=== PATIENT | female | born 1945 | race Caucasian/White ===

== ENCOUNTER 2019-11-21 09:24 | Outpatient (CLI) | payer MEDICARE, OTHER, SELFPAY ==
--- NOTE | 2019-11-21 09:33 | MM_ITS ---
WS: [id number] BILATERAL DIGITAL SCREENING MAMMOGRAPHY WITH CAD CLINICAL INFORMATION: SCREENING HISTORY: Screening mammogram. No current complaints. COMPARISON: TECHNIQUE: Bilateral CC and MLO views. FINDINGS: Scattered fibroglandular densities bilaterally. A few lucent centered calcifications. No suspicious f ocal mass, asymmetry, calcifications, or architectural distortion. No evidence of malignancy. MM/[place] [id number] IMPRESSION: BI-RADS: 2-Benign FOLLOW UP: 1 Year Follow-up Recommend return to annual screening mammography.
== END 2019-11-21 09:25 | disposition home or self-care (01) ==
LOC: RADSHAW 09:31
PROVIDERS: Family Provider Internal Medicine; PCP Internal Medicine; Visit Provider Internal Medicine
DX: Z12.31 Encounter for screening mammogram for malignant neoplasm of breast (principal)
CPT/HCPCS: 77067

== ENCOUNTER 2020-09-07 06:57 | Outpatient (CLI) | payer MEDICARE, OTHER, SELFPAY ==
--- NOTE | 2020-09-07 07:02 | USCV_ITS ---
Sherrell Bruner Age: 74 Gender: F : 1945 Exam Date: 09/07/2020 07:23 Ordering Phys: Janak Johnson DO Technologist: Kimberlee Bell Exam Location: [facility] [place] Indication: Syncope, collapse BP: 156 / 81 HR: 80 Rhythm: Sinus Technical Quality: Adequate MEASUREMENTS (Male / Female) Normal Values 2D ECHO LV Diastolic Diameter PLAX 3.4 cm 4.2 - 5.9 / 3.9 - 5.3 cm LV Systolic Diameter PLAX 2.3 cm LV Chamber Size 3.7 cm IVS Diastolic Thickness 1.1 cm 0.6 - 1.0 / 0.6 - 0.9 cm IVS Systolic Thickness 1.4 cm LVPW Diastolic Thickness 1.0 cm 0.6 - 1.0 / 0.6 - 0.9 cm LVPW Systolic Thickness 1.7 cm RV Chamber Size 4.0 cm LVOT Diameter 2.2 cm LV Ejection Fraction 2D Teich 63.7 % LV Ejection Fraction MOD 2C 75.4 % LV Ejection Fraction 2C AL 77.1 % LA Diameter 2.5 cm LA Width 2.6 cm LA Height 5.2 cm RA Width 2.9 cm RA Height 4.1 cm Aorta at Sinotubular Diameter 3.0 cm M-MODE LV Diastolic Diameter MM 4.6 cm 4.2 - 5.9 / 3.9 - 5.3 cm LV Systolic Diameter MM 3.0 cm LV Ejection Fraction MM Teich 64.7 % IVS Diastolic Thickness MM 1.0 cm 0.6 - 1.0 / 0.6 - 0.9 cm IVS Systolic Thickness MM 1.2 cm LVPW Diastolic Thickness MM 1.0 cm 0.6 - 1.0 / 0.6 - 0.9 cm LVPW Systolic Thickness MM 1.4 cm RV Diastolic Diameter MM 1.2 cm Aortic Annulus Diameter 3.7 cm LA Ao Ratio MM 0.7 MV E Point Septal Separation 0.5 cm DOPPLER AV Peak Velocity 125.0 cm/s LVOT Peak Velocity 94.0 cm/s AV Area Cont Eq vti 3.0 cm squared AV Area Cont Eq pk 2.8 cm squared MV Area PHT 4.3 cm squared Mitral E to A Ratio 0.8 MV E' Velocity 50.0 cm/s Mitral E to MV E' Ratio 9.3 Mitral E to LV E' Lateral Ratio 9.3 Mitral E to LV E' Septal Ratio 9.4 TR Peak Velocity 232.2 cm/s TR Peak Gradient 21.6 mmHg TR Mean Velocity 196.6 cm/s TR Mean Gradient 16.0 mmHg TR Velocity Time Integral 77.0 cm TV Peak E Velocity 45.0 cm/s Right Atrial Pressure 3.0 mmHg Pulmonary Artery Systolic Pressu 24.6 mmHg PV Peak Velocity 76.0 cm/s RV Acceleration Time 0.1 s RV Ejection Time 0.3 s RV AcT/ET 0.2 FINDINGS Left Ventricle Normal left ventricular size, systolic function and wall thickness, with no regional wall motion abnormalities. Left ventricular ejection fraction is estimated at 65 %. Normal diastolic function. Right Ventricle Normal right ventricular size and systolic function, RVSP 24.6 mmHg. Right Atrium Normal right atrial size. Right atrial size estimated at 3 mmHg. Left Atrium Normal left atrial size. Mitral Valve Structurally normal mitral valve. No mitral valve stenosis. Trace mitral valve regurgitation. Aortic Valve Mildly thickened trileaflet aortic valve. No aortic valve stenosis. No aortic valve regurgitation. Tricuspid Valve Structurally normal tricuspid valve. No tricuspid valve stenosis. Mild tricuspid valve regurgitation. Pulmonic Valve Pulmonic valve not well visualized. No pulmonary valve stenosis. Trace pulmonary valve regurgitation. Pericardium No pericardial effusion. Aorta Normal-sized aortic root. Normal-sized inferior vena cava. CONCLUSIONS 1. Normal left ventricular size, systolic function and wall thickness, with no regional wall motion abnormalities. Left ventricular ejection fraction is estimated at 65 %. Normal diastolic function. 2. Normal right ventricular size and systolic function. 3. Normal pulmonary artery pressure. 4. No prior similar studies to compare. Cira Hargrove MD (Electronically Signed) Final Date: 08 September 2020 13:08 S
== END 2020-09-07 06:58 | disposition home or self-care (01) ==
LOC: US 06:57
PROVIDERS: PCP Internal Medicine; Visit Provider Internal Medicine
DX: R55 Syncope and collapse (principal)
CPT/HCPCS: 93306

== ENCOUNTER 2021-03-09 07:01 | Outpatient (CLI) | payer MEDICARE, SELFPAY ==
[2021-03-09 07:09] VITALS: BMI 27.4
--- NOTE | 2021-03-09 07:10 | ECG_ITS ---
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 Interpretive Statements NAME OF STUDY: LEXISCAN SESTAMIBI STRESS TEST INDICATION: Dyspnea on Exertion; Chest Pain PROCEDURE: At the baseline, the blood pressure was 117/66 mmHg, oxygen saturation 97% with a heart rate of 74 bpm. The electrocardiogram showed normal sinus rhythm, normal axis with poor anterior R wave progression. The Lexiscan was infused over a period of 20 seconds. A total of 0.4 milligrams of Lexiscan was infused. The stress phase was continued for a total of 5 minutes. Heart rate at the end of the stress phase was 86 bpm, oxygen saturation 97% with a blood pressure of 118/61 mmHg. The EKG at the peak infusion revealed sinus rhythm with no significant ST-T wave changes. Sestamibi was injected 20 seconds after the Lexiscan infusion. Blood pressure at the end of the recovery phase was 120/62 mmHg, oxygen saturation 95% with a heart rate of 86 beats per minute. CONCLUSION: 1. No significant EKG changes with the LexiScan infusion. 2. No LexiScan induced chest pain or cardiac arrhythmia. 3. Normal blood pressure and heart rate response. 4. Sestamibi/sestamibi perfusion scan pending; see separate report. Electronically Signed On 03-14-2021 16:49:23 CDT by Cira Hargrove M.D. [id number]
--- NOTE | 2021-03-09 07:10 | NMCV_ITS ---
NM marc perf SPECT r/s* [id number] Sherrell Bruner Age: 75 Gender: F : 1945 Exam Date: 03/09/2021 08:11 Ordering Phys: Cira Hargrove MD ([email or web address]) Technologist: NICKOLAS Bean Exam Location: [facility] Indications: DYSPNEA STRESS TEST Please see separate stress test report in [facility] for full findings IMAGE PROTOCOL Rest/Stress 1 Lexiscan Day Radiopharmaceutical Dose (mCi) Administration Site Administered by Rest: Tc-99m 10.6 IV NICKOLAS Thomas Sestamibi Stress:Tc-99m 32.5 IV NICKOLAS Thomas Sestamibi Rest: 09-Mar-2021 60 Discovery 630 Stress: 09-Mar-2021 30 Discovery 630 0.4mg Lexiscan. Images obtained in supine and prone position. SPECT RESULTS Technical Quality: Excellent Raw Data Analysis: Normal Image Corrections: No attenuation or motion correction applied Summed Stress Score: 0 Summed Rest Score: 2 Summed Difference Score: 0 PERFUSION FINDINGS Small size perfusion abnormality of mild severity of basal inferoseptal and apical septal verdugo on rest images with improved tracer uptake on stress images. This is likely suggestive of attenuation artifact. FUNCTIONAL RESULTS (calculated via Gated SPECT) Stress Image LV EF (%): 72 Stress EDV (mL):53 TID: 0.81 Stress ESV (mL):15 FUNCTIONAL FINDINGS: The left ventricle is normal in size. Transient Ischemia Dilatation of 0.81. There is normal left ventricular systolic function. The left ventricular ejection fraction is normal with a value of 72%. There is normal left ventricular wall thickening with no regional wall motion abnormality. Normal end-diastolic end-systolic volumes. IMPRESSIONS 1. Myocardial perfusion imaging is normal. Subdiaphragmatic attenuation artifact noted in mid inferoseptal and apical septal verdugo. 2. Overall left ventricular systolic function is normal without regional wall motion abnormalities. 3. The left ventricular ejection fraction is normal with a value of 72%. 4. No significant EKG changes with Lexiscan infusion. Please see separate report for details. Cira Hargrove MD (Electronically Signed) Final Date: 14 March 2021 16:55 S
--- NOTE | 2021-03-09 09:16 | SUR.PREOP ---
Patient reports no pain or discomfort prior to the start of the procedure.
[2021-03-09] MEDS: regadenoson 0.4 Mg/5 ml Syringe IVP (09:19)
[2021-03-09 09:23] VITALS: BP 119/69; PULSE 89
== END 2021-03-09 07:02 | disposition home or self-care (01) ==
PROVIDERS: PCP Internal Medicine; Visit Provider Internal Medicine Cardiovascular Disease
DX: R06.09 Other forms of dyspnea (principal); I48.91 Unspecified atrial fibrillation; R07.9 Chest pain, unspecified
CPT/HCPCS: 78452; 93017; A9500; J2785

== ENCOUNTER → 2021-06-16 10:59 | Outpatient (BNVA) | payer MEDICARE, SELFPAY | PROVIDERS: PCP Internal Medicine; Visit Provider Internal Medicine | DX: Z01.812 Encounter for preprocedural laboratory examination (principal); Z20.822 Contact with and (suspected) exposure to COVID-19; K92.1 Melena | CPT/HCPCS: 87635 ==

== ENCOUNTER 2021-06-20 07:47 | Day surgery (SDC) | payer MEDICARE, SELFPAY ==
[2021-06-16 14:38] VITALS: BMI 26.6
[2021-06-20 08:19] VITALS: BP 133/79; PULSE 107; RESP 18; TEMP 36.6; O2SAT 95
--- NOTE | 2021-06-20 08:21 | ANES.PREANE2 ---
Pre-Anesthetic Assessment Pre-Anesthetic Assessment: Height/Weight: Height 1.63 m Weight 70.307 kg Preop Diagnosis: hematochezia Proposed Procedure: Operation Date: 06/20/21 09:15 Proposed Procedures p Colonoscopy 63582 K92.1(Not Applicable) - Felix Solis MD Was Beta Kutr taken within 24 hours: Yes Was Clonidine taken within 24 hours: N/A Social: Social History: No alcohol and No tobacco Airway: Submandibular: WNL Cervical ROM: WNL MP: 2 Dentition: Full CV/HEM: CV/HEM: HTN GI: GI: GERD Metabolic: Metabolic: DM and Hyperlipidemia Anesthetic Plan: ASA status: 3 Anesthesia: MAC Risk of > 500 ml blood loss (7ml/kg in children): No PFSH Anesthesia PFSH: Medical History Atrial fibrillation Diabetes Dizziness GERD (gastroesophageal reflux disease) HTN (hypertension) Hyperlipidemia Surgical History Hx of hysterectomy Family History Mother Hypertension Diabetes Father CAD (coronary artery disease) Brother CAD (coronary artery disease) Grandmother Stroke Denies family history of Bleeding disorder Social History Smoking and tobacco status: never smoked Alcohol intake: never Data Anesthesia Cardiac Studies: Cardiac Event Monitor 09/03/20 Holter Monitor 02/07/21
[2021-06-20] MEDS: sodium chloride 0.9% 1,000 ML 30 ML IV (08:35)
[2021-06-20 08:38] LABS: Glucose Point of Care 193 mg/dL (70-110)
--- NOTE | 2021-06-20 09:09 | P.HP_ITS ---
Same Day Surgery H&P Indication for Procedure/HPI DATE OF PROCEDURE: June 20, 2021 CHIEF COMPLAINT/INDICATIONFOR SURGICAL PROCEDURE: Hematochezia PREOP DIAGNOSIS: hematochezia PLANNED PROCEDRUE: Operation Date: 06/20/21 09:15 Proposed Procedures p Colonoscopy 34797 K92.1(Not Applicable) - Felix Solis MD Medications/Allergies* Home Medications Medication Instructions Recorded Confirmed Type allopurinol 300 mg tablet 300 mg PO DAILY 02/02/21 06/20/21 History aspirin 325 mg tablet 325 mg PO DAILY 02/02/21 06/20/21 History glipizide 5 mg tablet 5 mg PO DAILY 02/02/21 06/20/21 History lancets 33 gauge 02/02/21 06/20/21 History lysine 1,000 mg tablet 1,000 mg PO DAILY 02/02/21 06/20/21 History montelukast 10 mg tablet 10 mg PO DAILY 02/02/21 06/20/21 History multivitamin 1 tab PO DAILY 02/02/21 06/20/21 History simvastatin 80 mg tablet 40 mg PO DAILY tab 02/02/21 06/20/21 History amlodipine 10 mg tablet 5 mg PO DAILY tab 03/14/21 06/20/21 History omeprazole 40 mg capsule,delayed 40 mg PO DAILY 05/16/21 06/20/21 History release Allergies/Adverse Reactions Allergy/AdvReac Type Severity Reaction Status Date / Time No Known Allergies Allergy Verified 06/20/21 08:18 Current Medications: Generic Name Dose Route Start Last Admin Trade Name Freq PRN Reason Stop Dose Admin Sodium Chloride 1,000 mls @ 30 mls/hr 06/20/21 08:15 06/20/21 08:35 Sodium Chloride 0.9% IV 06/21/21 08:14 30 mls/hr .Q24H EDUAR Administration Pertinent History/Comorbid Conditions* Medical History (Updated 06/16/21 @ 09:42 by Felix Solis MD) Atrial fibrillation Diabetes Dizziness GERD (gastroesophageal reflux disease) HTN (hypertension) Hyperlipidemia Surgical History (Updated 02/02/21 @ 10:00 by Cira Hargrove MD) Hx of hysterectomy Family History (Updated 02/02/21 @ 09:36 by Marielena Gaspar RN) Diabetes Mother CAD (coronary artery disease) Father Brother Hypertension Mother Stroke Grandmother Denies family history of Bleeding disorder Social History Smoking and tobacco status: never smoked Alcohol intake: never Pertinent Exam Findings alert, oriented x 3, clear to auscultation bilaterally, regular rate & rhythm, operative site marked and procedure specific exam findings Recommendations Surgery/Procedure today Coding Level of Care Code Acute Electronic Security Specialist for Peewee Whitfield
[2021-06-20 10:15] VITALS: BP 88/41; PULSE 90; RESP 16; TEMP 36.6; O2SAT 95
--- NOTE | 2021-06-20 10:19 | ANE.PACU2 ---
Inpatient post-anesthesia follow up: Airway intact: Yes Vital signs: Temperature 97.8 F Pulse Rate 107 Respiratory Rate 18 Blood Pressure 133/79 Pulse Oximetry 95 Oxygen Delivery Me thod Room Air Oxygen Flow Rate Fraction of Inspir ed Oxygen Hydration adequate: Yes Nausea and vomiting: No Pain level: 1 Mental status: Baseline
[2021-06-20 10:29] VITALS: BP 97/63; PULSE 86; RESP 16; O2SAT 98
== END 2021-06-20 10:45 | disposition home or self-care (01) ==
PROVIDERS: PCP Internal Medicine; Visit Provider Internal Medicine
PROC: 0DJD8ZZ Inspection of Lower Intestinal Tract, Via Natural or Artificial Opening Endoscopic (ICD-10-PCS; CPT 45378; principal; 2021-06-20 09:15)
DX: K92.1 Melena (principal); I48.91 Unspecified atrial fibrillation; E11.9 Type 2 diabetes mellitus without complications; K21.9 Gastro-esophageal reflux disease without esophagitis; I10 Essential (primary) hypertension; E78.5 Hyperlipidemia, unspecified; Z82.49 Family history of ischemic heart disease and other diseases of the circulatory system; Z83.3 Family history of diabetes mellitus
CPT/HCPCS: 36416; 45385; 82962; 96360; J2704; J7030

== ENCOUNTER 2021-11-22 08:32 | Outpatient (CLI) | payer MEDICARE, SELFPAY ==
--- NOTE | 2021-11-22 08:37 | MM_ITS ---
WS: [id number] BILATERAL DIGITAL SCREENING MAMMOGRAPHY WITH CAD CLINICAL INFORMATION: SCREENING HISTORY: Screening mammogram. No current complaints. COMPARISON: November 21, 2019 TECHNIQUE: Bilateral CC and MLO views. FINDINGS: Scattered fibroglandular densities bilaterally. Punctate and lucent centered calcifications RIGHT donny ast. No suspicious focal mass, asymmetry, calcifications, or architectural distortion. No evidence of malignancy. MM/[id number] IMPRESSION: BI-RADS: 2-Benign FOLLOW UP: 1 Year Follow-up Recommend return to annual screening mammography.
== END 2021-11-22 08:33 | disposition home or self-care (01) ==
PROVIDERS: PCP Internal Medicine; Visit Provider Internal Medicine
DX: Z12.31 Encounter for screening mammogram for malignant neoplasm of breast (principal)
CPT/HCPCS: 77067

== ENCOUNTER → 2022-02-15 11:00 | Outpatient (BNVA) | payer MEDICARE, SELFPAY | PROVIDERS: PCP Internal Medicine; Visit Provider Internal Medicine Cardiovascular Disease | DX: I48.0 Paroxysmal atrial fibrillation (principal); R42 Dizziness and giddiness; I10 Essential (primary) hypertension; E78.5 Hyperlipidemia, unspecified; E11.9 Type 2 diabetes mellitus without complications; K21.9 Gastro-esophageal reflux disease without esophagitis; R00.2 Palpitations | CPT/HCPCS: 93270; 99214 ==

== ENCOUNTER 2022-02-20 13:15 | Outpatient (CLI) | payer MEDICARE, SELFPAY ==
--- NOTE | 2022-02-20 13:27 | XR_ITS ---
WS: [id number] SCREENING DEXA SCAN [employer] CLINICAL INFORMATION: POSTMENOPAUSAL COMPARISON: None. FINDINGS: The L1-L4 bone mineral density measures 0.969 g/cm2. This corresponds to a T score score of -1.8 and Z score of -0.3. Left femoral neck bone mineral density measures 0.646 g/cm2. This corresponds to a T score of -2.9 an d Z score of -1.3. Right femoral neck bone mineral density measures 0.676 g/cm2. This corresponds to a T score -2.6of an d Z score of -1.1. Mean femoral neck bone mineral density measures 0.661 g/cm2. This corresponds to a T score of -2.8 an d Z score of -1.2. XR/XR DEXA axial skeleton* [id number] IMPRESSION: Osteopenia lumbar spine. Osteoporosis in the femoral necks. Patient's FRAX calculated 10 year probability for major osteoporotic fracture i s 23.4 % and osteoporotic hip fracture is 9.8%.
== END 2022-02-20 13:16 | disposition home or self-care (01) ==
LOC: RAD 13:19
PROVIDERS: PCP Internal Medicine; Visit Provider Nurse Practitioner Family
DX: Z78.0 Asymptomatic menopausal state (principal); M85.88 Other specified disorders of bone density and structure, other site; M81.0 Age-related osteoporosis without current pathological fracture
CPT/HCPCS: 77080

== ENCOUNTER 2022-04-26 11:15 | Inpatient (IN) | payer MEDICARE, SELFPAY ==
[2022-04-26] VITALS (17 sets, daily range): BP systolic 107–135; BP diastolic 62–77; PULSE 70–109; RESP 16–46; TEMP 37.1; O2SAT 80–100; BMI 27.4; BMI 27.8
--- NOTE | 2022-04-26 13:20 | XRR_ITS ---
XR/XR chest 1V portable [id number] PROCEDURE INFORMATION: Exam: XR Chest Exam date and time: 04/26/2022 1:25 PM Age: 76 years old Clinical indication: Other: Light-headendess; Additional info: Ligth-headendess TECHNIQUE: Imaging protocol: Radiologic exam of the chest. Views: 1 view. COMPARISON: [facility] Chest 2 views 09/08/2015 10:00 AM FINDINGS: Lungs: Unremarkable. No consolidation. Pleural spaces: Unremarkable. No pleural effusion. No pneumothorax. Heart/Mediastinum: Unremarkable. No cardiomegaly. Bones/joints: Unremarkable. Comparison to prior examination similar findings are seen. MPRESSION: No acute findings.
--- NOTE | 2022-04-26 13:21 | ECG_ITS ---
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 Measurements Intervals [place] Rate: 104 P: 35 AL: 182 QRS: -15 QRSD: 92 T: 92 QT: 319 QTc: 420 Interpretive Statements SINUS TACHYCARDIA ST DEVIATION AND MODERATE T-WAVE ABNORMALITY, CONSIDER LATERAL ISCHEMIA [-0.1+ mV T-WAVE IN I/aVL/V5/V6] No previous ECG available for comparison Electronically Signed On 04-26-2022 16:28:15 CDT by Ed Weldon M.D. [id number]
--- NOTE | 2022-04-26 13:38 | ED_ITS ---
HPI - Dizziness General: Chief Complaint: Dizziness Stated Complaint: Weakness and Dizziness Time Seen by Provider: 04/26/22 12:55 PFSH ED PFSH: Medical History Atrial fibrillation Diabetes Dizziness GERD (gastroesophageal reflux disease) HTN (hypertension) Hyperlipidemia Surgical History Hx of hysterectomy Family History Mother Hypertension Diabetes Father CAD (coronary artery disease) Brother CAD (coronary artery disease) Grandmother Stroke Denies family history of Bleeding disorder Social History Smoking and tobacco status: never smoked Alcohol intake: never Course Vital Signs: Vital signs: Vital Signs Temperature 98.8 F 04/26/22 11:33 Pulse Rate 100 04/26/22 11:33 Respiratory Rate 16 04/26/22 11:33 Blood Pressure 124/77 04/26/22 11:33 Pulse Oximetry 95 04/26/22 11:33 Discharge Plan Discharge Condition: Stable Prescriptions: No Action lysine 1,000 mg tablet 1,000 mg PO DAILY 0RF (DME) lancets [OneTouch Delica Lancets] 33 gauge misc See Rx Instructions .Route 0RF Rx Instructions: As directed allopurinol 300 mg tablet 300 mg PO DAILY 0RF glipizide 5 mg tablet 5 mg PO DAILY 0RF simvastatin 80 mg tablet 40 mg PO DAILY 0RF montelukast [Singulair] 10 mg tablet 10 mg PO DAILY 0RF multivitamin Tablet 1 tab PO DAILY 0RF aspirin 325 mg tablet 325 mg PO BID 0RF metoprolol succinate 100 mg tablet extended release 24 hr 100 mg PO DAILY Qty: 90 5RF lisinopril-hydrochlorothiazide 20-25 mg tablet 1 tab PO DAILY Qty: 90 3RF omeprazole 40 mg capsule,delayed release(DR/EC) 40 mg PO DAILY 0RF cholecalciferol (vitamin D3) 50 mcg (2,000 unit) capsule 50 mcg PO DAILY 0RF amlodipine 5 mg tablet 5 mg PO DAILY 0RF Farxiga 5 mg tablet 5 mg PO DAILY Qty: 90 3RF azelastine 137 mcg (0.1 %) aerosol,spray 2 spray intranasal BID PRN0RF Rx Instructions: administer into each nostril furosemide 20 mg tablet 20 mg PO DAILY PRN (Reason: edema) Qty: 30 6RF Referrals: Janak Johnson DO [Primary Care Provider] - Coding Level of Care Code ED Office Machine Service Supervisor for Peewee Whitfield
--- NOTE | 2022-04-26 13:39 | W.ED.GENADLT ---
HPI - General Adult General: Chief complaint: Dizziness Stated complaint: Weakness and Dizziness Time Seen by Provider: 04/26/22 12:55 History of Present Illness: Patient is a 76-year-old female with a history of CHF, hypertension, atrial fibrillation presenting to the emergency room with concerns of generalized weakness, fatigue and multiple episodes of emesis since yesterday night. Per patient's son, the last 2 weeks, patient has been dealing with a sinus infection for which she completed a course of outpatient antibiotics on Sunday. Since then, patient reports provement in cough. However since yesterday, patient felt fatigue and has had multiple episodes of emesis. Patient denies any chest pain, shortness of breath, chest pressure, diarrhea, melena hematochezia complaints or abdominal pain. Patient also denies any fever/chills, runny nose sore throat. Onset: yesterday night Duration:ongoing Location:home Severity:moderate Associated symptoms: Reports malaise; Deny chest pain, dyspnea, nausea, rash, palpitations or vomiting Review of Systems Const: Reports: malaise and other (+generalized weakness); Denies: fever(s) or chills Eyes: Denies: change in vision ENMT: Denies: mouth pain Card: Denies: chest pain or palpitations Resp: Denies: dyspnea or non-productive cough GI: Denies: abdominal pain, nausea, vomiting or diarrhea : Denies: dysuria Musc: Denies: extremity pain Skin/Breast: Denies: rash or new lesions Neuro: Denies: weakness in extremities Psych: Reports: other (Normal mood) Lopez/Lymph: Denies: easy bruising PFSH ED PFSH: Medical History Atrial fibrillation Diabetes Dizziness GERD (gastroesophageal reflux disease) HTN (hypertension) Hyperlipidemia Surgical History Hx of hysterectomy Family History Mother Hypertension Diabetes Father CAD (coronary artery disease) Brother CAD (coronary artery disease) Grandmother Stroke Denies family history of Bleeding disorder Social History Smoking and tobacco status: never smoked Alcohol intake: never Physical Exam Const: COMMON NORMALS: alert HENMT: COMMON NORMALS: atraumatic HEAD & SCALP: atraumatic MOUTH: moist mucous membranes abnormal Eye: COMMON NORMALS: EOMs intact bilaterally and conjunctivae normal CONJUNCTIVA: Yes conjunctivae normal Neck/C-Spine: COMMON NORMALS: full ROM and supple Resp: COMMON NORMALS: normal respiratory effort and clear to auscultation bilaterally AUSCULTATION: clear to auscultation bilaterally Cardio: COMMON NORMALS: regular rate RATE: regular rate GI: COMMON NORMALS: Soft to palpation and non-tender PALPATION: Yes Soft to palpation OTHER: No focal TTP. NO guarding rebound, guarding, rigidity. No CVA tenderness to percussion. Neg Patel/Neg McBurney's point tenderness, no suprabupic tenderness to palpation. Extremity: COMMON NORMALS: full ROM Neuro: SENSORIUM/ORIENTATION: Yes alert MOTOR EXAM: No Abnormal motor strength present and Other motor observations present (no focal motor deficits) Psych: COMMON NORMALS: speech normal SPEECH: Yes normal speech MOOD & AFFECT: Yes euthymic mood Course Vital Signs: Vital signs: Vital Signs Temperature 98.8 F 04/26/22 11:33 Pulse Rate 103 H 04/26/22 13:40 Respiratory Rate 16 04/26/22 11:33 Blood Pressure 120/65 04/26/22 13:40 Pulse Oximetry 90 04/26/22 13:40 [facility] - General Adult Medical Decision Making Patient is a 76-year-old female with history of atrial fibrillation, hypertension, CHF who presents emergency room with chief complaint generalized weakness, lightheadedness and multiple episodes of emesis since yesterday night. On physical exam, patient appears to be dry. Hemodynamically stable with no focal findings on physical exam. EKG is nonischemic. Initial troponin of 597. Patient received aspirin Lovenox. Patient is no complaints of chest pain the emergency room. K of 2.9, will repeat today. Disposition: admisison Lab Data : 04/26/22 13:40 04/26/22 13:40 Radiology Impressions Chest X-Ray 04/26/22 13:20 PROCEDURE INFORMATION: Exam: XR Chest Exam date and time: 04/26/2022 1:25 PM Age: 76 years old Clinical indication: Other: Light-headendess; Additional info: Ligth-headendess TECHNIQUE: Imaging protocol: Radiologic exam of the chest. Views: 1 view. COMPARISON: [facility] Chest 2 views 09/08/2015 10:00 AM FINDINGS: Lungs: Unremarkable. No consolidation. Pleural spaces: Unremarkable. No pleural effusion. No pneumothorax. Heart/Mediastinum: Unremarkable. No cardiomegaly. Bones/joints: Unremarkable. Comparison to prior examination similar findings are seen. MPRESSION: No acute findings. Laboratory Results WBC 13.9 10^3/uL (4.0-10.0) H 04/26/22 13:40 RBC 5.01 10^6/uL (4.1-5.3) 04/26/22 13:40 Hgb 13.4 g/dL (11.5-15.3) 04/26/22 13:40 Hct 40.7 % (37.0-47.0) 04/26/22 13:40 MCV 81.2 fl (81-99) 04/26/22 13:40 MCH 26.7 pg (28.0-34.0) L 04/26/22 13:40 MCHC 32.9 g/dL (30.0-36.0) 04/26/22 13:40 RDW 15.1 % (12.1-15.1) 04/26/22 13:40 Plt Count 227 10^3/cmm (130-400) 04/26/22 13:40 MPV 11.3 fL (7.4-10.4) H 04/26/22 13:40 Neut % (Auto) 85.3 % 04/26/22 13:40 Lymph % (Auto) 7.9 % 04/26/22 13:40 Barber % (Auto) 5.5 % 04/26/22 13:40 Eos % (Auto) 0.1 % 04/26/22 13:40 Baso % (Auto) 0.6 % 04/26/22 13:40 Neut # (Auto) 11.87 10^3/uL (1.8-7.7) H 04/26/22 13:40 Lymph # (Auto) 1.1 10^3/uL (0.8-4.8) 04/26/22 13:40 Barber # (Auto) 0.8 10^3/uL (0.2-0.9) 04/26/22 13:40 Eos # (Auto) 0.0 10^3/uL (0.0-0.8) 04/26/22 13:40 Baso # (Auto) 0.1 10^3/uL (0.0-0.1) 04/26/22 13:40 Nucleated RBC % (auto) 0 % 04/26/22 13:40 Nucleated RBCs # 0.0 /100WBC 04/26/22 13:40 Sodium 137 mmol/L (136-145) 04/26/22 13:40 Potassium 2.9 mmol/L (3.5-5.1) L 04/26/22 13:40 Chloride 94 mmol/L (98-107) L 04/26/22 13:40 Carbon Dioxide 27 mmol/L (22-29) 04/26/22 13:40 Anion Gap 18.9 (5-19) 04/26/22 13:40 BUN 12 mg/dL (8-23) 04/26/22 13:40 Creatinine 0.7 mg/dL (0.5-0.9) 04/26/22 13:40 GFR Calculation Not Reportable 04/26/22 13:40 Glucose 212 mg/dL (65-115) H 04/26/22 13:40 Calculated Osmolality 290 mOsm/kg (285-295) 04/26/22 13:40 Calcium 9.5 mg/dL (8.5-10.5) 04/26/22 13:40 Total Bilirubin 0.3 mg/dL (0.15-1.2) 04/26/22 13:40 AST 27 U/L (0-32) 04/26/22 13:40 ALT 14 U/L (0-33) 04/26/22 13:40 Alkaline Phosphatase 78 IU/L (35-105) 04/26/22 13:40 Troponin T Baseline 597 ng/L (0-10) H* 04/26/22 13:40 Total Protein 7.0 g/dL (6.6-8.7) 04/26/22 13:40 Albumin 4.2 g/dL (3.5-5.2) 04/26/22 13:40 Globulin 2.8 g/dL (1.3-4.6) 04/26/22 13:40 Lipase 22 U/L (13-60) 04/26/22 13:40 TSH 0.48 uIU/mL (0.27-4.20) 04/26/22 13:40 Free T4 1.10 ng/dL (0.82-1.77) 04/26/22 13:40 Imaging Data Other Imaging: [facility]'s impression: [facility] [address] [place] [address] XRay Report Signed Patient: Sherrell Bruner Unit #: [id number] : 1945 Age/Sex: 76 / F ADM Date: 04/26/22 Loc: ER Room/Bed: Attending Dr: Ordering Provider/Ordering MD: Denisha Patel MD Date of Service: 04/26/22 Procedure(s): XR chest 1V portable [id number] Accession Number(s): [id number] Report Number: [id number] XR/XR chest 1V portable [id number] PROCEDURE INFORMATION: Exam: XR Chest Exam date and time: 04/26/2022 1:25 PM Age: 76 years old Clinical indication: Other: Light-headendess; Additional info: Ligth-headendess ? TECHNIQUE: Imaging protocol: Radiologic exam of the chest. Views: 1 view. ? COMPARISON: ? [facility] Chest 2 views 09/08/2015 10:00 AM ? FINDINGS: Lungs: Unremarkable. No consolidation. Pleural spaces: Unremarkable. No pleural effusion. No pneumothorax. Heart/Mediastinum: Unremarkable. No cardiomegaly. Bones/joints: Unremarkable. Comparison to prior examination similar findings are seen.? ? MPRESSION: No acute findings. ? ? 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
[2022-04-26 14:01] LABS: Basophils # 0.1 10^3/uL (0.0-0.1); Basophils % 0.6 %; Eosinophils % 0.1 %; Hematocrit 40.7 % (37.0-47.0); Hemoglobin 13.4 g/dL (11.5-15.3); Lymphocytes # 1.1 10^3/uL (0.8-4.8); Lymphocytes % 7.9 %; Mean Corpuscular HGB Conc 32.9 g/dL (30.0-36.0); Mean Corpuscular Hemoglobin 26.7 pg (28.0-34.0); Mean Corpuscular Volume 81.2 fl (81-99); Mean Platelet Volume 11.3 fL (7.4-10.4); Monocytes # 0.8 10^3/uL (0.2-0.9); Monocytes % 5.5 %; Neutrophils # 11.87 10^3/uL (1.8-7.7); Neutrophils % 85.3 %; Nucleated Red Blood Cells % 0 %; Platelet Count 227 10^3/cmm (130-400); Red Blood Count 5.01 10^6/uL (4.1-5.3); Red Cell Distribution Width 15.1 % (12.1-15.1); White Blood Count 13.9 10^3/uL (4.0-10.0)
[2022-04-26 14:42] LABS: Troponin(5th) Baseline 597 ng/L (0-10)
[2022-04-26 14:45] LABS: Alanine Aminotransferase 14 U/L (0-33); Albumin Level 4.2 g/dL (3.5-5.2); Alkaline Phosphatase 78 IU/L (35-105); Anion Gap 18.9 (5-19); Aspartate Amino Transferase 27 U/L (0-32); Blood Urea Nitrogen 12 mg/dL (8-23); Calcium 9.5 mg/dL (8.5-10.5); Carbon Dioxide 27 mmol/L (22-29); Chloride 94 mmol/L (98-107); Creatinine Clr Calc Pharmacy 57.1327; Globulin 2.8 g/dL (1.3-4.6); Glucose 212 mg/dL (65-115); Lipase 22 U/L (13-60); Osmolality Calculated 290 mOsm/kg (285-295); Sodium 137 mmol/L (136-145); Thyroid Stimulating Hormone 0.48 uIU/mL (0.27-4.20); Total Bilirubin 0.3 mg/dL (0.15-1.2)
[2022-04-26 14:51] LABS: Potassium 2.9 mmol/L (3.5-5.1)
--- NOTE | 2022-04-26 15:21 | ECG_ITS ---
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 Measurements Intervals [place] Rate: 106 P: 38 [place]: 195 QRS: -29 QRSD: 95 T: 116 QT: 316 QTc: 420 Interpretive Statements SINUS TACHYCARDIA INFERIOR MYOCARDIAL INFARCTION , PROBABLY OLD [40+ ms Q WAVE AND/OR ST/T ABNORMALITY IN II/aVF] MODERATE T-WAVE ABNORMALITY, CONSIDER LATERAL ISCHEMIA [-0.1+ mV T WAVE IN I/aVL/V5/V6] Compared to ECG 04/26/2022 15:24:33 Myocardial infarct finding now present Possible ischemia now present T-wave abnormality still present Electronically Signed On 04-26-2022 23:24:05 CDT by Ed Weldon M.D. [id number]
[2022-04-26] MEDS: potassium chloride ER 20 mEq Tablet 40 MEQ PO (15:23)
[2022-04-26] MEDS: enoxaparin 80 mg/0.8 mL Syringe 70 MG SUBCUT ×2 (15:23→21:48)
[2022-04-26] MEDS: aspirin 325 mg Tablet PO (15:23)
[2022-04-26] MEDS: potassium chloride premix 100 ML 25 MEQ IV (15:26)
--- NOTE | 2022-04-26 16:58 | P.HP_ITS ---
Providers/Chief Complaint Primary Care Provider: Janak Johnson DO Chief Complaint: Weakness and Dizziness History of Present Illness Sherrell Bruner is a 76 year old female ?with PMHx of HTN , DM-2 on OHA (HbA1C ~6.6) x 5 years, HLD and GERD, atrial fibrillation, was brought in with chief complaint of generalized weakness , going on for the last couple of days, she also experienced fall at home, she was also complaining of mild substernal chest pain, for the past few days, history taking is very difficult as the patient is very hard of hearing. Upon arrival in the ER she was worked up for above-mentioned complaint: Pertinent imaging studies: CT head without contrast: No acute intracranial pathology X-ray chest: No acute findings. EKG: Sinus tachycardia, with nonspecific ST-T wave changes Pertinent labs: WBC: 13 , H&H: 13/40 , PLT : 227 , serum sodium 137 serum potassium 2.9, BUN serum creatinine: 12/0.7 , Troponin trend: 597-630 TSH: 0.48 Influenza negative, rapid COVID antigen negative Review of Systems General: Reports: 10 or more systems reviewed and unremarkable except in HPI and below Const: Denies: fever(s), chills, body aches, change in appetite or diaphoresis Card: Denies: palpitations, edema, swelling of feet/ankles, dyspnea on exertion, orthopnea or leg pain with exertion Resp: Denies: dyspnea, productive cough, wheezing or pain on inspiration GI: Denies: abdominal pain, nausea, vomiting, diarrhea or constipation : Denies: flank pain Musc: Denies: back pain, extremity pain or extremity swelling Neuro: Denies: headache(s), difficulty walking or confusion Medications/Allergies Home Medications Medication Instructions Recorded Confirmed Last Taken Type allopurinol 300 mg tablet 300 mg PO DAILY 02/02/21 04/26/22 04/25/22 History lancets 33 gauge (OneTouch Delica 02/02/21 04/26/22 06/19/21 History Lancets) lysine 1,000 mg tablet 1,000 mg PO DAILY 02/02/21 04/26/22 04/25/22 History montelukast 10 mg tablet 10 mg PO DAILY 02/02/21 04/26/22 04/25/22 History (Singulair) multivitamin 1 tab PO DAILY 02/02/21 04/26/22 04/25/22 History simvastatin 80 mg tablet 40 mg PO DAILY tab 02/02/21 04/26/22 04/25/22 History omeprazole 40 mg capsule,delayed 40 mg PO DAILY 05/16/21 04/26/22 04/25/22 History release lisinopril 20 1 tab PO DAILY #90 tab 06/27/21 04/26/22 04/25/22 Rx mg-hydrochlorothiazide 25 mg tablet metoprolol succinate 100 mg 100 mg PO DAILY #90 tab 06/27/21 04/26/22 04/25/22 Rx tablet,extended release 24 hr amlodipine 5 mg tablet 5 mg PO DAILY 10/17/21 04/26/22 04/25/22 History dapagliflozin 5 mg tablet (Farxiga) 5 mg PO DAILY #90 tab 10/19/21 04/26/22 04/25/22 Rx aspirin 325 mg tablet 325 mg PO BID tab 02/15/22 04/26/22 04/25/22 History azelastine 137 mcg (0.1 %) nasal 2 spray INTRANASAL BID PRN 02/15/22 04/26/22 Unknown History spray aerosol cholecalciferol (vitamin D3) 50 50 mcg PO DAILY 02/15/22 04/26/22 04/25/22 History mcg (2,000 unit) capsule furosemide 20 mg tablet 20 mg PO DAILY PRN #30 tab 02/27/22 04/26/22 Unknown Rx glipizide 5 mg tablet, extended 5 mg PO DAILY 04/26/22 04/26/22 04/25/22 History release 24 hr metformin 500 mg tablet,extended 1,000 mg PO BID 04/26/22 04/26/22 04/25/22 History release 24 hr Allergies Allergy/AdvReac Type Severity Reaction Status Date / Time No Known Allergies Allergy Verified 10/19/21 14:50 PFSH Acute PFSH: Medical History (Updated 04/26/22 @ 19:42 by Ruy Beck MD) Atrial fibrillation Diabetes Dizziness GERD (gastroesophageal reflux disease) HTN (hypertension) Hyperlipidemia Surgical History Hx of hysterectomy Family History Mother Hypertension Diabetes Father CAD (coronary artery disease) Brother CAD (coronary artery disease) Grandmother Stroke Denies family history of Bleeding disorder Social History Smoking and tobacco status: never smoked Alcohol intake: never Vitals/I&O/Wt Last Vital Signs Temp 98.8 F 04/26/22 11:33 Pulse 103 H 04/26/22 13:40 Resp 16 04/26/22 11:33 BP 120/65 04/26/22 13:40 Pulse Ox 90 04/26/22 13:40 Weight last 48 hrs Weight 70.307 kg Physical Exam Const: COMMON NORMALS: patient oriented x3 HENMT: COMMON NORMALS: normocephalic and atraumatic HEAD & SCALP: normocephalic and atraumatic Resp: COMMON NORMALS: clear to auscultation bilaterally EFFORT & INSPECTION: Yes symmetric chest movement AUSCULTATION: clear to auscultation bilaterally Cardio: COMMON NORMALS: regular rate, regular rhythm, S1 normal heart sound present, S2 normal heart sound present, No gallops present (Cardio), No murmurs present (Cardio), No rub (Cardio) and Peripheral pulses 2+ throughout RATE: regular rate RHYTHM: regular rhythm HEART SOUNDS: S1 normal heart sound present and S2 normal heart sound present PERIPHERAL PULSES: Peripheral pulses 2+ throughout GI: COMMON NORMALS: Normal to inspection, nondistended, normoactive bowel sounds present, Soft to palpation, non-tender, No hepatosplenomegaly present and no masses AUSCULTATION: Yes normoactive bowel sounds PALPATION: Yes Soft to palpation and Yes No hepatosplenomegaly present RECTAL EXAM: deferred Extremity: COMMON NORMALS: no clubbing, cyanosis or edema and no pedal edema Neuro: COMMON NORMALS: patient oriented x3 Data : 04/26/22 13:40 04/26/22 13:40 A&P Assessment and plan (1) Non-ST elevation PA (NSTEMI): Status: Acute (2) Generalized weakness: Status: Acute (3) Hypokalemia: Status: Acute (4) Diabetes: Status: Acute Qualifiers: Diabetes mellitus complication status: without complication Diabetes mellitus fpc insulin use: without fpc use Diabetes mellitus type: type 2 Qualified Code(s): E11.9 - Type 2 diabetes mellitus without complicat ions (5) HTN (hypertension): Status: Acute Qualifiers: Hypertension type: essential hypertension Qualified Code(s): I10 - Essential (primary) hypertension (6) Atrial fibrillation: Status: Acute Plan 76 year old female ?with PMHx of HTN , DM-2 on OHA (HbA1C ~6.6) x 5 years, HLD and GERD, atrial fibrillation, on Eliquis at home, was brought in with chief complaint of generalized weakness , going on for the last couple of days, she also experienced fall at home, she was also complaining of mild substernal chest pain, for the past few days. Assessment: NSTEMI History of atrial fibrillation Hypertension Diabetes Dyslipidemia Generalized weakness Plan: Currently patient is on ACS protocol (aspirin statin therapeutic anticoag ulation, beta-loraine, sublingual nitro as needed) Patient had a nuclear stress test done in : 03/28 : Myocardial perfusion imaging is normal.Subdiaphragmatic attenuation artifact noted in mid inferoseptal and apical septal verdugo. Follow-up 2D echo Follow CK Continue telemetry monitoring LSSI, monitor fingerstick glucose Cardiology consult CODE STATUS: Limited resuscitation DVT prophylaxis: Not needed on therapeutic Lovenox Attestations Medical Necessity Statement*: Patient needs to be in hospital for management of NSTEMI. Anticipated length of stay greater than 2 midnights. Coding Level of Care Code Acute Research And Development Chemist for [facility] Fwd Exam Detailed Diagnoses Non-ST elevation PA (NSTEMI) I21.4 Generalized weakness R53.1 Hypokalemia E87.6 Diabetes E11.9 Diabetes mellitus complication status: without complication Diabetes mellitus intermediate accountant insulin use: without fpc use Diabetes mellitus type: type 2 HTN (hypertension) I10 Hypertension type: essential hypertension Atrial fibrillation I48.91
--- NOTE | 2022-04-26 16:58 | CTR_ITS ---
PROCEDURE INFORMATION: Exam: CT Head Without Contrast Exam date and time: 04/26/2022 5:32 PM Age: 76 years old Clinical indication: Weakness, extremity; Bilateral; Patient HX: Weakness in legs, low potassium; Additional info: Weakness, S/P fall TECHNIQUE: Imaging protocol: Computed tomography of the head without contrast. Radiation optimization: All CT scans at this facility use at least one of these dose optimization techniques: automated exposure control; mA and/or kV adjustment per patient size (includes targeted exams where dose is matched to clinical indication); or iterative reconstruction. COMPARISON: No relevant prior studies available. RADIATION DOSE METRICS: Total DLP (mGy-cm): 1172.18 FINDINGS: Brain: Normal. No hemorrhage. Unremarkable white matter. No mass effect. Cerebral ventricles: No ventriculomegaly. Paranasal sinuses: Visualized sinuses are unremarkable. No fluid levels. Mastoid air cells: Visualized mastoid air cells are well aerated. Bones/joints: Unremarkable. No acute fracture. Soft tissues: Unremarkable. CT/CT head wo con* [id number] IMPRESSION: No acute intracranial abnormality.
--- NOTE | 2022-04-26 17:00 | USCV_ITS ---
Franc Sherrell Age: 76 Gender: F : 1945 Exam Date: 04/26/2022 18:38 Ordering Phys: Ruy Beck MD Technologist: BENITO Exam Location: [facility] Indication: chest pain. No history of cardiac intervention per patient. BP: 120 / 79 HR: 98 Rhythm: Atrial fibrillation Technical Quality: Adequate MEASUREMENTS (Male / Female) Normal Values 2D ECHO LV Diastolic Diameter PLAX 4.2 cm 4.2 - 5.9 / 3.9 - 5.3 cm LV Systolic Diameter PLAX 2.8 cm IVS Diastolic Thickness 1.0 cm 0.6 - 1.0 / 0.6 - 0.9 cm IVS Systolic Thickness 2.0 cm LVPW Diastolic Thickness 1.1 cm 0.6 - 1.0 / 0.6 - 0.9 cm LVPW Systolic Thickness 1.4 cm LVOT Diameter 2.1 cm LV Ejection Fraction 2D Teich 64.4 % LV Ejection Fraction MOD 2C 68.9 % LV Ejection Fraction 2C AL 69.6 % LA Diameter 3.4 cm LA Width 2.9 cm LA Height 5.2 cm RA Width 3.8 cm RA Height 4.1 cm Aorta at Sinotubular Diameter 3.0 cm IVC Diameter 1.9 cm M-MODE Aortic Annulus Diameter 3.1 cm LA Ao Ratio MM 1.1 MV E Point Septal Separation 0.4 cm DOPPLER AV Peak Velocity 116.0 cm/s LVOT Peak Velocity 72.0 cm/s AV Area Cont Eq vti 2.3 cm squared AV Area Cont Eq pk 2.1 cm squared MV Peak Velocity 114.0 cm/s MV Area PHT 3.9 cm squared MV E' Velocity 70.5 cm/s Mitral E to MV E' Ratio 13.4 Mitral E to LV E' Lateral Ratio 13.7 Mitral E to LV E' Septal Ratio 13.2 TR Peak Velocity 271.0 cm/s TR Peak Gradient 29.4 mmHg TV Peak E Velocity 61.0 cm/s Right Atrial Pressure 10.0 mmHg Pulmonary Artery Systolic Pressu 39.4 mmHg PV Peak Velocity 97.0 cm/s RV Acceleration Time 0.1 s RV Ejection Time 0.3 s RV AcT/ET 0.3 FINDINGS Left Ventricle Normal left ventricular size, systolic function and wall thickness, with no regional wall motion abnormalities. Normal left ventricular wall thickness. Normal diastolic filling pattern. Right Ventricle The right ventricle is normal in size and function. Right Atrium The right atrium is normal in size. Left Atrium Mildly increased left atrial size. Mitral Valve Trace to mild mitral valve regurgitation. Aortic Valve Thickened aortic valve. Tricuspid Valve Trace to mild tricuspid valve regurgitation. Pulmonic Valve Trace pulmonary valve regurgitation. Pericardium Normal pericardium without effusion. Aorta Normal ascending aorta dimension. IVC Normal IVC dimension with <50% respiratory change of the inferior vena cava. CONCLUSIONS Normal left ventricular size, systolic function and wall thickness, with no regional wall motion abnormalities. Normal left ventricular wall thickness. Normal diastolic filling pattern. Mildly increased left atrial size. Trace to mild mitral and tricuspid valve regurgitation. Thickened aortic valve. Estimated pulmonary artery peak systolic pressure of 39 mmHg Trace pulmonary valve regurgitation. There is no pericardial effusion. There are no intracardiac masses. Technically somewhat difficult study because of poor ultrasonic window Compared to the previous study, study from 09/07/2020, there may not be a significant change Dr Raleigh Hanson MD [facility] (Electronically Signed) Final Date: 26 April 2022 21:05 S
[2022-04-26 17:29] LABS: Troponin 5 2HR 630.3 ng/L (0-10)
[2022-04-26 17:30] LABS: Troponin 5 2HR Delta 33.3 ABS# (0-10)
[2022-04-26] MEDS: sodium chlor 0.9% + KCl 20 mEq 20 MEQ/1,000 ML BAG 50 MEQ IV (17:53)
[2022-04-26 17:58] LABS: Influenza A by IFA Negative (Negative); Influenza B by IFA Negative (Negative); SARS Covid-2 Antigen Negative (Negative)
--- NOTE | 2022-04-26 19:21 | ECG_ITS ---
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 Measurements Intervals [place] Rate: 104 P: 32 [place]: 168 QRS: 2 QRSD: 87 T: 94 QT: 312 QTc: 411 Interpretive Statements SINUS TACHYCARDIA NONSPECIFIC ST & T-WAVE ABNORMALITY Compared to ECG 04/26/2022 13:34:24 Possible ischemia no longer present T-wave abnormality still present Electronically Signed On 04-26-2022 16:33:03 CDT by Ed Weldon M.D. [id number]
[2022-04-26 20:42] LABS: Troponin 5 6HR 978.9 ng/L (0-10); Troponin 5 6HR Delta 381.9 ng/L (0-12)
[2022-04-26 21:45] LABS: Glucose Point of Care 190 mg/dL (70-110)
[2022-04-26] MEDS: insulin lispro 100 unit/1 mL SUBCUT (21:47)
[2022-04-26] MEDS: atorvastatin 40 mg Tablet 20 MG PO (21:48)
[2022-04-27] VITALS (44 sets, daily range): BP systolic 73–137; BP diastolic 47–78; PULSE 56–108; RESP 18–45; TEMP 36.7–38.8; O2SAT 84–97
[2022-04-27 05:06] LABS: Basophils # 0.1 10^3/uL (0.0-0.1); Basophils % 0.6 %; Hematocrit 37.3 % (37.0-47.0); Hemoglobin 11.7 g/dL (11.5-15.3); Lymphocytes # 1.6 10^3/uL (0.8-4.8); Mean Corpuscular HGB Conc 31.4 g/dL (30.0-36.0); Mean Corpuscular Hemoglobin 26.7 pg (28.0-34.0); Mean Corpuscular Volume 85.2 fl (81-99); Monocytes # 1.3 10^3/uL (0.2-0.9); Monocytes % 10.5 %; Neutrophils # 9.45 10^3/uL (1.8-7.7); Neutrophils % 75.4 %; Nucleated Red Blood Cells % 0 %; Platelet Count 184 10^3/cmm (130-400); Red Blood Count 4.38 10^6/uL (4.1-5.3); Red Cell Distribution Width 15.7 % (12.1-15.1); White Blood Count 12.5 10^3/uL (4.0-10.0)
[2022-04-27 05:29] LABS: Alanine Aminotransferase 14 U/L (0-33); Albumin Level 3.5 g/dL (3.5-5.2); Alkaline Phosphatase 59 IU/L (35-105); Anion Gap 17.8 (5-19); Aspartate Amino Transferase 43 U/L (0-32); Blood Urea Nitrogen 15 mg/dL (8-23); Calcium 8.7 mg/dL (8.5-10.5); Carbon Dioxide 24 mmol/L (22-29); Chloride 99 mmol/L (98-107); Creatine Phosphokinase 179 U/L (26-192); Globulin 2.8 g/dL (1.3-4.6); Glucose 226 mg/dL (65-115); Magnesium 1.8 mg/dL (1.7-2.3); Osmolality Calculated 292 mOsm/kg (285-295); Potassium 3.8 mmol/L (3.5-5.1); Sodium 137 mmol/L (136-145); Total Bilirubin 0.3 mg/dL (0.15-1.2); Total Protein 6.3 g/dL (6.6-8.7)
[2022-04-27 07:13] LABS: Glucose Point of Care 236 mg/dL (70-110)
--- NOTE | 2022-04-27 08:09 | P.PN_ITS ---
Subjective Subjective: Patient was seen and examined this morning, continues to be extremely lethargic, tired. Documented T-max of: 101.8. Medications: Medication Review Details: Generic Name Dose Route Start Last Admin Trade Name Alannah PRN Reason Stop Dose Admin Atorvastatin Calci um 20 mg 04/26/22 21:00 04/26/22 21:48 Atorvastatin 40 Mg Tablet PO 20 mg BEDTIME EDUAR Administration Enoxaparin Sodium 70 mg 04/26/22 21:00 04/26/22 21:48 Enoxaparin 80 Mg /0.8 Ml Syringe SUBCUT 70 mg BID@0900,2100 EDUAR Administration Potassium Chloride /Sodium Chloride 20 meq in 1,000 m ls @ 50 mls/hr 04/26/22 16:45 04/26/22 17:53 Sodium Chlor 0.9 % + Kcl 20 Meq IV 50 mls/hr .Q20H EDUAR Administration Insulin Human Lisp ro 0 unit 04/26/22 20:39 04/26/22 21:56 Insulin Lispro 1 00 Unit/1 Ml SUBCUT Not Given WM&BEDTIME EDUAR Protocol Vitals/I&O/Wt Last Vital Signs Temp 99.3 F 04/27/22 07:07 Pulse 101 H 04/27/22 06:00 Resp 39 H 04/27/22 04:00 BP 107/60 04/27/22 04:00 Pulse Ox 92 04/27/22 04:00 04/26/22 04/27/22 04/27/22 22:59 06:59 14:59 Output Total 200 / 200 Balance -200 / -200 Weight last 48 hrs Weight 71.259 kg Weight 70.307 kg Physical Exam Const: COMMON NORMALS: patient oriented x3 HENMT: COMMON NORMALS: normocephalic and atraumatic HEAD & SCALP: normocephalic and atraumatic Resp: COMMON NORMALS: clear to auscultation bilaterally EFFORT & INSPECTION: Yes symmetric chest movement AUSCULTATION: clear to auscultation bilaterally Cardio: COMMON NORMALS: regular rate, regular rhythm, S1 normal heart sound present, S2 normal heart sound present, No gallops present (Cardio), No murmurs present (Cardio), No rub (Cardio) and Peripheral pulses 2+ throughout RATE: regular rate RHYTHM: regular rhythm HEART SOUNDS: S1 normal heart sound present and S2 normal heart sound present PERIPHERAL PULSES: Peripheral pulses 2+ throughout GI: COMMON NORMALS: Normal to inspection, nondistended, normoactive bowel sounds present, Soft to palpation, non-tender, No hepatosplenomegaly present and no masses AUSCULTATION: Yes normoactive bowel sounds PALPATION: Yes Soft to palpation and Yes No hepatosplenomegaly present RECTAL EXAM: deferred Extremity: COMMON NORMALS: no clubbing, cyanosis or edema and no pedal edema Neuro: COMMON NORMALS: patient oriented x3 Data : 04/27/22 04:26 04/27/22 04:26 A&P Assessment and plan (1) Non-ST elevation [place] (NSTEMI): Status: Acute (2) Generalized weakness: Status: Acute (3) Hypokalemia: Status: Acute (4) Diabetes: Status: Acute Qualifiers: Diabetes mellitus complication status: without complication Diabetes mellitus director long term care insulin use: without director long term care use Diabetes mellitus type: type 2 Qualified Code(s): E11.9 - Type 2 diabetes mellitus without complications (5) HTN (hypertension): Status: Acute Qualifiers: Hypertension type: essential hypertension Qualified Code(s): I10 - Essential (primary) hypertension (6) Atrial fibrillation: Status: Acute (7) Fever: Status: Acute Plan 76 year old female ?with PMHx of HTN , DM-2 on OHA (HbA1C ~6.6) x 5 years, HLD and GERD, atrial fibrillation, was on Eliquis at home, was brought in with chief complaint of generalized weakness , going on for the last couple of days, she also experienced fall at home, she was also complaining of mild substernal chest pain, for the past few days. Assessment: Fever: Rule out sepsis NSTEMI History of atrial fibrillation Hypertension Diabetes Dyslipidemia Generalized weakness Recent history of sinus infection complete antibiotic course as an outpatient. Plan: S/p cardiac cath: With non occlusive coronary artery disease. Possibility of myocarditis or transient coronary vasospasm cannot be ruled out. She was on ACS protocol (aspirin statin therapeutic anticoagulation, beta- loraine, sublingual nitro as needed) Patient had a nuclear stress test done in : 03/28 : Myocardial perfusion imaging is normal.Subdiaphragmatic attenuation artifact noted in mid inferoseptal and apical septal verdugo. 2D echo: Normal LV size and systolic function, no RWMA , normal LVEF?There is no pericardial effusion. CT head without contrast: No acute intracranial pathology CK: Normal Continue telemetry monitoring LSSI, monitor fingerstick glucose Cardiology consult Follow blood culture X-ray chest: No infiltrates Respiratory viral panel Follow COVID PCR Rapid COVID antigen negative Influenza negative ESR:75 CRP: 216 Empirically on Vanco and Zosyn. CODE STATUS: Limited resuscitation DVT prophylaxis: Not needed on therapeutic Lovenox Attestations Medical Necessity Statement*: Patient is in the hospital for management of NSTEMI, fever Time Spent in Patient Care: Greater than 35 minutes (>than 50% of time spent in counselling and/or direct pt care on unit) . Coding Level of Care Code Acute Siebel Crm Developer for g Fwd Exam Detailed Diagnoses Non-ST elevation [place] (NSTEMI) I21.4 Generalized weakness R53.1 Hypokalemia E87.6 Diabetes E11.9 Diabetes mellitus complication status: without complication Diabetes mellitus director long term care insulin use: without director long term care use Diabetes mellitus type: type 2 HTN (hypertension) I10 Hypertension type: essential hypertension Atrial fibrillation I48.91 Fever R50.9
--- NOTE | 2022-04-27 08:12 | PC.NURSE ---
In bedside report with night RN Mrs. Bruner was noted to have elevated troponin on admission and was noted to be NPO for possible stress test. This nurse contacted Dr. Beck to verify if stress test would be completed this am. Dr. Beck stated, No, but keep patient NPO. Orders remain NPO this am.
--- NOTE | 2022-04-27 08:22 | PM.CONSULT ---
Providers/Reason For Consult Consulting Physician/Specialty*: Ed Weldon MD/ Cardiology Reason for Consult*: NSTEMI Requesting Physician: Dr Beck Attending Physician: Ruy Beck MD Primary Care Provider: Janak Johnson DO History of Present Illness History of Present Illness Sherrell Bruner is a 76 year old female with past history of hypertension, diabetes, hyperlipidemia, atrial fibrillation who came to the hospital with generalized weakness and also experienced a fall day before admission. She has been having symptoms for the last 2 days. She also had mild substernal chest discomfort. EKG showed sinus rhythm with lateral lead ST depressions. Troponins increased significantly from 567 to over 900 at 6 hours. She denies active chest pain. Echocardiogram is showing normal LV systolic function. Review of Systems General: Reports: 10 or more systems reviewed and unremarkable except in HPI and below Const: Denies: fever(s), chills, body aches, change in appetite or diaphoresis Card: Denies: palpitations, edema, swelling of feet/ankles, dyspnea on exertion, orthopnea or leg pain with exertion Resp: Reports: dyspnea; Denies: productive cough, wheezing or pain on inspiration GI: Denies: abdominal pain, nausea, vomiting, diarrhea or constipation : Denies: flank pain Musc: Denies: back pain, extremity pain or extremity swelling Neuro: Denies: headache(s), difficulty walking or confusion Medications/Allergies Home Medications Medication Instructions Recorded Confirmed Last Taken Type allopurinol 300 mg tablet 300 mg PO DAILY 02/02/21 04/26/22 04/25/22 History lancets 33 gauge (OneTouch Delica 02/02/21 04/26/22 06/19/21 History Lancets) lysine 1,000 mg tablet 1,000 mg PO DAILY 02/02/21 04/26/22 04/25/22 History montelukast 10 mg tablet 10 mg PO DAILY 02/02/21 04/26/22 04/25/22 History (Singulair) multivitamin 1 tab PO DAILY 02/02/21 04/26/22 04/25/22 History simvastatin 80 mg tablet 40 mg PO DAILY tab 02/02/21 04/26/22 04/25/22 History omeprazole 40 mg capsule,delayed 40 mg PO DAILY 05/16/21 04/26/22 04/25/22 History release lisinopril 20 1 tab PO DAILY #90 tab 06/27/21 04/26/22 04/25/22 Rx mg-hydrochlorothiazide 25 mg tablet metoprolol succinate 100 mg 100 mg PO DAILY #90 tab 06/27/21 04/26/22 04/25/22 Rx tablet,extended release 24 hr amlodipine 5 mg tablet 5 mg PO DAILY 10/17/21 04/26/22 04/25/22 History dapagliflozin 5 mg tablet (Farxiga) 5 mg PO DAILY #90 tab 10/19/21 04/26/22 04/25/22 Rx aspirin 325 mg tablet 325 mg PO BID tab 02/15/22 04/26/22 04/25/22 History azelastine 137 mcg (0.1 %) nasal 2 spray INTRANASAL BID PRN 02/15/22 04/26/22 Unknown History spray aerosol cholecalciferol (vitamin D3) 50 50 mcg PO DAILY 02/15/22 04/26/22 04/25/22 History mcg (2,000 unit) capsule furosemide 20 mg tablet 20 mg PO DAILY PRN #30 tab 02/27/22 04/26/22 Unknown Rx glipizide 5 mg tablet, extended 5 mg PO DAILY 04/26/22 04/26/22 04/25/22 History release 24 hr metformin 500 mg tablet,extended 1,000 mg PO BID 04/26/22 04/26/22 04/25/22 History release 24 hr Allergies Allergy/AdvReac Type Severity Reaction Status Date / Time No Known Allergies Allergy Verified 10/19/21 14:50 Current Medications Generic Name Dose Route Start Last Admin Trade Name Alannah PRN Reason Stop Dose Admin Atorvastatin Calcium 20 mg 04/26/22 21:00 04/26/22 21:48 Atorvastatin 40 Mg Tablet PO 20 mg BEDTIME EDUAR Administration Enoxaparin Sodium 70 mg 04/26/22 21:00 04/26/22 21:48 Enoxaparin 80 Mg/0.8 Ml Syringe SUBCUT 70 mg BID@0900,2100 EDUAR Administration Potassium Chloride/Sodium Chloride 20 meq in 1,000 mls @ 50 mls/hr 04/26/22 16:45 04/26/22 17:53 Sodium Chlor 0.9% + Kcl 20 Meq IV 50 mls/hr .Q20H EDUAR Administration Insulin Human Lispro 0 unit 04/26/22 20:39 04/26/22 21:56 Insulin Lispro 100 Unit/1 Ml SUBCUT Not Given WM&BEDTIME EDUAR Protocol PFSH Acute PFSH: Medical History Atrial fibrillation Diabetes Dizziness GERD (gastroesophageal reflux disease) HTN (hypertension) Hyperlipidemia Surgical History Hx of hysterectomy Family History Mother Hypertension Diabetes Father CAD (coronary artery disease) Brother CAD (coronary artery disease) Grandmother Stroke Denies family history of Bleeding disorder Social History Smoking and tobacco status: never smoked Alcohol intake: never Vitals/I&O/Wt Last Vital Signs Temp 99.3 F 04/27/22 07:07 Pulse 74 04/27/22 08:00 Resp 39 H 04/27/22 04:00 BP 107/60 04/27/22 04:00 Pulse Ox 92 04/27/22 08:00 04/26/22 04/27/22 04/27/22 22:59 06:59 14:59 Output Total 200 / 200 Balance -200 / -200 Weight last 48 hrs Weight 157 lb 1.6 oz Weight 155 lb Physical Exam Narrative: GENERAL: Patient is alert, awake and oriented x3. [] NECK: No jugular vein distension. [] HEENT: No cyanosis. No icterus. No pallor. [] HEART: Regular S1 and S2. No murmur, rub or gallop. [] LUNGS: Clear to auscultate bilaterally. [] ABDOMEN: Soft, nontender and nondistended. Positive bowel sounds. No guarding, rebound or tenderness. [] CENTRAL NERVOUS SYSTEM: Grossly nonfocal. [] EXTREMITIES: Lower extremities with 1+ edema bilaterally. Pulses palpable in the lower extremities, both dorsalis pedis and posterior tibial. [] Data : 04/27/22 04:26 04/27/22 04:26 A&P Assessment and plan (1) Non-ST elevation [place] (NSTEMI): Status: Acute (2) Atrial fibrillation: Status: Acute (3) Dyspnea on exertion: Status: Acute (4) Hyperlipidemia: Status: Acute Qualifiers: Hyperlipidemia type: unspecified Qualified Code(s): E78.5 - Hyperlipidemia, unspecified (5) Diabetes: Status: Acute Qualifiers: Diabetes mellitus complication status: without complication Diabetes mellitus computer terminal operator insulin use: without computer terminal operator use Diabetes mellitus type: type 2 Qualified Code(s): E11.9 - Type 2 diabetes mellitus without complications (6) HTN (hypertension): Status: Acute Qualifiers: Hypertension type: essential hypertension Qualified Code(s): I10 - Essential (primary) hypertension Plan Patient had significant troponin elevation. Symptoms are vague. We will proceed with coronary angiogram with possible percutaneous coronary intervention. Risks and benefits of the procedure have been discussed with the patient. Continue aspirin. Continue anticoagulation. Telemetry monitoring. Echocardiogram shows normal LV systolic function. Thank you for involving us with care of this patient. We will continue to follow. Please call with questions. Consult Attestations Medical Necessity Statement: Care expected to cross 2 midnights. Coding Level of Care Code Acute Critical Care Unit Nurse for [facility] Roseann Diagnoses Non-ST elevation AL (NSTEMI) I21.4 Atrial fibrillation I48.91 Dyspnea on exertion R06.00 Hyperlipidemia E78.5 Hyperlipidemia type: unspecified Diabetes E11.9 Diabetes mellitus complication status: without complication Diabetes mellitus computer terminal operator insulin use: without computer terminal operator use Diabetes mellitus type: type 2 HTN (hypertension) I10 Hypertension type: essential hypertension
--- NOTE | 2022-04-27 08:35 | PC.NURSE ---
Music Therapist staff at bedside now taking patient for coronary angiogram with possible percutaneous coronary intervention. This nurse obtain an informed consent form for photographic laboratory technician staff to proceed.
--- NOTE | 2022-04-27 09:35 | XACV_ITS ---
Exam Room: [facility] Ht: 160 cm Wt: 71 kg BSA: 1.80 m2 Gender: Female : 1945 Any Known Allergies: No known allergies Exam Priority: Routine Procedure(s): Procedure Description: Diagnostic procedure Procedure Description: Left Heart Catheterization Procedure Description: Coronary Angiography Diagnostic Cath Status: Urgent Diagnostic Findings * No significant disease noted in the Left Main, Left Anterior Descending, Right, or Circumflex coronary arteries. RV marginal branch has 60 to 70% stenosis. * INDICATION: 76 year old female with past history of hypertension, diabetes, hyperlipidemia, atrial fibrillation who came to the hospital with generalized weakness and also experienced a fall day before admission. She has been having symptoms for the last 2 days. She also had mild substernal chest discomfort. EKG showed sinus rhythm with lateral lead ST depressions. Troponins increased significantly from 567 to over 900 at 6 hours. She denies active chest pain. Echocardiogram is showing normal LV systolic function. Plan for coronary angiogram for assessment of non-ST elevation DE. * Coronary angiography shows right dominance. Conclusions 1. No significant disease noted in the Left Main, Left Anterior Descending, Right, or Circumflex coronary arteries. RV marginal branch has 60 to 70% stenosis. Recommendations * Patient had significant troponin elevation. Given small pericardial effusion noted on echocardiogram and no significant coronary artery disease, this likely is from myocarditis. * Will need gentle diuresis. * Transferred back to ICU. Will need continued telemetry monitoring.. Interventional RX Recommendation: medical therapy and/or counseling Diagnostic RX Recommendation: medical therapy and/or counseling Anticoagulation: Heparin Pressures Phase:Rest AO : 90 / 54 ( 67 ) @ 11:09:00 AM 101 / 62 ( 76 ) @ 11:12:00 AM 89 / 59 ( 73 ) @ 11:13:00 AM 121 / 34 ( 58 ) @ 11:15:00 AM LV : 117 / 5 / 26 @ 11:15:00 AM Clinical Evaluation EBL: 5mL-10mL Procedural Details Procedure Consent Obtained. Current Diagnosis : NSTEMI. Pre-Procedure Time Out. Identified patient by full name and date of as verbalized by the patient/guarantor. Does the consent match the physician's order: Yes. Accurate & Complete Informed Consent: Yes. Inpatient/Outpatient History & Physical on Chart: Yes. If H&P is completed, is and addenduem needed: No; If yes, is the addendum complete: N/A. Visualize and Verify Site with Patient/Guarantor: N/A. Relevant Radiology Images available: No. Pre-op teaching completed and patient verbalized understanding. The risks, benefits, and alternatives of sedation and/or procedure were discussed by physician. The patient agrees to continue. Procedure started. [facility] Clinical Fraility Score: 4: Vulnerable. Forming Department Supervisor Indications: ACS > 24 hours. Chest Pain Symptom Assessment: Typical Angina Symptoms. Correct patient, site and procedure confirmed by cath team. Current diagnosis: NSTEMI. PERRLA. Strong, equal hand lead based paint technician bilaterally. Lungs clear x 5 lobes. IV Site on Arrival: 18 gauge in the left anticubital. IV Fluids: 0.9% NaCl at KVO. 0 mL infused prior to lab specialist. Oxygen started at 2liters/min via nasal canula. right groin was prepped with chloroprep then draped in the usual sterile fashion. right radial was prepped with chloroprep then draped in the usual sterile fashion. Physician notified. Baseline sample Acquired. HR: 71 BPM. Physician arrived. Physician scrubbed in. Immediate Pre-Procedure Time Out. Correct Patient: Yes; Correct Procedure: Yes; Correct Site: Yes; Correct Patient Position: Yes; Correct Supplies: Yes; Dried Flammable Prep: Yes; Blood Products Available: N/A;. Lidocaine 1% infiltrated to the right radial. Arterial access obtained. A 5 faroese TIG catheter in over wire. wire out. contrast hand injected through the catheter. glidewire inserted through the catheter. O2 turned up to 6Liters via nasal canula. wire out. Multiple views taken of left coronary artery. Catheter redirected to the RCA. Multiple views taken of right coronary artery. Physician review of cine films. EDP Sample taken: LV 117/5,26; HR: 74 BPM; SpO2: 81%. Pullback taken: LV Off; AO Off; Mean: , Peak to Peak: , SEP: ; HR: 75 BPM; SpO2: 81%. Catheter attached to Normal Saline flush at KVO to maintain patency. Catheter removed over the standard wire. Physician scrubbed out. A TR Band was successful obtaining hemostatsis at the Right Radial artery insertion site. Post Procedure: Pulses reassessed and unchanged. PERRLA. Strong, equal hand lead based paint technician bilaterally. No VTE prophylaxis required. Medication's Wasted: Nitro = 49.9 mg. Medication's Wasted: Heparin = 1000 units. Medication's Wasted: Other = Fentanyl 100 mg. Medication's Wasted: Other = Versed 1 mg. Medication's Wasted: Lidocaine 1% = 2 mL. Total IV fluids: 40 mL. Contrast type used: Omnipaque 300 mgI/mL, 500 mL bottle. Complications: None. Estimated blood loss: 5mL-10mL. Responsiveness - Normal response to verbal stimuli; alert and oriented, PERRLA. Airway - Unaffected, no intervention required; spontaneous ventilation. Circulation: W/N/L, pulses unchanged. Nausea/Vomiting: No. Vital chart was stopped. Procedure completed. Patient transferred by bed to ICU. Access Site Site: Right Radial artery Sheath Size: 6 Fr Hemostasis Method: TR Band Hemostasis Success: Successful Procedure Medications Start: 9:58 AM Stop: 9:58 AM Medication: Versed Amount: 1 mg Route: I.V. Start: 10:04 AM Stop: 10:04 AM Medication: Nitrogylcerin Amount: 100 mcg Route: I.A. Start: 10:08 AM Stop: 10:08 AM Medication: Heparin Amount: 5000 units Route: I.V. I, the attending physician, have reviewed and verified all procedure medications. Yes, all medications given per verbal order History/Risk Factors Hypertension: Yes Dyslipidemia: Yes Peripheral Arterial Disease (PAD): No Myocardial Infarction (DE): No Obesity: Yes Renal Disease: No Tobacco Use: Never Prior Interventions PCI: No CABG: No Valve Surgery: No Report Signatures Finalized by Ed Weldon MD on 05/08/2022 12:36 PM
--- NOTE | 2022-04-27 10:00 | W.PM.OPSUD ---
Surgery/Procedure H&P Update DATE OF PROCEDURE: April 27, 2022 DATE H&P PERFORMED: 04/27/22 H&P UPDATE INFORMATION: I have reviewed H&P completed within last 30 days, I have examined patient prior to procedure and No changes to prior documentation PREOP DIAGNOSIS: NSTEMI PRIMARY INDICATION FOR PROCEDURE: NSTEMI PLANNED PROCEDURE: Left heart cath with possible percutaneous coronary intervention PATIENT REASSESSED PRIOR TO SEDATION, WITH NO CHANGE NOTED: Yes PHYSICAL EXAM: alert, oriented x 3, clear to auscultation bilaterally and regular rate & rhythm AIRWAY EVAL/ANESTHESIA PLAN: ASA III, Monitored Anesthesia, Risks, benefits & alternatives of sedation and/or procedure discussed and Patient agrees to continue as planned ADDITIONAL INFORMATION: Left heart cath with possible percutaneous coronary intervention
[2022-04-27] MEDS: enoxaparin 80 mg/0.8 mL Syringe 70 MG SUBCUT ×2 (10:58→20:56)
[2022-04-27] MEDS: insulin lispro 100 unit/1 mL SUBCUT ×4 (10:58→20:57)
[2022-04-27 11:13] LABS: Glucose Point of Care 289 mg/dL (70-110)
[2022-04-27] MEDS: pantoprazole DR 40 mg Tablet PO (12:28)
[2022-04-27] MEDS: aspirin 81 mg EC Tablet PO (12:28)
[2022-04-27] MEDS: montelukast sodium 10 mg Tablet PO (12:28)
[2022-04-27] MEDS: multivitamin therapeutic Tablet 1 TAB PO (12:29)
[2022-04-27] MEDS: allopurinol 300 mg Tablet PO (12:29)
[2022-04-27] MEDS: metoprolol succinate ER (24 HR) 100 mg Tablet PO (12:29)
[2022-04-27] MEDS: amlodipine 5 mg Tablet PO (12:29)
[2022-04-27 12:39] LABS: Erythrocyte Sedimentation Rate 75 mm/hr (0-15)
[2022-04-27] MEDS: sodium chlor 0.9% + KCl 20 mEq 20 MEQ/1,000 ML BAG 50 MEQ IV (12:56)
--- NOTE | 2022-04-27 13:20 | PC.NURSE ---
Patient requesting to be placed on bedpan often, noted to have very little urine output each time. Mrs. Bruner complains that she still feels the urge to void. This nurse performed a bedside bladder scan, 991mls of urine noted to be in bladder. This nurse called Dr. Beck and notified of urinary retention, orders given to place urinary durand catheter. See insertion of urinary durand catheter documentation on worklist for further details.
[2022-04-27] MEDS: acetaminophen 325 mg Tablet 650 MG PO ×2 (16:06→23:21)
--- NOTE | 2022-04-27 16:26 | PC.NURSE ---
Mrs. Bruner noted to have fever of 101.8. Nurse placed ice packs under arms and gave PRN order of Tylenol for elevated temperature. After reviewing medication orders, this nurse noticed that there were no antibiotics scheduled on patient MAR. Dr. Beck notified of temperature and patient overall status. Patient was noted to have prior elevated temperature overnight per night time babysitter RN during morning bedside report.
--- NOTE | 2022-04-27 17:00 | PC.NURSE ---
Dr. Beck placed order for antibiotics and COVID PCR. Antibiotics given as ordered and COVID swab obtained by this nurse and sent to lab for testing. Patient placed on isolation precautions per protocol and family notified.
[2022-04-27 17:11] LABS: Glucose Point of Care 254 mg/dL (70-110)
[2022-04-27] MEDS: vancomycin 1,000 MG in sodium chloride 0.9% 250 ML 250 MG IV (17:45)
--- NOTE | 2022-04-27 19:30 | ECG_ITS ---
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 Measurements Intervals [place] Rate: 60 P: [place]: QRS: -13 QRSD: 90 T: 106 QT: 411 QTc: 413 Interpretive Statements SUPRAVENTRICULAR RHYTHM INFERIOR MYOCARDIAL INFARCTION , PROBABLY OLD [40+ ms Q WAVE AND/OR ST/T ABNORMALITY IN II/aVF] Compared to ECG 04/26/2022 19:45:03 Supraventricular rhythm now present Sinus tachycardia no longer present T-wave abnormality no longer present Possible ischemia no longer present Myocardial infarct finding still present Electronically Signed On 04-28-2022 20:48:30 CDT by Ed Weldon M.D. [email or web address] Groupgulf coast [email or web address] care [id number]
--- NOTE | 2022-04-27 19:30 | PC.NURSE ---
Dr. Beck to bedside. Notified of patients current heart rate low 60's with no visible P waves. EKG obtained and reviewed per Dr. Beck. Patients covid test and isolation precautions cancelled.
[2022-04-27 20:15] LABS: Add Urine Microscopic? YES; Bilirubin Urine Neg (Negative); Blood Urine 3+ (Negative); Glucose Urine UA Trace (Normal); Ketones Urine Negative (Negative); Leukocyte Esterase Urine Trace (Negative); Nitrate Urine Negative (Negative); Protein Urine 2+ (Negative); RBC Urine >100 /hpf (0-2); Squamous Epithelial Cell Urine 0-4 /hpf (0-5); Urine Appearance SL Hazy (CLEAR); Urine Color Yellow (Yellow); Urobilinogen Urine 4 mg/dL (Negative); WBC Urine 0-4 /hpf (0-5); pH Urine 5 (5-7)
[2022-04-27 20:16] LABS: Add Urine Culture? Yes; Amorphous Sediment Urine 2+ /hpf; Bacteria Urine TRACE /hpf; Hyaline Casts Urine 0-4 /lpf
[2022-04-27] MEDS: atorvastatin 40 mg Tablet 20 MG PO (20:57)
[2022-04-27 21:26] LABS: Glucose Point of Care 201 mg/dL (70-110)
[2022-04-27] MEDS: lactated ringers 1,000 ML 999 ML IV (22:23)
--- NOTE | 2022-04-27 22:28 | PC.NURSE ---
2209 - Notified that patients blood pressure is currently 71/52 with juctional heart rate of 55-60. Patients current chart reviewed and orders given to obtain a lactic acid level and given 1L LR bolus.
--- NOTE | 2022-04-27 23:32 | PC.NURSE ---
O2 sats mid to low 80's on O2 at 7L NC. Reports on feeling short of breath. Bilat lungs remain clear. Notified RT.
--- NOTE | 2022-04-27 23:39 | PC.NURSE ---
Placed on 8 L oxymask per RT.
[2022-04-28] VITALS (86 sets, daily range): BP systolic 83–152; BP diastolic 46–89; PULSE 52–71; RESP 15–36; TEMP 36.2–37.4; O2SAT 88–97
--- NOTE | 2022-04-28 | US_ITS ---
WS: [id number] ULTRASOUND RENAL TECHNIQUE: Ultrasound examination of both kidneys. CLINICAL INFORMATION: MALICK, assess for obst uropathy COMPARISON: None. FINDINGS: RIGHT: Right kidney is normal in size and appearance. Echogenicity: Normal. Hydronephrosis: None. Perinephric fluid: None. Right kidney measures: 12.0 cm x 5.5 cm x 4.1 cm. LEFT: Left kidney is normal in size and appearance. Echogenicity: Normal. Hydronephrosis: None. Perinephric fluid: None. Left kidney measures: 10.3 cm x 5.5 cm x 5.2 cm. Normal visualized aorta. Gutierrez catheter. US/US renal BI* [id number] IMPRESSION: 1. No hydronephrosis in either kidney. 2. Gutierrez catheter.
[2022-04-28 01:11] LABS: Basophils % 0.3 %; Eosinophils # 0.1 10^3/uL (0.0-0.8); Eosinophils % 0.4 %; Hematocrit 37.1 % (37.0-47.0); Hemoglobin 11.5 g/dL (11.5-15.3); Lymphocytes # 1.8 10^3/uL (0.8-4.8); Lymphocytes % 13.1 %; Mean Corpuscular Hemoglobin 26.9 pg (28.0-34.0); Mean Corpuscular Volume 86.9 fl (81-99); Mean Platelet Volume 11.9 fL (7.4-10.4); Monocytes # 1.4 10^3/uL (0.2-0.9); Monocytes % 10.4 %; Neutrophils # 10.38 10^3/uL (1.8-7.7); Neutrophils % 75.2 %; Nucleated Red Blood Cells % 0 %; Platelet Count 154 10^3/cmm (130-400); Red Blood Count 4.27 10^6/uL (4.1-5.3); Red Cell Distribution Width 15.9 % (12.1-15.1); White Blood Count 13.8 10^3/uL (4.0-10.0)
[2022-04-28 01:29] LABS: Lactate (Lactic Acid level) 2.9 mmol/L (0.5-2.2)
[2022-04-28 01:30] LABS: Alkaline Phosphatase 74 IU/L (35-105); Anion Gap 17.6 (5-19); Blood Urea Nitrogen 33 mg/dL (8-23); Calcium 8.6 mg/dL (8.5-10.5); Carbon Dioxide 21 mmol/L (22-29); Chloride 96 mmol/L (98-107); Globulin 2.6 g/dL (1.3-4.6); Glucose 214 mg/dL (65-115); Osmolality Calculated 284 mOsm/kg (285-295); Potassium 4.6 mmol/L (3.5-5.1); Sodium 130 mmol/L (136-145); Total Bilirubin 0.9 mg/dL (0.15-1.2); Total Protein 5.6 g/dL (6.6-8.7)
[2022-04-28 01:45] LABS: Alanine Aminotransferase 1225 U/L (0-33); Aspartate Amino Transferase 2163 U/L (0-32)
--- NOTE | 2022-04-28 03:24 | XRR_ITS ---
PROCEDURE INFORMATION: Exam: XR Chest Exam date and time: 04/28/2022 4:19 AM Age: 76 years old Clinical indication: Shortness of breath; Patient HX: Persistent hypoxia. Had heart cath on 04/27/2022. TECHNIQUE: Imaging protocol: Radiologic exam of the chest. Views: 1 view. COMPARISON: CR XR chest 1V portable [id number] 04/26/2022 1:25 PM FINDINGS: Lungs: Questionable ground-glass densities in the lungs. No dense confluent lobar opacities. Pleural spaces: No pneumothorax. No pleural effusion. Heart/Mediastinum: The cardiomediastinal silhouette is within normal limits. Bones/joints: Unremarkable. XR/XR chest 1V portable [id number] IMPRESSION: Questionable ground-glass densities in the lungs, may be consistent with mild pulmonary edema.
--- NOTE | 2022-04-28 03:29 | US_ITS ---
WS: [id number] ULTRASOUND RENAL TECHNIQUE: Ultrasound examination of both kidneys. CLINICAL INFORMATION: MALICK, assess for obst uropathy COMPARISON: None. FINDINGS: RIGHT: Right kidney is normal in size and appearance. Echogenicity: Normal. Hydronephrosis: None. Perinephric fluid: None. Right kidney measures: 12.0 cm x 5.5 cm x 4.1 cm. LEFT: Left kidney is normal in size and appearance. Echogenicity: Normal. Hydronephrosis: None. Perinephric fluid: None. Left kidney measures: 10.3 cm x 5.5 cm x 5.2 cm. Normal visualized aorta. Gutierrez catheter.
--- NOTE | 2022-04-28 03:40 | US_ITS ---
WS: [id number] RIGHT UPPER QUADRANT ULTRASOUND HISTORY: Transaminitis COMPARISON: None available. Liver: 21.6 cm in length. Moderately enlarged liver with coarse echotexture. No mass identified. Portal Vein: Flow remains hepatopedal but there is decreased flow in the portal vein. Contrast enhanc ement was noted on a recent CT. Gallbladder: Gallbladder is normally distended. No cholelithiasis. No sludge. There is mild wall thic kening which may be related to hepatocellular disease. CBD: 0.4 cm No significant amount of ascites. Small RIGHT pleural effusion. US/US abdomen limited [id number] IMPRESSION: 1. Limited abdominal ultrasound. 2. No cholelithiasis. Mild gallbladder wall thickening and edema may be relate d to hepatocellular disease. 3. Normal common bile duct. 4. Decreased flow in the portal vein. Contrast enhancement was noted although decreased on the prior CT. May be related to hepatic congestion.
--- NOTE | 2022-04-28 03:52 | PC.NURSE ---
Cheetah done with PLR, SVI increased 22.5%. Notified Dr. Jara that patient was responsive to the PLR. Order given to give patient 250 mL LR bolus now and recheck cheetah after fluid bolus given.
--- NOTE | 2022-04-28 03:55 | ECG_ITS ---
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 Measurements Intervals [place] Rate: 54 P: OR: QRS: 0 QRSD: 85 T: 82 QT: 429 QTc: 408 Interpretive Statements SUPRAVENTRICULAR BRADYCARDIA POSSIBLE INFERIOR MYOCARDIAL INFARCTION , PROBABLY OLD [30 ms Q WAVE IN II/aVF] Compared to ECG 04/27/2022 19:38:15 Supraventricular rhythm no longer present Myocardial infarct finding still present Electronically Signed On 04-28-2022 20:46:14 CDT by Ed Weldon M.D. [email or web address]
[2022-04-28] MEDS: piperacillin-tazobactam 3.375 GM in sodium chloride 0.9% (plus) 50 ML IV ×3 (03:59→20:00)
[2022-04-28 04:08] LABS: INR 1.45 (0.8-1.2)
[2022-04-28 04:19] LABS: Troponin T (5th) Once 7002 ng/L (0-10)
[2022-04-28 04:24] LABS: Cortisol Random 0.11 ug/dL (2.47-19.5)
--- NOTE | 2022-04-28 04:26 | USCV_ITS ---
Sherrell Bruner Age: 76 Gender: F : 1945 Exam Date: 04/28/2022 06:17 Ordering Phys: Min Terry MD Technologist: NOEL Exam Location: [facility] [place] Indication: LV FUNCTION FOLLOW UP BP: 105 / 63 HR: 55 Rhythm: Sinus Technical Quality: Adequate MEASUREMENTS (Male / Female) Normal Values 2D ECHO LV Diastolic Diameter PLAX 4.0 cm 4.2 - 5.9 / 3.9 - 5.3 cm LV Systolic Diameter PLAX 2.8 cm IVS Diastolic Thickness 1.5 cm 0.6 - 1.0 / 0.6 - 0.9 cm IVS Systolic Thickness 2.1 cm LVPW Diastolic Thickness 1.2 cm 0.6 - 1.0 / 0.6 - 0.9 cm LVPW Systolic Thickness 1.6 cm LVOT Diameter 2.0 cm LV Ejection Fraction 2D Teich 58.1 % LV Ejection Fraction MOD 2C 68.9 % LV Ejection Fraction 2C AL 69.0 % LA Diameter 3.3 cm LA Width 2.6 cm LA Height 4.8 cm RA Width 3.1 cm RA Height 4.3 cm Aorta at Sinotubular Diameter 2.3 cm IVC Diameter 1.7 cm M-MODE Aortic Annulus Diameter 3.0 cm LA Ao Ratio MM 1.1 MV E Point Septal Separation 0.2 cm DOPPLER Right Atrial Pressure 3.0 mmHg FINDINGS Left Ventricle Normal left ventricular size and systolic function, EF 66 %. No regional wall motion abnormalities. Right Ventricle The right ventricle is normal in size and function. Right Atrium The right atrium is normal in size. Left Atrium The left atrium is normal in size. Mitral Valve No gross abnormalities noted Aortic Valve No gross abnormalities noted Tricuspid Valve No gross abnormalities noted Pulmonic Valve No gross abnormalities noted Pericardium Trivial pericardial effusion. Aorta Normal ascending aorta dimension. IVC Appears to be of normal size CONCLUSIONS Normal left ventricular size and systolic function, EF 66 %. No regional wall motion abnormalities. Normal cardiac chamber sizes. There are no intracardiac masses. Trivial pericardial effusion. Compared to the study from 04/26/2022, there may be a significant change in the 2D findings Dr Raleigh Hanson MD [facility] (Electronically Signed) Final Date: 28 April 2022 09:31 S
--- NOTE | 2022-04-28 04:27 | PC.NURSE ---
Critical Troponin of 7[address] called from lab. Notified Dr. Jara. Dr. Jara will contact Dr. Tilley and will call back with further orders. Order given to hold off on any additional fluids and doing cheetah currently.
[2022-04-28 04:30] LABS: Creatine Phosphokinase 330 U/L (26-192)
--- NOTE | 2022-04-28 04:30 | CTR_ITS ---
PROCEDURE INFORMATION: Exam: CTA Chest With Contrast Exam date and time: 04/28/2022 5:22 AM Age: 76 years old Clinical indication: Abnormal findings; Abnormal lab test; Abnormal kidney function lab tests and elevated wbc and other abnormal tumor markers; Abnormal diagnostic tests; Abnormal ekg; Shortness of breath; Prior surgery; Surgery date: Post-operative (0-2 days); Surgery type: Heart cath 04/27/2022; Patient HX: Persistent hypoxia. Troponin t gen 5 of 7000. Elevated wbc and creatinine. Hematuria. History of afib. Heart cath performed on 04/27/2022. ; Additional info: Assess for pe, follow to assess for poss aotic dissection, then CT abdomen/pelvis after TECHNIQUE: Imaging protocol: Computed tomographic angiography of the chest with contrast. 3D rendering (Not supervised by radiologist): MIP and/or 3D reconstructed images were created by the technologist. Radiation optimization: All CT scans at this facility use at least one of these dose optimization techniques: automated exposure control; mA and/or kV adjustment per patient size (includes targeted exams where dose is matched to clinical indication); or iterative reconstruction. Contrast material: VISI 320; Contrast volume: 150 ml; Contrast route: INTRAVENOUS (IV); COMPARISON: CR (CHEST, ) 04/28/2022 4:19 AM RADIATION DOSE METRICS: Total DLP (mGy-cm): 4.49 FINDINGS: Pulmonary arteries: No central or segmental filling pulmonary artery filling defects are identified. Aorta: No acute aortic pathology identified. No aortic dissection identified. Lungs: Nodular like consolidation and portions of the right lower lobe. Dependent bibasilar atelectasis. Trace smooth interlobular septal thickening in the right upper lobe. Minimal ground-glass densities in the right upper lobe. Pleural spaces: Small right-sided pleural effusion. Trace left-sided pleural fluid. Heart: The heart is within normal limits for size. No pericardial effusion is seen. Lymph nodes: The visualized supraclavicular region appears normal. No mediastinal or hilar adenopathy is identified. Bones/joints: Unremarkable. Soft tissues: Unremarkable. PROCEDURE INFORMATION: Exam: CT Abdomen And Pelvis With Contrast Exam date and time: 04/28/2022 5:22 AM Age: 76 years old Clinical indication: Abnormal findings; Abnormal lab test; Abnormal kidney function lab tests and elevated wbc and other abnormal tumor markers; Abnormal diagnostic tests; Abnormal ekg; Shortness of breath; Prior surgery; Surgery date: Post-operative (0-2 days); Surgery type: Heart cath 04/27/2022; Patient HX: Persistent hypoxia. Troponin t gen 5 of 7000. Elevated wbc and creatinine. Hematuria. History of afib. Heart cath performed on 04/27/2022. ; Additional info: Assess for pe, follow to assess for poss aotic dissection, then CT abdomen/pelvis after TECHNIQUE: Imaging protocol: Computed tomography of the abdomen and pelvis with contrast. Radiation optimization: All CT scans at this facility use at least one of these dose optimization techniques: automated exposure control; mA and/or kV adjustment per patient size (includes targeted exams where dose is matched to clinical indication); or iterative reconstruction. Contrast material: VISI 320; Contrast volume: 150 ml; Contrast route: INTRAVENOUS (IV); COMPARISON: US abdomen limited [id number] 04/28/2022 4:26 AM RADIATION DOSE METRICS: Total DLP (mGy-cm): 4.49 FINDINGS: Liver: The liver is normal in size and contour. Periportal edema. Gallbladder and bile ducts: Gallbladder wall thickening noted with possible pericholecystic fluid. No significant pericholecystic fat stranding. No calcified gallstones identified. Pancreas: The pancreas appears normal. Spleen: The spleen appears normal. Adrenal glands: The adrenals appear normal. Kidneys and ureters: The kidneys enhance symmetrically and empty into non-dilated ureters. Stomach and bowel: The stomach appears unremarkable. The small bowel loops are not abnormally dilated. The large bowel loops are not abnormally dilated. Colonic diverticulosis without signs of acute diverticulitis. Appendix: No signs of appendicitis. Intraperitoneal space: Trace perihepatic ascites. Minimal free fluid in the dependent portion of the pelvis adjacent to the ovaries. Vasculature: The aorta is nonaneurysmal. The IVC appears normal. Lymph nodes: Mildly prominent barby hepatis lymph nodes. Urinary bladder: Gutierrez catheter noted within a nondistended urinary bladder. Contrast is noted within the portions of the bladder adjacent to the Gutierrez catheter and within the Gutierrez catheter tubing. Reproductive: The uterus is surgically absent. The right ovary is mildly enlarged measuring 3.8 x 2.4 x 3.7 cm. The left ovary measures 3.0 x 1.8 x 2.8 cm. Bones/joints: Unremarkable. Soft tissues: Subcutaneous emphysema in the superficial soft tissues along the left lateral abdominal wall possibly due to subcutaneous injections. CT/CT angio chest w abd pel w con IMPRESSION: 1. No pulmonary embolism identified. 2. No aortic dissection. No acute aortic pathology identified. 3. Nodular like consolidation in the right lower lobe concerning for possible pneumonia. 4. Mild pulmonary edema with small right-sided and trace left-sided pleural effusions. IMPRESSION: 1. Gallbladder wall thickening and or pericholecystic fluid. Recommend ultrasound evaluation for cholecystitis. 2. Periportal edema and trace perihepatic ascites, of indeterminate etiology. 3. Colonic diverticulosis without signs of acute diverticulitis. 4. The ovaries are enlarged for a postmenopausal patient. Minimal fluid adjacent to the ovaries noted. Recommend gynecology follow-up.
--- NOTE | 2022-04-28 04:45 | PC.NURSE ---
Dr. Jara to bedside, talked with patient about all ordered testing and lab results. Notified patient that I had attempted to call her to update him on her plan of care but he did not answer the phone. Offered to call patients daughter but she said my will be awake a little after 5 and you can try to call him again. support services tech at bedside.
[2022-04-28] MEDS: iodixanol 320 mg/mL 100mL Btl IV ×2 (05:46→05:47)
[2022-04-28] MEDS: hydrocortisone 100 mg/2 mL SDV IVP (06:11)
--- NOTE | 2022-04-28 06:28 | P.EN_ITS ---
Event Note Event Note: Blood pressures reported soft by RN, lowest noted 73/59, MAP 64 mmHg, with sinus bradycardia in the evening as well, heart rates in the 50s, continued hypoxia, requiring 8 L oxymask with persistent tachypnea, although not having any complaints apart from feeling generally weak/malaise. Fluid resp onsive by NICOM. Amlodipine, metoprolol, Lasix held. Received 1 L LR bolus with good response. Maintaining blood pressures around 65 mmHg. Requested CXR. On recheck labs, however, noted quite severe increase in transaminases, AST 2163, ALT 1225, with normal bilirubin, alk phos. Requested COVID-19 PCR. Viral hepatitis panel. INR checked, elevated at 1.45. Albumin decreased to 3. Held allopurinol in case of possibility of acute hepatic necrosis. Hold statin and Tylenol. Requested to recheck liver parameters. Requested duplex of portal vein, hepatic veins to assess for any thrombosis. Additionally noted. No patient, kidney injury, creatinine 1.6. Continue close monitoring of blood pressures, maintain MAP 60-65 mmHg. Noted hematuria, more than 100 RBC on UA, requested US kidneys. Broaden empiric antibiotic coverage with Zosyn. Lactic acid noted 2.9. Blood cultures were collected and pending. Requested also recheck EKG, troponin. EKG with junctional bradycardia. Troponi n returned 7002. She is not having any chest pain or pressure. Discussed with cardiology, angiogram with some nonobstructive CAD ~20%. No STEMI on EKG. Not likely acute coronary thrombosis. Requested additional reassessment with limited TTE for LV function, consideration of Takotsubo cardiomyopathy, myocarditis, or other pathology. With not well explained hypoxia, heart rhythm changes, we discussed with her additional risks and benefits of pursuing assessment by CT angiogram for assessment for PE, however, given coronary angiography discussed with her also obtaining CT angiogram large vessels to assess for possible dissection, which could cause similar findings. Given unexplained condition, extending CT with plain CT abdomen pelvis as well. Serum cortisol assessed, noted and adequately low. Started stress dose hydrocortisone. Will need taper. Discussed her serious condition and assessment and management plans with her. could not be reached tonight. Event Notes Attestations Time Spent in Patient Care: The high probability of a clinically significant, sudden or life threatening deterioration of the patient's cardiovascular, hepatic, renal, hemodynamic, endocrine, infectious disease system(s) required my full and direct attention, intervention and personal management. The critical care time is as shown. This time is in addition to time spent performing any reported procedures but includes the following: x Data and vital sign review and interpretation x Patient assessment, examination and intervention x Documentation x Medication orders and management Critical care time spent 55 minutes.
[2022-04-28 07:26] LABS: Glucose Point of Care 221 mg/dL (70-110)
[2022-04-28 08:09] LABS: ABG PCO2 30.9 mmHg (35-45); ABG PH Result 7.43 (7.35-7.45); Alveolar-Arterial Oxygen Gradi 5.8 mmHg (5-10); Arterial Blood Gas Hematocrit 36.6 % (37-47); Base Excess ABG -3.1 mmol/L (-2.0-2.0); Blood Gas Allen Test Pos; Blood Gas Operator Identificat CAK; Blood Gas Sample Site Radial, left; Blood Gas Sample Type Arterial; Carboxyhemoglobin 0.1 %THgb (0.4-20.1); HCO3 ABG 20.4 mmol/L (22-26); Ionized Calcium Level - ABG 1.2 mmol/L (1.1-1.4); Methemoglobin 0.9 % (0.4-1.5); Oxygen Device OXY MASK; Oxygen Saturation ABG 90.9; PO2 ABG 66.1 mmHg (80.0-100.0); Potassium Level - ABG 4.4 mmol/L (3.5-5.0); Total Hemoglobin 11.9 g/dL (12-16)
[2022-04-28] MEDS: aspirin 81 mg EC Tablet PO (08:32)
[2022-04-28] MEDS: cholecalciferol (vitamin D3) 1,000 unit Tablet 2000 UNIT PO (08:32)
[2022-04-28] MEDS: multivitamin therapeutic Tablet 1 TAB PO (08:32)
[2022-04-28] MEDS: montelukast sodium 10 mg Tablet PO (08:32)
[2022-04-28] MEDS: pantoprazole DR 40 mg Tablet PO (08:32)
[2022-04-28] MEDS: enoxaparin 80 mg/0.8 mL Syringe 70 MG SUBCUT (08:32)
[2022-04-28] MEDS: insulin lispro 100 unit/1 mL SUBCUT ×4 (08:59→21:14)
[2022-04-28 10:22] LABS: Hepatitis A Antibody IgM Non-Reactive (Nonreactive); Hepatitis B Core IgM Non-Reactive (Nonreactive); Hepatitis B Surface Antigen Non-Reactive (Nonreactive); Hepatitis C Virus Antibody Non-Reactive (Nonreactive)
[2022-04-28] MEDS: hydrocortisone 100 mg/2 mL SDV 50 MG IVP ×2 (11:14→17:07)
[2022-04-28 11:25] LABS: Glucose Point of Care 244 mg/dL (70-110)
--- NOTE | 2022-04-28 12:40 | PC.CHAP ---
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 [] Patient/Family/Request visit [] Outpatient visit [] Follow-up visit [] Physician referral [] Code/Alert [x] Routine visit [] Staff referral [] Actively dying [x] Patient sleeping [] Family support [] [] Out of room [] Palliative care [] [] Receiving care in room [] Pre-surgical visit [] Trauma [] Long length of stay [x] ICU visit [] Other: Relational/Emotional Strength [] Patient feels connected with others/family/visitors/staff [] Distress [] Loneliness/isolation [] Abandonment Spirituality of Patient [] Person of [place] [] Attends Hindu of their [place] [] Believes in Prayer [] Reads Bible or Hindu materials [] There are Spiritual issues to be addressed Haulage Engine Operator Interventions [x] Prayer [] Active listening [] Non-anxious presence [] Spiritual/emotional support [] Crisis/trauma care [] Spiritual counseling [] Bereavement support [] Provided bereavement packet [] Provided Bible/devotional materials [] Provided toy/stuffed animal, coloring book to patient or family member [] Provided Communion [] Anointing/[place] [] Salvation [x] Completed spiritual assessment [] Other: Impact on Illness or Injury [] Angry [] Fearful [] Anxious [] Often cries [] Exhaustion [] Unable to work [] Unable to attend scientologist [] Unable to walk/stand [] Unable to read [] Unable to drive [] Unable to eat/drink [] Unable to sleep [] Unable to be with family [] Patient intubated [] Other: Summary Time spent with patient
--- NOTE | 2022-04-28 14:07 | PC.NURSE ---
Patient up in chair with PT family at bedside. Patient tolerated transfer well with complaints of slight dizziness. See vital signs as documented. Linens changed, this nurse assisted patient with sponge bath.
--- NOTE | 2022-04-28 15:12 | PC.NURSE ---
Mrs. Bruner assisted back to bed by this nurse and nurse brittany Morales. Patient tolerated well and states, I am so exhausted . Mrs. Bruner denies dizziness at this time. See vital signs as documented. noted to be at bedside.
--- NOTE | 2022-04-28 16:29 | PM.PN ---
Subjective Subjective: Patient was seen and examined this morning, continues to be lethargic, overnight events noted. Junctional rhythm was noted last night: While I was rounding on her in the evening, nurse was told to do 12 lead EKG, she was asked to discontinue metoprolol succinate 100 p.o. daily. Yesterday orders were placed for Vanco and Zosyn, during the daytime,surprisingly Vanco order was carried forward, and Zosyn order did not Reflected on the MAR. Medications: Medication Review Details: Generic Name Dose Route Start Last Admin Trade Name Alannah PRN Reason Stop Dose Admin Atorvastatin Calci um 20 mg 04/26/22 21:00 04/26/22 21:48 Atorvastatin 40 Mg Tablet PO 20 mg BEDTIME EDUAR Administration Enoxaparin Sodium 70 mg 04/26/22 21:00 04/26/22 21:48 Enoxaparin 80 Mg /0.8 Ml Syringe SUBCUT 70 mg BID@0900,2100 EDUAR Administration Potassium Chloride /Sodium Chloride 20 meq in 1,000 m ls @ 50 mls/hr 04/26/22 16:45 04/26/22 17:53 Sodium Chlor 0.9 % + Kcl 20 Meq IV 50 mls/hr .Q20H EDUAR Administration Insulin Human Lisp ro 0 unit 04/26/22 20:39 04/26/22 21:56 Insulin Lispro 1 00 Unit/1 Ml SUBCUT Not Given WM&BEDTIME EDUAR Protocol Vitals/I&O/Wt Last Vital Signs Temp 98.1 F 04/28/22 15:00 Pulse 65 04/28/22 16:00 Resp 24 H 04/28/22 16:00 BP 119/68 04/28/22 16:00 Pulse Ox 92 04/28/22 16:00 04/28/22 04/28/22 04/28/22 06:59 14:59 22:59 Intake Total 1550 / 3092.5 290 / 290 50 / 340 Output Total 195 / 995 Balance 1355 / 2097.5 290 / 290 50 / 340 Weight last 48 hrs Weight 79.379 kg Weight 71.259 kg Physical Exam Const: COMMON NORMALS: patient oriented x3 HENMT: COMMON NORMALS: normocephalic and atraumatic HEAD & SCALP: normocephalic and atraumatic Resp: COMMON NORMALS: clear to auscultation bilaterally EFFORT & INSPECTION: Yes symmetric chest movement AUSCULTATION: clear to auscultation bilaterally Cardio: COMMON NORMALS: regular rate, regular rhythm, S1 normal heart sound present, S2 normal heart sound present, No gallops present (Cardio), No murmurs present (Cardio), No rub (Cardio) and Peripheral pulses 2+ throughout RATE: regular rate RHYTHM: regular rhythm HEART SOUNDS: S1 normal heart sound present and S2 normal heart sound present PERIPHERAL PULSES: Peripheral pulses 2+ throughout GI: COMMON NORMALS: Normal to inspection, nondistended, normoactive bowel sounds present, Soft to palpation, non-tender, No hepatosplenomegaly present and no masses AUSCULTATION: Yes normoactive bowel sounds PALPATION: Yes Soft to palpation and Yes No hepatosplenomegaly present RECTAL EXAM: deferred Extremity: COMMON NORMALS: no clubbing, cyanosis or edema and no pedal edema Neuro: COMMON NORMALS: patient oriented x3 Urinary Catheter Management: Gutierrez: Cath Placed During This Visit: yes Reason for Continuing Indwelling Catheter: Accurate Measurement of Urinary Output in Critically Ill Patients Urinary Catheter Date of Insertion: 04/27/22 Urinary Catheter Time of Insertion: 13:20 Data : 04/28/22 00:52 04/28/22 00:52 Micro: Microbiology 04/27/22 13:31 Blood Culture - Preliminary Blood NEGATIVE TO DATE 04/28/22 00:56 Blood Culture - Preliminary Blood SPECIMEN COLLECTED 04/28/22 00:52 Blood Culture - Preliminary Blood SPECIMEN COLLECTED A&P Assessment and plan (1) Non-ST elevation RI (NSTEMI): Status: Acute (2) Generalized weakness: Status: Acute (3) Hypokalemia: Status: Acute (4) Diabetes: Status: Acute Qualifiers: Diabetes mellitus complication status: without complication Diabetes mellitus penitentiary insulin use: without penitentiary use Diabetes mellitus type: type 2 Qualified Code(s): E11.9 - Type 2 diabetes mellitus without complications (5) HTN (hypertension): Status: Acute Qualifiers: Hypertension type: essential hypertension Qualified Code(s): I10 - Essential (primary) hypertension (6) Atrial fibrillation: Status: Acute (7) Fever: Status: Acute Plan 76 year old female ?with PMHx of HTN , DM-2 on OHA (HbA1C ~6.6) x 5 years, HLD and GERD, atrial fibrillation, was on Eliquis at home, was brought in with chief complaint of generalized weakness , going on for the last couple of days, she also experienced fall at home, she was also complaining of mild substernal chest pain, for the past few days. Assessment: sepsis Myocarditis Junctional bradycardia: Possibly secondary to metoprolol, could be secondary to myocarditis: Transaminitis: Possibly medication induced, rule out other etiologies NSTEMI: History of atrial fibrillation Hypertension Diabetes Dyslipidemia Generalized weakness MALICK: Likely secondary to, recent contrast use Hyponatremia Recent history of sinus infection complete antibiotic course as an outpatient. (Patient was on Augmentin ) Plan: Patient had a nuclear stress test done in : 03/28 : Myocardial perfusion imaging is normal.Subdiaphragmatic attenuation artifact noted in mid inferoseptal and apical septal verdugo. 2D echo: Normal LV size and systolic function, no RWMA , normal LVEF?There is no pericardial effusion. Repeat 2D echo: Normal left ventricular size and systolic function, EF 66 %. No regional wall motion abnormalities. Normal cardiac chamber sizes. There are no intracardiac masses. Trivial pericardial effusion. CT angio chest w abd pel w con: : No pulmonary embolism , no dissection , Nodular like consolidation in the right lower lobe concerning for possible pneumonia. Mild pulmonary edema with small right-sided and trace left-sided pleural effusions. Gallbladder wall thickening and or pericholecystic fluid. Recommend ultrasound evaluation for cholecystitis.Periportal edema and trace perihepatic ascites, of indeterminate. US abdomen limited:No cholelithiasis. Mild gallbladder wall thickening and edema may be related to hepatocellular disease. Normal common bile duct. US renal BI with PV bladder: No hydronephrosis? Hepatitis panel: Negative (hepatitis A IgM antibody nonreactive, hepatitis B surface antigen nonreactive, hepatitis B core IGm antibody nonreactive, hepatitis C antibody nonreactive) CT head without contrast: No acute intracranial pathology HIDA scan Respiratory viral panel Initial CK: Normal : Repeat CK: 330 Troponin trend: 597- 630- 978- 7002 Procalcitonin: 0.90 Lactic acid: 2.9 Blood culture: Continue telemetry monitoring LDSSI, monitor fingerstick glucose Cardiology consult Follow blood culture X-ray chest: No infiltrates Respiratory viral panel Follow COVID PCR Rapid COVID antigen negative Influenza negative ESR:75 CRP: 216 Monitor CMP S/p cardiac cath: With non occlusive coronary artery disease. Possibility of myocarditis or transient coronary vasospasm cannot be ruled out. She was on ACS protocol (aspirin statin therapeutic anticoagulation, beta-loraine, sublingual nitro as needed). Regarding patient transaminitis: Possibility of, drug associated hepatitis exist, possibility of acalculous cholecystitis, given the ultrasound findings, do exist but it is less likely in the setting of overall clinical presentation, allopurinol hypersensitivity syndrome, is very unlikely, as the patient, does not have, typical multiorgan failure presentation, rash, she also does not have at risk ethnicity, allopurinol associated hepatic dysfunction may be possible, hepatitis panel is negative, DRESS is unlikely she does not have any rash, and other typical presentation.Possible logical explanation, for hepatitis may be recent use of Augmentin, or ischemia related due to possible transient hypotension, Overt adrenal failure is unlikely: Patient does not have hyperkalemia, hypoglycemia. Relative adrenal insufficiency in the setting of sepsis is a possibility given low random cortisol, low serum albumin will further complicate the interpretation.Currently on stress dose hydrocortisone. For possible acalculous cholecystitis: Surgery has been consulted. Possible renal consult in a.m. Junctional bradycardia: Possibly secondary to metoprolol, could be secondary to myocarditis: Continue to hold metoprolol. Empirically on Vanco and Zosyn. CODE STATUS: Limited resuscitation DVT prophylaxis: Not needed on therapeutic Lovenox Attestations Medical Necessity Statement*: Patient is still in hospital for management of sepsis. Time Spent in Patient Care: Greater than 35 minutes (>than 50% of time spent in counselling and/or direct pt care on unit). Critical Care Time: The high probability of a clinically significant, sudden or life threatening deterioration of the patient's [] system(s) required my full and direct attention, intervention and personal management. The critical care time is as shown. This time is in addition to time spent performing any reported procedures but includes the following: [x] Data and vital sign review and interpretation [x] Patient assessment, examination and intervention [x] Documentation [x] Medication orders and management Critical Care Time (min): 60 Coding Level of Care Code Acute Refractory Mixer for [facility] Fwd Exam Detailed Diagnoses Non-ST elevation RI (NSTEMI) I21.4 Generalized weakness R53.1 Hypokalemia E87.6 Diabetes E11.9 Diabetes mellitus complication status: without complication Diabetes mellitus penitentiary insulin use: without penitentiary use Diabetes mellitus type: type 2 HTN (hypertension) I10 Hypertension type: essential hypertension Atrial fibrillation I48.91 Fever R50.9
[2022-04-28 17:03] LABS: Albumin Level 3.2 g/dL (3.5-5.2); Alkaline Phosphatase 76 IU/L (35-105); Anion Gap 19.1 (5-19); Blood Urea Nitrogen 47 mg/dL (8-23); Calcium 8.7 mg/dL (8.5-10.5); Carbon Dioxide 22 mmol/L (22-29); Chloride 89 mmol/L (98-107); Globulin 2.9 g/dL (1.3-4.6); Glucose 341 mg/dL (65-115); Osmolality Calculated 288 mOsm/kg (285-295); Potassium 4.1 mmol/L (3.5-5.1); Sodium 126 mmol/L (136-145); Total Bilirubin 0.4 mg/dL (0.15-1.2); Total Protein 6.1 g/dL (6.6-8.7)
[2022-04-28 17:15] LABS: Alanine Aminotransferase 1085 U/L (0-33); Aspartate Amino Transferase 1071 U/L (0-32)
--- NOTE | 2022-04-28 20:11 | PC.NURSE ---
Bedside report received from Carter Choi RN.
--- NOTE | 2022-04-28 20:54 | PM.PN ---
Subjective Subjective: Patient is feeling weak. Coronary angiogram yesterday did not reveal any significant CAD. RV marginal branch had stenosis. Vitals/I&O/Wt Last Vital Signs Temp 99.4 F 04/28/22 20:00 Pulse 66 04/28/22 20:15 Resp 33 H 04/28/22 20:15 BP 124/56 04/28/22 20:15 Pulse Ox 96 04/28/22 20:15 04/28/22 04/28/22 04/28/22 06:59 14:59 22:59 Intake Total 1550 / 3092.5 290 / 290 530 / 820 Output Total 195 / 995 300 / 300 Balance 1355 / 2097.5 290 / 290 230 / 520 Weight last 48 hrs Weight 175 lb Weight 157 lb 1.6 oz Physical Exam Narrative: GENERAL: Patient is alert, awake and oriented x3. [] NECK: No jugular vein distension. [] HEENT: No cyanosis. No icterus. No pallor. [] HEART: Regular S1 and S2. No murmur, rub or gallop. [] LUNGS: Clear to auscultate bilaterally. [] ABDOMEN: Soft, nontender and nondistended. Positive bowel sounds. No guarding, rebound or tenderness. [] CENTRAL NERVOUS SYSTEM: Grossly nonfocal. [] EXTREMITIES: Lower extremities with 1+ edema bilaterally. Pulses palpable in the lower extremities, both dorsalis pedis and posterior tibial. [] Urinary Catheter Management: Gutierrez: Cath Placed During This Visit: yes Reason for Continuing Indwelling Catheter: Acute Urinary Retention or Obstruction Urinary Catheter Date of Insertion: 04/27/22 Urinary Catheter Time of Insertion: 13:20 Data : 04/29/22 05:45 04/29/22 05:45 Micro: Microbiology 04/27/22 13:31 Blood Culture - Preliminary Blood NEGATIVE TO DATE 04/28/22 00:56 Blood Culture - Preliminary Blood SPECIMEN COLLECTED 04/28/22 00:52 Blood Culture - Preliminary Blood SPECIMEN COLLECTED A&P Assessment and plan (1) Non-ST elevation MO (NSTEMI): Status: Acute (2) Atrial fibrillation: Status: Acute (3) Dyspnea on exertion: Status: Acute (4) Hyperlipidemia: Status: Acute Qualifiers: Hyperlipidemia type: unspecified Qualified Code(s): E78.5 - Hyperlipidemia, unspecified (5) Diabetes: Status: Acute Qualifiers: Diabetes mellitus type: type 2 Diabetes mellitus press tender long goods insulin use: without press tender long goods use Diabetes mellitus complication status: without complication Qualified Code(s): E11.9 - Type 2 diabetes mellitus without complications (6) HTN (hypertension): Status: Acute Qualifiers: Hypertension type: essential hypertension Qualified Code(s): I10 - Essential (primary) hypertension Plan Coronary angiogram did not reveal significant CAD. RV marginal branch had stenosis which was treated medically. Troponins went up significantly. LV systolic function on repeat echocardiogram is also normal. LFTs also worsened and renal dysfunction seen. CTA performed overnight showed possible pneumonia. She is currently on antibiotics for that. Possibility of myocarditis as has some small pericardial effusion and had recent respiratory tract infection symptoms. Continue aspirin. Telemetry monitoring Thank you for involving us with care of this patient. We will continue to follow. Please call with questions. Attestations Medical Necessity Statement*: Care expected to cross 2 midnights. 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
[2022-04-28 22:03] LABS: Glucose Point of Care 377 mg/dL (70-110)
[2022-04-28 22:03] LABS: Glucose Point of Care 425 mg/dL (70-110)
[2022-04-29] VITALS (52 sets, daily range): BP systolic 99–137; BP diastolic 50–78; PULSE 61–72; RESP 16–36; TEMP 36.7–37.3; O2SAT 90–98
--- NOTE | 2022-04-29 00:21 | PC.PHAR ---
Random Vancomycin level was obtained on this patient 26 hours after dose of 1000mg IVPB. The level as 6.0. The dosage has been adjusted to 1000mg IVPB every 36 hours to produce a predicted trough level of 15.14. Another trough level has been ordered to be obtained before the next dose which is due in 36 hours and we will follow closely due to varying creatinine clearance levels.
[2022-04-29] MEDS: hydrocortisone 100 mg/2 mL SDV 50 MG IVP ×5 (00:35→23:47)
[2022-04-29] MEDS: vancomycin 1,000 MG in sodium chloride 0.9% 250 ML 250 MG IV ×3 (00:36→11:27)
--- NOTE | 2022-04-29 01:31 | PC.NURSE ---
Pt has excessive flatulence with continued constipation.
[2022-04-29] MEDS: piperacillin-tazobactam 3.375 GM in sodium chloride 0.9% (plus) 50 ML IV ×3 (04:14→19:15)
[2022-04-29 05:20] LABS: Glucose Point of Care 251 mg/dL (70-110)
--- NOTE | 2022-04-29 05:39 | PC.NURSE ---
Pt continues to refuse bathing and oral care, but did agree to let me change her soiled gown and linens.
--- NOTE | 2022-04-29 06:00 | NMR_ITS ---
PROCEDURE INFORMATION: Exam: NM Hepatobiliary Including Gallbladder When Present With Pharmacological Intervention Exam date and time: 04/29/2022 6:00 AM Age: 76 years old Clinical indication: Patient HX: Ruq pain, nausea, vomiting x 2 weeks; Additional info: Transaminitis TECHNIQUE: Imaging protocol: Hepatobiliary system imaging including the gallbladder when present with pharmacologic intervention. Including quantitative measurements when performed. Projections: Frontal abdomen. 60 minutes of static imaging was performed at 5 minute intervals in the frontal plane - starting 5 minutes after radiotracer administration. Radiopharmaceutical: 7.9 mCI Tc-99m Mebrofenin (Choletec, Bromotriethyl-YOSEPH), IV. Time of imaging post radiopharmaceutical administration: 60 minutes following radiopharmaceutical. Pharmacological intervention: Thereafter patient ingested 8oz of Ensure Plus per protocol from literature described below - 60 minutes post radiopharmaceutical injection. COMPARISON: CT angio chest w abd pel w con 04/28/2022 5:22 AM FINDINGS: There is prompt hepatic uptake and excretion of the radiotracer. There is progression of the radiotracer through a non dilated biliary tree and into small bowel. Gallbladder filling is first noted at 15 minutes past radiotracer injection. After patient ingestion of 8 oz of Ensure Plus, the gallbladder ejection fraction is noted to be 37 %. Technologist Comment: No pain reported NM/NM hepatobiliary w phar* [id number] IMPRESSION: 1. Normal gallbladder filling and gallbladder ejection fraction after ingestion of 8 oz of Ensure Plus, as noted above. NOTES: J Nuc Med 2003; 44:[id number] Study of 20 healthy individuals showed normal EF >=33% by 60 minutes following ingestion of 8oz of Ensure Plus for oral supplement-stimulated cholescintigraphy. 5. EF <33% is indeterminate/nonspecific warranting clinical correlation with history and symptomatology given limited literature supported data and followup.
[2022-04-29 06:30] LABS: Basophils % 0.2 %; Eosinophils % 0.2 %; Hemoglobin 10.8 g/dL (11.5-15.3); Lymphocytes # 1.3 10^3/uL (0.8-4.8); Lymphocytes % 9.5 %; Mean Corpuscular HGB Conc 30.9 g/dL (30.0-36.0); Mean Corpuscular Hemoglobin 26.6 pg (28.0-34.0); Mean Corpuscular Volume 86.2 fl (81-99); Mean Platelet Volume 12.9 fL (7.4-10.4); Monocytes # 0.8 10^3/uL (0.2-0.9); Monocytes % 6.1 %; Neutrophils # 11.46 10^3/uL (1.8-7.7); Neutrophils % 83.6 %; Nucleated Red Blood Cells % 0.1 %; Platelet Count 201 10^3/cmm (130-400); Red Blood Count 4.06 10^6/uL (4.1-5.3); Red Cell Distribution Width 15.4 % (12.1-15.1); White Blood Count 13.7 10^3/uL (4.0-10.0)
--- NOTE | 2022-04-29 06:51 | PC.NURSE ---
Bedside report given to GURWINDER [place]
[2022-04-29 06:53] LABS: Vancomycin Random 19.7 ug/mL (20.0-40.0)
[2022-04-29 06:55] LABS: Albumin Level 3.1 g/dL (3.5-5.2); Alkaline Phosphatase 117 IU/L (35-105); Anion Gap 16.8 (5-19); Blood Urea Nitrogen 50 mg/dL (8-23); Calcium 8.7 mg/dL (8.5-10.5); Carbon Dioxide 23 mmol/L (22-29); Chloride 93 mmol/L (98-107); Glucose 236 mg/dL (65-115); Osmolality Calculated 289 mOsm/kg (285-295); Potassium 3.8 mmol/L (3.5-5.1); Sodium 129 mmol/L (136-145); Total Bilirubin 0.4 mg/dL (0.15-1.2); Total Protein 6.1 g/dL (6.6-8.7)
[2022-04-29 07:11] LABS: Alanine Aminotransferase 1043 U/L (0-33)
[2022-04-29 07:18] LABS: Aspartate Amino Transferase 761 U/L (0-32)
[2022-04-29] MEDS: montelukast sodium 10 mg Tablet PO (08:00)
[2022-04-29] MEDS: aspirin 81 mg EC Tablet PO (08:00)
[2022-04-29] MEDS: pantoprazole DR 40 mg Tablet PO (08:00)
[2022-04-29] MEDS: multivitamin therapeutic Tablet 1 TAB PO (08:00)
[2022-04-29] MEDS: cholecalciferol (vitamin D3) 1,000 unit Tablet 2000 UNIT PO (08:00)
[2022-04-29] MEDS: insulin lispro 100 unit/1 mL SUBCUT ×4 (08:01→20:55)
--- NOTE | 2022-04-29 08:36 | PC.NURSE ---
This nurse assisted patient to wheelchair and placed patient on 5L HF NC. O2 noted to be 92%. This nurse transferred patient to Nuclear Medicine unit for scheduled test this am. Linens change, family noted to be in waiting area.
--- NOTE | 2022-04-29 10:58 | PC.NURSE ---
Patient back in room from nuclear medicine test, resting in bed on 5L NC. Family at bedside, see vitals as documented.
--- NOTE | 2022-04-29 11:49 | P.CONIM_ITS ---
Providers/Reason For Consult Consulting Physician/Specialty*: General Surgery Dr. Sotomayor Reason for Consult*: Elevated liver enzyme was Attending Physician: Ruy Beck MD Primary Care Provider: Janak Johnson DO History of Present Illness History of Present Illness Sherrell Bruner is a 76 year old female who presented to the ER on 04/26/2022 with complaints of generalized weakness and fall at home with associated midsternal chest pain. Patient had a cardiac work-up and subsequently underwent coronary angiogram due to elevated troponins. Her angiogram did not show significant coronary disease but she developed hypotension on 04/29/2022 and during her work-up was noted to have elevated liver enzymes, mainly AST and ALT with normal bilirubin and alk phos. She is recently had a CT chest abdomen pelvis which showed possible acute acalculous cholecystitis. Patient states that prior to her hospitalization she did not have significant abdominal pain, nausea or vomiting though she felt full after eating small portions of food. She is on Prilosec for GERD but denies any history of PUD or prior EGD. She has a longstanding history of constipation. Review of Systems General: Reports: 10 or more systems reviewed and unremarkable except in HPI and below Medications/Allergies Home Medications Medication Instructions Recorded Confirmed Last Taken Type allopurinol 300 mg tablet 300 mg PO DAILY 02/02/21 04/26/22 04/25/22 History lancets 33 gauge (OneTouch Delica 02/02/21 04/26/22 06/19/21 History Lancets) lysine 1,000 mg tablet 1,000 mg PO DAILY 02/02/21 04/26/22 04/25/22 History montelukast 10 mg tablet 10 mg PO DAILY 02/02/21 04/26/22 04/25/22 History (Singulair) multivitamin 1 tab PO DAILY 02/02/21 04/26/22 04/25/22 History simvastatin 80 mg tablet 40 mg PO DAILY tab 02/02/21 04/26/22 04/25/22 History omeprazole 40 mg capsule,delayed 40 mg PO DAILY 05/16/21 04/26/22 04/25/22 History release lisinopril 20 1 tab PO DAILY #90 tab 06/27/21 04/26/22 04/25/22 Rx mg-hydrochlorothiazide 25 mg tablet metoprolol succinate 100 mg 100 mg PO DAILY #90 tab 06/27/21 04/26/22 04/25/22 Rx tablet,extended release 24 hr amlodipine 5 mg tablet 5 mg PO DAILY 10/17/21 04/26/22 04/25/22 History dapagliflozin 5 mg tablet (Farxiga) 5 mg PO DAILY #90 tab 10/19/21 04/26/22 07/06/29 Rx aspirin 325 mg tablet 325 mg PO BID tab 02/15/22 04/26/22 04/25/22 History azelastine 137 mcg (0.1 %) nasal 2 spray INTRANASAL BID PRN 02/15/22 04/26/22 Unknown History spray aerosol cholecalciferol (vitamin D3) 50 50 mcg PO DAILY 02/15/22 04/26/22 04/25/22 History mcg (2,000 unit) capsule furosemide 20 mg tablet 20 mg PO DAILY PRN #30 tab 02/27/22 04/26/22 Unknown Rx glipizide 5 mg tablet, extended 5 mg PO DAILY 04/26/22 04/26/22 04/25/22 History release 24 hr metformin 500 mg tablet,extended 1,000 mg PO BID 04/26/22 04/26/22 04/25/22 History release 24 hr Allergies Allergy/AdvReac Type Severity Reaction Status Date / Time No Known Allergies Allergy Verified 10/19/21 14:50 Current Medications Generic Name Dose Route Start Last Admin Trade Name Freq PRN Reason Stop Dose Admin Aspirin 81 mg 04/27/22 09:00 04/29/22 08:00 Aspirin 81 Mg Ec Tablet PO 81 mg DAILY EDUAR Administration Enoxaparin Sodium 70 mg 04/26/22 21:00 04/28/22 08:32 Enoxaparin 80 Mg/0.8 Ml Syringe SUBCUT 70 mg BID@0900,2100 EDUAR Administration Hydrocortisone Sodium Succinate 50 mg 04/28/22 12:00 04/29/22 11:28 Hydrocortisone 100 Mg/2 Ml Sdv IVP 50 mg Q6H EDUAR Administration Piperacillin Sod/Tazobactam 50 mls @ 12.5 mls/hr 04/28/22 12:00 04/29/22 11:2 8 Sod 3.375 gm/ Sodium Chloride IV 12.5 mls/hr Q8H EDUAR Administration Insulin Human Lispro 0 unit 04/26/22 20:39 04/29/22 08:01 Insulin Lispro 100 Unit/1 Ml SUBCUT 8 unit WM&BEDTIME EDUAR Administration Protocol Montelukast Sodium 10 mg 04/27/22 09:00 04/29/22 08:00 Montelukast Sodium 10 Mg Tablet PO 10 mg DAILY EDUAR Administration Multivitamins Therapeutic 1 tab 04/27/22 09:00 04/29/22 08:00 Multivitamin Therapeutic Tablet PO 1 tab DAILY EDUAR Administration Pantoprazole Sodium 40 mg 04/27/22 09:00 04/29/22 08:[address] 40 Mg Tablet PO 40 mg DAILY EDUAR Administration Vitamin D 2,000 unit 04/27/22 09:00 04/29/22 08:00 Cholecalciferol (Vitamin D3) 1,000 Unit Tablet PO 2,000 unit DAILY EDUAR Administration PFSH Acute PFSH: Medical History Atrial fibrillation Diabetes Dizziness GERD (gastroesophageal reflux disease) HTN (hypertension) Hyperlipidemia Surgical History Hx of hysterectomy Family History Mother Hypertension Diabetes Father CAD (coronary artery disease) Brother CAD (coronary artery disease) Grandmother Stroke Denies family history of Bleeding disorder Social History Smoking and tobacco status: never smoked Alcohol intake: never Vitals/I&O/Wt Last Vital Signs Temp 98.1 F 04/29/22 08:00 Pulse 67 04/29/22 08:00 Resp 33 H 04/29/22 08:00 BP 130/78 04/29/22 08:30 Pulse Ox 94 04/29/22 10:49 04/28/22 04/29/22 04/29/22 22:59 06:59 14:59 Intake Total 530 / 1370 550 / 1370 50 / 50 Output Total 425 / 900 475 / 900 Balance 105 / 470 75 / 470 50 / 50 Weight last 48 hrs Weight 167 lb 6.4 oz Weight 175 lb Physical Exam Narrative: HEENT: Normocephalic Eye: Sclera /conjunctiva normal Abdomen: Soft to palpation, mildly tender in the right upper quadrant Neurological: Oriented to place person and time Skin: Intact, no lesions appreciated on gross exam Urinary Catheter Management: Gutierrez: Cath Placed During This Visit: yes Reason for Continuing Indwelling Catheter: Acute Urinary Retention or Obstruction Urinary Catheter Date of Insertion: 04/27/22 Urinary Catheter Time of Insertion: 13:20 Data : 04/29/22 05:45 04/29/22 05:45 Micro: Microbiology 04/27/22 19:45 Urine Culture - Final Urine,Clean Catch 04/28/22 00:56 Blood Culture - Preliminary Blood NEGATIVE TO DATE 04/28/22 00:52 Blood Culture - Preliminary Blood NEGATIVE TO DATE 04/27/22 13:31 Blood Culture - Preliminary Blood NEGATIVE TO DATE A&P Assessment and plan (1) Elevated liver enzymes: 76-year-old female recently hospitalized due to chest pain and generalized w eakness was noted to have elevated liver enzymes specifically AST and ALT which are now trending down. Her CT scan had shown possible acute acalculous cholecystitis but HIDA scan today showed no evidence of cholecystitis with ejection fraction of 37% Start clear liquid diet, advance as tolerated Discussed with the patient that she could still have a competent of chronic cholecystitis but this should be worked up as an outpatient once her cardiac and pulmonary status has been optimized. Status: Acute (2) Constipation: Longstanding history of constipation currently feels constipated. 150 mg magnesium citrate p.o. x1 today Senna S twice daily Status: Acute Consult Attestations Medical Necessity Statement: As per attending physician Coding Level of Care Code Acute Manager Action for [facility] Diagnoses Elevated liver enzymes R74.8 Constipation K59.00
--- NOTE | 2022-04-29 12:13 | P.PN_ITS ---
Subjective Subjective: Patient was seen and examined this morning, was complaining of feeling tired, transaminitis is improving Fortunately kidney function is improving, has been afebrile, HIDA scan was done this morning. Blood culture so far has remained negative. Unfortunately multiple orders has been canceled on this patient, without informing the involved treating physicians. Medications: Medication Review Details: Generic Name Dose Route Start Last Admin Trade Name Alannah PRN Reason Stop Dose Admin Atorvastatin Calci um 20 mg 04/26/22 21:00 04/26/22 21:48 Atorvastatin 40 Mg Tablet PO 20 mg BEDTIME EDUAR Administration Enoxaparin Sodium 70 mg 04/26/22 21:00 04/26/22 21:48 Enoxaparin 80 Mg /0.8 Ml Syringe SUBCUT 70 mg BID@0900,2100 EDUAR Administration Potassium Chloride /Sodium Chloride 20 meq in 1,000 m ls @ 50 mls/hr 04/26/22 16:45 04/26/22 17:53 Sodium Chlor 0.9 % + Kcl 20 Meq IV 50 mls/hr .Q20H EDUAR Administration Insulin Human Lisp ro 0 unit 04/26/22 20:39 04/26/22 21:56 Insulin Lispro 1 00 Unit/1 Ml SUBCUT Not Given WM&BEDTIME EDUAR Protocol Vitals/I&O/Wt Last Vital Signs Temp 98.1 F 04/29/22 12:00 Pulse 66 04/29/22 12:00 Resp 33 H 04/29/22 08:00 BP 117/71 04/29/22 12:00 Pulse Ox 93 04/29/22 11:30 04/28/22 04/29/22 04/29/22 22:59 06:59 14:59 Intake Total 530 / 820 550 / 1370 50 / 50 Output Total 425 / 425 475 / 900 Balance 105 / 395 75 / 470 50 / 50 Weight last 48 hrs Weight 75.931 kg Weight 79.379 kg Physical Exam Const: COMMON NORMALS: patient oriented x3 HENMT: COMMON NORMALS: normocephalic and atraumatic HEAD & SCALP: normoc ephalic and atraumatic Resp: COMMON NORMALS: clear to auscultation bilaterally EFFORT & INSPECTION: Yes symmetric chest movement AUSCULTATION: clear to auscultation bilaterally Cardio: COMMON NORMALS: regular rate, regular rhythm, S1 normal heart sound present, S2 normal heart sound present, No gallops present (Cardio), No murmurs present (Cardio), No rub (Cardio) and Peripheral pulses 2+ throughout RATE: regular rate RHYTHM: regular rhythm HEART SOUNDS: S1 normal heart sound present and S2 normal heart sound present PERIPHERAL PULSES: Peripheral pulses 2+ throughout GI: COMMON NORMALS: Normal to inspection, nondistended, normoactive bowel sounds present, Soft to palpation, non-tender, No hepatosplenomegaly present and no masses AUSCULTATION: Yes normoactive bowel sounds PALPATION: Yes Soft to palpation and Yes No hepatosplenomegaly present RECTAL EXAM: deferred Extremity: COMMON NORMALS: no clubbing, cyanosis or edema and no pedal edema Neuro: COMMON NORMALS: patient oriented x3 Urinary Catheter Management: Gutierrez: Cath Placed During This Visit: yes Reason for Continuing Indwelling Catheter: Acute Urinary Retention or Obstruction Urinary Catheter Date of Insertion: 04/27/22 Urinary Catheter Time of Insertion: 13:20 Data : 04/29/22 05:45 04/29/22 05:45 Micro: Microbiology 04/27/22 19:45 Urine Culture - Final Urine,Clean Catch 04/28/22 00:56 Blood Culture - Preliminary Blood NEGATIVE TO DATE 04/28/22 00:52 Blood Culture - Preliminary Blood NEGATIVE TO DATE 04/27/22 13:31 Blood Culture - Preliminary Blood NEGATIVE TO DATE A&P Assessment and plan (1) Non-ST elevation DE (NSTEMI): Status: Acute (2) Generalized weakness: Status: Acute (3) Hypokalemia: Status: Acute (4) Diabetes: Status: Acute Qualifiers: Diabetes mellitus type: type 2 Diabetes mellitus nursing home insulin 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 Diabetes mellitus complication status: without complication Qualified Code(s): E11.9 - Type 2 diabetes mellitus without complications (5) HTN (hypertension): Status: Acute Qualifiers: Hypertension type: essential hypertension Qualified Code(s): I10 - Essential (primary) hypertension (6) Atrial fibrillation: Status: Acute (7) Fever: Status: Acute Plan 76 year old female ?with PMHx of HTN , DM-2 on OHA (HbA1C ~6.6) x 5 years, HLD and GERD, atrial fibrillation, was on Eliquis at home, was brought in with chief complaint of generalized weakness , going on for the last couple of days, she also experienced fall at home, she was also complaining of mild substernal chest pain, for the past few days. Assessment: sepsis Possible Viral etiology /possible pneumonia/ rule out other causes Myocarditis Junctional bradycardia: Possibly secondary to metoprolol, could be secondary to myocarditis: Transaminitis: Possibly medication induced, rule out other etiologies NSTEMI: History of atrial fibrillation Hypertension Diabetes Dyslipidemia Generalized weakness MALICK: Likely secondary to, recent contrast use Hyponatremia Recent history of sinus infection complete antibiotic course as an outpatient. (Patient was on Augmentin ) Plan: Patient had a nuclear stress test done in : 03/28 : Myocardial perfusion imaging is normal.Subdiaphragmatic attenuation artifact noted in mid inferoseptal and apical septal verdugo. 2D echo: Normal LV size and systolic function, no RWMA , normal LVEF?There is no pericardial effusion. Repeat 2D echo: Normal left ventricular size and systolic function, EF 66 %. No regional wall motion abnormalities. Normal cardiac chamber sizes. There are no intracardiac masses. Trivial pericardial effusion. CT angio chest w abd pel w con: : No pulmonary embolism , no dissection , Nodular like consolidation in the right lower lobe concerning for possible pneumonia. Mild pulmonary edema with small right-sided and trace left-sided pleural effusions. Gallbladder wall thickening and or pericholecystic fluid. Recommend ultrasound evaluation for cholecystitis.Periportal edema and trace perihepatic ascites, of indeterminate. US abdomen limited:No cholelithiasis. Mild gallbladder wall thickening and edema may be related to hepatocellular disease. Normal common bile duct. US renal BI with PV bladder: No hydronephrosis? Hepatitis panel: Negative (hepatitis A IgM antibody nonreactive, hepatitis B surface antigen nonreactive, hepatitis B core IGm antibody nonreactive, hepatitis C antibody nonreactive) CT head without contrast: No acute intracranial pathology HIDA scan: Normal Respiratory viral panel: Initial CK: Normal : Repeat CK: 330 Troponin trend: 597- 630- 978- 7002 Procalcitonin: 0.90 Lactic acid: 2.9 Blood culture: NTD Continue telemetry monitoring LDSSI, monitor fingerstick glucose Cardiology consult X-ray chest: No infiltrates Respiratory viral panel: Follow COVID PCR Rapid COVID antigen negative Influenza negative ESR:75 CRP: 216 Monitor CMP S/p cardiac cath: With non occlusive coronary artery disease. Possibility of myocarditis or transient coronary vasospasm cannot be ruled out. She was on ACS protocol (aspirin statin therapeutic anticoagulation, beta- loraine, sublingual nitro as needed). Regarding patient transaminitis: Possibility of, drug associated hepatitis exist, possibility of acalculous cholecystitis, given the ultrasound findings, do exist but it is less likely in the setting of overall clinical presentation, allopurinol hypersensitivity syndrome, is very unlikely, as the patient, does not have, typical multiorgan failure presentation, rash, she also does not have at risk ethnicity, allopurinol associated hepatic dysfunction may be possible, hepatitis panel is negative, DRESS is unlikely she does not have any rash, and other typical presentation.Possible logical explanation, for hepatitis may be recent use of Augmentin, or ischemia related due to possible transient hypotension, Overt adrenal failure is unlikely: Patient does not have hyperkalemia, hypoglycemia. Relative adrenal insufficiency in the setting of sep sis is a possibility given low random cortisol, low serum albumin will further complicate the interpretation.Currently on stress dose hydrocortisone. Caution should have been exercised using contrast study overnight, given the fact that the patient had just recently got contrast during the angiogram, patient was never complaining of significant chest pain which will go in line with aortic dissection, there exist some possibility of PE, but given the fact that the patient was on therapeutic anticoagulation, and based on her overall clinical Presentation on the eventful night, it was less likely, later CTA chest was negative, in the presence of transaminitis, initial ultrasound abdomen could have been appropriate. Fortunately kidney is in the recovery phase. possible acalculous cholecystitis: Ruled out : Surgery on board Possible renal consult in a.m. Junctional bradycardia: Possibly secondary to metoprolol, could be secondary to myocarditis: Continue to hold metoprolol. on Vanco and Zosyn. CODE STATUS: Limited resuscitation DVT prophylaxis: Not needed on therapeutic Lovenox Attestations Medical Necessity Statement*: Patient is still in hospital for management of sepsis. Time Spent in Patient Care: Greater than 35 minutes (>than 50% of time spent in counselling and/or direct pt care on unit) . Critical Care Time: The high probability of a clinically significant, sudden or life threatening deterioration of the patient's [] system(s) required my full and direct attention, intervention and personal management. The critical care time is as shown. 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
--- NOTE | 2022-04-29 13:02 | PC.NURSE ---
Lab called and notified this nurse that COVID PCR was sent out on the and the results will be back on Sunday or Sunday next week. Dr. Beck notified.
--- NOTE | 2022-04-29 13:14 | PC.SOCIAL ---
IMM Update pg 2 of IMM Updated and reviewed w/ patient and her spouse. Copy provided and Copy placed in chart. Dated and initialed.
[2022-04-29] MEDS: magnesium citrate Btl 296 mL 150 ML PO (13:31)
[2022-04-29] MEDS: ipratropium-albuterol 3 mL Neb INHALATION ×2 (13:40→20:46)
--- NOTE | 2022-04-29 14:33 | PC.NURSE ---
Patient requesting pain medication for neuropathy. This nurse notified Dr. Beck. Dr. Beck placed order for gabapentin, see Dec.
[2022-04-29] MEDS: gabapentin 100 mg Capsule PO (14:51)
[2022-04-29] MEDS: sennosides-docusate Tablet 1 TAB PO (18:00)
[2022-04-29] MEDS: enoxaparin 80 mg/0.8 mL Syringe 70 MG SUBCUT (18:00)
--- NOTE | 2022-04-29 18:23 | PC.NURSE ---
Patient complains of feeling short of breath while laying flat during bedpan placement, pt remains on 5L HF NC. had moderate liquid bowel movement after magnesium citrate was given as ordered. Patient noted to have 525ml out in urine this shift. Mrs. Bruner 1815 temperature noted to be 99.2. Dr. Beck notified of these patient updates as listed above, no new orders at this time.
[2022-04-29 22:17] LABS: Glucose Point of Care 371 mg/dL (70-110)
[2022-04-29 22:17] LABS: Glucose Point of Care 309 mg/dL (70-110)
[2022-04-29 22:17] LABS: Glucose Point of Care 235 mg/dL (70-110)
[2022-04-29 22:17] LABS: Glucose Point of Care 276 mg/dL (70-110)
--- NOTE | 2022-04-29 22:36 | PM.PN ---
Subjective Subjective: Patient is feeling better. Denies chest pain. Vitals/I&O/Wt Last Vital Signs Temp 98.2 F 04/29/22 19:44 Pulse 64 04/29/22 22:00 Resp 32 H 04/29/22 22:00 BP 122/67 04/29/22 22:00 Pulse Ox 96 04/29/22 22:00 04/29/22 04/29/22 04/29/22 06:59 14:59 22:59 Intake Total 550 / 1370 650 / 650 50 / 700 Output Total 475 / 900 650 / 650 Balance 75 / 470 650 / 650 -600 / 50 Weight last 48 hrs Weight 167 lb 6.4 oz Weight 175 lb Physical Exam Narrative: GENERAL: Patient is alert, awake and oriented x3. [] NECK: No jugular vein distension. [] HEENT: No cyanosis. No icterus. No pallor. [] HEART: Regular S1 and S2. No murmur, rub or gallop. [] LUNGS: Clear to auscultate bilaterally. [] ABDOMEN: Soft, nontender and nondistended. Positive bowel sounds. No guarding, rebound or tenderness. [] CENTRAL NERVOUS SYSTEM: Grossly nonfocal. [] EXTREMITIES: Lower extremities with 1+ edema bilaterally. Pulses palpable in the lower extremities, both dorsalis pedis and posterior tibial. [] Urinary Catheter Management: Gutierrez: Cath Placed During This Visit: yes Reason for Continuing Indwelling Catheter: Acute Urinary Retention or Obstruction Urinary Catheter Date of Insertion: 04/27/22 Urinary Catheter Time of Insertion: 13:20 Data : 05/01/22 05:15 05/01/22 05:15 Micro: Microbiology 04/27/22 19:45 Urine Culture - Final Urine,Clean Catch 04/28/22 00:56 Blood Culture - Preliminary Blood NEGATIVE TO DATE 04/28/22 00:52 Blood Culture - Preliminary Blood NEGATIVE TO DATE A&P Assessment and plan (1) Non-ST elevation SC (NSTEMI): Status: Acute (2) Atrial fibrillation: Status: Acute (3) Dyspnea on exertion: Status: Acute (4) Hyperlipidemia: Status: Acute Qualifiers: Hyperlipidemia type: unspecified Qualified Code(s): E78.5 - Hyperlipidemia, unspecified (5) Diabetes: Status: Acute Qualifiers: Diabetes mellitus type: type 2 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 RV marginal branch had stenosis which was treated medically. Troponins went up significantly. LV systolic function on repeat echocardiogram is also normal. LFTs also worsened and renal dysfunction seen. CTA performed overnight showed possible pneumonia. She is currently on antibiotics for that. Has possible Myocarditis. Patient has been noted to have her junctional rhythm. She is hemodynamically stable. Hold metoprolol. Continue aspirin. Telemetry monitoring Thank you for involving us with care of this patient. We will continue to follow. Please call with questions. Attestations Medical Necessity Statement*: Care expected to cross 2 midnights. 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
[2022-04-30] VITALS (58 sets, daily range): BP systolic 83–141; BP diastolic 50–78; PULSE 58–69; RESP 16–39; TEMP 36.6–38.1; O2SAT 83–99
[2022-04-30] MEDS: ipratropium-albuterol 3 mL Neb INHALATION ×4 (02:44→20:33)
--- NOTE | 2022-04-30 03:25 | PC.NURSE ---
Pt appears less pale, and reports that she feels some better this morning. Pt bathed and lotion applied to skin. New gown placed on patient and linens changed. Pt denies any feelings of constipation at this time.
[2022-04-30] MEDS: piperacillin-tazobactam 3.375 GM in sodium chloride 0.9% (plus) 50 ML IV ×3 (03:44→19:48)
--- NOTE | 2022-04-30 04:44 | PC.NURSE ---
Pt sleeping. CPAP placed back on patient.
[2022-04-30 05:16] LABS: Basophils % 0.1 %; Eosinophils % 0.1 %; Hematocrit 31.4 % (37.0-47.0); Hemoglobin 10.1 g/dL (11.5-15.3); Lymphocytes % 7.5 %; Mean Corpuscular HGB Conc 32.2 g/dL (30.0-36.0); Mean Corpuscular Hemoglobin 26.9 pg (28.0-34.0); Mean Corpuscular Volume 83.5 fl (81-99); Mean Platelet Volume 12.4 fL (7.4-10.4); Monocytes # 0.9 10^3/uL (0.2-0.9); Monocytes % 6.6 %; Neutrophils # 11.32 10^3/uL (1.8-7.7); Neutrophils % 84.5 %; Nucleated Red Blood Cells % 0 %; Platelet Count 186 10^3/cmm (130-400); Red Blood Count 3.76 10^6/uL (4.1-5.3); Red Cell Distribution Width 15.3 % (12.1-15.1); White Blood Count 13.4 10^3/uL (4.0-10.0)
[2022-04-30] MEDS: hydrocortisone 100 mg/2 mL SDV 50 MG IVP ×2 (05:39→15:22)
[2022-04-30 05:43] LABS: Albumin Level 3.2 g/dL (3.5-5.2); Alkaline Phosphatase 150 IU/L (35-105); Anion Gap 18.9 (5-19); Aspartate Amino Transferase 676 U/L (0-32); Blood Urea Nitrogen 45 mg/dL (8-23); Calcium 8.6 mg/dL (8.5-10.5); Carbon Dioxide 23 mmol/L (22-29); Chloride 94 mmol/L (98-107); Globulin 2.6 g/dL (1.3-4.6); Glucose 221 mg/dL (65-115); Magnesium 2.8 mg/dL (1.7-2.3); Osmolality Calculated 292 mOsm/kg (285-295); Potassium 3.9 mmol/L (3.5-5.1); Sodium 132 mmol/L (136-145); Total Bilirubin 0.5 mg/dL (0.15-1.2); Total Protein 5.8 g/dL (6.6-8.7)
[2022-04-30 05:48] LABS: Troponin T (5th) Once 2790 ng/L (0-10)
[2022-04-30 05:55] LABS: Alanine Aminotransferase 1079 U/L (0-33)
--- NOTE | 2022-04-30 06:01 | PC.NURSE ---
Pt does not wish to turn at this time. Medial buttocks is off of bed with a 30 degree lateral position.
[2022-04-30] MEDS: insulin lispro 100 unit/1 mL SUBCUT ×4 (08:16→20:46)
[2022-04-30] MEDS: pantoprazole DR 40 mg Tablet PO (08:16)
[2022-04-30] MEDS: montelukast sodium 10 mg Tablet PO (08:16)
[2022-04-30] MEDS: sennosides-docusate Tablet 1 TAB PO ×2 (08:16→17:30)
[2022-04-30] MEDS: aspirin 81 mg EC Tablet PO (08:16)
[2022-04-30] MEDS: gabapentin 100 mg Capsule PO ×2 (08:16→17:30)
[2022-04-30] MEDS: cholecalciferol (vitamin D3) 1,000 unit Tablet 2000 UNIT PO (08:16)
[2022-04-30] MEDS: multivitamin therapeutic Tablet 1 TAB PO (08:16)
--- NOTE | 2022-04-30 08:56 | ECG_ITS ---
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 Measurements Intervals [place] Rate: 61 P: NM: QRS: -5 QRSD: 105 T: -9 QT: 417 QTc: 422 Interpretive Statements SUPRAVENTRICULAR RHYTHM Diffuse nonspecific T wave changes Compared to ECG 04/28/2022 04:09:05 Supraventricular rhythm now present Myocardial infarct finding no longer present Electronically Signed On 04-30-2022 21:01:25 CDT by Raleigh Hanson M.D. [id number]
--- NOTE | 2022-04-30 10:13 | PC.NURSE ---
out of bed up in chair this am monitor family at bedside this am increased diet at this time.
[2022-04-30] MEDS: enoxaparin 80 mg/0.8 mL Syringe 70 MG SUBCUT ×2 (11:40→23:49)
--- NOTE | 2022-04-30 12:49 | P.PN_ITS ---
Subjective Subjective: Patient was seen and examined this morning, spent some time in chair out of bed, has been afebrile, Kidney function is improving, AST has trended down, ALT and alk phos: Slightly high today as compared to yesterday. Troponin is trending down, continues to remain junctional rhythm, but currently she is maintaining a decent MAP. Hyponatremia is improving. Has remained afebrile. Medications: Medication Review Details: Generic Name Dose Route Start Last Admin Trade Name Alannah PRN Reason Stop Dose Admin Atorvastatin Calci um 20 mg 04/26/22 21:00 04/26/22 21:48 Atorvastatin 40 Mg Tablet PO 20 mg BEDTIME EDUAR Administration Enoxaparin Sodium 70 mg 04/26/22 21:00 04/26/22 21:48 Enoxaparin 80 Mg /0.8 Ml Syringe SUBCUT 70 mg BID@0900,2100 EDUAR Administration Potassium Chloride /Sodium Chloride 20 meq in 1,000 m ls @ 50 mls/hr 04/26/22 16:45 04/26/22 17:53 Sodium Chlor 0.9 % + Kcl 20 Meq IV 50 mls/hr .Q20H EDUAR Administration Insulin Human Lisp ro 0 unit 04/26/22 20:39 04/26/22 21:56 Insulin Lispro 1 00 Unit/1 Ml SUBCUT Not Given WM&BEDTIME EDUAR Protocol Vitals/I&O/Wt Last Vital Signs Temp 97.9 F 04/30/22 08:00 Pulse 62 04/30/22 12:00 Resp 33 H 04/30/22 12:00 BP 141/76 04/30/22 12:00 Pulse Ox 97 04/30/22 10:00 04/29/22 04/30/22 04/30/22 22:59 06:59 14:59 Intake Total 50 / 700 540 / 1240 550 / 550 Output Total 650 / 650 375 / 1025 Balance -600 / 50 165 / 215 550 / 550 Weight last 48 hrs Weight 75.977 kg Weight 75.931 kg Physical Exam Const: COMMON NORMALS: patient oriented x3 HENMT: COMMON NORMALS: normocephalic and atraumatic HEAD & SCALP: normocephalic and atraumatic Resp: COMMON NORMALS: clear to auscultation bilaterally EFFORT & INSPECTION: Yes symmetric chest movement AUSCULTATION: clear to auscultation bilaterally OTHER: Bilateral basal crackles present Cardio: COMMON NORMALS: regular rate, regular rhythm, S1 normal heart sound present, S2 normal heart sound present, No gallops present (Cardio), No murmurs present (Cardio), No rub (Cardio) and Peripheral pulses 2+ throughout RATE: regular rate RHYTHM: regular rhythm HEART SOUNDS: S1 normal heart sound present and S2 normal heart sound present PERIPHERAL PULSES: Peripheral pulses 2+ throughout GI: COMMON NORMALS: Normal to inspection, nondistended, normoactive bowel sounds present, Soft to palpation, non-tender, No hepatosplenomegaly present and no masses AUSCULTATION: Yes normoactive bowel sounds PALPATION: Yes Soft to palpation and Yes No hepatosplenomegaly present RECTAL EXAM: deferred Extremity: COMMON NORMALS: no clubbing, cyanosis or edema and no pedal edema Neuro: COMMON NORMALS: patient oriented x3 Urinary Catheter Management: Gutierrez: Cath Placed During This Visit: yes Reason for Continuing Indwelling Catheter: Acute Urinary Retention or Obstruction Urinary Catheter Date of Insertion: 04/27/22 Urinary Catheter Time of Insertion: 13:20 Data : 04/30/22 04:45 04/30/22 04:45 Micro: Microbiology 04/27/22 19:45 Urine Culture - Final Urine,Clean Catch A&P Assessment and plan (1) Non-ST elevation NE (NSTEMI): Status: Acute (2) Generalized weakness: Status: Acute (3) Hypokalemia: Status: Acute (4) Diabetes: Status: Acute Qualifiers: Diabetes mellitus type: type 2 Diabetes mellitus correction insulin use: without intermodal truck driver use Diabetes mellitus complication status: without complication Qualified Code(s): E11.9 - Type 2 diabetes mellitus without complications (5) HTN (hypertension): Status: Acute Qualifiers: Hypertension type: essential hypertension Qualified Code(s): I10 - Essential (primary) hypertension (6) Atrial fibrillation: Status: Acute (7) Fever: Status: Acute Plan 76 year old female ?with PMHx of HTN , DM-2 on OHA (HbA1C ~6.6) x 5 years, HLD and GERD, atrial fibrillation, was on Eliquis at home, was brought in with chief complaint of generalized weakness , going on for the last couple of days, she also experienced fall at home, she was also complaining of mild substernal chest pain, for the past few days. Assessment: sepsis Possible Viral etiology /possible pneumonia/ rule out other causes Myocarditis Junctional bradycardia: Possibly secondary to metoprolol, could be secondary to myocarditis: Transaminitis: Possibly medication induced, rule out other etiologies NSTEMI: Type II History of atrial fibrillation Hypertension Diabetes Dyslipidemia Generalized weakness MALICK: Likely secondary to, recent contrast use Hyponatremia Recent history of sinus infection complete antibiotic course as an outpatient. (Patient was on Augmentin ) Plan: Patient had a nuclear stress test done in : 03/28 : Myocardial perfusion imaging is normal.Subdiaphragmatic attenuation artifact noted in mid inferoseptal and apical septal verdugo. 2D echo: Normal LV size and systolic function, no RWMA , normal LVEF?There is no pericardial effusion. Repeat 2D echo: Normal left ventricular size and systolic function, EF 66 %. No regional wall motion abnormalities. Normal cardiac chamber sizes. There are no intracardiac masses. Trivial pericardial effusion. CT angio chest w abd pel w con: : No pulmonary embolism , no dissection , N odular like consolidation in the right lower lobe concerning for possible pneumonia. Mild pulmonary edema with small right-sided and trace left-sided pleural effusions. Gallbladder wall thickening and or pericholecystic fluid. Recommend ultrasound evaluation for cholecystitis.Periportal edema and trace perihepatic ascites, of indeterminate. US abdomen limited:No cholelithiasis. Mild gallbladder wall thickening and edema may be related to hepatocellular disease. Normal common bile duct. US renal BI with PV bladder: No hydronephrosis? Hepatitis panel: Negative (hepatitis A IgM antibody nonreactive, hepatitis B surface antigen nonreactive, hepatitis B core IGm antibody nonreactive, hepatitis C antibody nonreactive) CT head without contrast: No acute intracranial pathology HIDA scan: Normal Respiratory viral panel: Initial CK: Normal : Repeat CK: 330 Troponin trend: 597- 630- 978- 7002 --2790 Procalcitonin: 0.90 Lactic acid: 2.9 Blood culture: NTD Continue telemetry monitoring LDSSI, monitor fingerstick glucose Cardiology consult X-ray chest: No infiltrates Respiratory viral panel: Follow COVID PCR Rapid COVID antigen negative Influenza negative ESR:75 CRP: 216 Monitor CMP S/p cardiac cath: With non occlusive coronary artery disease. Possibility of myocarditis or transient coronary vasospasm cannot be ruled out. She was on ACS protocol (aspirin statin therapeutic anticoagulation, beta- loraine, sublingual nitro as needed). Regarding patient transaminitis: Possibility of, drug associated hepatitis exist, possibility of acalculous cholecystitis, given the ultrasound findings, do exist but it is less likely in the setting of overall clinical presentation, allopurinol hypersensitivity syndrome, is very unlikely, as the patient, does not have, typical fulminant multiorgan failure presentation, rash, she also does not have at risk ethnicity, allopurinol associated hepatic dysfunction may be possible, hepatitis panel is negative, DRESS is unlikely she does not have any rash, and other typical presentation.Possible logical explanation, for hepatitis may be recent use of Augmentin, or ischemia related due to possible transient hypotension, Overt adrenal failure is unlikely: Patient does not have hyperkalemia, hypoglycemia. Relative adrenal insufficiency in the setting of sepsis is a possibility given low random cortisol, low serum albumin will further complicate the interpretation.Currently on stress dose hydrocortisone. Caution should have been exercised using contrast study overnight, given the fact that the patient had just recently got contrast during the angiogram, patient was never complaining of significant chest pain which will go in line with aortic dissection, there exist some possibility of PE, but given the fact that the patient was on therapeutic anticoagulation, and based on her overall clinical Presentation on the eventful night, it was less likely, later CTA chest was negative, in the presence of transaminitis, initial ultrasound abdomen could have been appropriate. Fortunately kidney is in the recovery phase. Acalculous cholecystitis: Ruled out : Surgery on board Possible renal consult in a.m. Junctional bradycardia: Possibly secondary to metoprolol, could be secondary to myocarditis: Continue to hold metoprolol. Was on Vanco and Zosyn. Vancomycin has been discontinued, as the blood cultures are negative Continue aspirin Continue therapeutic Lovenox Continue hydrocortisone 50 twice daily CODE STATUS: Limited resuscitation DVT prophylaxis: Not needed on therapeutic Lovenox Attestations Medical Necessity Statement*: Patient is still in hospital for management of sepsis. Time Spent in Patient Care: Greater than 35 minutes (>than 50% of time spent in counselling and/or direct pt care on unit) . Critical Care Time: The high probability of a clinically significant, sudden or life threatening deterioration of the patient's [] system(s) required my full and direct attention, intervention and personal management. The critical care time is as shown. 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
--- NOTE | 2022-04-30 16:12 | PM.PN ---
Subjective Subjective: Patient is stable. Denies chest pain. Does get shortness of breath. Vitals/I&O/Wt Last Vital Signs Temp 97.9 F 04/30/22 08:00 Pulse 66 04/30/22 14:30 Resp 33 H 04/30/22 14:30 BP 112/70 04/30/22 14:30 Pulse Ox 90 04/30/22 14:30 04/30/22 04/30/22 04/30/22 06:59 14:59 22:59 Intake Total 540 / 1240 550 / 550 50 / 600 Output Total 375 / 1025 Balance 165 / 215 550 / 550 50 / 600 Weight last 48 hrs Weight 167 lb 8 oz Weight 167 lb 6.4 oz Physical Exam Narrative: GENERAL: Patient is alert, awake and oriented x3. [] NECK: No jugular vein distension. [] HEENT: No cyanosis. No icterus. No pallor. [] HEART: Regular S1 and S2. No murmur, rub or gallop. [] LUNGS: Mild crackles bilaterally ABDOMEN: Soft, nontender and nondistended. Positive bowel sounds. No guarding, rebound or tenderness. [] CENTRAL NERVOUS SYSTEM: Grossly nonfocal. [] EXTREMITIES: Lower extremities with 1+ edema bilaterally. Pulses palpable in the lower extremities, both dorsalis pedis and posterior tibial. [] Urinary Catheter Management: Gutierrez: Cath Placed During This Visit: yes Reason for Continuing Indwelling Catheter: Acute Urinary Retention or Obstruction Urinary Catheter Date of Insertion: 04/27/22 Urinary Catheter Time of Insertion: 13:20 Data : 05/01/22 05:15 05/01/22 05:15 A&P Assessment and plan (1) Non-ST elevation IA (NSTEMI): Status: Acute (2) Atrial fibrillation: Status: Acute (3) Dyspnea on exertion: Status: Acute (4) Hyperlipidemia: Status: Acute Qualifiers: Hyperlipidemia type: unspecified Qualified Code(s): E78.5 - Hyperlipidemia, unspecified (5) Diabetes: Status: Acute Qualifiers: Diabetes mellitus type: type 2 Diabetes mellitus senior living insulin use: without senior living use Diabetes mellitus complication status: without complication Qualified Code(s): E11.9 - Type 2 diabetes mellitus without complications (6) HTN (hypertension): Status: Acute Qualifiers: Hypertension type: essential hypertension Qualified Code(s): I10 - Essential (primary) hypertension Plan Coronary angiogram did not reveal significant CAD. RV marginal branch had stenosis which was treated medically. Troponins went up significantly. LV systolic function on repeat echocardiogram is also normal. LFTs also worsened and renal dysfunction seen. CTA performed overnight showed possible pneumonia. She is currently on antibiotics for that. Overall improving renal function and LFTs. Has possible myocarditis. Patient continues to be in junctional rhythm. She is hemodynamically stable. Continue holding rate controlling agents including metoprolol. Continue aspirin has crackles bilaterally. Will benefit from a chest x-ray and diuretics Telemetry monitoring Thank you for involving us with care of this patient. We will continue to follow. Please call with questions. Attestations Medical Necessity Statement*: Care expected to cross 2 midnights Coding Level of Care Code Acute Control Chemist for [facility] Roseann Diagnoses Non-ST elevation IA (NSTEMI) I21.4 Atrial fibrillation I48.91 Dyspnea on exertion R06.00 Hyperlipidemia E78.5 Hyperlipidemia type: unspecified Diabetes E11.9 Diabetes mellitus type: type 2 Diabetes mellitus senior living insulin use: without intermodal customer service use Diabetes mellitus complication status: without complication HTN (hypertension) I10 Hypertension type: essential hypertension
--- NOTE | 2022-04-30 16:52 | PC.NURSE ---
assisted up to bedside commode with small bm noted remains afebrile at this time remains weak and somewhat short of breath with increased activity
[2022-04-30] MEDS: temazepam 15 mg Capsule PO (19:49)
--- NOTE | 2022-04-30 22:20 | PC.NURSE ---
Pt sleeping soundly following administration of Restoril. Pt remains tachypneic with oxygen saturation WNL.
[2022-05-01] VITALS (29 sets, daily range): BP systolic 103–124; BP diastolic 57–75; PULSE 59–65; RESP 19–35; TEMP 36.1–37.7; O2SAT 89–98
--- NOTE | 2022-05-01 00:32 | PC.NURSE ---
Bedside shift report received from Errol Fischer RN on 04/29/22 at 3946.
[2022-05-01] MEDS: ipratropium-albuterol 3 mL Neb INHALATION ×4 (02:33→20:46)
[2022-05-01] MEDS: hydrocortisone 100 mg/2 mL SDV 50 MG IVP (04:01)
[2022-05-01] MEDS: piperacillin-tazobactam 3.375 GM in sodium chloride 0.9% (plus) 50 ML IV ×3 (04:02→20:49)
[2022-05-01 05:28] LABS: Basophils # 0.1 10^3/uL (0.0-0.1); Basophils % 0.4 %; Eosinophils # 0.4 10^3/uL (0.0-0.8); Eosinophils % 2.8 %; Hematocrit 33.8 % (37.0-47.0); Hemoglobin 10.8 g/dL (11.5-15.3); Lymphocytes # 2.4 10^3/uL (0.8-4.8); Lymphocytes % 15.6 %; Mean Corpuscular Hemoglobin 26.9 pg (28.0-34.0); Mean Corpuscular Volume 84.1 fl (81-99); Mean Platelet Volume 11.7 fL (7.4-10.4); Monocytes # 1.3 10^3/uL (0.2-0.9); Monocytes % 8.3 %; Neutrophils % 71.2 %; Nucleated Red Blood Cells # 0.1 /100WBC; Nucleated Red Blood Cells % 0.3 %; Platelet Count 218 10^3/cmm (130-400); Red Blood Count 4.02 10^6/uL (4.1-5.3); Red Cell Distribution Width 15.4 % (12.1-15.1); White Blood Count 15.6 10^3/uL (4.0-10.0)
[2022-05-01 05:53] LABS: Albumin Level 3.4 g/dL (3.5-5.2); Alkaline Phosphatase 156 IU/L (35-105); Aspartate Amino Transferase 271 U/L (0-32); Blood Urea Nitrogen 38 mg/dL (8-23); Calcium 8.8 mg/dL (8.5-10.5); Carbon Dioxide 25 mmol/L (22-29); Chloride 92 mmol/L (98-107); Glucose 181 mg/dL (65-115); Magnesium 2.7 mg/dL (1.7-2.3); Osmolality Calculated 284 mOsm/kg (285-295); Sodium 130 mmol/L (136-145); Total Bilirubin 0.6 mg/dL (0.15-1.2); Total Protein 6.4 g/dL (6.6-8.7)
[2022-05-01 06:00] LABS: Anion Gap 16.7 (5-19); Potassium 3.7 mmol/L (3.5-5.1)
[2022-05-01 06:06] LABS: Alanine Aminotransferase 807 U/L (0-33)
[2022-05-01] MEDS: multivitamin therapeutic Tablet 1 TAB PO (07:57)
[2022-05-01] MEDS: pantoprazole DR 40 mg Tablet PO (07:57)
[2022-05-01] MEDS: gabapentin 100 mg Capsule PO ×2 (07:57→16:34)
[2022-05-01] MEDS: montelukast sodium 10 mg Tablet PO (07:57)
[2022-05-01] MEDS: aspirin 81 mg EC Tablet PO (07:57)
[2022-05-01] MEDS: cholecalciferol (vitamin D3) 1,000 unit Tablet 2000 UNIT PO (07:58)
[2022-05-01] MEDS: insulin lispro 100 unit/1 mL SUBCUT ×3 (07:59→20:50)
[2022-05-01] MEDS: sennosides-docusate Tablet 1 TAB PO ×2 (08:13→16:33)
[2022-05-01] MEDS: FUROsemide 10 mg/mL SDV 4mL 40 MG IVP (10:29)
[2022-05-01] MEDS: vancomycin 1,000 MG in sodium chloride 0.9% 250 ML 250 MG IV (10:31)
[2022-05-01] MEDS: enoxaparin 80 mg/0.8 mL Syringe 70 MG SUBCUT (10:36)
--- NOTE | 2022-05-01 10:59 | P.PN_ITS ---
Subjective Subjective: Patient is feeling much better today. Had febrile episodes. Vitals/I&O/Wt Last Vital Signs Temp 99.9 F H 05/01/22 07:49 Pulse 61 05/01/22 10:00 Resp 30 H 05/01/22 10:00 BP 124/72 05/01/22 10:00 Pulse Ox 90 05/01/22 10:00 04/30/22 05/01/22 05/01/22 22:59 06:59 14:59 Intake Total 1150 / 1700 290 / 1990 410 / 410 Output Total 300 / 300 300 / 600 Balance 850 / 1400 -10 / 1390 410 / 410 Weight last 48 hrs Weight 167 lb 8 oz Physical Exam Narrative: GENERAL: Patient is alert, awake and oriented x3. [] NECK: No jugular vein distension. [] HEENT: No cyanosis. No icterus. No pallor. [] HEART: Regular S1 and S2. No murmur, rub or gallop. [] LUNGS: Mild crackles bilaterally ABDOMEN: Soft, nontender and nondistended. Positive bowel sounds. No guarding, rebound or tenderness. [] CENTRAL NERVOUS SYSTEM: Grossly nonfocal. [] EXTREMITIES: Lower extremities with 1+ edema bilaterally. Pulses palpable in the lower extremities, both dorsalis pedis and posterior tibial. [] Urinary Catheter Management: Gutierrez: Cath Placed During This Visit: yes Reason for Continuing Indwelling Catheter: Acute Urinary Retention or Obstruction Urinary Catheter Date of Insertion: 04/27/22 Urinary Catheter Time of Insertion: 13:20 Data : 05/01/22 05:15 05/01/22 05:15 Micro: Microbiology 04/30/22 21:50 Blood Culture - Preliminary Blood SPECIMEN COLLECTED 04/30/22 21:45 Blood Culture - Preliminary Blood SPECIMEN COLLECTED A&P Assessment and plan (1) Non-ST elevation IA (NSTEMI): Status: Deleted (2) Atrial fibrillation: Status: Acute (3) Dyspnea on exertion: Status: Acute (4) Hyperlipidemia: Status: Acute Qualifiers: Hyperlipidemia type: unspecified Qualified Code(s): E78.5 - Hyperlipidemia, unspecified (5) Diabetes: Status: Acute Qualifiers: Diabetes mellitus type: type 2 Diabetes mellitus drafter topographical insulin use: without assisted use Diabetes mellitus complication status: without complication Qualified Code(s): E11.9 - Type 2 diabetes mellitus without complications (6) HTN (hypertension): Status: Acute Qualifiers: Hypertension type: essential hypertension Qualified Code(s): I10 - Essential (primary) hypertension Plan Coronary angiogram did not reveal significant CAD. RV marginal branch had stenosis which was treated medically. Troponins went up significantly. LV systolic function on repeat echocardiogram is also normal. LFTs also worsened and renal dysfunction seen. CTA performed overnight showed possible pneumonia. On antibiotics. Had febrile episode last night. Overall improving renal function and LFTs. Has possible myopericarditis with no small sized pericardial effusion. Uptitrate aspirin dose. She is volume overloaded. Continue diuretics Patient continues to be in junctional rhythm. She is hemodynamically stable. Continue holding rate controlling agents including metoprolol. Telemetry monitoring Thank you for involving us with care of this patient. We will continue to follow. Please call with questions. Attestations Medical Necessity Statement*: Care expected to cross 2 midnights. 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
--- NOTE | 2022-05-01 11:03 | PC.SOCIAL ---
IMM Updated Updated pt & spouse on IMM. No questions voiced. Provided pt a copy. Initialed, dated, & timed copy in chart.
[2022-05-01 11:15] LABS: Glucose Point of Care 325 mg/dL (70-110)
[2022-05-01 11:15] LABS: Glucose Point of Care 360 mg/dL (70-110)
[2022-05-01 11:15] LABS: Glucose Point of Care 231 mg/dL (70-110)
[2022-05-01 11:15] LABS: Glucose Point of Care 280 mg/dL (70-110)
[2022-05-01 11:15] LABS: Glucose Point of Care 214 mg/dL (70-110)
[2022-05-01 11:38] LABS: Glucose Point of Care 437 mg/dL (70-110)
[2022-05-01 12:52] LABS: D Dimer 3.66 ug/mIFEU (0-0.59)
[2022-05-01 12:57] LABS: NT Pro B Type Natriuretic Pept 3208 pg/mL (0-450); Procalcitonin 0.29 ng/mL (0-0.5)
[2022-05-01 13:08] LABS: Iron 20 ug/dL (37-145); Percent Saturation 7.7 % (20-50); Total Iron Binding Capacity 259 mcg/dl; Unsaturated Iron Binding 239 ug/dL (112-347)
--- NOTE | 2022-05-01 14:56 | PC.NURSE ---
Report called to Rodger RN. Pt taken upstairs by wheelchair on 5L o2 NC. Pt transferred from wheelchair to bed, call light in reach, two bed rails up. Pt in good condition upon transfer.
[2022-05-01 15:17] LABS: C Reactive Protein 85.9 mg/L (0.0-4.9); Lipase 70 U/L (13-60); Vitamin B12 1427 pg/mL (232-1245)
--- NOTE | 2022-05-01 16:41 | P.PN_ITS ---
Subjective Subjective: Hospital course, labs appreciated. Examination patient lying comfortably in bed with family at bedside. Patient has remained hemodynamically stable. Currently on 5 L high flow nasal cannula saturating 92%. Patient states she is feeling slightly out of breath. Denies any chest pain. Denies any headache, nausea, vomiting. Medications: Medication Review Details: Generic Name Dose Route Start Last Admin Trade Name Alannah PRN Reason Stop Dose Admin Atorvastatin Calci um 20 mg 04/26/22 21:00 04/26/22 21:48 Atorvastatin 40 Mg Tablet PO 20 mg BEDTIME EDUAR Administration Enoxaparin Sodium 70 mg 04/26/22 21:00 04/26/22 21:48 Enoxaparin 80 Mg /0.8 Ml Syringe SUBCUT 70 mg BID@0900,2100 EDUAR Administration Potassium Chloride /Sodium Chloride 20 meq in 1,000 m ls @ 50 mls/hr 04/26/22 16:45 04/26/22 17:53 Sodium Chlor 0.9 % + Kcl 20 Meq IV 50 mls/hr .Q20H EDUAR Administration Insulin Human Lisp ro 0 unit 04/26/22 20:39 04/26/22 21:56 Insulin Lispro 1 00 Unit/1 Ml SUBCUT Not Given WM&BEDTIME EDUAR Protocol Vitals/I&O/Wt Last Vital Signs Temp 97.7 F 05/01/22 15:45 Pulse 62 05/01/22 15:45 Resp 32 H 05/01/22 15:45 BP 115/65 05/01/22 15:45 Pulse Ox 92 05/01/22 15:45 05/01/22 05/01/22 05/01/22 06:59 14:59 22:59 Intake Total / 1989 1020 / 1020 Output Total 300 / 600 600 / 600 Balance -10 / 1390 420 / 420 Weight last 48 hrs Weight 75.977 kg Physical Exam Narrative: General: No acute distress, AO x3, currently on 5 L oxygen supplementation HEENT: PERRLA, pupils bilaterally equal and reactive Chest: Bilateral occasional rhonchi present, bilateral basilar fine crackles present, equal good air entry bilaterally CVS: S1-S2 regular, no murmurs, no tachycardia, no gallops, no rubs Abdomen: Soft, nontender, no organomegaly, bowel sounds present Neuro: No focal deficits, no facial deformity, AO x3, power 5/5 in all limbs Urinary Catheter Management: Gutierrez: Cath Placed During This Visit: yes Reason for Continuing Indwelling Catheter: Acute Urinary Retention or Obstruction Urinary Catheter Date of Insertion: 04/27/22 Urinary Catheter Time of Insertion: 13:20 Data : 05/01/22 05:15 05/01/22 05:15 Micro: Microbiology 05/01/22 11:38 Bacterial Antigens - Final Urine Kidney 05/01/22 13:56 Blood Culture - Preliminary Blood SPECIMEN COLLECTED 05/01/22 11:39 Blood Culture - Preliminary Blood SPECIMEN COLLECTED 04/30/22 21:50 Blood Culture - Preliminary Blood SPECIMEN COLLECTED 04/30/22 21:45 Blood Culture - Preliminary Blood SPECIMEN COLLECTED A&P Assessment and plan (1) Hypoxia: Status: Acute (2) Fever: Status: Acute (3) Chest pain: Status: Acute (4) Myocarditis: Status: Acute (5) Coronary arteries, normal: Status: Acute (6) Acute kidney injury: Status: Acute (7) Transaminitis: Status: Acute (8) Non-ST elevation NE (NSTEMI): Status: Deleted (9) Generalized weakness: Status: Acute (10) Hypokalemia: Status: Acute (11) Diabetes: Status: Acute Qualifiers: Diabetes mellitus complication status: without complication Diabetes mellitus [facility] insulin use: without home security alarm installer use Diabetes mellitus type: type 2 Qualified Code(s): E11.9 - Type 2 diabetes mellitus without complication s (12) HTN (hypertension): Status: Acute Qualifiers: Hypertension type: essential hypertension Qualified Code(s): I10 - Essential (primary) hypertension (13) Atrial fibrillation: Status: Acute Plan 76 year old female ?with PMHx of HTN , DM-2 on OHA (HbA1C ~6.6) x 5 years, HLD and GERD, atrial fibrillation, was on Eliquis at home, was brought in with chief complaint of generalized weakness , going on for the last couple of days, she also experienced fall at home, she was also complaining of mild substernal chest pain, for the past few days. She was admitted with the possibility of non-ST elevation NE. Chest pain: Cardiac angiogram done this admission shows normal coronaries. Echocardiogram shows normal EF with no regional wall motion abnormality. CTA chest showed no PE or dissection. Symptoms most likely secondary to myocarditis. Respiratory viral panel sent out. COVID-19, flu negative. Increase aspirin to 325 mg twice daily. Check A1c, lipid panel. We will hold off on statin for now given acute transaminitis. Stop full dose Lovenox. Hypoxia: Most likely secondary to congestive heart failure in setting of viral myocarditis. CTA done earlier this admission concerning for possible nodular-like consolidation in right lower lobe. Blood culture negative. Check MRSA swab, sputum culture, urine Legionella, bacterial antigen, proBNP, D- dimer, procalcitonin. If D-dimer elevated will do lower limb Dopplers. For now we will hold off on CTA given resolution of MALICK within last 24 hours. Continue with Zosyn. Add vancomycin. We will continue vancomycin till we have MRSA results. Budesonide twice daily, DuoNebs every 6 hour. Switch from hydrocortisone 50 mg twice daily to Solu-Medrol 40 mg every 8 hourly. Will wean off aggressively. Oxygen supplementation keeping saturation over 88%. Incentive spirometry, flutter valve. IV Lasix 40 mg once. Strict input output charting, daily weights. Fluid restriction up to 1500 cc. Transaminitis: Trending down currently. Could be secondary to viral etiology versus drug toxicity. HIDA scan negative for cholecystitis. Hepatitis panel negative. Check HIV, GGT, lipase, CRP, folate level, vitamin B12 level. Medical reconciliation done for hepatotoxic medications. Continue to monitor daily. Protonix IV daily, Zofran as needed. Acute kidney injury: Resolved. Creatinine within normal limits. Medical reconciliation done for nephrotoxic drugs. Continue to monitor BMP daily. Analgesia: Gabapentin 100 mg twice daily at home dose, morphine 1 mg IV every 4 hours as needed. Glycemic control: Increase insulin sliding scale to high-dose protocol, add Lantus 20 units at bedtime. Nutrition: GI soft carb consistent diet. CODE STATUS: Limited resuscitation PUD prophylaxis: Protonix DVT prophylaxis: Heparin 5000 every 8 hourly. Stop full dose Lovenox. Discharge planning: Transfer to [facility]. Out of bed to chair. 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
[2022-05-01 17:09] LABS: Glucose Point of Care 465 mg/dL (70-110)
--- NOTE | 2022-05-01 17:36 | USCV_ITS ---
FrancSherrell Age: 76 Gender: F : 1945 Exam Date: 05/01/2022 19:43 Ordering Phys: Soto Tucker MD Technologist: BENITO Exam Location: [facility] [place] Indication: elevated D-Dimer HISTORY: elevated D-Dimer No history of DVT per patient. No leg pain, No edema. PROCEDURES: Venous duplex imaging was performed in bilateral lower extremities. The venous duplex Doppler examination of both lower extremities was performed in the standard fashion. The following venous structures were evaluated: common femoral vein, profunda vein, proximal portion of the greater saphenous vein, superficial femoral vein, and the popliteal vein. FINDINGS: Normal 2-D Doppler and augmentation and compressibility throughout the lower extremity venous structures. Additional imaging through the proximal calf veins also reveals no thrombus. CONCLUSIONS No DVT bilateral lower extremities. Dr. Zoraida Solano DO (Electronically Signed) Final Date: 02 May 2022 07:43 S
[2022-05-01] MEDS: insulin lispro 100 unit/1 mL 18 UNIT SUBCUT (17:59)
[2022-05-01] MEDS: aspirin 325 mg EC Tablet PO (17:59)
[2022-05-01] MEDS: heparin 5,000 unit/mL INJ 1 mL 5000 UNIT SUBCUT (17:59)
[2022-05-01 19:59] LABS: Add Urine Microscopic? NO; Charge for UA Resulting for Rev
[2022-05-01 20:03] LABS: Bilirubin Urine Neg (Negative); Blood Urine Neg (Negative); Glucose Urine UA 4+ (Normal); Ketones Urine Negative (Negative); Leukocyte Esterase Urine Negative (Negative); Nitrate Urine Negative (Negative); Protein Urine Neg (Negative); Urine Appearance Clear (CLEAR); Urine Color Colorless (Yellow); Urobilinogen Urine Norm (Negative); pH Urine 6 (5-7)
[2022-05-01 20:15] LABS: Glucose Point of Care 459 mg/dL (70-110)
[2022-05-01 20:22] LABS: Potassium, Radom Urine 36 mmol/L; Urine Random Chloride 70 mmol/L; Urine Random Sodium 44 mmol/L
[2022-05-01] MEDS: budesonide 0.5 mg/2 mL Neb 0.25 MG INHALATION (20:46)
[2022-05-01] MEDS: insulin glargine 100 units/1 mL 20 UNIT SUBCUT (20:50)
[2022-05-01 21:29] LABS: Folate Level > 20.0 ng/mL (4.8-37.3)
[2022-05-01 22:56] LABS: Adenovirus Not Detected (NOT DETECT); Chlamydia Pneumoniae Not Detected (NOT DETECT); Coronavirus 229E,HKU1,NL63,OC4 Not Detected (NOT DETECT); Human Metapneumovirus Not Detected (NOT DETECT); Human Rhinovirus/Enterovirus Not Detected (NOT DETECT); Influenza A Not Detected (NOT DETECT); Influenza A H1 Not Detected (NOT DETECT); Influenza A H1-2009 Not Detected (NOT DETECT); Influenza A H3 Not Detected (NOT DETECT); Influenza B Not Detected (NOT DETECT); Mycoplasma Pneumoniae Not Detected (NOT DETECT); Parainfluenza Virus Type 1 Not Detected (NOT DETECT); Parainfluenza Virus Type 2 Not Detected (NOT DETECT); Parainfluenza Virus Type 3 Not Detected (NOT DETECT); Parainfluenza Virus Type 4 Not Detected (NOT DETECT); Respiratory Syncytial Virus A Not Detected (NOT DETECT); Respiratory Syncytial Virus B Not Detected (NOT DETECT); SARS-COV-2 Not Detected (NOT DETECT)
[2022-05-02] VITALS (15 sets, daily range): BP systolic 116–137; BP diastolic 64–75; PULSE 52–61; RESP 15–32; TEMP 36.4–36.6; O2SAT 94–97
[2022-05-02] MEDS: heparin 5,000 unit/mL INJ 1 mL 5000 UNIT SUBCUT ×3 (01:07→18:19)
[2022-05-02] MEDS: piperacillin-tazobactam 3.375 GM in sodium chloride 0.9% (plus) 50 ML IV ×3 (03:13→20:20)
--- NOTE | 2022-05-02 08:24 | P.PN_ITS ---
Subjective Subjective: Patient is improving clinically.Feeling better. Still in junctional rhythm Vitals/I&O/Wt Last Vital Signs Temp 97.9 F 05/02/22 07:49 Pulse 54 L 05/02/22 07:49 Resp 24 H 05/02/22 07:49 BP 123/71 05/02/22 07:49 Pulse Ox 97 05/02/22 07:49 05/01/22 05/02/22 05/02/22 22:59 06:59 14:59 Intake Total 50 / 1070 50 / 1120 50 / 50 Output Total 1250 / 1850 1100 / 2950 Balance -1200 / -780 -1050 / -1830 50 / 50 Weight last 48 hrs Weight 166 lb Physical Exam Narrative: GENERAL: Patient is alert, awake and oriented x3. [] NECK: No jugular vein distension. [] HEENT: No cyanosis. No icterus. No pallor. [] HEART: Regular S1 and S2. No murmur, rub or gallop. [] LUNGS: Mild crackles bilaterally ABDOMEN: Soft, nontender and nondistended. Positive bowel sounds. No guarding, rebound or tenderness. [] CENTRAL NERVOUS SYSTEM: Grossly nonfocal. [] EXTREMITIES: Lower extremities with 1+ edema bilaterally. Pulses palpable in the lower extremities, both dorsalis pedis and posterior tibial. [] Urinary Catheter Management: Gutierrez: Cath Placed During This Visit: yes Reason for Continuing Indwelling Catheter: Acute Urinary Retention or Obstruction Urinary Catheter Date of Insertion: 04/27/22 Urinary Catheter Time of Insertion: 13:20 Data : 05/03/22 02:39 05/03/22 02:39 Micro: Microbiology 04/30/22 21:50 Blood Culture - Preliminary Blood NEGATIVE TO DATE 04/30/22 21:45 Blood Culture - Preliminary Blood NEGATIVE TO DATE 05/01/22 11:38 Legionella Urinary Antigen - Final Urine Catheterized 05/01/22 10:25 MRSA Culture - Final Nose 05/01/22 11:38 Bacterial Antigens - Final Urine Kidney 05/01/22 13:56 Blood Culture - Preliminary Blood SPECIMEN COLLECTED 05/01/22 11:39 Blood Culture - Preliminary Blood SPECIMEN COLLECTED A&P Assessment and plan (1) Non-ST elevation LA (NSTEMI): Status: Deleted (2) Atrial fibrillation: Status: Acute (3) Dyspnea on exertion: Status: Acute (4) Hyperlipidemia: Status: Acute Qualifiers: Hyperlipidemia type: unspecified Qualified Code(s): E78.5 - Hyperlipidemia, unspecified (5) Diabetes: Status: Acute Qualifiers: Diabetes mellitus type: type 2 Diabetes mellitus [facility] insulin use: without long distance billing operator use Diabetes mellitus complication status: without complication Qualified Code(s): E11.9 - Type 2 diabetes mellitus without complications (6) HTN (hypertension): Status: Acute Qualifiers: Hypertension type: essential hypertension Qualified Code(s): I10 - Essential (primary) hypertension Plan Coronary angiogram did not reveal significant CAD. RV marginal branch had stenosis which was treated medically. Troponins went up significantly. LV systolic function on repeat echocardiogram is also normal. LFTs also worsened and renal dysfunction seen. On antibiotics Improving LFTs. Kidney function is stable Has possible myopericarditis with small sized pericardial effusion. Aspirin has been uptitrated She is volume overloaded. Continue diuretics Patient continues to be in junctional rhythm. She is hemodynamically stable. Continue holding rate controlling agents including metoprolol. We will plan on event monitor at discharge Telemetry monitoring Thank you for involving us with care of this patient. We will continue to follow. Please call with questions. Attestations Medical Necessity Statement*: Care expected to cross 2 midnights. 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
[2022-05-02] MEDS: multivitamin therapeutic Tablet 1 TAB PO (08:45)
[2022-05-02] MEDS: cholecalciferol (vitamin D3) 1,000 unit Tablet 2000 UNIT PO (08:45)
[2022-05-02] MEDS: budesonide 0.5 mg/2 mL Neb 0.25 MG INHALATION ×2 (08:48→20:18)
[2022-05-02] MEDS: ipratropium-albuterol 3 mL Neb INHALATION ×3 (08:48→20:18)
[2022-05-02] MEDS: montelukast sodium 10 mg Tablet PO (08:49)
[2022-05-02] MEDS: aspirin 325 mg EC Tablet PO ×2 (08:49→18:19)
[2022-05-02] MEDS: gabapentin 100 mg Capsule PO ×2 (08:50→18:19)
[2022-05-02] MEDS: pantoprazole DR 40 mg Tablet PO (08:50)
[2022-05-02] MEDS: sennosides-docusate Tablet 1 TAB PO ×2 (08:50→18:19)
[2022-05-02] MEDS: insulin lispro 100 unit/1 mL SUBCUT ×4 (08:50→21:56)
[2022-05-02 10:37] LABS: Basophils % 0.2 %; Eosinophils % 0.1 %; Hematocrit 29.3 % (37.0-47.0); Hemoglobin 9.9 g/dL (11.5-15.3); Lymphocytes # 1.1 10^3/uL (0.8-4.8); Lymphocytes % 7.1 %; Mean Corpuscular HGB Conc 33.8 g/dL (30.0-36.0); Mean Corpuscular Hemoglobin 26.9 pg (28.0-34.0); Mean Corpuscular Volume 79.6 fl (81-99); Monocytes # 0.5 10^3/uL (0.2-0.9); Monocytes % 3.2 %; Neutrophils # 14.08 10^3/uL (1.8-7.7); Neutrophils % 87.9 %; Nucleated Red Blood Cells % 0 %; Platelet Count 245 10^3/cmm (130-400); Red Blood Count 3.68 10^6/uL (4.1-5.3); Red Cell Distribution Width 15.2 % (12.1-15.1)
[2022-05-02] MEDS: vancomycin 1,000 MG in sodium chloride 0.9% 250 ML 250 MG IV (10:42)
[2022-05-02 10:56] LABS: Chol HDL Ratio 4.03 mg/dL (0.0-4.40); Cholesterol 117 mg/dL (0-200); HDL Cholesterol 29 mg/dL (60-100); LDL Cholesterol Calculated 49 mg/dL (50-129); Triglycerides 195 mg/dL (0-150); VLDL Cholestrol Calculation 39 mg/dL (0-30)
[2022-05-02 11:13] LABS: Alanine Aminotransferase 509 U/L (0-33); Albumin Level 3.2 g/dL (3.5-5.2); Alkaline Phosphatase 183 IU/L (35-105); Anion Gap 17.5 (5-19); Aspartate Amino Transferase 116 U/L (0-32); Blood Urea Nitrogen 39 mg/dL (8-23); Calcium 8.3 mg/dL (8.5-10.5); Carbon Dioxide 22 mmol/L (22-29); Chloride 91 mmol/L (98-107); Globulin 2.6 g/dL (1.3-4.6); Glucose 383 mg/dL (65-115); Osmolality Calculated 289 mOsm/kg (285-295); Potassium 3.5 mmol/L (3.5-5.1); Sodium 127 mmol/L (136-145); Total Bilirubin 0.5 mg/dL (0.15-1.2); Total Protein 5.8 g/dL (6.6-8.7)
[2022-05-02 11:14] LABS: Magnesium 2.4 mg/dL (1.7-2.3)
[2022-05-02 11:49] LABS: Estmated Average Glucose 166; Hemoglobin A1C 7.4 % (4.0-6.0)
[2022-05-02] MEDS: FUROsemide 10 mg/mL SDV 4mL 40 MG IVP (13:46)
--- NOTE | 2022-05-02 15:03 | P.PN_ITS ---
Subjective Subjective: No acute events overnight. Today morning seen upon MedSurg with family at bedside. States her breathing is little better but she continues to have generalized weakness. Working well with physical therapy. Currently on 5 L nasal cannula saturating more than 95%. Denies any nausea, vomiting, he adache. States appetite is appropriate. Vitals/I&O/Wt Last Vital Signs Temp 97.8 F 05/02/22 11:39 Pulse 59 L 05/02/22 14:55 Resp 18 05/02/22 14:00 BP 135/65 05/02/22 11:39 Pulse Ox 97 05/02/22 14:00 05/02/22 05/02/22 05/02/22 06:59 14:59 22:59 Intake Total 50 / 1120 540 / 540 Output Total 1100 / 2950 Balance -1050 / -1830 540 / 540 Weight last 48 hrs Weight 75.296 kg Physical Exam Narrative: General: No acute distress, AO x3, currently on 5 L oxygen supplementation HEENT: PERRLA, pupils bilaterally equal and reactive Chest: Bilateral occasional rhonchi present, bilateral basilar fine crackles present, equal good air entry bilaterally CVS: S1-S2 regular, no murmurs, no tachycardia, no gallops, no rubs Abdomen: Soft, nontender, no organomegaly, bowel sounds present Neuro: No focal deficits, no facial deformity, AO x3, power 5/5 in all limbs Urinary Catheter Management: Gutierrez: Cath Placed During This Visit: yes Reason for Continuing Indwelling Catheter: Acute Urinary Retention or Obstruction Urinary Catheter Date of Insertion: 04/27/22 Urinary Catheter Time of Insertion: 13:20 Data : 05/02/22 10:04 05/02/22 10:04 Micro: Microbiology 05/01/22 13:56 Blood Culture - Preliminary Blood NEGATIVE TO DATE 04/27/22 13:31 Blood Culture - Final Blood NO GROWTH AFTER 5 DAYS 05/01/22 11:39 Blood Culture - Preliminary Blood NEGATIVE TO DATE 04/30/22 21:50 Blood Culture - Preliminary Blood NEGATIVE TO DATE 04/30/22 21:45 Blood Culture - Preliminary Blood NEGATIVE TO DATE 05/01/22 11:38 Legionella Urinary Antigen - Final Urine Catheterized 05/01/22 10:25 MRSA Culture - Final Nose 05/01/22 11:38 Bacterial Antigens - Final Urine Kidney A&P Assessment and plan (1) Hypoxia: Status: Acute (2) Fever: Status: Acute (3) Chest pain: Status: Acute (4) Myocarditis: Status: Acute (5) Coronary arteries, normal: Status: Acute (6) Acute kidney injury: Status: Acute (7) Transaminitis: Status: Acute (8) Non-ST elevation DC (NSTEMI): Status: Deleted (9) Generalized weakness: Status: Acute (10) Hypokalemia: Status: Acute (11) Diabetes: Status: Acute Qualifiers: Diabetes mellitus type: type 2 Diabetes mellitus technician terminal and repeater insulin use: without alf use Diabetes mellitus complication status: without complication Qualified Code(s): E11.9 - Type 2 diabetes mellitus without complications (12) HTN (hypertension): Status: Acute Qualifiers: Hypertension type: essential hypertension Qualified Code(s): I10 - Essential (primary) hypertension (13) Atrial fibrillation: Status: Acute (14) Junctional bradycardia: Stable. Most likely secondary to myocarditis. Continue with telemetry. Continue to hold off on beta-loraine for rate limiting medications. Status: Acute Plan 76 year old female ?with PMHx of HTN , DM-2 on OHA (HbA1C ~6.6) x 5 years, HLD and GERD, atrial fibrillation, was on Eliquis at home, was brought in with chief complaint of generalized weakness , going on for the last couple of days, she also experienced fall at home, she was also complaining of mild substernal chest pain, for the past few days. She was admitted with the possibility of non-ST elevation DC. Chest pain: Cardiac angiogram done this admission shows normal coronaries. Echocardiogram shows normal EF with no regional wall motion abnormality. CTA chest showed no PE or dissection. Symptoms most likely secondary to myocarditis. Respiratory viral panel sent out. COVID-19, flu negative. Increase aspirin to 325 mg twice daily. Check A1c, lipid panel. We will hold off on statin for now given acute transaminitis. Stop full dose Lovenox. Hypoxia: Most likely secondary to congestive heart failure in setting of viral myocarditis. CTA done earlier this admission concerning for possible nodular-like consolidation in right lower lobe. Blood culture negative. Check MRSA swab, sputum culture, urine Legionella, bacterial antigen, proBNP, D- dimer, procalcitonin. If D-dimer elevated will do lower limb Dopplers. For now we will hold off on CTA given resolution of MALICK within last 24 hours. Continue with Zosyn. Add vancomycin. We will continue vancomycin till we have MRSA results. Budesonide twice daily, DuoNebs every 6 hour. Wean down Solu-Medrol to 40 mg twice daily. Oxygen supplementation keeping saturation over 88%. Incentive spirometry, flutter valve. IV Lasix 40 mg once. Strict input output charting, daily weights. Fluid restriction up to 1500 cc. Transaminitis: Trending down currently. Could be secondary to viral etiology versus drug toxicity. HIDA scan negative for cholecystitis. Hepatitis panel negative. Check HIV, GGT, lipase, CRP, folate level, vitamin B12 level. Medical reconciliation done for hepatotoxic medications. Continue to monitor daily. Protonix IV daily, Zofran as needed. Acute kidney injury: Resolved. Creatinine within normal limits. Medical reconciliation done for nephrotoxic drugs. Continue to monitor BMP daily. Analgesia: Gabapentin 100 mg twice daily at home dose, morphine 1 mg IV every 4 hours as needed. Glycemic control: Increase insulin sliding scale to high-dose protocol, add Lantus 20 units at bedtime. Nutrition: GI soft carb consistent diet. CODE STATUS: Limited resuscitation PUD prophylaxis: Protonix DVT prophylaxis: Heparin 5000 every 8 hourly. Stop full dose Lovenox. Discharge planning: Plan to discharge home with home health within next 48 hours with patient's kidney function and transaminases continue to trend down or remained stable. Discussed with patient's family regarding options for SNF for further rehabitation. Patient and patient's family for now would want to try with home health and physical therapy. Continue with care at [facility]. Plan for day: Continue with aspirin 325 mg twice daily. Repeat 1 dose of Lasix 40 mg IV. Continue with budesonide and DuoNebs. Stop vancomycin as MRSA is negative. Wean down Solu-Medrol to 40 mg every 12 hourly. Continue with insulin at high-dose protocol and Lantus 20 units at bedtime. Expecting blood sugars to be better once steroids are weaned down further. Continue with fluid restriction. Monitor CBC and CMP again in AM. Start on IV iron 200 mg daily for overall 5 days. Physical therapy. Out of bed to chair. 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
[2022-05-02 15:51] LABS: Gamma Glutamyl Transferase 98 U/L (5-36)
[2022-05-02] MEDS: iron sucrose 200 MG in sodium chloride 0.9% (100 ml) 100 ML 220 MG IV (17:25)
[2022-05-02 17:44] LABS: HIV 1 & 2 Antibody Non-Reactive (Non-Reactiv); HIV 1 & 2 Antigen Non-Reactive (Non-Reactiv)
--- NOTE | 2022-05-02 18:47 | XRR_ITS ---
PROCEDURE INFORMATION: Exam: XR Abdomen Exam date and time: 05/02/2022 7:12 PM Age: 76 years old Clinical indication: Abdominal pain; Other: Distention; Additional info: Abd distention TECHNIQUE: Imaging protocol: Radiologic exam of the abdomen. Views: 2 Views. Upright and supine views. COMPARISON: CT angio chest w abd pel w con 04/28/2022 5:22 AM FINDINGS: Lungs: Interval increase in bibasilar consolidation is present, consistent with atelectasis, edema, or pneumonia. Pleural spaces: Probable small pleural effusions are noted left greater than right. Heart/Mediastinum: The heart is enlarged. Gastrointestinal tract: There is a large amount of stool in the colon but no impaction. Colon is mildly dilated with stool and air but no dilated loops of small bowel are identified. No ileus or obstruction. Intraperitoneal space: Normal. No free air. Vasculature: Probable phleboliths are noted in the pelvis. Bones/joints: There is dextroscoliosis with moderate degenerative changes in the spine. XR/XR acute abdomen series [id number] IMPRESSION: 1. Interval increase in bibasilar consolidation is present, consistent with atelectasis, edema, or pneumonia. 2. Constipation with nonspecific bowel gas pattern.
[2022-05-02] MEDS: insulin glargine 100 units/1 mL 20 UNIT SUBCUT (21:56)
[2022-05-03] VITALS (19 sets, daily range): BP systolic 114–142; BP diastolic 61–77; PULSE 54–61; RESP 14–20; TEMP 36.2–36.7; O2SAT 91–98
[2022-05-03] MEDS: piperacillin-tazobactam 3.375 GM in sodium chloride 0.9% (plus) 50 ML IV (02:32)
[2022-05-03] MEDS: heparin 5,000 unit/mL INJ 1 mL 5000 UNIT SUBCUT ×3 (02:32→18:10)
[2022-05-03] MEDS: ipratropium-albuterol 3 mL Neb INHALATION ×4 (02:33→20:20)
[2022-05-03 04:37] LABS: Alanine Aminotransferase 414 U/L (0-33); Albumin Level 3.1 g/dL (3.5-5.2); Alkaline Phosphatase 165 IU/L (35-105); Anion Gap 17.8 (5-19); Aspartate Amino Transferase 51 U/L (0-32); Blood Urea Nitrogen 43 mg/dL (8-23); C Reactive Protein 49.3 mg/L (0.0-4.9); Calcium 8.9 mg/dL (8.5-10.5); Carbon Dioxide 23 mmol/L (22-29); Chloride 94 mmol/L (98-107); Globulin 2.6 g/dL (1.3-4.6); Glucose 344 mg/dL (65-115); Lipase 65 U/L (13-60); Osmolality Calculated 296 mOsm/kg (285-295); Potassium 3.8 mmol/L (3.5-5.1); Sodium 131 mmol/L (136-145); Total Bilirubin 0.3 mg/dL (0.15-1.2); Total Protein 5.7 g/dL (6.6-8.7)
[2022-05-03 05:10] LABS: Basophils % 0.2 %; Eosinophils % 0.1 %; Hematocrit 31.8 % (37.0-47.0); Lymphocytes % 6.1 %; Mean Corpuscular HGB Conc 31.4 g/dL (30.0-36.0); Mean Corpuscular Hemoglobin 26.9 pg (28.0-34.0); Mean Corpuscular Volume 85.5 fl (81-99); Mean Platelet Volume 12.1 fL (7.4-10.4); Monocytes # 0.9 10^3/uL (0.2-0.9); Monocytes % 5.5 %; Neutrophils # 14.52 10^3/uL (1.8-7.7); Neutrophils % 86.3 %; Nucleated Red Blood Cells % 0.2 %; Platelet Count 276 10^3/cmm (130-400); Red Blood Count 3.72 10^6/uL (4.1-5.3); Red Cell Distribution Width 16.1 % (12.1-15.1); White Blood Count 16.8 10^3/uL (4.0-10.0)
[2022-05-03 07:16] LABS: Glucose Point of Care 396 mg/dL (70-110)
[2022-05-03 07:16] LABS: Glucose Point of Care 379 mg/dL (70-110)
[2022-05-03 07:16] LABS: Glucose Point of Care 311 mg/dL (70-110)
[2022-05-03 07:16] LABS: Glucose Point of Care 327 mg/dL (70-110)
[2022-05-03 07:16] LABS: Glucose Point of Care 424 mg/dL (70-110)
[2022-05-03] MEDS: aspirin 325 mg EC Tablet PO ×2 (08:19→18:09)
[2022-05-03] MEDS: insulin lispro 100 unit/1 mL SUBCUT ×4 (08:19→20:33)
[2022-05-03] MEDS: cholecalciferol (vitamin D3) 1,000 unit Tablet 2000 UNIT PO (08:19)
[2022-05-03] MEDS: multivitamin therapeutic Tablet 1 TAB PO (08:20)
[2022-05-03] MEDS: gabapentin 100 mg Capsule PO ×2 (08:20→18:10)
[2022-05-03] MEDS: pantoprazole DR 40 mg Tablet PO (08:20)
[2022-05-03] MEDS: sennosides-docusate Tablet 1 TAB PO ×2 (08:20→18:10)
[2022-05-03] MEDS: montelukast sodium 10 mg Tablet PO (08:20)
[2022-05-03] MEDS: budesonide 0.5 mg/2 mL Neb 0.25 MG INHALATION ×2 (09:10→20:20)
[2022-05-03 11:25] LABS: Glucose Point of Care 426 mg/dL (70-110)
--- NOTE | 2022-05-03 11:59 | PC.SOCIAL ---
IMM Update pg 2 of IMM Updated and reviewed w/ patient and her spouse. Copy provided and Copy placed in chart. Dated and initialed.
[2022-05-03] MEDS: magnesium hydroxide 30 mL UDC PO (12:02)
--- NOTE | 2022-05-03 16:07 | P.PN_ITS ---
Subjective Subjective: No acute vents overnight. Patient states she is feeling better. Sitting up in chair on examination with family at bedside. Denies any nausea, vomiting, headache. Supplemental oxygen turned off today. Patient saturating more than 90% both at rest and on ambulation with physical therapy. Has r emained hemodynamically stable and afebrile. Heart rate still running in high 50s. Vitals/I&O/Wt Last Vital Signs Temp 98.0 F 05/03/22 07:34 Pulse 58 L 05/03/22 15:51 Resp 16 05/03/22 15:51 BP 116/61 05/03/22 15:51 Pulse Ox 94 05/03/22 15:51 O2 Del Method 05/03/22 15:51 O2 Flow Rate 5 05/03/22 09:13 05/03/22 05/03/22 05/03/22 06:59 14:59 22:59 Intake Total 100 / 1760 240 / 240 Output Total 325 / 325 Balance -225 / 1435 240 / 240 Weight last 48 hrs Weight 77.763 kg Weight 75.296 kg Physical Exam Narrative: General: No acute distress, AO x3, on room air HEENT: PERRLA, pupils bilaterally equal and reactive Chest: Bilateral occasional rhonchi present, bilateral basilar fine crackles present, equal good air entry bilaterally CVS: S1-S2 regular, no murmurs, no tachycardia, no gallops, no rubs Abdomen: Soft, nontender, no organomegaly, bowel sounds present Neuro: No focal deficits, no facial deformity, AO x3, power 5/5 in all limbs Urinary Catheter Management: Gutierrez: Cath Placed During This Visit: yes Reason for Continuing Indwelling Catheter: Accurate Measurement of Urinary Output in Critically Ill Patients Urinary Catheter Date of Insertion: 04/27/22 Urinary Catheter Time of Insertion: 13:20 Data : 05/03/22 02:39 05/03/22 02:39 Micro: Microbiology 04/28/22 00:56 Blood Culture - Final Blood NO GROWTH AFTER 5 DAYS 04/28/22 00:52 Blood Culture - Final Blood NO GROWTH AFTER 5 DAYS 05/01/22 13:56 Blood Culture - Preliminary Blood NEGATIVE TO DATE 04/27/22 13:31 Blood Culture - Final Blood NO GROWTH AFTER 5 DAYS 05/01/22 11:39 Blood Culture - Preliminary Blood NEGATIVE TO DATE A&P Assessment and plan (1) Hypoxia: Status: Acute (2) Fever: Status: Acute (3) Chest pain: Status: Acute (4) Myocarditis: Status: Acute (5) Coronary arteries, normal: Status: Acute (6) Acute kidney injury: Status: Acute (7) Transaminitis: Status: Acute (8) Non-ST elevation [place] (NSTEMI): Status: Deleted (9) Generalized weakness: Status: Acute (10) Hypokalemia: Status: Acute (11) Diabetes: Status: Acute Qualifiers: Diabetes mellitus type: type 2 Diabetes mellitus extermination supervisor insulin use: without extermination supervisor use Diabetes mellitus complication status: without complication Qualified Code(s): E11.9 - Type 2 diabetes mellitus without complications (12) HTN (hypertension): Status: Acute Qualifiers: Hypertension type: essential hypertension Qualified Code(s): I10 - Essential (primary) hypertension (13) Atrial fibrillation: Status: Acute (14) Junctional bradycardia: Stable. Most likely secondary to myocarditis. Continue with telemetry. Continue to hold off on beta-loraine for rate limiting medications. Status: Acute (15) Physical deconditioning: Status: Acute Plan 76 year old female ?with PMHx of HTN , DM-2 on OHA (HbA1C ~6.6) x 5 years, HLD and GERD, atrial fibrillation, was on Eliquis at home, was brought in with chief complaint of generalized weakness , going on for the last couple of days, she also experienced fall at home, she was also complaining of mild substernal chest pain, for the past few days. She was admitted with the possibility of non-ST elevation WI. Chest pain: Cardiac angiogram done this admission shows normal coronaries. Echocardiogram shows normal EF with no regional wall motion abnormality. CTA chest showed no PE or dissection. Symptoms most likely secondary to myocarditis. Respiratory viral panel sent out. COVID-19, flu negative. Increase aspirin to 325 mg twice daily. Check A1c, lipid panel. We will hold off on statin for now given acute transaminitis. Stop full dose Lovenox. Hypoxia: Most likely secondary to congestive heart failure in setting of viral myocarditis. CTA done earlier this admission concerning for possible nodular-like consolidation in right lower lobe. Blood culture negative. Check MRSA swab, sputum culture, urine Legionella, bacterial antigen, proBNP, D- dimer, procalcitonin. If D-dimer elevated will do lower limb Dopplers. For now we will hold off on CTA given resolution of MALICK within last 24 hours. Monitor off antibiotics. Budesonide twice daily, DuoNebs every 6 hour. Wean down Solu-Medrol to 40 mg twice daily. Oxygen supplementation keeping saturation over 88%. Incentive spirometry, flutter valve. IV Lasix 40 mg once. Strict input output charting, daily weights. Fluid restriction up to 1500 cc. Transaminitis: Trending down currently. Could be secondary to viral etiology versus drug toxicity. HIDA scan negative for cholecystitis. Hepatitis panel negative. Check HIV, GGT, lipase, CRP, folate level, vitamin B12 level. Medical reconciliation done for hepatotoxic medications. Continue to monitor daily. Protonix IV daily, Zofran as needed. Acute kidney injury: Resolved. Creatinine within normal limits. Medical reconciliation done for nephrotoxic drugs. Continue to monitor BMP daily. Analgesia: Gabapentin 100 mg twice daily at home dose, morphine 1 mg IV every 4 hours as needed. Glycemic control: Increase insulin sliding scale to high-dose protocol, add Lantus 20 units at bedtime. Nutrition: GI soft carb consistent diet. CODE STATUS: Limited resuscitation PUD prophylaxis: Protonix DVT prophylaxis: Heparin 5000 every 8 hourly. Stop full dose Lovenox. Discharge planning: If CMP remains stable within next 24 hours plan to discharge home with home health and physical therapy. Continue with care at [facility]. Plan for day: Continue with aspirin 325 mg daily. Off antibiotics. Hold off on any further Lasix of fluid. Monitor CMP in morning. Home O2 evaluation. Bowel regimen with milk of magnesia. Wean down Solu-Medrol to 40 mg IV daily. Out of bed to chair. Plan for discharge within next 24 hours if CMP remained stable on oral steroids for next 1 week with home health. Attestations Medical Necessity Statement*: Requires further hospitalization for management of chest pain secondary to viral myocarditis, transaminitis secondary to viral serositis, junctional bradycardia, physical deconditioning while safe discharge planning is sought. Time Spent in Patient Care: Greater than 35 minutes Coding Level of Care Code Acute Interpretive Naturalist for [facility] Fwd Diagnoses Hypoxia R09.02 Fever R50.9 Chest pain R07.9 Myocarditis I51.4 Coronary arteries, normal Acute kidney injury N17.9 Transaminitis R74.01 Non-ST elevation [place] (NSTEMI) I21.4 Generalized weakness R53.1 Hypokalemia E87.6 Diabetes E11.9 Diabetes mellitus type: type 2 Diabetes mellitus extermination supervisor insulin use: without extermination supervisor use Diabetes mellitus complication status: without complication HTN (hypertension) I10 Hypertension type: essential hypertension Atrial fibrillation I48.91 Junctional bradycardia R00.1 Physical deconditioning R53.81
[2022-05-03] MEDS: iron sucrose 200 MG in sodium chloride 0.9% (100 ml) 100 ML 220 MG IV (16:38)
--- NOTE | 2022-05-03 16:44 | P.PN_ITS ---
Subjective Subjective: Patient is feeling better. No complaints of chest pain or shortness of breath Vitals/I&O/Wt Last Vital Signs Temp 98.0 F 05/03/22 07:34 Pulse 58 L 05/03/22 15:51 Resp 16 05/03/22 15:51 BP 116/61 05/03/22 15:51 Pulse Ox 94 05/03/22 15:51 O2 Del Method 05/03/22 15:51 O2 Flow Rate 5 05/03/22 09:13 05/03/22 05/03/22 05/03/22 06:59 14:59 22:59 Intake Total 100 / 1760 240 / 240 Output Total 325 / 325 Balance -225 / 1435 240 / 240 Weight last 48 hrs Weight 171 lb 7 oz Weight 166 lb Physical Exam Narrative: GENERAL: Patient is alert, awake and oriented x3. [] NECK: No jugular vein distension. [] HEENT: No cyanosis. No icterus. No pallor. [] HEART: Regular S1 and S2. No murmur, rub or gallop. [] LUNGS: Mild crackles bilaterally ABDOMEN: Soft, nontender and nondistended. Positive bowel sounds. No guarding, rebound or tenderness. [] CENTRAL NERVOUS SYSTEM: Grossly nonfocal. [] EXTREMITIES: Lower extremities with 1+ edema bilaterally. Pulses palpable in the lower extremities, both dorsalis pedis and posterior tibial. [] Urinary Catheter Management: Gutierrez: Cath Placed During This Visit: yes Reason for Continuing Indwelling Catheter: Accurate Measurement of Urinary Output in Critically Ill Patients Urinary Catheter Date of Insertion: 04/27/22 Urinary Catheter Time of Insertion: 13:20 Data : 05/04/22 06:45 05/04/22 06:45 Micro: Microbiology 04/28/22 00:56 Blood Culture - Final Blood NO GROWTH AFTER 5 DAYS 04/28/22 00:52 Blood Culture - Final Blood NO GROWTH AFTER 5 DAYS 05/01/22 13:56 Blood Culture - Preliminary Blood NEGATIVE TO DATE 04/27/22 13:31 Blood Culture - Final Blood NO GROWTH AFTER 5 DAYS 05/01/22 11:39 Blood Culture - Preliminary Blood NEGATIVE TO DATE A&P Assessment and plan (1) Non-ST elevation [place] (NSTEMI): Status: Deleted (2) Atrial fibrillation: Status: Acute (3) Dyspnea on exertion: Status: Acute (4) Hyperlipidemia: Status: Acute Qualifiers: Hyperlipidemia type: unspecified Qualified Code(s): E78.5 - Hyperlipidemia, unspecified (5) Diabetes: Status: Acute Qualifiers: Diabetes mellitus type: type 2 Diabetes mellitus alf insulin use: without alf use Diabetes mellitus complication status: without complicat ion Qualified Code(s): E11.9 - Type 2 diabetes mellitus without complications (6) HTN (hypertension): Status: Acute Qualifiers: Hypertension type: essential hypertension Qualified Code(s): I10 - Essential (primary) hypertension (7) Junctional bradycardia: Status: Acute Plan Coronary angiogram did not reveal significant CAD. RV marginal branch had stenosis which was treated medically. Troponins went up significantly. LV systolic function on repeat echocardiogram is also normal. LFTs also worsened and renal dysfunction seen. Treated with antibiotics Improving LFTs. Kidney function is stable Has possible myopericarditis with small sized pericardial effusion. Aspirin has been uptitrated Renal function is stable and has good urine output Patient continues to be in junctional rhythm. She is hemodynamically stable. Continue holding rate controlling agents including metoprolol. We will plan on event monitor at discharge Telemetry monitoring Thank you for involving us with care of this patient. We will continue to follow. Please call with questions. Attestations Medical Necessity Statement*: Care expected to cross 2 midnights. Coding Level of Care Code Acute Vp Scientific Affairs for carissa [facility] Diagnoses Non-ST elevation [place] (NSTEMI) I21.4 Atrial fibrillation I48.91 Dyspnea on exertion R06.00 Hyperlipidemia E78.5 Hyperlipidemia type: unspecified Diabetes E11.9 Diabetes mellitus type: type 2 Diabetes mellitus intermediate designer insulin use: without alf use Diabetes mellitus complication status: without complication HTN (hypertension) I10 Hypertension type: essential hypertension Junctional bradycardia R00.1
[2022-05-03 17:10] LABS: Glucose Point of Care 371 mg/dL (70-110)
--- NOTE | 2022-05-03 20:16 | PC.NURSE ---
i reported low pulse 57 to nurse
[2022-05-03] MEDS: insulin glargine 100 units/1 mL 20 UNIT SUBCUT (20:33)
[2022-05-03 20:37] LABS: Glucose Point of Care 403 mg/dL (70-110)
--- NOTE | 2022-05-03 21:35 | ECG_ITS ---
[facility] Test Date: 2022-05-03 Pat Name: Sherrell Bruner Department: Room: 276 Gender: Female Operations Administrative Assistant: : 1945 Requested By: Arabella Starks Order Number: [id number] Prabhu MD: Raleigh Hanson M.D. Measurements Intervals [place] Rate: 55 P: [place]: QRS: -5 QRSD: 101 T: 2 QT: 450 QTc: 433 Interpretive Statements Third-degree heart block with a junctional escape rhythm POSSIBLE INFERIOR MYOCARDIAL INFARCTION , PROBABLY OLD [30 ms Q WAVE IN II/aVF] Nonspecific T wave changes ABNORMAL RHYTHM ECG Compared to ECG 04/30/2022 09:07:55 Myocardial infarct finding now present Electronically Signed On 05-04-2022 21:27:50 CDT by Raleigh Hanson M.D. [email or web address] [id number]
[2022-05-04] VITALS (17 sets, daily range): BP systolic 114–128; BP diastolic 59–78; PULSE 44–59; RESP 16–19; TEMP 36.6–36.9; O2SAT 91–99
--- NOTE | 2022-05-04 00:04 | PC.NURSE ---
i reported low pulse 50 to nurse
[2022-05-04] MEDS: heparin 5,000 unit/mL INJ 1 mL 5000 UNIT SUBCUT ×2 (01:49→09:42)
[2022-05-04] MEDS: ipratropium-albuterol 3 mL Neb INHALATION ×3 (03:11→22:38)
--- NOTE | 2022-05-04 04:29 | PC.NURSE ---
i reported low pulse 59 to nurse
[2022-05-04 06:37] LABS: Glucose Point of Care 173 mg/dL (70-110)
[2022-05-04 07:05] LABS: Basophils % 0.2 %; Eosinophils # 0.4 10^3/uL (0.0-0.8); Eosinophils % 2.4 %; Hematocrit 31.6 % (37.0-47.0); Hemoglobin 9.9 g/dL (11.5-15.3); Lymphocytes # 2.6 10^3/uL (0.8-4.8); Mean Corpuscular HGB Conc 31.3 g/dL (30.0-36.0); Mean Corpuscular Hemoglobin 26.7 pg (28.0-34.0); Mean Corpuscular Volume 85.2 fl (81-99); Mean Platelet Volume 10.9 fL (7.4-10.4); Monocytes # 1.5 10^3/uL (0.2-0.9); Monocytes % 8.7 %; Neutrophils # 11.76 10^3/uL (1.8-7.7); Neutrophils % 68.7 %; Nucleated Red Blood Cells # 0.1 /100WBC; Nucleated Red Blood Cells % 0.8 %; Platelet Count 316 10^3/cmm (130-400); Red Blood Count 3.71 10^6/uL (4.1-5.3); Red Cell Distribution Width 16.7 % (12.1-15.1); White Blood Count 17.1 10^3/uL (4.0-10.0)
[2022-05-04 07:34] LABS: Alanine Aminotransferase 292 U/L (0-33); Albumin Level 3.2 g/dL (3.5-5.2); Alkaline Phosphatase 147 IU/L (35-105); Anion Gap 14.7 (5-19); Aspartate Amino Transferase 32 U/L (0-32); Blood Urea Nitrogen 33 mg/dL (8-23); Calcium 9.1 mg/dL (8.5-10.5); Carbon Dioxide 27 mmol/L (22-29); Chloride 96 mmol/L (98-107); Globulin 2.3 g/dL (1.3-4.6); Glucose 136 mg/dL (65-115); Osmolality Calculated 287 mOsm/kg (285-295); Potassium 3.7 mmol/L (3.5-5.1); Sodium 134 mmol/L (136-145); Total Bilirubin 0.3 mg/dL (0.15-1.2); Total Protein 5.5 g/dL (6.6-8.7)
--- NOTE | 2022-05-04 07:55 | ECG_ITS ---
[facility] Test Date: 2022-05-04 Pat Name: Sherrell Bruner Department: Room: 276 Gender: Female Supervisor Telephone Information: : 1945 Requested By: Soto Tucker Order Number: [id number] Prabhu MD: Raleigh Hanson M.D. Measurements Intervals [place] Rate: 53 P: [place]: QRS: -8 QRSD: 90 T: -8 QT: 438 QTc: 413 Interpretive Statements Junctional rhythm LOW QRS VOLTAGE IN PRECORDIAL LEADS [QRS DEFLECTION < 1.0 mV IN CHEST LEADS] POSSIBLE INFERIOR MYOCARDIAL INFARCTION , PROBABLY OLD [30 ms Q WAVE IN II/aVF] ABNORMAL RHYTHM ECG Compared to ECG 05/03/2022 21:35:32 Low QRS voltage now present Myocardial infarct finding still present Electronically Signed On 05-04-2022 21:35:52 CDT by Raleigh Hanson M.D. [id number]
[2022-05-04] MEDS: insulin lispro 100 unit/1 mL SUBCUT ×4 (08:14→21:10)
[2022-05-04] MEDS: budesonide 0.5 mg/2 mL Neb 0.25 MG INHALATION ×2 (09:03→22:38)
[2022-05-04] MEDS: montelukast sodium 10 mg Tablet PO (09:40)
[2022-05-04] MEDS: gabapentin 100 mg Capsule PO ×2 (09:40→17:28)
[2022-05-04] MEDS: pantoprazole DR 40 mg Tablet PO (09:40)
[2022-05-04] MEDS: multivitamin therapeutic Tablet 1 TAB PO (09:40)
[2022-05-04] MEDS: cholecalciferol (vitamin D3) 1,000 unit Tablet 2000 UNIT PO (09:40)
[2022-05-04] MEDS: sennosides-docusate Tablet 1 TAB PO ×2 (09:40→17:28)
[2022-05-04] MEDS: aspirin 325 mg EC Tablet PO (09:41)
[2022-05-04 11:34] LABS: Glucose Point of Care 230 mg/dL (70-110)
--- NOTE | 2022-05-04 11:53 | PM.DCS ---
Discharge Providers Date of Admission: 04/26/22 20:39 Date of Discharge: May 04, 2022 Attending Provider at Admission: Ruy Beck MD Attending Provider at Discharge: Soto Tucker MD Primary Care Provider: Janak Johnson DO Diagnoses at Discharge Discharge Diagnosis (1) Non-ST elevation PR (NSTEMI): Status: Deleted (2) Atrial fibrillation: Status: Acute (3) Dyspnea on exertion: Status: Acute (4) Hyperlipidemia: Status: Acute Qualifiers: Hyperlipidemia type: unspecified Qualified Code(s): E78.5 - Hyperlipidemia, unspecified (5) Diabetes: Status: Acute Qualifiers: Diabetes mellitus type: type 2 Diabetes mellitus terminal manager insulin use: without alf use Diabetes mellitus complication status: without complication Qualified Code(s): E11.9 - Type 2 diabetes mellitus without complications (6) HTN (hypertension): Status: Acute Qualifiers: Hypertension type: essential hypertension Qualified Code(s): I10 - Essential (primary) hypertension Reason for Visit Reason for Visit: Weakness and Dizziness Physical Exam Narrative: General: No acute distress, AO x3, on room air HEENT: PERRLA, pupils bilaterally equal and reactive Chest: Bilateral occasional rhonchi present, bilateral basilar fine crackles present, equal good air entry bilaterally CVS: S1-S2 regular, no murmurs, no tachycardia, no gallops, no rubs Abdomen: Soft, nontender, no organomegaly, bowel sounds present Neuro: No focal deficits, no facial deformity, AO x3, power 5/5 in all limbs Urinary Catheter Management: Gutierrez: Cath Placed During This Visit: yes Reason for Continuing Indwelling Catheter: Acute Urinary Retention or Obstruction Urinary Catheter Date of Insertion: 04/27/22 Urinary Catheter Time of Insertion: 13:20 Discharge Data Studies Completed and Pending Completed Studies During Hospitalization Category Date Time Status CT angio chest w abd pel w con Stat Cat Scan 04/28/22 04:[address] head wo con* [id number] Urgent Cat Scan 04/26/22 16:58 Completed CXRP [XR chest 1V portable [id number]] Routine Exams 04/28/22 03:24 Completed XR acute abdomen series [id number] Routine Exams 05/02/22 18:47 Completed XR chest 1V portable [id number] Urgent Exams 04/26/22 13:20 Completed NM hepatobiliary w phar* [id number] Routine Nuc Med 04/29/22 06:00 [place] [id number] Routine Ultrasound 05/01/22 17:36 Completed CV. echo complete* [id number] Routine Ultrasound 04/26/22 17:00 Completed CV. 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 Renal Ultrasound 04/28/22 00:00 IMPRESSION: 1. No hydronephrosis in either kidney. 2. Gutierrez catheter. Chest X-Ray 04/28/22 03:24 IMPRESSION: Questionable ground-glass densities in the lungs, may be consistent with mild pulmonary edema. Abdomen Ultrasound 04/28/22 03:40 IMPRESSION: 1. Limited abdominal ultrasound. 2. No cholelithiasis. Mild gallbladder wall thickening and edema may be related to hepatocellular disease. 3. Normal common bile duct. 4. Decreased flow in the portal vein. Contrast enhancement was noted although decreased on the prior CT. May be related to hepatic congestion. Chest/Abdomen/Pelvis CT 04/28/22 04:30 IMPRESSION: 1. No pulmonary embolism identified. 2. No aortic dissection. No acute aortic pathology identified. 3. Nodular like consolidation in the right lower lobe concerning for possible pneumonia. 4. Mild pulmonary edema with small right-sided and trace left-sided pleural effusions. IMPRESSION: 1. Gallbladder wall thickening and or pericholecystic fluid. Recommend ultrasound evaluation for cholecystitis. 2. Periportal edema and trace perihepatic ascites, of indeterminate etiology. 3. Colonic diverticulosis without signs of acute diverticulitis. 4. The ovaries are enlarged for a postmenopausal patient. Minimal fluid adjacent to the ovaries noted. Recommend gynecology follow-up. Hepatobiliary Scan Nuclear Medicine 04/29/22 06:00 IMPRESSION: 1. Normal gallbladder filling and gallbladder ejection fraction after ingestion of 8 oz of Ensure Plus, as noted above. NOTES: J Nuc Med 2003; 44:8381-7385 Study of 20 healthy individuals showed normal EF >=33% by 60 minutes following ingestion of 8oz of Ensure Plus for oral supplement-stimulated cholescintigraphy. 5. EF <33% is indeterminate/nonspecific warranting clinical correlation with history and symptomatology given limited literature supported data and followup. Chest/Abdomen X-ray 05/02/22 18:47 IMPRESSION: 1. Interval increase in bibasilar consolidation is present, consistent with atelectasis, edema, or pneumonia. 2. Constipation with nonspecific bowel gas pattern. Echocardiogram: CONCLUSIONS ?Normal left ventricular size and systolic function, EF 66 %. No?regional wall motion abnormalities. ?Normal cardiac chamber sizes. ?There are no intracardiac masses. ?Trivial pericardial effusion. ?Compared to the study from 04/26/2022, there may be a significant?change in the 2D findings ?Dr Raleigh Hanson MD [facility] ?(Electronically Signed) ?Final Date:? ? ? 28 April 2022 ? 09:31 Laboratory Results WBC 17.1 10^3/uL (4.0-10.0) H 05/04/22 06:45 RBC 3.71 10^6/uL (4.1-5.3) L 05/04/22 06:45 Hgb 9.9 g/dL (11.5-15.3) L 05/04/22 06:45 Hct 31.6 % (37.0-47.0) L 05/04/22 06:45 MCV 85.2 fl (81-99) 05/04/22 06:45 MCH 26.7 pg (28.0-34.0) L 05/04/22 06:45 MCHC 31.3 g/dL (30.0-36.0) 05/04/22 06:45 RDW 16.7 % (12.1-15.1) H 05/04/22 06:45 Plt Count 316 10^3/cmm (130-400) 05/04/22 06:45 MPV 10.9 fL (7.4-10.4) H 05/04/22 06:45 Neut % (Auto) 68.7 % 05/04/22 06:45 Lymph % (Auto) 15.0 % 05/04/22 06:45 Cameron % (Auto) 8.7 % 05/04/22 06:45 Eos % (Auto) 2.4 % 05/04/22 06:45 Baso % (Auto) 0.2 % 05/04/22 06:45 Neut # (Auto) 11.76 10^3/uL (1.8-7.7) H 05/04/22 06:45 Lymph # (Auto) 2.6 10^3/uL (0.8-4.8) 05/04/22 06:45 Cameron # (Auto) 1.5 10^3/uL (0.2-0.9) H 05/04/22 06:45 Eos # (Auto) 0.4 10^3/uL (0.0-0.8) 05/04/22 06:45 Baso # (Auto) 0.0 10^3/uL (0.0-0.1) 05/04/22 06:45 Nucleated RBC % (auto) 0.8 % 05/04/22 06:45 Nucleated RBCs # 0.1 /100WBC 05/04/22 06:45 ESR 75 mm/hr (0-15) H 04/27/22 04:26 PT 17.90 SECONDS (12.1-14.9) H 04/28/22 00:52 INR 1.45 (0.8-1.2) H 04/28/22 00:52 D-Dimer 3.66 ug/mIFEU (0-0.59) H 05/01/22 11:39 Specimen Type Arterial 04/28/22 07:58 Sample Site Radial, left 04/28/22 07:58 ABG pH 7.43 (7.35-7.45) 04/28/22 07:58 ABG pCO2 30.9 mmHg (35-45) L 04/28/22 07:58 ABG pO2 66.1 mmHg (80.0-100.0) L 04/28/22 07:58 ABG HCO3 20.4 mmol/L (22-26) L 04/28/22 07:58 ABG O2 Saturation 90.9 04/28/22 07:58 ABG Base Excess -3.1 mmol/L (-2.0-2.0) L 04/28/22 07:58 Albaro Test Pos 04/28/22 07:58 A-a O2 Gradient 5.8 mmHg (5-10) 04/28/22 07:58 Hematocrit 36.6 % (37-47) L 04/28/22 07:58 Hgb O2 Saturation 90.0 % (95-100) L 04/28/22 07:58 Carboxyhemoglobin 0.1 %THgb (0.4-20.1) L 04/28/22 07:58 Methemoglobin 0.9 % (0.4-1.5) 04/28/22 07:58 Total Hemoglobin 11.9 g/dL (12-16) L 04/28/22 07:58 Sodium 129.0 mmol/L (131-143) L 04/28/22 07:58 Potassium 4.4 mmol/L (3.5-5.0) 04/28/22 07:58 Glucose 216.0 mg/dL (70-115) H 04/28/22 07:58 Ionized Calcium 1.2 mmol/L (1.1-1.4) 04/28/22 07:58 O2 Delivery Device Oxy mask 04/28/22 07:58 O2 Liters/Min 8.0 % 04/28/22 07:58 Speech Language Pathology Assistant ID Cak 04/28/22 07:58 Sodium 134 mmol/L (136-145) L 05/04/22 06:45 Potassium 3.7 mmol/L (3.5-5.1) 05/04/22 06:45 Chloride 96 mmol/L (98-107) L 05/04/22 06:45 Carbon Dioxide 27 mmol/L (22-29) 05/04/22 06:45 Anion Gap 14.7 (5-19) 05/04/22 06:45 BUN 33 mg/dL (8-23) H 05/04/22 06:45 Creatinine 0.8 mg/dL (0.5-0.9) 05/04/22 06:45 GFR Calculation Not Reportable 05/04/22 06:45 Glucose 136 mg/dL (65-115) H 05/04/22 06:45 POC Glucose 230 mg/dL (70-110) H 05/04/22 11:24 Estimat Average Glucose 166 05/02/22 10:04 Hemoglobin A1c 7.4 % (4.0-6.0) H 05/02/22 10:04 Calculated Osmolality 287 mOsm/kg (285-295) 05/04/22 06:45 Lactate 2.9 mmol/L (0.5-2.2) H 04/28/22 00:52 Calcium 9.1 mg/dL (8.5-10.5) 05/04/22 06:45 Magnesium 2.4 mg/dL (1.7-2.3) H 05/02/22 10:04 Iron 20 ug/dL (37-145) L 05/01/22 11:39 TIBC 259 mcg/dl 05/01/22 11:39 % Saturation 7.7 % (20-50) L 05/01/22 11:39 Unsat Iron Binding 239 ug/dL (112-347) 05/01/22 11:39 Total Bilirubin 0.3 mg/dL (0.15-1.2) 05/04/22 06:45 GGT 98 U/L (5-36) H 05/02/22 10:04 AST 32 U/L (0-32) 05/04/22 06:45 ALT 292 U/L (0-33) H 05/04/22 06:45 Alkaline Phosphatase 147 IU/L (35-105) H 05/04/22 06:45 Creatine Kinase 330 U/L (26-192) H* 04/28/22 00:52 Troponin T Gen 5 ng/L 2790 ng/L (0-10) H* 04/30/22 04:45 Troponin T Baseline 597 ng/L (0-10) H* 04/26/22 13:40 Troponin T 120 Minute 630.3 ng/L (0-10) H 04/26/22 15:50 Delta Troponin T 33.3 ABS# (0-10) H* 04/26/22 15:50 Troponin T Hi Sens 6Hr 978.9 ng/L (0-10) H 04/26/22 19:53 Troponin T Hi Sens 6Hr Delta 381.9 ng/L (0-12) H* 04/26/22 19:53 C-Reactive Protein 49.3 mg/L (0.0-4.9) H 05/03/22 02:39 NT-Pro-B Natriuret Pep 3208 pg/mL (0-450) H 05/01/22 11:39 Total Protein 5.5 g/dL (6.6-8.7) L 05/04/22 06:45 Albumin 3.2 g/dL (3.5-5.2) L 05/04/22 06:45 Globulin 2.3 g/dL (1.3-4.6) 05/04/22 06:45 Triglycerides 195 mg/dL (0-150) H 05/02/22 10:04 Cholesterol 117 mg/dL (0-200) 05/02/22 10:04 LDL Cholesterol, Calc 49 mg/dL (50-129) L 05/02/22 10:04 Total VLDL Cholesterol 39 mg/dL (0-30) H 05/02/22 10:04 HDL Cholesterol 29 mg/dL (60-100) L 05/02/22 10:04 Cholesterol/HDL Ratio 4.03 mg/dL (0.0-4.40) 05/02/22 10:04 Lipase 65 U/L (13-60) H 05/03/22 02:39 Vitamin B12 1427 pg/mL (232-1245) H 05/01/22 11:39 Folate > 20.0 ng/mL (4.8-37.3) 05/01/22 11:39 Procalcitonin 0.29 ng/mL (0-0.5) 05/01/22 11:39 TSH 0.48 uIU/mL (0.27-4.20) 04/26/22 13:40 Free T4 1.10 ng/dL (0.82-1.77) 04/26/22 13:40 Random Cortisol 0.11 ug/dL (2.47-19.5) L 04/28/22 00:52 Urine Color Colorless (Yellow) 05/01/22 11:38 Urine Appearance Clear (CLEAR) 05/01/22 11:38 Urine pH 6 (5-7) 05/01/22 11:38 Ur Specific [place] 1.010 (1.005-1.030) 05/01/22 11:38 Urine Protein Neg (Negative) 05/01/22 11:38 Urine Glucose (UA) 4+ (Normal) H 05/01/22 11:38 Urine Ketones Negative (Negative) 05/01/22 11:38 Urine Blood Neg (Negative) 05/01/22 11:38 Urine Nitrate Negative (Negative) 05/01/22 11:38 Urine Bilirubin Neg (Negative) 05/01/22 11:38 Urine Urobilinogen Norm mg/dL (Negative) 05/01/22 11:38 Ur Leukocyte Esterase Negative (Negative) 05/01/22 11:38 Urine RBC >100 /hpf (0-2) H 04/27/22 19:45 Urine WBC 0-4 /hpf (0-5) H 04/27/22 19:45 Ur Squamous Epith Cells 0-4 /hpf (0-5) H 04/27/22 19:45 Amorphous Sediment 2+ /hpf 04/27/22 19:45 Urine Bacteria Trace /hpf (NONE) 04/27/22 19:45 Hyaline Casts 0-4 /lpf H 04/27/22 19:45 Ur Random Sodium 44 mmol/L 05/01/22 11:38 Ur Random Potassium 36 mmol/L 05/01/22 11:38 Ur Random Chloride 70 mmol/L 05/01/22 11:38 Nasal Influ A H1 2009 PCR Not detected (NOT DETECT) 05/01/22 11:57 RSV Nasal Swab Cancelled 04/27/22 17:50 RSV Nasal Swab Int Cntl Cancelled 04/27/22 17:50 Random Vancomycin 19.7 ug/mL (20.0-40.0) L 04/29/22 05:45 Adenovirus (PCR) Not detected (NOT DETECT) 05/01/22 11:57 C. pneumoniae DNA (PCR) Not detected (NOT DETECT) 05/01/22 11:57 Coronavirus 229E (PCR) Not detected (NOT DETECT) 05/01/22 11:57 Hepatitis A IgM Ab Non-reactive (Nonreactive) 04/28/22 08:53 Hep Bs Antigen Non-reactive (Nonreactive) 04/28/22 08:53 Hep B Core IgM Ab Non-reactive (Nonreactive) 04/28/22 08:53 Hepatitis C Antibody Non-reactive (Nonreactive) 04/28/22 08:53 HIV 1&2 Ab & HIV 1 Ag Non-reactive (Non-Reactiv) 05/02/22 14:39 HIV 1&2 Antibody Non-reactive (Non-Reactiv) 05/02/22 14:39 Human Metapneumovir PCR Not detected (NOT DETECT) 05/01/22 11:57 Influenza A (RT-PCR) Cancelled 04/27/22 17:50 Influenza A (H1) PCR Not detected (NOT DETECT) 05/01/22 11:57 Influenza A (H3) PCR Not detected (NOT DETECT) 05/01/22 11:57 Influenza Type A Ag Negative (Negative) 04/26/22 14:12 Influenza Type A (PCR) Not detected (NOT DETECT) 05/01/22 11:57 Influenza Type B Ag Negative (Negative) 04/26/22 14:12 Influenza B (RT-PCR) Cancelled 04/27/22 17:50 Influenza Type B (PCR) Not detected (NOT DETECT) 05/01/22 11:57 M. pneumoniae (PCR) Not detected (NOT DETECT) 05/01/22 11:57 Parainfluenzae Type 1 Cancelled 04/27/22 17:50 Parainfluenza 1 (PCR) Not detected (NOT DETECT) 05/01/22 11:57 Parainfluenzae Type 2 Cancelled 04/27/22 17:50 Parainfluenza 2 (PCR) Not detected (NOT DETECT) 05/01/22 11:57 Parainfluenzae Type 3 Cancelled 04/27/22 17:50 Parainfluenza 3 (PCR) Not detected (NOT DETECT) 05/01/22 11:57 Parainfluenza 4 (PCR) Not detected (NOT DETECT) 05/01/22 11:57 RSV Ab Comment Cancelled 04/27/22 17:50 RSV Type A (PCR) Not detected (NOT DETECT) 05/01/22 11:57 RSV Type B (PCR) Not detected (NOT DETECT) 05/01/22 11:57 Rhinovirus (PCR) Cancelled 04/27/22 17:50 Entero/Rhino (PCR) Not detected (NOT DETECT) 05/01/22 11:57 SARS-CoV-2 (PCR) Not detected (NOT DETECT) 05/01/22 11:57 SARS-CoV-2 RNA (RT-PCR) Cancelled 04/27/22 17:50 SARS-CoV-2 Ag (Rapid) Negative (Negative) 04/26/22 14:12 Vitals Last Vital Signs Temp 97.8 F 05/04/22 11:13 Pulse 57 L 05/04/22 11:13 Resp 19 H 05/04/22 11:13 BP 114/59 05/04/22 11:13 Pulse Ox 92 05/04/22 11:13 O2 Del Method 05/04/22 11:13 O2 Flow Rate 1 05/04/22 03:13 Discharge Plan Discharge Patient Disposition: Home Health Service Condition: Stable Prescriptions: New Stool Softener-Laxative 8.6-50 mg Tablet 1 tab PO BID Qty: 30 0RF gabapentin 100 mg Capsule 100 mg PO BID Qty: 60 0RF prednisone 10 mg tablet See Taper PO DAILY Qty: 105 0RF Taper: predniSONE 60-10 60 mg Daily for 5 Days and 0 Hour 50 mg Daily for 5 Days and 0 Hour 40 mg Daily for 5 Days and 0 Hour 30 mg Daily for 5 Days and 0 Hour 20 mg Daily for 5 Days and 0 Hour 10 mg Daily for 5 Days and 0 Hour ferrous gluconate 324 mg (37.5 mg iron) tablet 324 mg PO BID Qty: 60 0RF Lantus Solostar U-100 Insulin 100 unit/mL (3 mL) insulin pen 20 unit SUBCUT QPM Qty: 15 0RF (DME) blood-glucose meter [Accu-Chek Guide Glucose Meter] [facility] [place] See Rx Instructions .ROUTE Qty: 1 0RF Rx Instructions: As directed Continued lysine 1,000 mg tablet 1,000 mg PO DAILY (DME) lancets [OneTouch Delica Lancets] 33 gauge [facility] [place] See Rx Instructions .Route Rx Instructions: As directed montelukast [Singulair] 10 mg tablet 10 mg PO DAILY multivitamin Tablet 1 tab PO DAILY aspirin 325 mg tablet 325 mg PO BID omeprazole 40 mg capsule,delayed release(DR/EC) 40 mg PO DAILY cholecalciferol (vitamin D3) 50 mcg (2,000 unit) capsule 50 mcg PO DAILY amlodipine 5 mg tablet 5 mg PO DAILY Farxiga 5 mg tablet 5 mg PO DAILY Qty: 90 3RF azelastine 137 mcg (0.1 %) aerosol,spray 2 spray intranasal BID PRN (Reason: Nasal Congestion) Rx Instructions: administer into each nostril furosemide 20 mg tablet 20 mg PO DAILY PRN (Reason: edema) Qty: 30 6RF glipizide 5 mg tablet extended release 24 hr 5 mg PO DAILY metformin 500 mg tablet extended release 24 hr 1,000 mg PO BID Held allopurinol 300 mg tablet 300 mg PO DAILY Hold Instructions: Resume on 08/11/22. simvastatin 80 mg tablet 40 mg PO DAILY Hold Instructions: Resume on 05/18/22. Discontinued metoprolol succinate 100 mg tablet extended release 24 hr 100 mg PO DAILY Qty: 90 5RF lisinopril-hydrochlorothiazide 20-25 mg tablet 1 tab PO DAILY Qty: 90 3RF Discharge Orders: Discharge Order (Routine); Ordered 05/04/22 Ordered By: Soto Tucker Other Ambulatory Orders: DME: Walker (Order) Location: None Selected Ordered By: Soto Tucker MCT/Event Monitor 21 Days (Routine) Timeframe: 1 Week Facility: [facility] - Location: Radiology Ordered By: Soto Tucker [place] [facility] [place] [Outside] Janak Johnson DO [Primary Care Provider] - 05/10/22 11:00 am (APPT WITH KISHOR VALENCIA ) Ed Weldon M.D [Physician] - 7-10 days Discharge Diet: Cardiac and Diabetic Discharge Activity: Resume usual activity and Increase activity as tolerated Patient Instructions: Prednisone (By mouth), Myocarditis (DC), Bradycardia (DC), Heart Catheterization (DC), Opioid Safety Activity Restrictions/Additional Instructions: Please follow-up with your primary care provider within next 1 week, Dr. Voss from cardiology within next 1 week to 10 days. Multiple medication changes have been done. Do not take metoprolol, lisinopril, hydrochlorothiazide for now. Do not take allopurinol and simvastatin for next 2 weeks. Recheck CMP in a week from today with your primary care provider. Going forward you will be on steroid?prednisone as per the taper. While you are on steroids you will also need to be on Lantus/insulin 1 time a day. Please check your fasting blood sugar daily while you are on Lantus. Target blood sugar when you wake up early in the morning is less than 120 more than 80. For now you will be on Lantus 15 units nightly. Discharge Attestations Time Spent in Discharge Care*: greater than 30 min Specific Discharge Activities: educating patient, educating and/or supporting family/caregiver, discussing with pcp/other providers, discussing with case consultant/social workers/dc planners, documenting/other paperwork and evaluating patient/reviewing data Status at Discharge: Cognitive status at discharge: cognitively intact, Behavioral status at discharge: cooperative, Functional status at discharge: uses cane/walker, Overall status at discharge: patient is progressing back to baseline Quality Metrics Clinical Quality Measures [ No reported AMI, CVA or VTE this stay] Coding Level of Care Code Acute Chg FW DC note Diagnoses Non-ST elevation PR (NSTEMI) I21.4 Atrial fibrillation I48.91 Dyspnea on exertion R06.00 Hyperlipidemia E78.5 Hyperlipidemia type: unspecified Diabetes E11.9 Diabetes mellitus type: type 2 Diabetes mellitus terminal manager insulin use: without terminal manager use Diabetes mellitus complication status: without complication HTN (hypertension) I10 Hypertension type: essential hypertension
--- NOTE | 2022-05-04 12:31 | PM.PN ---
Subjective Subjective: Patient is feeling better. No complaints of chest pain, shortness of breath or dizziness at rest. Vitals/I&O/Wt Last Vital Signs Temp 97.8 F 05/04/22 11:13 Pulse 57 L 05/04/22 11:13 Resp 19 H 05/04/22 11:13 BP 114/59 05/04/22 11:13 Pulse Ox 92 05/04/22 11:13 O2 Del Method 05/04/22 11:13 O2 Flow Rate 1 05/04/22 03:13 05/03/22 05/04/22 05/04/22 22:59 06:59 14:59 Intake Total 830 / 1070 480 / 480 Output Total 1000 / 1000 750 / 1750 Balance -170 / 70 -750 / -680 480 / 480 Weight last 48 hrs Weight 177 lb 12.8 oz Weight 171 lb 7 oz Physical Exam Narrative: GENERAL: Patient is alert, awake and oriented x3. [] NECK: No jugular vein distension. [] HEENT: No cyanosis. No icterus. No pallor. [] HEART: Regular S1 and S2. No murmur, rub or gallop. [] LUNGS: Mild crackles bilaterally ABDOMEN: Soft, nontender and nondistended. Positive bowel sounds. No guarding, rebound or tenderness. [] CENTRAL NERVOUS SYSTEM: Grossly nonfocal. [] EXTREMITIES: Lower extremities with 1+ edema bilaterally. Pulses palpable in the lower extremities, both dorsalis pedis and posterior tibial. [] Urinary Catheter Management: Gutierrez: Cath Placed During This Visit: yes Reason for Continuing Indwelling Catheter: Acute Urinary Retention or Obstruction Urinary Catheter Date of Insertion: 04/27/22 Urinary Catheter Time of Insertion: 13:20 Data : 05/04/22 06:45 05/04/22 06:45 A&P Assessment and plan (1) Non-ST elevation DE (NSTEMI): Status: Deleted (2) Atrial fibrillation: Status: Acute (3) Dyspnea on exertion: Status: Acute (4) Hyperlipidemia: Status: Acute Qualifiers: Hyperlipidemia type: unspecified Qualified Code(s): E78.5 - Hyperlipidemia, unspecified (5) Diabetes: Status: Acute Qualifiers: Diabetes mellitus type: type 2 Diabetes mellitus fpc insulin use: without terminal manager use Diabetes mellitus complication status: without complication Qualified Code(s): E11.9 - Type 2 diabetes mellitus without complications (6) HTN (hypertension): Status: Acute Qualifiers: Hypertension type: essential hypertension Qualified Code(s): I10 - Essential (primary) hypertension (7) Junctional bradycardia: Status: Acute Plan Plan was to discharge patient today with event monitor. However she started having complete heart block with visible P waves that are not being conducted. On further discussing history with, prior to admission she had been having dizziness and had syncopal episodes prior to admission. She will benefit from pacemaker placement. I will discuss with Dr. Hanson for placement of permanent pacemaker placement evaluation. We will hold off on discharge today. Coronary angiogram did not reveal significant CAD. RV marginal branch had stenosis which was treated medically. Troponins went up significantly. LV systolic function on repeat echocardiogram is also normal. LFTs also worsened and renal dysfunction seen. Treated with antibiotics Improving LFTs. Kidney function is stable Has possible myopericarditis with small sized pericardial effusion. Continue aspirin Renal function is stable and has good urine output Telemetry monitoring Thank you for involving us with care of this patient. We will continue to follow. Please call with questions. Attestations Medical Necessity Statement*: Care expected to cross 2 midnigts. Coding Level of Care Code Acute General Forecaster for [facility] Diagnoses Non-ST elevation DE (NSTEMI) I21.4 Atrial fibrillation I48.91 Dyspnea on exertion R06.00 Hyperlipidemia E78.5 Hyperlipidemia type: unspecified Diabetes E11.9 Diabetes mellitus type: type 2 Diabetes mellitus fpc insulin use: without terminal manager use Diabetes mellitus complication status: without complication HTN (hypertension) I10 Hypertension type: essential hypertension Junctional bradycardia R00.1
--- NOTE | 2022-05-04 13:05 | P.PN_ITS ---
Subjective Subjective: No events overnight. Patient states he is feeling better. Family at bedside. Continues to remain on room air. Continues to remain hemodynamically stable without any dizziness. Plan was for discharge today but overnight on telemetry was found to have occasional episodes of complete heart block which was seen today morning as well. Vitals/I&O/Wt Last Vital Signs Temp 97.8 F 05/04/22 11:13 Pulse 57 L 05/04/22 11:13 Resp 19 H 05/04/22 11:13 BP 114/59 05/04/22 11:13 Pulse Ox 92 05/04/22 11:13 O2 Del Method 05/04/22 11:13 O2 Flow Rate 1 05/04/22 03:13 05/03/22 05/04/22 05/04/22 22:59 06:59 14:59 Intake Total 830 / 1070 480 / 480 Output Total 1000 / 1000 750 / 1750 Balance -170 / 70 -750 / -680 480 / 480 Weight last 48 hrs Weight 80.649 kg Weight 77.763 kg Physical Exam Narrative: General: No acute distress, AO x3, on room air HEENT: PERRLA, pupils bilaterally equal and reactive Chest: Bilateral occasional rhonchi present, bilateral basilar fine crackles present, equal good air entry bilaterally CVS: S1-S2 regular, no murmurs, no tachycardia, no gallops, no rubs Abdomen: Soft, nontender, no organomegaly, bowel sounds present Neuro: No focal deficits, no facial deformity, AO x3, power 5/5 in all limbs Urinary Catheter Management: Gutierrez: Cath Placed During This Visit: yes Reason for Continuing Indwelling Catheter: Acute Urinary Retention or Obstruction Urinary Catheter Date of Insertion: 04/27/22 Urinary Catheter Time of Insertion: 13:20 Data : 05/04/22 06:45 05/04/22 06:45 A&P Assessment and plan (1) Complete heart block: Status: Acute (2) Myocarditis: Status: Acute (3) Junctional bradycardia: Status: Acute (4) Elevated liver enzymes: Status: Acute (5) Atrial fibrillation: Status: Acute (6) Dyspnea on exertion: Status: Acute (7) Hyperlipidemia: Status: Acute Qualifiers: Hyperlipidemia type: unspecified Qualified Code(s): E78.5 - Hyperlipidemia, unspecified (8) Diabetes: Status: Acute Qualifiers: Diabetes mellitus complication status: without complication Diabetes mellitus nursing home insulin use: without nursing home use Diabetes mellitus type: type 2 Qualified Code(s): E11.9 - Type 2 diabetes mellitus without complications (9) HTN (hypertension): Status: Acute Qualifiers: Hypertension type: essential hypertension Qualified Code(s): I10 - Essential (primary) hypertension (10) Physical deconditioning: Status: Acute (11) Acute kidney injury: Status: Acute Plan 76 year old female ?with PMHx of HTN , DM-2 on OHA (HbA1C ~6.6) x 5 years, HLD and GERD, atrial fibrillation, was on Eliquis at home, was brought in with chief complaint of generalized weakness , going on for the last couple of days, she also experienced fall at home, she was also complaining of mild substernal chest pain, for the past few days. She was admitted with the possibility of non-ST elevation VT. Chest pain: Cardiac angiogram done this admission shows normal coronaries. Echocardiogram shows normal EF with no regional wall motion abnormality. CTA chest showed no PE or dissection. Symptoms most likely secondary to myocarditis. Respiratory viral panel sent out. COVID-19, flu negative. Increase aspirin to 325 mg twice daily. Check A1c, lipid panel. We will hold off on statin for now given acute transaminitis. Stop full dose Lovenox. Hypoxia: Most likely secondary to congestive heart failure in setting of viral myocarditis. CTA done earlier this admission concerning for possible nodular-like consolida tion in right lower lobe. Blood culture negative. Check MRSA swab, sputum culture, urine Legionella, bacterial antigen, proBNP, D- dimer, procalcitonin. If D-dimer elevated will do lower limb Dopplers. For now we will hold off on CTA given resolution of MALICK within last 24 hours. Monitor off antibiotics. Budesonide twice daily, DuoNebs every 6 hour. Wean down Solu-Medrol to 40 mg twice daily. Oxygen supplementation keeping saturation over 88%. Incentive spirometry, flutter valve. IV Lasix 40 mg once. Strict input output charting, daily weights. Fluid restriction up to 1500 cc. Transaminitis: Trending down currently. Could be secondary to viral etiology versus drug toxicity. HIDA scan negative for cholecystitis. Hepatitis panel negative. Check HIV, GGT, lipase, CRP, folate level, vitamin B12 level. Medical reconciliation done for hepatotoxic medications. Continue to monitor daily. Protonix IV daily, Zofran as needed. Acute kidney injury: Resolved. Creatinine within normal limits. Medical reconciliation done for nephrotoxic drugs. Continue to monitor BMP daily. Analgesia: Gabapentin 100 mg twice daily at home dose, morphine 1 mg IV every 4 hours as needed. Glycemic control: Increase insulin sliding scale to high-dose protocol, add Lantus 20 units at bedtime. Nutrition: GI soft carb consistent diet. CODE STATUS: Limited resuscitation PUD prophylaxis: Protonix DVT prophylaxis: Heparin 5000 every 8 hourly. Stop full dose Lovenox. Discharge planning: If CMP remains stable within next 24 hours plan to discharge home with home health and physical therapy. Continue with care at [facility]. Plan for day: Discontinue Gutierrez catheter. Continue with Solu-Medrol 40 mg daily. Continue with insulin sliding scale. Hold off on aspirin, heparin for the possibility of pacemaker implantation in a.m. N.p.o. after midnight. Leukocytosis most likely secondary to being on steroids. Patient has been off antibiotics without any fever or hemodynamic instability. Patient has finished course of Zosyn for more than 7 days on 05/03. MRSA negative so have been off vancomycin Out of bed to chair. 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
[2022-05-04] MEDS: iron sucrose 200 MG in sodium chloride 0.9% (100 ml) 100 ML 220 MG IV (16:22)
[2022-05-04 16:23] LABS: Glucose Point of Care 321 mg/dL (70-110)
--- NOTE | 2022-05-04 20:02 | PC.NURSE ---
i reported low pulse 49 to nurse
--- NOTE | 2022-05-04 20:05 | PM.CONSULT ---
Providers/Reason For Consult Consulting Physician/Specialty*: SIMEON Hanson MD/cardiology Reason for Consult*: Patient with a high degree AV block/bradycardia to consider permanent pacer implantation Requesting Physician: Dr. Weldon/Dr. Tucker Attending Physician: Soto Tucker MD Primary Care Provider: Janak Johnson DO History of Present Illness History of Present Illness Sherrell Bruner is a 76 year old female was initially admitted to hospital with complaints of generalized weakness/dizziness/chest pain. She was found to have elevated troponin T and abnormal EKG suggesting non-ST elevation myocardial infarction. Subsequent cardiac catheterization revealed no significant obstructive coronary artery disease. Her sed rate and CRP were elevated. Her clinical features were consistent with myocarditis. Clinically she is improving. Her sed rate and CRP levels are coming down. She also was found to have features of a UTI, elevated liver enzymes, acute kidney injury and multiple electrolyte imbalance. Her liver enzymes are coming down. The BUN/creatinine also is improving. Patient is known to have diabetes, high blood pressure, intermittent atrial fibrillation. According to her , she had multiple episodes of passing out spells at home within the last 2 to 3 years. Most recently she had a passing out spell at home, a week ago. Apparently she was walking towards the kitchen and all on a sudden dropped to the floor. According to the family she might have passed out for few seconds. She has been staying in junctional rhythm for the last 5 days. For the last 48 hours, she was found to be in high degree AV block with a junctional escape rhythm - heart rate in the upper 40s and low 50s. Patient is complaining of dizziness and weakness. She has been off the beta-loraine for more than 5 days. She is not on any AV margarita blocking agents at this time. Her thyroid functions are normal. Apparently she was found to have sinus tachycardia at the time of the hospital admission. She currently has no fever. She has been afebrile for the last 72 hours or more. She has a persistently elevated white cell count, attributed to the steroid intake. She denies any chest pain or chest tightness. No shortness of breath. Review of Systems Narrative: CONSTITUTIONAL: No fever or chills. Has some generalized weakness and dizziness EYES: No blurring of vision or other visual disturbances lately. ENT: No hoarseness of voice, auditory disturbances or sore throat. CARDIOVASCULAR: As mentioned above. History of recurrent episodes of syncope RESPIRATORY: No significant cough. GASTROINTESTINAL: Has elevated liver enzymes. Evaluated by surgery for possible cholecystitis GENITOURINARY: Being treated for UTI INTEGUMENTARY: No skin rashes or history of skin cancer. NEURO: No transient ischemic attacks or amaurosis. PSYCHIATRIC: No history of psychosis or major depression. HEMATOLOGIC: Found to be anemic and the hemoglobin seems to be stable ENDOCRINE: History of type 2 diabetes. Blood sugar seems to be elevated. MUSCULOSKELETAL: No recent joint pain or swelling. ALLERGY/IMMUNOLOGY: As mentioned above. Medications/Allergies Home Medications Medication Instructions Recorded Confirmed Last Taken Type allopurinol 300 mg tablet 300 mg PO DAILY 02/02/21 04/26/22 04/25/22 History lancets 33 gauge (OneTouch Delica 02/02/21 04/26/22 06/19/21 History Lancets) lysine 1,000 mg tablet 1,000 mg PO DAILY 02/02/21 04/26/22 04/25/22 History montelukast 10 mg tablet 10 mg PO DAILY 02/02/21 04/26/22 04/25/22 [facility] multivitamin 1 tab PO DAILY 02/02/21 04/26/22 04/25/22 History simvastatin 80 mg tablet 40 mg PO DAILY 02/02/21 04/26/22 04/25/22 History omeprazole 40 mg capsule,delayed 40 mg PO DAILY 05/16/21 04/26/22 04/25/22 History release amlodipine 5 mg tablet 5 mg PO DAILY 10/17/21 04/26/22 04/25/22 History dapagliflozin 5 mg tablet (Farxiga) 5 mg PO DAILY #90 tabs 10/19/21 04/26/22 04/25/22 Rx aspirin 325 mg tablet 325 mg PO BID 02/15/22 04/26/22 04/25/22 History azelastine 137 mcg (0.1 %) nasal 2 spray intranasal BID PRN Nasal 02/15/22 04/26/22 Unknown History spray aerosol Congestion cholecalciferol (vitamin D3) 50 50 mcg PO DAILY 02/15/22 04/26/22 04/25/22 History mcg (2,000 unit) capsule furosemide 20 mg tablet 20 mg PO DAILY PRN edema #30 tabs 02/27/22 04/26/22 Unknown Rx glipizide 5 mg tablet, extended 5 mg PO DAILY 04/26/22 04/26/22 04/25/22 History release 24 hr metformin 500 mg tablet,extended 1,000 mg PO BID 04/26/22 04/26/22 04/25/22 History release 24 hr blood-glucose meter (Accu-Chek #1 ea 05/04/22 Unknown Rx Guide Glucose Meter) ferrous gluconate 324 mg (37.5 mg 324 mg PO BID #60 tabs 05/04/22 Unknown Rx iron) tablet gabapentin 100 mg capsule 100 mg PO BID #60 caps 05/04/22 Unknown Rx insulin glargine 100 unit/mL (3 20 unit (0.2 mL) SUBCUT QPM #15 mL 05/04/22 Unknown Rx mL) subcutaneous pen (Lantus Solostar U-100 Insulin) prednisone 10 mg tablet See Taper PO DAILY #105 tabs 05/04/22 Unknown Rx sennosides 8.6 mg-docusate sodium 1 tab PO BID #30 tabs 05/04/22 Unknown Rx 50 mg tablet (Stool Softener-Laxative) Allergies Allergy/AdvReac Type Severity Reaction Status Date / Time No Known Allergies Allergy Verified 10/19/21 14:50 Current Medications Generic Name Dose Route Start Last Admin Trade Name Mikaelq PRN Reason Stop Dose Admin Albuterol/Ipratropium 3 ml 04/29/22 14:00 05/04/22 15:12 Ipratropium-Albuterol 3 Ml Neb INHALATION Not Given Q6H.RESP EDUAR Aspirin 325 mg 05/01/22 18:00 05/04/22 09:41 Aspirin 325 Mg Ec Tablet PO 325 mg BID EDUAR Administration Budesonide 0.25 mg 05/01/22 20:00 05/04/22 09:03 Budesonide 0.5 Mg/2 Ml Neb INHALATION 0.25 mg BID.RESPIRATORY EDUAR Administration Gabapentin 100 mg 04/29/22 15:00 05/04/22 17:28 Gabapentin 100 Mg Capsule PO 100 mg BID EDUAR Administration Heparin Sodium (Porcine) 5,000 unit 05/01/22 18:00 05/04/22 09:42 Heparin 5,000 Unit/Ml Inj 1 Ml SUBCUT 5,000 unit Q8H EDUAR Administration Iron Sucrose 200 mg/ Sodium 110 mls @ 220 mls/hr 05/02/22 16:00 05/04/22 19:15 Chloride IV 05/06/22 16:29 Infused Q24H EDUAR Infusion Insulin Glargine 20 unit 05/01/22 21:00 05/03/22 20:33 Insulin Glargine 100 Units/1 Ml SUBCUT 20 unit BEDTIME EDUAR Administration Insulin Human Lispro 0 unit 04/26/22 20:39 05/04/22 17:27 Insulin Lispro 100 Unit/1 Ml SUBCUT 14 unit WM&BEDTIME EDUAR Administration Protocol Magnesium Hydroxide 30 ml 04/27/22 10:52 05/03/22 12:02 Magnesium Hydroxide 30 Ml Udc PO 30 ml DAILY PRN Administration CONSTIPATION Methylprednisolone Sodium Succinate 40 mg 05/04/22 09:00 05/04/22 09:41 Methylprednisolone Sod Succ 40 Mg/Ml Inj IVP 40 mg DAILY EDUAR Administration Montelukast Sodium 10 mg 04/27/22 09:00 05/04/22 09:40 Montelukast Sodium 10 Mg Tablet PO 10 mg DAILY EDUAR Administration Multivitamins Therapeutic 1 tab 04/27/22 09:00 05/04/22 09:40 Multivitamin Therapeutic Tablet PO 1 tab DAILY EDUAR Administration Pantoprazole Sodium 40 mg 04/27/22 09:00 05/04/22 09:[address] 40 Mg Tablet PO 40 mg DAILY EDUAR Administration Senna/Docusate Sodium 1 tab 04/29/22 18:00 05/04/22 17:28 Sennosides-Docusate Tablet PO 1 tab BID EDUAR Administration Vitamin D 2,000 unit 04/27/22 09:00 05/04/22 09:40 Cholecalciferol (Vitamin D3) 1,000 Unit Tablet PO 2,000 unit DAILY EDUAR Administration PFSH Acute PFSH: Medical History Atrial fibrillation Diabetes Dizziness GERD (gastroesophageal reflux disease) HTN (hypertension) Hyperlipidemia Surgical History Hx of hysterectomy Family History Mother Hypertension Diabetes Father CAD (coronary artery disease) Brother CAD (coronary artery disease) Grandmother Stroke Denies family history of Bleeding disorder Social History Smoking and tobacco status: never smoked Alcohol intake: never Vitals/I&O/Wt Last Vital Signs Temp 97.9 F 05/04/22 20:00 Pulse 49 L 05/04/22 20:00 Resp 18 05/04/22 20:00 BP 124/67 05/04/22 20:00 Pulse Ox 94 05/04/22 20:00 O2 Del Method 05/04/22 15:11 O2 Flow Rate 1 05/04/22 03:13 05/04/22 05/04/22 05/04/22 06:59 14:59 22:59 Intake Total 720 / 720 590 / 1310 Output Total 750 / 1750 1000 / 1000 Balance -750 / -680 720 / 720 -410 / 310 Weight last 48 hrs Weight 177 lb 12.8 oz Weight 171 lb 7 oz Physical Exam Narrative: GENERAL: The patient is alert and oriented times three. Not in any acute distress. Appears somewhat lethargic. HEENT: Minimal pallor with no icterus or lymphadenopathy.Oral cavity: There are no mucous membrane lesions. NECK: Trachea appears to be central. No masses noted. No JVD or thyromegaly appreciated. RESPIRATORY: Chest is symmetrical. No intercostals muscle retraction or any accessory muscle activation. There is no chest wall tenderness. Breath sounds are heard bilaterally. No rales or rhonchi heard. No evidence of any consolidation. BREASTS: Deferred. HEART: The heart sounds are normal. No S3 or S4. No significant murmurs. No pericardial rub ABDOMEN: No vessel pulsations or distention. No tenderness. No organomegaly appreciated. Bowel sounds are normally heard. : Deferred. RECTAL: Deferred. LYMPHATIC: No lymphadenopathy noted in the neck. EXTREMITIES: No edema or cyanosis. No clubbing. MUSCULOSKELETAL: No acute joint deformities or swelling SKIN: There are no significant rashes or ecchymosis NEUROPSYCHIATRIC: The patient is alert and oriented x3. Appears to be in a good mood. No tremors or rigidity noted. Urinary Catheter Management: Gutierrez: Cath Placed During This Visit: yes, but has since been removed by the nurse Reason for Continuing Indwelling Catheter: Accurate Measurement of Urinary Output in Critically Ill Patients Urinary Catheter Date of Insertion: 04/27/22 Urinary Catheter Time of Insertion: 13:20 Date Urinary Catheter Removed: 05/04/22 Time Urinary Catheter Discontinued: 17:38 Data : 05/05/22 03:16 05/05/22 03:16 EKG 1: My Interpretation: Third-degree heart block with a junctional escape rhythm of 52 bpm EKG computer-generated impression: Head CT 04/26/22 16:58 IMPRESSION: No acute intracranial abnormality. Renal Ultrasound 04/28/22 00:00 IMPRESSION: 1. No hydronephrosis in either kidney. 2. Gutierrez catheter. Chest X-Ray 04/28/22 03:24 IMPRESSION: Questionable ground-glass densities in the lungs, may be consistent with mild pulmonary edema. Abdomen Ultrasound 04/28/22 03:40 IMPRESSION: 1. Limited abdominal ultrasound. 2. No cholelithiasis. Mild gallbladder wall thickening and edema may be related to hepatocellular disease. 3. Normal common bile duct. 4. Decreased flow in the portal vein. Contrast enhancement was noted although decreased on the prior CT. May be related to hepatic congestion. Chest/Abdomen/Pelvis CT 04/28/22 04:30 IMPRESSION: 1. No pulmonary embolism identified. 2. No aortic dissection. No acute aortic pathology identified. 3. Nodular like consolidation in the right lower lobe concerning for possible pneumonia. 4. Mild pulmonary edema with small right-sided and trace left-sided pleural effusions. IMPRESSION: 1. Gallbladder wall thickening and or pericholecystic fluid. Recommend ultrasound evaluation for cholecystitis. 2. Periportal edema and trace perihepatic ascites, of indeterminate etiology. 3. Colonic diverticulosis without signs of acute diverticulitis. 4. The ovaries are enlarged for a postmenopausal patient. Minimal fluid adjacent to the ovaries noted. Recommend gynecology follow-up. Hepatobiliary Scan Nuclear Medicine 04/29/22 06:00 IMPRESSION: 1. Normal gallbladder filling and gallbladder ejection fraction after ingestion of 8 oz of Ensure Plus, as noted above. NOTES: J Nuc Med 2003; [id number] Study of 20 healthy individuals showed normal EF >=33% by 60 minutes following ingestion of 8oz of Ensure Plus for oral supplement-stimulated cholescintigraphy. 5. EF <33% is indeterminate/nonspecific warranting clinical correlation with history and symptomatology given limited literature supported data and followup. Chest/Abdomen X-ray 05/02/22 18:47 IMPRESSION: 1. Interval increase in bibasilar consolidation is present, consistent with atelectasis, edema, or pneumonia. 2. Constipation with nonspecific bowel gas pattern. A&P Assessment and plan (1) Recurrent syncope: Most likely related to high degree AV block. Status: Acute (2) Symptomatic bradycardia: Patient is currently in third-degree heart block with junctional escape rhythm. Her symptom of dizziness/weakness most likely related to the heart block/bradycardia. She is staying in the junctional rhythm for the last more than 5 days. Apparently she presented with a sinus tachycardia. Status: Acute (3) Myocarditis: Even though myocarditis can cause sinus margarita dysfunction and even AV block, her history of atrial fibrillation and recurrent syncope prior to hospital admission, suggesting underlying conduction disorder. She has been persisting in the junctional rhythm for the last more than 5 days. I will repeat the sed rate today Status: Acute (4) Acute kidney injury: Seems to be resolving Status: Acute (5) Transaminitis: Relative enzymes are coming down. Her INR was elevated. Repeat INR today Status: Acute (6) Atrial fibrillation: No atrial fibrillation, since the hospital admission. Status: Acute Plan In view of the patient's persistent high degree AV block/symptomatic bradycardia, for further management of her condition, I agree with a permanent pacemaker. She requires a dual-chamber pacemaker for AV synchrony and symptom relief. This was discussed with the patient and family in detail. The risk of bleeding, hematoma, vascular injury, pneumothorax, infection, renal failure and other concomitant complications were explained in detail. The patient and family understood this well and consented to proceed. Because of the anemia and abnormal liver enzymes, patient carries a high risk for bleeding. This also was explained to the patient and family in detail. Discussed with Dr. Kessler-concurred with the plan of going ahead with the the procedure. We will be checking the labs in the morning. 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
[2022-05-04 20:26] LABS: Glucose Point of Care 306 mg/dL (70-110)
[2022-05-04] MEDS: insulin glargine 100 units/1 mL 20 UNIT SUBCUT (21:10)
[2022-05-04 22:56] LABS: Erythrocyte Sedimentation Rate 29 mm/hr (0-15)
[2022-05-04 23:03] LABS: INR 1.12 (0.8-1.2)
[2022-05-05] VITALS (19 sets, daily range): BP systolic 103–137; BP diastolic 56–72; PULSE 47–64; RESP 15–28; TEMP 36.4–37; O2SAT 90–97
--- NOTE | 2022-05-05 00:47 | PC.NURSE ---
i reported low pulse 47 to nurse
[2022-05-05] MEDS: ipratropium-albuterol 3 mL Neb INHALATION ×3 (02:55→17:36)
[2022-05-05 03:56] LABS: Basophils # 0.1 10^3/uL (0.0-0.1); Basophils % 0.3 %; Eosinophils # 0.4 10^3/uL (0.0-0.8); Eosinophils % 1.8 %; Hematocrit 33.7 % (37.0-47.0); Hemoglobin 10.5 g/dL (11.5-15.3); Lymphocytes # 2.9 10^3/uL (0.8-4.8); Lymphocytes % 14.6 %; Mean Corpuscular HGB Conc 31.2 g/dL (30.0-36.0); Mean Corpuscular Hemoglobin 26.6 pg (28.0-34.0); Mean Corpuscular Volume 85.5 fl (81-99); Mean Platelet Volume 10.6 fL (7.4-10.4); Monocytes # 1.7 10^3/uL (0.2-0.9); Monocytes % 8.4 %; Neutrophils # 13.58 10^3/uL (1.8-7.7); Neutrophils % 69.1 %; Nucleated Red Blood Cells # 0.2 /100WBC; Nucleated Red Blood Cells % 0.8 %; Platelet Count 389 10^3/cmm (130-400); Red Blood Count 3.94 10^6/uL (4.1-5.3); Red Cell Distribution Width 17.1 % (12.1-15.1); White Blood Count 19.7 10^3/uL (4.0-10.0)
--- NOTE | 2022-05-05 04:15 | PC.NURSE ---
i reported low pulse 50 to nurse
[2022-05-05 04:18] LABS: Alanine Aminotransferase 235 U/L (0-33); Albumin Level 3.1 g/dL (3.5-5.2); Alkaline Phosphatase 136 IU/L (35-105); Aspartate Amino Transferase 30 U/L (0-32); Blood Urea Nitrogen 30 mg/dL (8-23); Calcium 9.2 mg/dL (8.5-10.5); Carbon Dioxide 26 mmol/L (22-29); Chloride 98 mmol/L (98-107); Globulin 2.5 g/dL (1.3-4.6); Glucose 85 mg/dL (65-115); Osmolality Calculated 285 mOsm/kg (285-295); Sodium 135 mmol/L (136-145); Total Bilirubin 0.3 mg/dL (0.15-1.2); Total Protein 5.6 g/dL (6.6-8.7)
[2022-05-05 04:33] LABS: Slide Review Slide Review Perform
[2022-05-05] MEDS: sodium chloride 0.9% 1,000 ML 75 ML IV ×2 (04:57→13:33)
[2022-05-05 06:18] LABS: Glucose Point of Care 106 mg/dL (70-110)
--- NOTE | 2022-05-05 06:56 | XR_ITS ---
WS: [id number] PORTABLE CHEST HISTORY: leukocytosis COMPARISON: 04/28/2022 Slight elevation of the RIGHT hemidiaphragm. Hazy diffuse opacifications have improved. Mild persiste nt haziness and blunting of the costophrenic angle on the RIGHT persists. Small bilateral pleural eff usions are likely. Cardiac size: Mildly enlarged cardiac silhouette. Mediastinum/Aorta: Mild atherosclerosis aorta. No osseous abnormality seen. XR/XR chest 1V portable [id number] IMPRESSION: 1. Overall improved aeration of both lungs since 04/28/2022. 2. Persistent mild haziness at the RIGHT lung base may be due to overlying sof t tissue or atelectasis. 3. Very small bilateral pleural effusions.
--- NOTE | 2022-05-05 07:33 | ECG_ITS ---
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 Measurements Intervals [place] Rate: 49 P: CA: QRS: 19 QRSD: 90 T: 9 QT: 470 QTc: 426 Interpretive Statements JUNCTIONAL BRADYCARDIA LOW QRS VOLTAGE IN PRECORDIAL LEADS [QRS DEFLECTION < 1.0 mV IN CHEST LEADS] ABNORMAL RHYTHM ECG Compared to ECG 05/04/2022 08:01:02 Junctional rhythm no longer present Myocardial infarct finding no longer present Electronically Signed On 05-05-2022 17:35:44 CDT by Cira Hargrove M.D. [email or web address]
--- NOTE | 2022-05-05 08:27 | PM.PN ---
Subjective Subjective: The patient is still feeling tired and weak. The heart is in the upper 40s and low 50s on the monitor. Currently her, she feels okay as she gets up in the morning and then starts feeling weak as the day progresses. She has no chest pain no fever or chills. The white cell count was found to be 19.7 thousand today. She had a repeat chest x-ray which did not reveal any infiltrate. The results are as mentioned below. She was evaluated by the infectious disease-in the absence of any other signs of infection, most likely this is related to the steroids. Advised to continue the Zosyn and go ahead with the procedure. Medications: Medication Review Details: Current Medications Acetaminophen (Acetaminophen 325 Mg Tablet) 650 mg PO Q6H PRN PRN Reason: MILD PAIN Al Hydrox/Mg Hydrox/Simethicone (Lldh-Ige-Gubhuhvho-Radha 30 Ml Udc) 30 ml PO Q15M PRN PRN Reason: INDIGESTION Albuterol/Ipratropium (Ipratropium-Albuterol 3 Ml Neb) 3 ml INHALATION Q6H.RESP EDUAR Last Admin: 05/05/22 02:55 Dose: 3 ml Aspirin (Aspirin 325 Mg Ec Tablet) 325 mg PO BID EDUAR Last Admin: 05/04/22 09:41 Dose: 325 mg Atropine Sulfate (Atropine 1 Mg/Ml Sdv 1 Ml) 0.5 mg IVP PRN PRN PRN Reason: Symptomatic bradycardia Bisacodyl (Bisacodyl 5 Mg Tablet) 10 mg PO DAILY PRN; Protocol PRN Reason: Constipation (see protocol) Budesonide (Budesonide 0.5 Mg/2 Ml Neb) 0.25 mg INHALATION BID.RESPIRATORY EDUAR Last Admin: 05/04/22 22:38 Dose: 0.25 mg Dextrose (Dextrose 50% Syringe 50 Ml) 25 ml IVP ONCE PRN; Protocol PRN Reason: hypoglycemia protocol Dextrose (Dextrose 50% Syringe 50 Ml) 50 ml IVP PRN PRN; Protocol PRN Reason: hypoglycemia protocol Gabapentin (Gabapentin 100 Mg Capsule) 100 mg PO BID EDUAR Last Admin: 05/04/22 17:28 Dose: 100 mg Glucagon (Glucagon 1 Mg/Ml Inj 1 Ml) 1 mg IM ONCE PRN; Protocol PRN Reason: Adult Acute Hypoglycemia Prot. Heparin Sodium (Porcine) (Heparin 5,000 Unit/Ml Inj 1 Ml) 5,000 unit SUBCUT Q8H COUNT INCLUDES THE [facility] Last Admin: 05/04/22 09:42 Dose: 5,000 unit Dextrose (D5w) 500 mls @ 100 mls/hr IV ONCE PRN; Protocol PRN Reason: Adult Acute Hypoglycemia Prot Iron Sucrose 200 mg/ Sodium (Chloride) 110 mls @ 220 mls/hr IV Q24H COUNT INCLUDES THE [facility] Stop: 05/06/22 16:29 Last Infusion: 05/04/22 19:15 Dose: Infused Sodium Chloride (Sodium Chloride 0.9%) 1,000 mls @ 75 mls/hr IV .[id number] COUNT INCLUDES THE [facility] Last Admin: 05/05/22 04:57 Dose: 75 mls/hr Piperacillin Sod/Tazobactam (Sod 3.375 gm/ Sodium Chloride) 50 mls @ 12.5 mls/hr IV Q8H COUNT INCLUDES THE [facility]; Protocol Insulin Glargine (Insulin Glargine 100 Units/1 Ml) 20 unit SUBCUT BEDTIME COUNT INCLUDES THE [facility] Last Admin: 05/04/22 21:10 Dose: 20 unit Insulin Human Lispro (Insulin Lispro 100 Unit/1 Ml) 0 unit SUBCUT WM&BEDTIME COUNT INCLUDES THE [facility]; Protocol Last Admin: 05/04/22 21:10 Dose: 14 unit Magnesium Hydroxide (Magnesium Hydroxide 30 Ml Udc) 30 ml PO DAILY PRN PRN Reason: CONSTIPATION Last Admin: 05/03/22 12:02 Dose: 30 ml Methylprednisolone Sodium Succinate (Methylprednisolone Sod Succ 40 Mg/Ml Inj) 40 mg IVP DAILY COUNT INCLUDES THE [facility] Last Admin: 05/04/22 09:41 Dose: 40 mg Montelukast Sodium (Montelukast Sodium 10 Mg Tablet) 10 mg PO DAILY COUNT INCLUDES THE [facility] Last Admin: 05/04/22 09:40 Dose: 10 mg Multivitamins Therapeutic (Multivitamin Therapeutic Tablet) 1 tab PO DAILY COUNT INCLUDES THE [facility] Last Admin: 05/04/22 09:40 Dose: 1 tab Ondansetron HCl (Ondansetron 2 Mg/Ml Sdv 2 Ml) 4 mg IVP Q8H PRN PRN Reason: vomiting, or N/V if npo Pantoprazole Sodium (Pantoprazole Dr 40 Mg Tablet) 40 mg PO DAILY COUNT INCLUDES THE [facility] Last Admin: 05/04/22 09:40 Dose: 40 mg Senna/Docusate Sodium (Sennosides-Docusate Tablet) 1 tab PO BID COUNT INCLUDES THE [facility] Last Admin: 05/04/22 17:28 Dose: 1 tab Vitamin D (Cholecalciferol (Vitamin D3) 1,000 Unit Tablet) 2,000 unit PO DAILY COUNT INCLUDES THE [facility] Last Admin: 05/04/22 09:40 Dose: 2,000 unit Vitals/I&O/Wt Last Vital Signs Temp 98.0 F 05/05/22 04:00 Pulse 49 L 05/05/22 05:40 Resp 17 05/05/22 04:00 BP 137/67 05/05/22 04:00 Pulse Ox 97 05/05/22 04:00 O2 Del Method 05/05/22 02:55 O2 Flow Rate 1 05/04/22 22:45 05/04/22 05/05/22 05/05/22 22:59 06:59 14:59 Intake Total 590 / 1310 Output Total 1000 / 1000 Balance -410 / 310 Weight last 48 hrs Weight 177 lb 12.8 oz Physical Exam Narrative: GENERAL: The patient is alert and oriented times three. Not in any acute distress. HEENT: No significant pallor, icterus or lymphadenopathy.Oral cavity: There are no mucous membrane lesions. NECK: Trachea appears to be central. No masses noted. No JVD or thyromegaly appreciated. RESPIRATORY: Chest is symmetrical. No intercostals muscle retraction or any accessory muscle activation. There is no chest wall tenderness. Breath sounds are heard bilaterally. Few scattered crackles in the bases. No evidence of consolidation. BREASTS: Deferred. HEART: The heart sounds are normal. No S3 or S4. No significant murmurs. No pericardial rub ABDOMEN: No vessel pulsations or distention. No tenderness. No organomegaly appreciated. Bowel sounds are normally heard. : Deferred. RECTAL: Deferred. LYMPHATIC: No lymphadenopathy noted in the neck. EXTREMITIES: No edema or cyanosis. No clubbing. MUSCULOSKELETAL: No acute joint deformities or swelling SKIN: There are no significant rashes or ecchymosis NEUROPSYCHIATRIC: The patient is alert and oriented x3. Appears to be in a good mood. No tremors or rigidity noted. Urinary Catheter Management: Gutierrez: Cath Placed During This Visit: yes, but has since been removed by the nurse Reason for Continuing Indwelling Catheter: Accurate Measurement of Urinary Output in Critically Ill Patients Urinary Catheter Date of Insertion: 04/27/22 Urinary Catheter Time of Insertion: 13:20 Date Urinary Catheter Removed: 05/04/22 Time Urinary Catheter Discontinued: 17:38 Data : 05/05/22 03:16 05/05/22 03:16 Other Labs: Laboratory Last Values WBC 19.7 10^3/uL (4.0-10.0) H 05/05/22 03:16 RBC 3.94 10^6/uL (4.1-5.3) L 05/05/22 03:16 Hgb 10.5 g/dL (11.5-15.3) L 05/05/22 03:16 Hct 33.7 % (37.0-47.0) L 05/05/22 03:16 MCV 85.5 fl (81-99) 05/05/22 03:16 MCH 26.6 pg (28.0-34.0) L 05/05/22 03:16 MCHC 31.2 g/dL (30.0-36.0) 05/05/22 03:16 RDW 17.1 % (12.1-15.1) H 05/05/22 03:16 Plt Count 389 10^3/cmm (130-400) 05/05/22 03:16 MPV 10.6 fL (7.4-10.4) H 05/05/22 03:16 Neut % (Auto) 69.1 % 05/05/22 03:16 Lymph % (Auto) 14.6 % 05/05/22 03:16 [place] % (Auto) 8.4 % 05/05/22 03:16 Eos % (Auto) 1.8 % 05/05/22 03:16 Baso % (Auto) 0.3 % 05/05/22 03:16 Neut # (Auto) 13.58 10^3/uL (1.8-7.7) H 05/05/22 03:16 Lymph # (Auto) 2.9 10^3/uL (0.8-4.8) 05/05/22 03:16 [place] # (Auto) 1.7 10^3/uL (0.2-0.9) H 05/05/22 03:16 Eos # (Auto) 0.4 10^3/uL (0.0-0.8) 05/05/22 03:16 Baso # (Auto) 0.1 10^3/uL (0.0-0.1) 05/05/22 03:16 Nucleated RBC % (auto) 0.8 % 05/05/22 03:16 Nucleated RBCs # 0.2 /100WBC 05/05/22 03:16 ESR 29 mm/hr (0-15) H 05/04/22 22:12 PT 14.70 SECONDS (12.1-14.9) 05/04/22 22:12 INR 1.12 (0.8-1.2) 05/04/22 22:12 D-Dimer 3.66 ug/mIFEU (0-0.59) H 05/01/22 11:39 Specimen Type Arterial 04/28/22 07:58 Sample Site Radial, left 04/28/22 07:58 ABG pH 7.43 (7.35-7.45) 04/28/22 07:58 ABG pCO2 30.9 mmHg (35-45) L 04/28/22 07:58 ABG pO2 66.1 mmHg (80.0-100.0) L 04/28/22 07:58 ABG HCO3 20.4 mmol/L (22-26) L 04/28/22 07:58 ABG O2 Saturation 90.9 04/28/22 07:58 ABG Base Excess -3.1 mmol/L (-2.0-2.0) L 04/28/22 07:58 Albaro Test Pos 04/28/22 07:58 A-a O2 Gradient 5.8 mmHg (5-10) 04/28/22 07:58 Hematocrit 36.6 % (37-47) L 04/28/22 07:58 Hgb O2 Saturation 90.0 % (95-100) L 04/28/22 07:58 Carboxyhemoglobin 0.1 %THgb (0.4-20.1) L 04/28/22 07:58 Methemoglobin 0.9 % (0.4-1.5) 04/28/22 07:58 Total Hemoglobin 11.9 g/dL (12-16) L 04/28/22 07:58 Sodium 129.0 mmol/L (131-143) L 04/28/22 07:58 Potassium 4.4 mmol/L (3.5-5.0) 04/28/22 07:58 Glucose 216.0 mg/dL (70-115) H 04/28/22 07:58 Ionized Calcium 1.2 mmol/L (1.1-1.4) 04/28/22 07:58 O2 Delivery Device Oxy mask 04/28/22 07:58 O2 Liters/Min 8.0 % 04/28/22 07:58 Litigation Claim Representative ID Cak 04/28/22 07:58 Sodium 135 mmol/L (136-145) L 05/05/22 03:16 Potassium 4.0 mmol/L (3.5-5.1) 05/05/22 03:16 Chloride 98 mmol/L (98-107) 05/05/22 03:16 Carbon Dioxide 26 mmol/L (22-29) 05/05/22 03:16 Anion Gap 15.0 (5-19) 05/05/22 03:16 BUN 30 mg/dL (8-23) H 05/05/22 03:16 Creatinine 0.9 mg/dL (0.5-0.9) 05/05/22 03:16 GFR Calculation Not Reportable 05/05/22 03:16 Glucose 85 mg/dL (65-115) 05/05/22 03:16 POC Glucose 106 mg/dL (70-110) 05/05/22 06:06 Estimat Average Glucose 166 05/02/22 10:04 Hemoglobin A1c 7.4 % (4.0-6.0) H 05/02/22 10:04 Calculated Osmolality 285 mOsm/kg (285-295) 05/05/22 03:16 Lactate 2.9 mmol/L (0.5-2.2) H 04/28/22 00:52 Calcium 9.2 mg/dL (8.5-10.5) 05/05/22 03:16 Magnesium 2.4 mg/dL (1.7-2.3) H 05/02/22 10:04 Iron 20 ug/dL (37-145) L 05/01/22 11:39 TIBC 259 mcg/dl 05/01/22 11:39 % Saturation 7.7 % (20-50) L 05/01/22 11:39 Unsat Iron Binding 239 ug/dL (112-347) 05/01/22 11:39 Total Bilirubin 0.3 mg/dL (0.15-1.2) 05/05/22 03:16 GGT 98 U/L (5-36) H 05/02/22 10:04 AST 30 U/L (0-32) 05/05/22 03:16 ALT 235 U/L (0-33) H 05/05/22 03:16 Alkaline Phosphatase 136 IU/L (35-105) H 05/05/22 03:16 Creatine Kinase 330 U/L (26-192) H* 04/28/22 00:52 Troponin T Gen 5 ng/L 2790 ng/L (0-10) H* 04/30/22 04:45 Troponin T Baseline 597 ng/L (0-10) H* 04/26/22 13:40 Troponin T 120 Minute 630.3 ng/L (0-10) H 04/26/22 15:50 Delta Troponin T 33.3 ABS# (0-10) H* 04/26/22 15:50 Troponin T Hi Sens 6Hr 978.9 ng/L (0-10) H 04/26/22 19:53 Troponin T Hi Sens 6Hr Delta 381.9 ng/L (0-12) H* 04/26/22 19:53 C-Reactive Protein 49.3 mg/L (0.0-4.9) H 05/03/22 02:39 NT-Pro-B Natriuret Pep 3208 pg/mL (0-450) H 05/01/22 11:39 Total Protein 5.6 g/dL (6.6-8.7) L 05/05/22 03:16 Albumin 3.1 g/dL (3.5-5.2) L 05/05/22 03:16 Globulin 2.5 g/dL (1.3-4.6) 05/05/22 03:16 Triglycerides 195 mg/dL (0-150) H 05/02/22 10:04 Cholesterol 117 mg/dL (0-200) 05/02/22 10:04 LDL Cholesterol, Calc 49 mg/dL (50-129) L 05/02/22 10:04 Total VLDL Cholesterol 39 mg/dL (0-30) H 05/02/22 10:04 HDL Cholesterol 29 mg/dL (60-100) L 05/02/22 10:04 Cholesterol/HDL Ratio 4.03 mg/dL (0.0-4.40) 05/02/22 10:04 Lipase 65 U/L (13-60) H 05/03/22 02:39 Vitamin B12 1427 pg/mL (232-1245) H 05/01/22 11:39 Folate > 20.0 ng/mL (4.8-37.3) 05/01/22 11:39 Procalcitonin 0.10 ng/mL (0-0.5) 05/05/22 03:16 TSH 0.48 uIU/mL (0.27-4.20) 04/26/22 13:40 Free T4 1.10 ng/dL (0.82-1.77) 04/26/22 13:40 Random Cortisol 0.11 ug/dL (2.47-19.5) L 04/28/22 00:52 Urine Color Colorless (Yellow) 05/01/22 11:38 Urine Appearance Clear (CLEAR) 05/01/22 11:38 Urine pH 6 (5-7) 05/01/22 11:38 Ur Specific [place] 1.010 (1.005-1.030) 05/01/22 11:38 Urine Protein Neg (Negative) 05/01/22 11:38 Urine Glucose (UA) 4+ (Normal) H 05/01/22 11:38 Urine Ketones Negative (Negative) 05/01/22 11:38 Urine Blood Neg (Negative) 05/01/22 11:38 Urine Nitrate Negative (Negative) 05/01/22 11:38 Urine Bilirubin Neg (Negative) 05/01/22 11:38 Urine Urobilinogen Norm mg/dL (Negative) 05/01/22 11:38 Ur Leukocyte Esterase Negative (Negative) 05/01/22 11:38 Urine RBC >100 /hpf (0-2) H 04/27/22 19:45 Urine WBC 0-4 /hpf (0-5) H 04/27/22 19:45 Ur Squamous Epith Cells 0-4 /hpf (0-5) H 04/27/22 19:45 Amorphous Sediment 2+ /hpf 04/27/22 19:45 Urine Bacteria Trace /hpf (NONE) 04/27/22 19:45 Hyaline Casts 0-4 /lpf H 04/27/22 19:45 Ur Random Sodium 44 mmol/L 05/01/22 11:38 Ur Random Potassium 36 mmol/L 05/01/22 11:38 Ur Random Chloride 70 mmol/L 05/01/22 11:38 Nasal Influ A H1 2009 PCR Not detected (NOT DETECT) 05/01/22 11:57 RSV Nasal Swab Cancelled 04/27/22 17:50 RSV Nasal Swab Int Cntl Cancelled 04/27/22 17:50 Random Vancomycin 19.7 ug/mL (20.0-40.0) L 04/29/22 05:45 Adenovirus (PCR) Not detected (NOT DETECT) 05/01/22 11:57 C. pneumoniae DNA (PCR) Not detected (NOT DETECT) 05/01/22 11:57 Coronavirus 229E (PCR) Not detected (NOT DETECT) 05/01/22 11:57 Hepatitis A IgM Ab Non-reactive (Nonreactive) 04/28/22 08:53 Hep Bs Antigen Non-reactive (Nonreactive) 04/28/22 08:53 Hep B Core IgM Ab Non-reactive (Nonreactive) 04/28/22 08:53 Hepatitis C Antibody Non-reactive (Nonreactive) 04/28/22 08:53 HIV 1&2 Ab & HIV 1 Ag Non-reactive (Non-Reactiv) 05/02/22 14:39 HIV 1&2 Antibody Non-reactive (Non-Reactiv) 05/02/22 14:39 Human Metapneumovir PCR Not detected (NOT DETECT) 05/01/22 11:57 Influenza A (RT-PCR) Cancelled 04/27/22 17:50 Influenza A (H1) PCR Not detected (NOT DETECT) 05/01/22 11:57 Influenza A (H3) PCR Not detected (NOT DETECT) 05/01/22 11:57 Influenza Type A Ag Negative (Negative) 04/26/22 14:12 Influenza Type A (PCR) Not detected (NOT DETECT) 05/01/22 11:57 Influenza Type B Ag Negative (Negative) 04/26/22 14:12 Influenza B (RT-PCR) Cancelled 04/27/22 17:50 Influenza Type B (PCR) Not detected (NOT DETECT) 05/01/22 11:57 M. pneumoniae (PCR) Not detected (NOT DETECT) 05/01/22 11:57 Parainfluenzae Type 1 Cancelled 04/27/22 17:50 Parainfluenza 1 (PCR) Not detected (NOT DETECT) 05/01/22 11:57 Parainfluenzae Type 2 Cancelled 04/27/22 17:50 Parainfluenza 2 (PCR) Not detected (NOT DETECT) 05/01/22 11:57 Parainfluenzae Type 3 Cancelled 04/27/22 17:50 Parainfluenza 3 (PCR) Not detected (NOT DETECT) 05/01/22 11:57 Parainfluenza 4 (PCR) Not detected (NOT DETECT) 05/01/22 11:57 RSV Ab Comment Cancelled 04/27/22 17:50 RSV Type A (PCR) Not detected (NOT DETECT) 05/01/22 11:57 RSV Type B (PCR) Not detected (NOT DETECT) 05/01/22 11:57 Rhinovirus (PCR) Cancelled 04/27/22 17:50 Entero/Rhino (PCR) Not detected (NOT DETECT) 05/01/22 11:57 SARS-CoV-2 (PCR) Not detected (NOT DETECT) 05/01/22 11:57 SARS-CoV-2 RNA (RT-PCR) Cancelled 04/27/22 17:50 SARS-CoV-2 Ag (Rapid) Negative (Negative) 04/26/22 14:12 EKG 2: My Interpretation: Possible sinus rhythm with third-degree heart block, junctional rhythm at a rate of 49 bpm. Nonspecific changes EKG computer-generated impression: Head CT 04/26/22 16:58 IMPRESSION: No acute intracranial abnormality. Renal Ultrasound 04/28/22 00:00 IMPRESSION: 1. No hydronephrosis in either kidney. 2. Gutierrez catheter. Abdomen Ultrasound 04/28/22 03:40 IMPRESSION: 1. Limited abdominal ultrasound. 2. No cholelithiasis. Mild gallbladder wall thickening and edema may be related to hepatocellular disease. 3. Normal common bile duct. 4. Decreased flow in the portal vein. Contrast enhancement was noted although decreased on the prior CT. May be related to hepatic congestion. Chest/Abdomen/Pelvis CT 04/28/22 04:30 IMPRESSION: 1. No pulmonary embolism identified. 2. No aortic dissection. No acute aortic pathology identified. 3. Nodular like consolidation in the right lower lobe concerning for possible pneumonia. 4. Mild pulmonary edema with small right-sided and trace left-sided pleural effusions. IMPRESSION: 1. Gallbladder wall thickening and or pericholecystic fluid. Recommend ultrasound evaluation for cholecystitis. 2. Periportal edema and trace perihepatic ascites, of indeterminate etiology. 3. Colonic diverticulosis without signs of acute diverticulitis. 4. The ovaries are enlarged for a postmenopausal patient. Minimal fluid adjacent to the ovaries noted. Recommend gynecology follow-up. Hepatobiliary Scan Nuclear Medicine 04/29/22 06:00 IMPRESSION: 1. Normal gallbladder filling and gallbladder ejection fraction after ingestion of 8 oz of Ensure Plus, as noted above. NOTES: J Nuc Med 2003; [id number] Study of 20 healthy individuals showed normal EF >=33% by 60 minutes following ingestion of 8oz of Ensure Plus for oral supplement-stimulated cholescintigraphy. 5. EF <33% is indeterminate/nonspecific warranting clinical correlation with history and symptomatology given limited literature supported data and followup. Chest/Abdomen X-ray 05/02/22 18:47 IMPRESSION: 1. Interval increase in bibasilar consolidation is present, consistent with atelectasis, edema, or pneumonia. 2. Constipation with nonspecific bowel gas pattern. Chest X-Ray 05/05/22 06:56 IMPRESSION: 1. Overall improved aeration of both lungs since 04/28/2022. 2. Persistent mild haziness at the RIGHT lung base may be due to overlying soft tissue or atelectasis. 3. Very small bilateral pleural effusions. A&P Assessment and plan (1) Recurrent syncope: Most likely related to high degree AV block. Patient continues to be in high degree AV block. Hemodynamically seems to be stable Status: Acute (2) Symptomatic bradycardia: Patient continues to be bradycardic with high degree AV block. Blood pressure is in the low normal side. Status: Acute (3) Myocarditis: The sed rate is 29, significant drop from 75. Patient is afebrile. Status: Acute (4) Acute kidney injury: Seems to be resolving Status: Acute (5) Transaminitis: Relative enzymes are coming down. Her INR also has come down Status: Acute (6) Atrial fibrillation: No atrial fibrillation, since the hospital admission. Status: Acute Plan Once again discussed the patient and the family about the current status and the elevated white cell count. Since there is no signs of infection, it was decided to go ahead with the procedure. Patient and the family wants to go ahead with the procedure. The risk and benefits were once again discussed. They understood this well. We will keep n.p.o. and plan for the procedure sometime this morning. 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
[2022-05-05] MEDS: piperacillin-tazobactam 3.375 GM in sodium chloride 0.9% (plus) 50 ML IV ×3 (08:35→23:08)
[2022-05-05] MEDS: budesonide 0.5 mg/2 mL Neb 0.25 MG INHALATION (09:11)
[2022-05-05 09:46] LABS: Add Urine Microscopic? NO; Charge for UA Resulting for Rev
--- NOTE | 2022-05-05 10:08 | PC.NURSE ---
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
[2022-05-05 10:09] LABS: Urine Appearance Clear (CLEAR); Urine Color Yellow (Yellow)
[2022-05-05 10:10] LABS: Bilirubin Urine Neg (Negative); Blood Urine Neg (Negative); Glucose Urine UA Norm (Normal); Ketones Urine Negative (Negative); Leukocyte Esterase Urine Negative (Negative); Nitrate Urine Negative (Negative); Protein Urine Neg (Negative); Specific Gravity, Urine 1.005 (1.005-1.030); Urobilinogen Urine Norm (Negative); pH Urine 6 (5-7)
--- NOTE | 2022-05-05 10:35 | W.PM.OPSUD ---
Surgery/Procedure H&P Update DATE OF PROCEDURE: May 05, 2022 DATE H&P PERFORMED: 05/04/22 H&P UPDATE INFORMATION: I have reviewed H&P completed within last 30 days, I have examined patient prior to procedure and No changes to prior documentation PREOP DIAGNOSIS: HAVB PRIMARY INDICATION FOR PROCEDURE: Syncope/bradycardia PLANNED PROCEDURE: Operation Date: 05/05/22 09:00 Proposed Procedures p Pacemaker Insertion(Left) - Raleigh Hanson MD Dual chamber PATIENT REASSESSED PRIOR TO SEDATION, WITH NO CHANGE NOTED: Yes PHYSICAL EXAM: alert, oriented x 3, clear to auscultation bilaterally, regular rate & rhythm and operative site marked AIRWAY EVAL/ANESTHESIA PLAN: normal airway, see other exam findings, ASA III, Monitored Anesthesia, Local Anesthesia, Risks, benefits & alternatives of sedation and/or procedure discussed and Patient agrees to continue as planned
--- NOTE | 2022-05-05 13:05 | P.OP_ITS ---
Operative Report Date of procedure: May 05, 2022 Pre-op diagnosis: Preop Diagnosis [facility]B Procedure: LOCATION: Cardiac catheterization lab PREOPERATIVE DIAGNOSES: High degree AV block/symptomatic bradycardia/recurrent syncope. POSTOPERATIVE DIAGNOSES: Same. COMPLICATIONS: None. ESTIMATED BLOOD LOSS: Around less than 5 milliliters. BRIEF HISTORY: This is a 76-year-old white female with a history of atrial fibrillation and recurrent syncope was admitted to hospital with the features of myocarditis. While being in the hospital, she went into junctional rhythm/third-degree heart block. She was complaining of some dizziness and weakness. Because of the persistent bradycardia arrhythmia/third-degree AV block for further management of her condition, a permanent pacemaker implantation was requested. A dual chamber permanent pacemaker implantation was recommended for AV synchrony and symptom relief The procedure was explained to the patient in detail with the risks and benefits. The risks of bleeding, hematoma, vascular injury, infection, pneumothorax, myocardial perforation and other concomitant complications were explained in detail, which the patient understood well and consented to proceed. PROCEDURE DESCRIPTION: The patient was brought to the Cardiac Catheterization Lab. The left and the right side of the neck and the subclavian area were cleaned and draped in a sterile fashion. 1% Xylocaine was used as the local anesthetic agent. [Left] subclavian venogram was performed by injecting 20 milliliters of Omnipaque through the left antecubital vein. At the junction where the cephalic vein drains into the subclavian vein, and the confluence of venous drainage was noted. The subclavian vein was found to be very tortuous proximal to this junction. I had to use a [place]ll wire to bypass the junction where the confluence of veins drain into. A [left] subclavian venous access was obtained using a micropuncture needle system, under venographic guidance. . A two-inch long incision was made 2.0 centimeters below the midclavicular region. By sharp and blunt dissection, a pacemaker pocket was made. A second venous access was obtained using another micropuncture needle system. Over the first guidewire, a 7-Frisian venous sheath with dilator was advanced. The venous dilator was taken out. Another guidewire was placed in the right atrium through the venous sheath. By using a double barrelling technique, a venous sheath with dilator was advanced over one of the guidewires. The venous dilator and the guidewire were taken out. A screw-in ventricular lead was advanced through the venous sheath and was positioned towards the right ventricle. Under fluoroscopic guidance, the ventricular lead was positioned toward the right ventricular apex. Good pacing and sensing thresholds were obtained. The lead was secured to the endocardium by advancing the helix. The stability of the lead was tested by gentle twisting movements and also by asking the patient to take some deep breaths and cough. The venous sheath was peeled off, at this time. The lead was secured to the pectoralis fascia, by suturing with 1-0 Surgilon. Over the second guidewire, another 7-Frisian venous sheath with dilator was advanced. The dilator and the guidewire were taken out. Under fluoroscopic guidance, an atrial lead (Medtronic), was advanced and positioned toward the right atrium. The lead was positioned in the right atrial appendage. Good pacing and sensing thresholds were obtained. The lead was secured to the endocardium by advancing the helix. Stability of the lead was tested by gentle twisting movements and also by asking the patient to take some deep breaths and cough. The venous sheath was peeled off, at this time. The lead was secured to the pectoralis fascia by suturing with 0-Surgilon. The pacemaker pocket was copiously irrigated with vancomycin solution. Complete hemostasis was achieved. Sponge counts were confirmed. The leads were attached to a Medtronic generator. The leads were positioned behind the generator and the generator was attached to the pectoralis fascia by suturing with 0-Surgilon. The pocket was closed in layers. Skin was approximated using 4-0 Vicryl. IMPLANTED DEVICES: ATRIAL LEAD: Model number: 5076/[id number] Serial number: [id number] Make: Medtronic VENTRICULAR LEAD: Model number: 5076/58 Serial number: [id number] Make: Medtronic GENERATOR Brand: [place] XT DR DESTINEY Rosario Model number: [id number] Serial number: [id number] Make: Medtronic IMPLANTATION DATA: With the pacing system analyzer, the R wave sensing was 10.75 millivolts with a lead impedance of 665 and a pacing threshold was 0.5 volts at 0.4 milliseconds. In the atrium, the sensing was 0.5-0.6 millivolts(patient was in atrial flutter/fibrillation during the test) with a lead impedance of 418 ohms and a pacing threshold was 0.5 volts at 0.5 milliseconds. Through the device, the R-wave sensing was 12.1 millivolts with a lead impedance of 646 and a pacing threshold was 0.5 volts at 0.4 milliseconds. The atrial sensing was 0.5 millivolts with a lead impedance of 456 ohms and a pacing threshold of not obtained because of the patient's atrial fibrillation The pacemaker was set for AAIR/DDDR mode with upper rate of 150 and a lower rate of 60. [TYRX REF CMRM Lot #[id number] [facility]] A pressure dressing was applied over the pacemaker site. The patient was transferred to the Medical Floor in stable condition. A chest x-ray was ordered to confirm the lead position and also to rule out any pneumothorax.
[2022-05-05] MEDS: multivitamin therapeutic Tablet 1 TAB PO (13:22)
[2022-05-05] MEDS: sennosides-docusate Tablet 1 TAB PO ×2 (13:22→18:39)
[2022-05-05] MEDS: cholecalciferol (vitamin D3) 1,000 unit Tablet 2000 UNIT PO (13:22)
--- NOTE | 2022-05-05 13:22 | P.PN_ITS ---
Subjective Subjective: Patient underwent successful permanent pacemaker placement today. She is feeling well. No chest pain Vitals/I&O/Wt Last Vital Signs Temp 98.2 F 05/05/22 08:00 Pulse 49 L 05/05/22 09:17 Resp 17 05/05/22 09:12 BP 103/71 05/05/22 08:00 Pulse Ox 93 05/05/22 09:12 O2 Del Method 05/05/22 09:12 O2 Flow Rate 1 05/04/22 22:45 05/04/22 05/05/22 05/05/22 22:59 06:59 14:59 Intake Total 590 / 1310 Output Total 1000 / 1000 Balance -410 / 310 Weight last 48 hrs Weight 177 lb 12.8 oz Physical Exam Narrative: GENERAL: Patient is alert, awake and oriented x3. [] NECK: No jugular vein distension. [] HEENT: No cyanosis. No icterus. No pallor. [] HEART: Regular S1 and S2. No murmur, rub or gallop. [] LUNGS: Mild crackles bilaterally ABDOMEN: Soft, nontender and nondistended. Positive bowel sounds. No guarding, rebound or tenderness. [] CENTRAL NERVOUS SYSTEM: Grossly nonfocal. [] EXTREMITIES: Lower extremities with 1+ edema bilaterally. Pulses palpable in the lower extremities, both dorsalis pedis and posterior tibial. [] Urinary Catheter Management: Gutierrez: Cath Placed During This Visit: yes, but has since been removed by the nurse Reason for Continuing Indwelling Catheter: Accurate Measurement of Urinary Output in Critically Ill Patients Urinary Catheter Date of Insertion: 04/27/22 Urinary Catheter Time of Insertion: 13:20 Date Urinary Catheter Removed: 05/04/22 Time Urinary Catheter Discontinued: 17:38 Data : 05/05/22 03:16 05/05/22 03:16 Micro: Microbiology 05/05/22 08:20 Blood Culture - Preliminary Blood SPECIMEN COLLECTED 05/05/22 08:10 Blood Culture - Preliminary Blood SPECIMEN COLLECTED A&P Assessment and plan (1) Non-ST elevation ND (NSTEMI): Status: Deleted (2) Atrial fibrillation: Status: Acute (3) Dyspnea on exertion: Status: Acute (4) Hyperlipidemia: Status: Acute Qualifiers: Hyperlipidemia type: unspecified Qualified Code(s): E78.5 - Hyperlipidemia, unspecified (5) Diabetes: Status: Acute Qualifiers: Diabetes mellitus type: type 2 Diabetes mellitus fdc insulin use: without fdc use Diabetes mellitus complication status: without complication Qualified Code(s): E11.9 - Type 2 diabetes mellitus without complications (6) HTN (hypertension): Status: Acute Qualifiers: Hypertension type: essential hypertension Qualified Code(s): I10 - Essential (primary) hypertension (7) Junctional bradycardia: Status: Acute Plan Patient has presented with myocarditis features with significantly elevated troponins >7000, with no significant coronary artery disease. LV systolic function normal on echo. At admission was in sinus tachycardia however went into junctional rhythm later and yesterday demonstrated complete heart block. Had recent weakness and syncopal episodes/falls at home. Underwent permanent pacemaker placement today. Resume Eliquis in 2 days. Can start beta loraine therapy now. Renal function is stable now and liver function improving. ECHO showed normal LV systolic Telemetry monitoring overnight. Patient should be ready to be discharged tomorrow if stay stable Thank you for involving us with care of this patient. Please call with questions. Attestations Medical Necessity Statement*: Care expected to cross 2 midnights. Coding Level of Care Code Acute Apartment Coordinator for [facility] Diagnoses Non-ST elevation ND (NSTEMI) I21.4 Atrial fibrillation I48.91 Dyspnea on exertion R06.00 Hyperlipidemia E78.5 Hyperlipidemia type: unspecified Diabetes E11.9 Diabetes mellitus type: type 2 Diabetes mellitus exterminator helper insulin use: without fdc use Diabetes mellitus complication status: without complication HTN (hypertension) I10 Hypertension type: essential hypertension Junctional bradycardia R00.1
[2022-05-05] MEDS: pantoprazole DR 40 mg Tablet PO (13:23)
[2022-05-05] MEDS: montelukast sodium 10 mg Tablet PO (13:23)
[2022-05-05 13:27] LABS: Glucose Point of Care 87 mg/dL (70-110)
[2022-05-05] MEDS: gabapentin 100 mg Capsule PO ×2 (13:33→18:39)
--- NOTE | 2022-05-05 14:13 | PM.PN ---
Subjective Subjective: No events overnight. Patient has remained hemodynamically stable and afebrile. Continues to remain in complete heart block Giurgius asymptomatic. Plan for pacemaker implantation today. Patient remains afebrile. Vitals/I&O/Wt Last Vital Signs Temp 98.2 F 05/05/22 08:00 Pulse 49 L 05/05/22 09:17 Resp 17 05/05/22 09:12 BP 103/71 05/05/22 08:00 Pulse Ox 93 05/05/22 09:12 O2 Del Method 05/05/22 09:12 O2 Flow Rate 1 05/04/22 22:45 05/04/22 05/05/22 05/05/22 22:59 06:59 14:59 Intake Total 590 / 1310 695 / 695 Output Total 1000 / 1000 Balance -410 / 310 695 / 695 Weight last 48 hrs Weight 80.649 kg Physical Exam Narrative: General: No acute distress, AO x3, on room air HEENT: PERRLA, pupils bilaterally equal and reactive Chest: Bilateral occasional rhonchi present, bilateral basilar fine crackles present, equal good air entry bilaterally CVS: S1-S2 regular, no murmurs, no tachycardia, no gallops, no rubs Abdomen: Soft, nontender, no organomegaly, bowel sounds present Neuro: No focal deficits, no facial deformity, AO x3, power 5/5 in all limbs Urinary Catheter Management: Gutierrez: Cath Placed During This Visit: yes, but has since been removed by the nurse Reason for Continuing Indwelling Catheter: Accurate Measurement of Urinary Output in Critically Ill Patients Urinary Catheter Date of Insertion: 04/27/22 Urinary Catheter Time of Insertion: 13:20 Date Urinary Catheter Removed: 05/04/22 Time Urinary Catheter Discontinued: 17:38 Data : 05/05/22 03:16 05/05/22 03:16 Micro: Microbiology 05/05/22 08:20 Blood Culture - Preliminary Blood SPECIMEN COLLECTED 05/05/22 08:10 Blood Culture - Preliminary Blood SPECIMEN COLLECTED A&P Assessment and plan (1) Complete heart block: Status: Acute (2) Myocarditis: Status: Acute (3) Junctional bradycardia: Status: Acute (4) Elevated liver enzymes: Status: Acute (5) Atrial fibrillation: Status: Acute (6) Dyspnea on exertion: Status: Acute (7) Hyperlipidemia: Status: Acute Qualifiers: Hyperlipidemia type: unspecified Qualified Code(s): E78.5 - Hyperlipidemia, unspecified (8) Diabetes: Status: Acute Qualifiers: Diabetes mellitus type: type 2 Diabetes mellitus nursing home insulin use: without termite exterminator use Diabetes mellitus complication status: without complication Qualified Code(s): E11.9 - Type 2 diabetes mellitus without complications (9) HTN (hypertension): Status: Acute Qualifiers: Hypertension type: essential hypertension Qualified Code(s): I10 - Essential (primary) hypertension (10) Physical deconditioning: Status: Acute (11) Acute kidney injury: Status: Acute Plan 76 year old female ?with PMHx of HTN , DM-2 on OHA (HbA1C ~6.6) x 5 years, HLD and GERD, atrial fibrillation, was on Eliquis at home, was brought in with chief complaint of generalized weakness , going on for the last couple of days, she also experienced fall at home, she was also complaining of mild substernal chest pain, for the past few days. She was admitted with the possibility of non-ST elevation NJ. Chest pain: Cardiac angiogram done this admission shows normal coronaries. Echocardiogram shows normal EF with no regional wall motion abnormality. CTA chest showed no PE or dissection. Symptoms most likely secondary to myocarditis. Respiratory viral panel sent out. COVID-19, flu negative. Continue with aspirin 25 mg twice daily. Hypoxia: Resolved. Most likely secondary to congestive heart failure in setting of viral myocarditis. CTA done earlier this admission concerning for possible nodular-like consolidation in right lower lobe. Blood culture negative, MRSA negative.. Patient has finished a course of IV antibiotics with last dose of Zosyn on 05/03. Has remained afebrile off antibiotics. Budesonide twice daily, DuoNebs every 6 hour. Switch to oral prednisone 40 mg from tomorrow. Oxygen supplementation keeping saturation over 88%. Incentive spirometry, flutter valve. Hold off on any further Lasix or IV fluids. Strict input output charting, daily weights. Fluid restriction up to 1500 cc. Transaminitis: Trending down currently. Could be secondary to viral etiology versus drug toxicity. HIDA scan negative for cholecystitis. Hepatitis panel negative. Medical reconciliation done for hepatotoxic medications. Continue to monitor daily. Protonix IV daily, Zofran as needed. Acute kidney injury: Resolved. Creatinine within normal limits. Medical reconciliation done for nephrotoxic drugs. Continue to monitor BMP daily. Complete heart block: A variable heart block. History of syncope as an outpatient. Plan for pacemaker implantation today. Appreciate cardiology recommendations. Patient does have leukocytosis but has finished a course of antibiotics with last dose of Zosyn on 05/03. Has remained hemodynamically stable and afebrile. Leukocytosis secondary to steroid. Left shift has remained stable. Check procalcitonin, urinalysis, chest x-ray. Patient currently doing well on room air. Gutierrez catheter removed on 05/04. Analgesia: Gabapentin 100 mg twice daily at home dose, morphine 1 mg IV every 4 hours as needed. Glycemic control: Increase insulin sliding scale to high-dose protocol, add Lantus 20 units at bedtime. Nutrition: GI soft carb consistent diet. CODE STATUS: Limited resuscitation PUD prophylaxis: Protonix DVT prophylaxis: Heparin 5000 every 8 hourly. Stop full dose Lovenox. Discharge planning: If CMP remains stable within next 24 hours plan to discharge home with home health and physical therapy. Continue with care at [facility]. Attestations Medical Necessity Statement*: Requires further hospitalization for management of complete heart block with a patient who has myocarditis requiring pacemaker implantation. Time Spent in Patient Care: Greater than 35 minutes Coding Level of Care Code Acute Community Education Coordinator for [facility] Fwd Diagnoses Complete heart block I44.2 Myocarditis I51.4 Junctional bradycardia R00.1 Elevated liver enzymes R74.8 Atrial fibrillation I48.91 Dyspnea on exertion R06.00 Hyperlipidemia E78.5 Hyperlipidemia type: unspecified Diabetes E11.9 Diabetes mellitus type: type 2 Diabetes mellitus termite exterminator insulin use: without termite exterminator use Diabetes mellitus complication status: without complication HTN (hypertension) I10 Hypertension type: essential hypertension Physical deconditioning R53.81 Acute kidney injury N17.9
--- NOTE | 2022-05-05 14:22 | XR_ITS ---
WS: [id number] Exam: XR chest 1V portable [id number] Date/Time of Exam: 05/05/2022 2:22 PM Reason For Exam: SOB Comparison 05/05/2022 7:23 AM. Increasing infiltrates in the mid and upper right lung since previous study. There are also infiltrat es in the right basal area that are stable in appearance. Left lung is clear. No pneumothorax. Mild c ardiac enlargement with increased pulmonary vascularity. A permanent cardiac pacer superimposes the l eft chest. The mediastinum and osseous thorax are unremarkable. Additional monitoring leads superimpo se the chest. XR/XR chest 1V portable [id number] IMPRESSION: 1. Increasing infiltrate in the mid and upper right lung since previous study. Infiltrates in the lower right lung are unchanged. 2. Cardiac enlargement unchanged.
--- NOTE | 2022-05-05 14:23 | PC.OT ---
OT evaluation order received. No 6 hr bedrest order at this time. Per RN, hold until tomorrow. Pt exhibiting SOB and chest x-ray ordered. Will attempt OT eval tomorrow.
--- NOTE | 2022-05-05 15:40 | PC.SOCIAL ---
IMM Update pg 2 of IMM updated and reviewed w/ patients and daughter. Copy provided and copy in charted dated and initialed.
[2022-05-05] MEDS: FUROsemide 10 mg/mL SDV 2mL 20 MG IVP (16:03)
[2022-05-05] MEDS: iron sucrose 200 MG in sodium chloride 0.9% (100 ml) 100 ML 220 MG IV (16:26)
[2022-05-05 18:18] LABS: Glucose Point of Care 361 mg/dL (70-110)
[2022-05-05] MEDS: guaiFENesin 600 mg Tablet PO (18:39)
[2022-05-05] MEDS: insulin lispro 100 unit/1 mL SUBCUT ×2 (18:40→23:10)
[2022-05-05 22:33] LABS: Glucose Point of Care 283 mg/dL (70-110)
[2022-05-06] VITALS (7 sets, daily range): BP systolic 125–131; BP diastolic 59–71; PULSE 60–70; RESP 17–22; TEMP 36.8–37.4; O2SAT 91–96
--- NOTE | 2022-05-06 06:00 | ECG_ITS ---
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 Measurements Intervals [place] Rate: 97 P: [place]: QRS: -71 QRSD: 126 T: 78 QT: 369 QTc: 469 Interpretive Statements ATRIAL FIBRILLATION LEFT AXIS DEVIATION [QRS AXIS < -30] ANTEROSEPTAL MYOCARDIAL INFARCTION , OF INDETERMINATE AGE [40+ ms Q WAVE IN V1-V4] Compared to ECG 05/05/2022 07:33:39 Left-axis deviation now present Myocardial infarct finding now present Electronically Signed On 05-06-2022 12:01:17 CDT by Radu Toth M.D. [email or web address]
[2022-05-06 06:18] LABS: Glucose Point of Care 84 mg/dL (70-110)
--- NOTE | 2022-05-06 08:33 | PM.PN ---
Subjective Subjective: Sherrell seems to be getting along okay. She had a pacemaker placed yesterday for sick sinus syndrome. She is been here for about 10 days originally being admitted with fatigue and an elevation in her troponins. She is presumed to have myocarditis. Her cardiac catheterization was normal and she has normal left ventricular function. She also has elevated liver function test and was seen by general surgery. She has a history of hypertension, diabetes, GERD, atrial fibrillation. She is finally feeling well enough to go home. Vitals/I&O/Wt Last Vital Signs Temp 99.4 F 05/06/22 07:30 Pulse 60 05/06/22 07:30 Resp 18 05/06/22 07:30 BP 131/70 05/06/22 07:30 Pulse Ox 96 05/06/22 07:30 O2 Del Method 05/06/22 07:30 O2 Flow Rate 1 05/04/22 22:45 05/05/22 05/06/22 05/06/22 22:59 06:59 14:59 Intake Total 640 / 1565 1050 / 2615 Output Total 700 / 700 Balance -60 / 865 1050 / 1915 Physical Exam Narrative: GENERAL: In general she looks a little tired but is in no distress HEENT: Exam within normal limits. NECK: Supple without jugular vein distention. The carotid upstroke is normal without bruits. BACK: Exam normal. LUNGS: Clear. HEART: Regular rate and rhythm. ABDOMEN: Benign without organomegaly or tenderness. EXTREMITIES: No edema. NEUROLOGIC: Exam normal. SKIN: Unremarkable. The pacemaker site is covered by bandage. It is not abnormally swollen. There is no bleeding. Urinary Catheter Management: Gutierrez: Cath Placed During This Visit: yes, but has since been removed by the nurse Reason for Continuing Indwelling Catheter: Accurate Measurement of Urinary Output in Critically Ill Patients Urinary Catheter Date of Insertion: 04/27/22 Urinary Catheter Time of Insertion: 13:20 Date Urinary Catheter Removed: 05/04/22 Time Urinary Catheter Discontinued: 17:38 Data : 05/05/22 03:16 05/05/22 03:16 Micro: Microbiology 04/30/22 21:50 Blood Culture - Final Blood NO GROWTH AFTER 5 DAYS 04/30/22 21:45 Blood Culture - Final Blood NO GROWTH AFTER 5 DAYS 05/05/22 08:20 Blood Culture - Preliminary Blood SPECIMEN COLLECTED 05/05/22 08:10 Blood Culture - Preliminary Blood SPECIMEN COLLECTED A&P Assessment and plan (1) Recurrent syncope: Status: Acute (2) Third degree heart block: Status: Acute (3) Symptomatic bradycardia: Status: Acute (4) Myocarditis: Status: Acute (5) Transaminitis: Status: Acute (6) Acute kidney injury: Status: Acute (7) Coronary arteries, normal: Status: Acute (8) HTN (hypertension): Status: Acute Qualifiers: Hypertension type: essential hypertension Qualified Code(s): I10 - Essential (primary) hypertension (9) Diabetes: Status: Acute Qualifiers: Diabetes mellitus type: type 2 Diabetes mellitus retirement insulin use: without middle or intermediate school principal use Diabetes mellitus complication status: without complication Qualified Code(s): E11.9 - Type 2 diabetes mellitus without complications (10) Hyperlipidemia: Status: Acute Qualifiers: Hyperlipidemia type: unspecified Qualified Code(s): E78.5 - Hyperlipidemia, unspecified Plan She may go home from a cardiac standpoint today. The bandage should remain in place until we see her again in 1 week in the office. She should be scheduled for an appointment with the nurse practitioner for evaluation of the wound and a pacemaker check. I have instructed her to use the shoulder immobilizer at night but she may take it off during the day. She should not lift her left arm above the level of the shoulder until she is seen again. She should also avoid getting the bandage wet. She should go home on 3 days worth of first generation cephalosporin. Her other medications should remain the same. She should have the beta-loraine reinstituted. She should go home on her previous medicines that included amlodipine, DAVID inhibitor and aspirin. Attestations Medical Necessity Statement*: Should be discharged today Coding Level of Care Code Established Pt Acute Certified Caregiver for [facility] Fwd Patient Type Established History Detailed Exam Detailed Medical Decision Making Moderate Complexity Diagnoses Recurrent syncope R55 Third degree heart block I44.2 Symptomatic bradycardia R00.1 Myocarditis I51.4 Transaminitis R74.01 Acute kidney injury N17.9 Coronary arteries, normal HTN (hypertension) I10 Hypertension type: essential hypertension Diabetes E11.9 Diabetes mellitus type: type 2 Diabetes mellitus middle or intermediate school principal insulin use: without middle or intermediate school principal use Diabetes mellitus complication status: without complication Hyperlipidemia E78.5 Hyperlipidemia type: unspecified
[2022-05-06] MEDS: ipratropium-albuterol 3 mL Neb INHALATION (08:59)
[2022-05-06] MEDS: budesonide 0.5 mg/2 mL Neb 0.25 MG INHALATION (08:59)
[2022-05-06] MEDS: piperacillin-tazobactam 3.375 GM in sodium chloride 0.9% (plus) 50 ML IV (09:05)
[2022-05-06] MEDS: pantoprazole DR 40 mg Tablet PO (09:06)
[2022-05-06] MEDS: predniSONE 20 mg Tablet 40 MG PO (09:06)
[2022-05-06] MEDS: aspirin 325 mg EC Tablet PO (09:06)
[2022-05-06] MEDS: cholecalciferol (vitamin D3) 1,000 unit Tablet 2000 UNIT PO (09:06)
[2022-05-06] MEDS: sennosides-docusate Tablet 1 TAB PO (09:06)
[2022-05-06] MEDS: montelukast sodium 10 mg Tablet PO (09:07)
[2022-05-06] MEDS: multivitamin therapeutic Tablet 1 TAB PO (09:07)
[2022-05-06] MEDS: gabapentin 100 mg Capsule PO (09:07)
--- NOTE | 2022-05-06 12:30 | PC.NURSE ---
pt coughed up a quarter size phlegm it looked like mixed with dark blood. pt stated she breathes a little better. notified dr sifuentes in person.
--- NOTE | 2022-05-06 12:58 | PM.DCS ---
Discharge Providers Date of Admission: 04/26/22 20:39 Date of Discharge: May 06, 2022 Attending Provider at Admission: Ruy Beck MD Attending Provider at Discharge: Soto Tucker MD Primary Care Provider: Janak Johnson DO Diagnoses at Discharge Discharge Diagnosis (1) Recurrent syncope: Status: Acute (2) Third degree heart block: Status: Acute (3) Symptomatic bradycardia: Status: Acute (4) Myocarditis: Status: Acute (5) Transaminitis: Status: Acute (6) Acute kidney injury: Status: Acute (7) Coronary arteries, normal: Status: Acute Permanent problem details: Cardiac angiogram?04/28 (8) HTN (hypertension): Status: Acute Qualifiers: Hypertension type: essential hypertension Qualified Code(s): I10 - Essential (primary) hypertension (9) Diabetes: Status: Acute Qualifiers: Diabetes mellitus complication status: without complication Diabetes mellitus custodial insulin use: without regional intermodal truck driver use Diabetes mellitus type: type 2 Qualified Code(s): E11.9 - Type 2 diabetes mellitus without complications (10) Hyperlipidemia: Status: Acute Qualifiers: Hyperlipidemia type: unspecified Qualified Code(s): E78.5 - Hyperlipidemia, unspecified Reason for Visit Reason for Visit: Weakness and Dizziness Hospital Course Hospital Course Sherrell Bruner is a 76 year old female with past history of hypertension, diabetes, hyperlipidemia, atrial fibrillation who came to the hospital with generalized weakness and also experienced a fall day before admission.? She has been having symptoms for the last 2 days.? She also had mild substernal chest discomfort.? EKG showed sinus rhythm with lateral lead ST depressions.? Troponins increased significantly from 567 to over 900 at 6 hours. She was started on treatment as per ACLS protocol. Cardiology was consulted. She underwent cardiac angiogram on 04/27 which did not reveal any significant CAD with stenosis of RV marginal branch which was treated medically. During hospitalization patient had recurrent episode of chest pain with hypoxia, which were thought to be secondary to heart failure. Echocardiogram was done which showed normal EF 66% without regional wall motion abnormality. Her hospitalization was prolonged by patient developing acute kidney injury and acute liver dysfunction AST/ALT trending up to 2163/1225. It is believed her symptoms of chest pain on admission, MALICK and liver dysfunction along with difficulty in breathing is secondary to mild pericarditis most likely viral in etiology along with serositis. Respiratory viral panel done during hospitalization remain negative but was done at day 7 on admission. There was also concern for mild pneumonia for which she has completed treatment with Zosyn for around 7 days with last dose on 05/03. During hospitalization patient also developed junctional bradycardia for which her home dose of beta-loraine was withheld. Bradycardia is most likely also secondary to myocarditis. Patient gradually improved with physical therapy and has been off oxygen supplementation for more than 3 days. Patient was to be discharged on 05/04 but she converted from junctional rhythm to variable heart block and complete heart block. She underwent pacemaker implantation on 05/05. She has been discharged in hemodynamically stable condition advised to follow-up with her primary care provider within next 1 week for repeat CMP, follow-up. Cardiology service/Nikkie Corrigan nurse practitioner within next [address] Sheffield her outpatient coil binder within next 1 month. Going forward she is not to take amlodipine, lisinopril, hydrochlorothiazide. She is to check her blood pressure daily and maintain a blood pressure diary and follow-up with her primary care provider and with nurse practitioner for further adjustment of antihypertensives as needed. She has been restarted on metoprolol 12.5 mg twice daily after pacemaker implantation. She is being sent home on slow steroid taper which has been given to her in detail in detail. She is to continue doing her incentive spirometry and flutter valve for aggressive pulmonary toilet along with increasing her physical activity with physical therapy. Safe discharge plan were discussed in detail with the patient and patient's family and they opted for discharge home with home health. Home health has been arranged for the patient. Because of advanced age, prolonged complicated hospitalization patient is pale but gradually improving. Patient is at high risk of readmission because of all of the above. Physical Exam Narrative: General: No acute distress, AO x3, on room air HEENT: PERRLA, pupils bilaterally equal and reactive Chest: Bilateral occasional rhonchi present, bilateral basilar fine crackles present, equal good air entry bilaterally CVS: S1-S2 regular, no murmurs, no tachycardia, no gallops, no rubs Abdomen: Soft, nontender, no organomegaly, bowel sounds present Neuro: No focal deficits, no facial deformity, AO x3, power 5/5 in all limbs Urinary Catheter Management: Gutierrez: Cath Placed During This Visit: yes, but has since been removed by the nurse Reason for Continuing Indwelling Catheter: Accurate Measurement of Urinary Output in Critically Ill Patients Urinary Catheter Date of Insertion: 04/27/22 Urinary Catheter Time of Insertion: 13:20 Date Urinary Catheter Removed: 05/04/22 Time Urinary Catheter Discontinued: 17:38 Discharge Data Studies Completed and Pending Completed Studies During Hospitalization Category Date Time Status CT angio chest w abd pel w con Stat Cat Scan 04/28/22 04:[address] head wo con* [id number] Urgent Cat Scan 04/26/22 16:58 Completed PROGRAM SERVICES PLANNER request for service Routine Exams 05/05/22 08:57 Completed CXRP [XR chest 1V portable [id number]] Routine Exams 04/28/22 03:24 Completed CXRP [XR chest 1V portable [id number]] Stat Exams 05/05/22 06:56 Completed XR acute abdomen series [id number] Routine Exams 05/02/22 18:47 Completed XR chest 1V portable [id number] Stat Exams 05/05/22 14:22 Completed XR chest 1V portable [id number] Urgent Exams 04/26/22 13:20 Completed NM hepatobiliary w phar* [id number] Routine Nuc Med 04/29/22 06:00 [place] [id number] Routine Ultrasound 05/01/22 17:36 Completed CV. echo complete* [id number] Routine Ultrasound 04/26/22 17:00 Completed CV. echo limited [id number] Routine Ultrasound 04/28/22 04:26 Completed US abdomen limited [id number] Routine Ultrasound 04/28/22 03:40 Completed US renal BI* [id number] Routine Ultrasound 04/28/22 Completed Pending at discharge Category Date Time Status PROGRAM SERVICES PLANNER request for service Routine Exams 04/27/22 09:35 Taken Blood Culture Stat Lab 05/01/22 11:39 Results Blood Culture Stat Lab 05/05/22 08:20 Results Radiology Impressions Head CT 04/26/22 16:58 IMPRESSION: No acute intracranial abnormality. Renal Ultrasound 04/28/22 00:00 IMPRESSION: 1. No hydronephrosis in either kidney. 2. Gutierrez catheter. Abdomen Ultrasound 04/28/22 03:40 IMPRESSION: 1. Limited abdominal ultrasound. 2. No cholelithiasis. Mild gallbladder wall thickening and edema may be related to hepatocellular disease. 3. Normal common bile duct. 4. Decreased flow in the portal vein. Contrast enhancement was noted although decreased on the prior CT. May be related to hepatic congestion. Chest/Abdomen/Pelvis CT 04/28/22 04:30 IMPRESSION: 1. No pulmonary embolism identified. 2. No aortic dissection. No acute aortic pathology identified. 3. Nodular like consolidation in the right lower lobe concerning for possible pneumonia. 4. Mild pulmonary edema with small right-sided and trace left-sided pleural effusions. IMPRESSION: 1. Gallbladder wall thickening and or pericholecystic fluid. Recommend ultrasound evaluation for cholecystitis. 2. Periportal edema and trace perihepatic ascites, of indeterminate etiology. 3. Colonic diverticulosis without signs of acute diverticulitis. 4. The ovaries are enlarged for a postmenopausal patient. Minimal fluid adjacent to the ovaries noted. Recommend gynecology follow-up. Hepatobiliary Scan Nuclear Medicine 04/29/22 06:00 IMPRESSION: 1. Normal gallbladder filling and gallbladder ejection fraction after ingestion of 8 oz of Ensure Plus, as noted above. NOTES: J Nuc Med 2003; 44:7882-3323 Study of 20 healthy individuals showed normal EF >=33% by 60 minutes following ingestion of 8oz of Ensure Plus for oral supplement-stimulated cholescintigraphy. 5. EF <33% is indeterminate/nonspecific warranting clinical correlation with history and symptomatology given limited literature supported data and followup. Chest/Abdomen X-ray 05/02/22 18:47 IMPRESSION: 1. Interval increase in bibasilar consolidation is present, consistent with atelectasis, edema, or pneumonia. 2. Constipation with nonspecific bowel gas pattern. Chest X-Ray 05/05/22 14:22 IMPRESSION: 1. Increasing infiltrate in the mid and upper right lung since previous study. Infiltrates in the lower right lung are unchanged. 2. Cardiac enlargement unchanged. Echocardiogram: CONCLUSIONS ?Normal left ventricular size and systolic function, EF 66 %. No ?regional wall motion abnormalities. ?Normal cardiac chamber sizes. ?There are no intracardiac masses. ?Trivial pericardial effusion. ?Compared to the study from 04/26/2022, there may be a significant ?change in the 2D findings ?Dr Raleigh Hanson MD [facility] ?(Electronically Signed) ?Final Date:? ? ? 28 April 2022 ? 09:31 Laboratory Results WBC 19.7 10^3/uL (4.0-10.0) H 05/05/22 03:16 RBC 3.94 10^6/uL (4.1-5.3) L 05/05/22 03:16 Hgb 10.5 g/dL (11.5-15.3) L 05/05/22 03:16 Hct 33.7 % (37.0-47.0) L 05/05/22 03:16 MCV 85.5 fl (81-99) 05/05/22 03:16 MCH 26.6 pg (28.0-34.0) L 05/05/22 03:16 MCHC 31.2 g/dL (30.0-36.0) 05/05/22 03:16 RDW 17.1 % (12.1-15.1) H 05/05/22 03:16 Plt Count 389 10^3/cmm (130-400) 05/05/22 03:16 MPV 10.6 fL (7.4-10.4) H 05/05/22 03:16 Neut % (Auto) 69.1 % 05/05/22 03:16 Lymph % (Auto) 14.6 % 05/05/22 03:16 [place] % (Auto) 8.4 % 05/05/22 03:16 Eos % (Auto) 1.8 % 05/05/22 03:16 Baso % (Auto) 0.3 % 05/05/22 03:16 Neut # (Auto) 13.58 10^3/uL (1.8-7.7) H 05/05/22 03:16 Lymph # (Auto) 2.9 10^3/uL (0.8-4.8) 05/05/22 03:16 [place] # (Auto) 1.7 10^3/uL (0.2-0.9) H 05/05/22 03:16 Eos # (Auto) 0.4 10^3/uL (0.0-0.8) 05/05/22 03:16 Baso # (Auto) 0.1 10^3/uL (0.0-0.1) 05/05/22 03:16 Nucleated RBC % (auto) 0.8 % 05/05/22 03:16 Nucleated RBCs # 0.2 /100WBC 05/05/22 03:16 ESR 29 mm/hr (0-15) H 05/04/22 22:12 PT 14.70 SECONDS (12.1-14.9) 05/04/22 22:12 INR 1.12 (0.8-1.2) 05/04/22 22:12 D-Dimer 3.66 ug/mIFEU (0-0.59) H 05/01/22 11:39 Specimen Type Arterial 04/28/22 07:58 Sample Site Radial, left 04/28/22 07:58 ABG pH 7.43 (7.35-7.45) 04/28/22 07:58 ABG pCO2 30.9 mmHg (35-45) L 04/28/22 07:58 ABG pO2 66.1 mmHg (80.0-100.0) L 04/28/22 07:58 ABG HCO3 20.4 mmol/L (22-26) L 04/28/22 07:58 ABG O2 Saturation 90.9 04/28/22 07:58 ABG Base Excess -3.1 mmol/L (-2.0-2.0) L 04/28/22 07:58 Albaro Test Pos 04/28/22 07:58 A-a O2 Gradient 5.8 mmHg (5-10) 04/28/22 07:58 Hematocrit 36.6 % (37-47) L 04/28/22 07:58 Hgb O2 Saturation 90.0 % (95-100) L 04/28/22 07:58 Carboxyhemoglobin 0.1 %THgb (0.4-20.1) L 04/28/22 07:58 Methemoglobin 0.9 % (0.4-1.5) 04/28/22 07:58 Total Hemoglobin 11.9 g/dL (12-16) L 04/28/22 07:58 Sodium 129.0 mmol/L (131-143) L 04/28/22 07:58 Potassium 4.4 mmol/L (3.5-5.0) 04/28/22 07:58 Glucose 216.0 mg/dL (70-115) H 04/28/22 07:58 Ionized Calcium 1.2 mmol/L (1.1-1.4) 04/28/22 07:58 O2 Delivery Device Oxy mask 04/28/22 07:58 O2 Liters/Min 8.0 % 07/22/22 07:58 Recycling Collections Driver ID Cak 04/28/22 07:58 Sodium 135 mmol/L (136-145) L 05/05/22 03:16 Potassium 4.0 mmol/L (3.5-5.1) 05/05/22 03:16 Chloride 98 mmol/L (98-107) 05/05/22 03:16 Carbon Dioxide 26 mmol/L (22-29) 05/05/22 03:16 Anion Gap 15.0 (5-19) 05/05/22 03:16 BUN 30 mg/dL (8-23) H 05/05/22 03:16 Creatinine 0.9 mg/dL (0.5-0.9) 05/05/22 03:16 GFR Calculation Not Reportable 05/05/22 03:16 Glucose 85 mg/dL (65-115) 05/05/22 03:16 POC Glucose 84 mg/dL (70-110) 05/06/22 06:15 Estimat Average Glucose 166 05/02/22 10:04 Hemoglobin A1c 7.4 % (4.0-6.0) H 05/02/22 10:04 Calculated Osmolality 285 mOsm/kg (285-295) 05/05/22 03:16 Lactate 2.9 mmol/L (0.5-2.2) H 04/28/22 00:52 Calcium 9.2 mg/dL (8.5-10.5) 05/05/22 03:16 Magnesium 2.4 mg/dL (1.7-2.3) H 05/02/22 10:04 Iron 20 ug/dL (37-145) L 05/01/22 11:39 TIBC 259 mcg/dl 05/01/22 11:39 % Saturation 7.7 % (20-50) L 05/01/22 11:39 Unsat Iron Binding 239 ug/dL (112-347) 05/01/22 11:39 Total Bilirubin 0.3 mg/dL (0.15-1.2) 05/05/22 03:16 GGT 98 U/L (5-36) H 05/02/22 10:04 AST 30 U/L (0-32) 05/05/22 03:16 ALT 235 U/L (0-33) H 05/05/22 03:16 Alkaline Phosphatase 136 IU/L (35-105) H 05/05/22 03:16 Creatine Kinase 330 U/L (26-192) H* 04/28/22 00:52 Troponin T Gen 5 ng/L 2790 ng/L (0-10) H* 04/30/22 04:45 Troponin T Baseline 597 ng/L (0-10) H* 04/26/22 13:40 Troponin T 120 Minute 630.3 ng/L (0-10) H 04/26/22 15:50 Delta Troponin T 33.3 ABS# (0-10) H* 04/26/22 15:50 Troponin T Hi Sens 6Hr 978.9 ng/L (0-10) H 04/26/22 19:53 Troponin T Hi Sens 6Hr Delta 381.9 ng/L (0-12) H* 04/26/22 19:53 C-Reactive Protein 49.3 mg/L (0.0-4.9) H 05/03/22 02:39 NT-Pro-B Natriuret Pep 3208 pg/mL (0-450) H 05/01/22 11:39 Total Protein 5.6 g/dL (6.6-8.7) L 05/05/22 03:16 Albumin 3.1 g/dL (3.5-5.2) L 05/05/22 03:16 Globulin 2.5 g/dL (1.3-4.6) 05/05/22 03:16 Triglycerides 195 mg/dL (0-150) H 05/02/22 10:04 Cholesterol 117 mg/dL (0-200) 05/02/22 10:04 LDL Cholesterol, Calc 49 mg/dL (50-129) L 05/02/22 10:04 Total VLDL Cholesterol 39 mg/dL (0-30) H 05/02/22 10:04 HDL Cholesterol 29 mg/dL (60-100) L 05/02/22 10:04 Cholesterol/HDL Ratio 4.03 mg/dL (0.0-4.40) 05/02/22 10:04 Lipase 65 U/L (13-60) H 05/03/22 02:39 Vitamin B12 1427 pg/mL (232-1245) H 05/01/22 11:39 Folate > 20.0 ng/mL (4.8-37.3) 05/01/22 11:39 Procalcitonin 0.10 ng/mL (0-0.5) 05/05/22 03:16 TSH 0.48 uIU/mL (0.27-4.20) 04/26/22 13:40 Free T4 1.10 ng/dL (0.82-1.77) 04/26/22 13:40 Random Cortisol 0.11 ug/dL (2.47-19.5) L 04/28/22 00:52 Urine Color Yellow (Yellow) 05/05/22 07:47 Urine Appearance Clear (CLEAR) 05/05/22 07:47 Urine pH 6 (5-7) 05/05/22 07:47 Ur Specific [place] 1.005 (1.005-1.030) 05/05/22 07:47 Urine Protein Neg (Negative) 05/05/22 07:47 Urine Glucose (UA) Norm (Normal) 05/05/22 07:47 Urine Ketones Negative (Negative) 05/05/22 07:47 Urine Blood Neg (Negative) 05/05/22 07:47 Urine Nitrate Negative (Negative) 05/05/22 07:47 Urine Bilirubin Neg (Negative) 05/05/22 07:47 Urine Urobilinogen Norm mg/dL (Negative) 05/05/22 07:47 Ur Leukocyte Esterase Negative (Negative) 05/05/22 07:47 Urine RBC >100 /hpf (0-2) H 04/27/22 19:45 Urine WBC 0-4 /hpf (0-5) H 04/27/22 19:45 Ur Squamous Epith Cells 0-4 /hpf (0-5) H 04/27/22 19:45 Amorphous Sediment 2+ /hpf 04/27/22 19:45 Urine Bacteria Trace /hpf (NONE) 04/27/22 19:45 Hyaline Casts 0-4 /lpf H 04/27/22 19:45 Ur Random Sodium 44 mmol/L 05/01/22 11:38 Ur Random Potassium 36 mmol/L 05/01/22 11:38 Ur Random Chloride 70 mmol/L 05/01/22 11:38 Nasal Influ A H1 2008 PCR Not detected (NOT DETECT) 05/01/22 11:57 RSV Nasal Swab Cancelled 04/27/22 17:50 RSV Nasal Swab Int Cntl Cancelled 04/27/22 17:50 Random Vancomycin 19.7 ug/mL (20.0-40.0) L 04/29/22 05:45 Adenovirus (PCR) Not detected (NOT DETECT) 05/01/22 11:57 C. pneumoniae DNA (PCR) Not detected (NOT DETECT) 05/01/22 11:57 Coronavirus 229E (PCR) Not detected (NOT DETECT) 05/01/22 11:57 Hepatitis A IgM Ab Non-reactive (Nonreactive) 04/28/22 08:53 Hep Bs Antigen Non-reactive (Nonreactive) 04/28/22 08:53 Hep B Core IgM Ab Non-reactive (Nonreactive) 04/28/22 08:53 Hepatitis C Antibody Non-reactive (Nonreactive) 04/28/22 08:53 HIV 1&2 Ab & HIV 1 Ag Non-reactive (Non-Reactiv) 05/02/22 14:39 HIV 1&2 Antibody Non-reactive (Non-Reactiv) 05/02/22 14:39 Human Metapneumovir PCR Not detected (NOT DETECT) 05/01/22 11:57 Influenza A (RT-PCR) Cancelled 04/27/22 17:50 Influenza A (H1) PCR Not detected (NOT DETECT) 05/01/22 11:57 Influenza A (H3) PCR Not detected (NOT DETECT) 05/01/22 11:57 Influenza Type A Ag Negative (Negative) 04/26/22 14:12 Influenza Type A (PCR) Not detected (NOT DETECT) 05/01/22 11:57 Influenza Type B Ag Negative (Negative) 04/26/22 14:12 Influenza B (RT-PCR) Cancelled 04/27/22 17:50 Influenza Type B (PCR) Not detected (NOT DETECT) 05/01/22 11:57 M. pneumoniae (PCR) Not detected (NOT DETECT) 05/01/22 11:57 Parainfluenzae Type 1 Cancelled 04/27/22 17:50 Parainfluenza 1 (PCR) Not detected (NOT DETECT) 05/01/22 11:57 Parainfluenzae Type 2 Cancelled 04/27/22 17:50 Parainfluenza 2 (PCR) Not detected (NOT DETECT) 05/01/22 11:57 Parainfluenzae Type 3 Cancelled 04/27/22 17:50 Parainfluenza 3 (PCR) Not detected (NOT DETECT) 05/01/22 11:57 Parainfluenza 4 (PCR) Not detected (NOT DETECT) 05/01/22 11:57 RSV Ab Comment Cancelled 04/27/22 17:50 RSV Type A (PCR) Not detected (NOT DETECT) 05/01/22 11:57 RSV Type B (PCR) Not detected (NOT DETECT) 05/01/22 11:57 Rhinovirus (PCR) Cancelled 04/27/22 17:50 Entero/Rhino (PCR) Not detected (NOT DETECT) 05/01/22 11:57 SARS-CoV-2 (PCR) Not detected (NOT DETECT) 05/01/22 11:57 SARS-CoV-2 RNA (RT-PCR) Cancelled 04/27/22 17:50 SARS-CoV-2 Ag (Rapid) Negative (Negative) 04/26/22 14:12 Vitals Last Vital Signs Temp 98.3 F 05/06/22 11:51 Pulse 60 05/06/22 11:51 Resp 22 H 05/06/22 11:51 BP 125/59 05/06/22 11:51 Pulse Ox 96 05/06/22 11:51 O2 Del Method 05/06/22 11:51 O2 Flow Rate 1 05/04/22 22:45 Discharge Plan Discharge Patient Disposition: Home Health Service Condition: Stable Prescriptions: New Stool Softener-Laxative 8.6-50 mg Tablet 1 tab PO BID Qty: 30 0RF gabapentin 100 mg Capsule 100 mg PO BID Qty: 60 0RF prednisone 10 mg tablet See Taper PO DAILY Qty: 105 0RF Taper: predniSONE 60-10 60 mg Daily for 5 Days and 0 Hour 50 mg Daily for 5 Days and 0 Hour 40 mg Daily for 5 Days and 0 Hour 30 mg Daily for 5 Days and 0 Hour 20 mg Daily for 5 Days and 0 Hour 10 mg Daily for 5 Days and 0 Hour ferrous gluconate 324 mg (37.5 mg iron) tablet 324 mg PO BID Qty: 60 0RF (DME) Accu-Chek Guide Glucose Meter Misc See Rx Instructions .ROUTE Qty: 1 0RF Rx Instructions: As directed metoprolol tartrate 25 mg tablet 12.5 mg PO BID Qty: 30 0RF cefadroxil 500 mg capsule 500 mg PO TID 5 Days Qty: 15 0RF Continued lysine 1,000 mg tablet 1,000 mg PO DAILY (DME) lancets [OneTouch Delica Lancets] 33 gauge [facility] See Rx Instructions .Route Rx Instructions: As directed montelukast [Singulair] 10 mg tablet 10 mg PO DAILY multivitamin Tablet 1 tab PO DAILY aspirin 325 mg tablet 325 mg PO BID omeprazole 40 mg capsule,delayed release(DR/EC) 40 mg PO DAILY cholecalciferol (vitamin D3) 50 mcg (2,000 unit) capsule 50 mcg PO DAILY Farxiga 5 mg tablet 5 mg PO DAILY Qty: 90 3RF azelastine 137 mcg (0.1 %) aerosol,spray 2 spray intranasal BID PRN (Reason: Nasal Congestion) Rx Instructions: administer into each nostril furosemide 20 mg tablet 20 mg PO DAILY PRN (Reason: edema) Qty: 30 6RF glipizide 5 mg tablet extended release 24 hr 5 mg PO DAILY metformin 500 mg tablet extended release 24 hr 1,000 mg PO BID Held allopurinol 300 mg tablet 300 mg PO DAILY Hold Instructions: Resume on 05/18/22. simvastatin 80 mg tablet 40 mg PO DAILY Hold Instructions: Resume on 05/18/22. Discontinued metoprolol succinate 100 mg tablet extended release 24 hr 100 mg PO DAILY Qty: 90 5RF lisinopril-hydrochlorothiazide 20-25 mg tablet 1 tab PO DAILY Qty: 90 3RF amlodipine 5 mg tablet 5 mg PO DAILY Discharge Orders: Discharge Order (Routine); Ordered 05/06/22 Ordered By: Soto Tucker Other Ambulatory Orders: DME: Jamel/ John (Order) Location: None Selected Ordered By: Soto Tucker DME: Walker (Order) Location: None Selected Ordered By: Soto Tucker MCT/Event Monitor 21 Days (Routine) Timeframe: 1 Week Facility: [facility] - Location: Radiology Ordered By: Soto Tucker Referrals: [facility] [place] ([facility]) [Outside] Janak Johnson DO [Primary Care Provider] - 05/10/22 11:00 am (APPT WITH KISHOR VALENCIA ) Nikkie Corrigan FNP [Nurse Practitioner] - 7-10 days Cira Hargrove MD [Physician] - 1 month Discharge Diet: Cardiac and Diabetic Discharge Activity: Resume usual activity and Increase activity as tolerated Patient Instructions: Cefadroxil (By mouth), Iron Supplements (By mouth), Metoprolol (By mouth), Prednisone (By mouth), Gabapentin (By mouth), Myocarditis (DC), Bradycardia (DC), Heart Catheterization (DC), Opioid Safety Activity Restrictions/Additional Instructions: Please follow-up with your primary care provider within next 1 week, Please follow-up with Nikkie Corrigan/[facility] nurse practitioner within next [address] Weldon within next 1 month. Multiple medication changes have been done. Do not take amlodipine lisinopril, hydrochlorothiazide for now. A dose of metoprolol has been changed to 12.5 mg twice daily. Please check your blood pressure daily at home and maintain a blood pressure diary and follow-up with a primary care provider within next 1 week for further adjustment of antihypertensives needed. Do not take allopurinol and simvastatin for next 2 weeks. Recheck CMP in a week from today with your primary care provider. Going forward you will be on steroid?prednisone as per the taper. Please check your fasting blood sugar daily. Target blood sugar when you wake up early in the morning is less than 120. Increase your physical exercises going forward with physical therapy at home with home health. Post pacemaker instructions 1.Appointment at the [facility] to be seen by the nurse practitioner on next . 2.Appointment with me in 3 weeks 3.Take the antibiotic-Keflex for 5 days along with a multivitamin daily for 2 weeks 4.Patient may keep the Covederm dressing on till she comes next week to the office. 5.Keep the pacemaker area clean and dry. 6. May restart OAC on Sunday- if she has been on it. Discharge Attestations Time Spent in Discharge Care*: greater than 30 min Specific Discharge Activities: educating patient, educating and/or supporting family/caregiver, discussing with pcp/other providers, discussing with ed case manager/social workers/dc planners, documenting/other paperwork and evaluating patient/reviewing data Status at Discharge: Cognitive status at discharge: cognitively intact, Behavioral status at discharge: cooperative, Functional status at discharge: uses cane/walker, Overall status at discharge: patient is progressing back to baseline Quality Metrics Clinical Quality Measures [ No reported AMI, CVA or VTE this stay] Coding Level of Care Code Acute Chg FW DC note History Comprehensive Exam Comprehensive Medical Decision Making High Complexity Diagnoses Recurrent syncope R55 Third degree heart block I44.2 Symptomatic bradycardia R00.1 Myocarditis I51.4 Transaminitis R74.01 Acute kidney injury N17.9 Coronary arteries, normal HTN (hypertension) I10 Hypertension type: essential hypertension Diabetes E11.9 Diabetes mellitus complication status: without complication Diabetes mellitus regional intermodal truck driver insulin use: without regional intermodal truck driver use Diabetes mellitus type: type 2 Hyperlipidemia E78.5 Hyperlipidemia type: unspecified
[2022-05-06 13:07] LABS: Glucose Point of Care 207 mg/dL (70-110)
[2022-05-06] MEDS: insulin lispro 100 unit/1 mL SUBCUT (13:07)
--- NOTE | 2022-05-06 14:59 | PC.NURSE ---
discharge meds called in to [facility] in [place].
== END 2022-05-06 16:09 | disposition home health service (06) | DRG 242 ==
LOC: ER 14:48 → ICU 19:56 → MEDSURG 05-01 14:04
PROVIDERS: Internal Medicine; Internal Medicine Cardiovascular Disease; Student in an Organized Health Care Education/Training Program; Admitting Provider Internal Medicine; Emergency Provider Emergency Medicine; PCP Internal Medicine; Visit Provider Student in an Organized Health Care Education/Training Program
PROC: 4A023N7 Measurement of Cardiac Sampling and Pressure, Left Heart, Percutaneous Approach (ICD-10-PCS; principal; 2022-04-27 10:00)
PROC: 0JH606Z Insertion of Pacemaker, Dual Chamber into Chest Subcutaneous Tissue and Fascia, Open Approach (ICD-10-PCS; principal; 2022-05-05 09:00)
DX: I40.9 Acute myocarditis, unspecified (principal); I21.4 Non-ST elevation (NSTEMI) myocardial infarction; J18.9 Pneumonia, unspecified organism; I50.21 Acute systolic (congestive) heart failure; I31.9 Disease of pericardium, unspecified; N17.9 Acute kidney failure, unspecified; N39.0 Urinary tract infection, site not specified; I44.2 Atrioventricular block, complete; I11.0 Hypertensive heart disease with heart failure; I48.91 Unspecified atrial fibrillation; E11.9 Type 2 diabetes mellitus without complications; K21.9 Gastro-esophageal reflux disease without esophagitis; E78.5 Hyperlipidemia, unspecified; E87.6 Hypokalemia; I25.10 Atherosclerotic heart disease of native coronary artery without angina pectoris; R31.9 Hematuria, unspecified; T50.8X5A Adverse effect of diagnostic agents, initial encounter; Z79.01 Long term (current) use of anticoagulants; Z79.84 Long term (current) use of oral hypoglycemic drugs; R74.8 Abnormal levels of other serum enzymes; K81.1 Chronic cholecystitis; K59.00 Constipation, unspecified; I95.9 Hypotension, unspecified; W18.30XA Fall on same level, unspecified, initial encounter; R00.1 Bradycardia, unspecified; T44.7X5A Adverse effect of beta-adrenoreceptor antagonists, initial encounter
CPT/HCPCS: 33208; 36415; 36416; 36600; 51702; 70450; 71045; 71275; 74022; 74177; 76705; 76770; 76857; 78227; 80051; 80053; 80061; 80074; 80202; 81001; 81003; 82330; 82436; 82533; 82550; 82607; 82746; 82805; 82962; 82977; 83036; 83540; 83550; 83605; 83690; 83735; 83880; 84133; 84145; 84300; 84439; 84443; 84484; 85025; 85378; 85610; 85651; 86140; 86403; 87040; 87086; 87426; 87449; 87486; 87581; 87633; 87641; 87804; 87806; 93005; 93306; 93308; 93452; 93458; 93970; 94640; 94660; 96360; 96361; 96365; 96366; 96372; 97110; 97116; 97161; 97165; 97530; 99152; 99153; 99285; A9537; C1769; C1779; C1786; C1887; C1894; C1898; J1644; J1650; J1720; J1756; J1815; J1940; J2250; J2543; J2920; J3010; J3370; J3480; J3490; J7030; J7050; J7512; J7626; Q9967

== ENCOUNTER 2022-05-07 09:57 | Emergency (ER) | payer MEDICARE, SELFPAY ==
[2022-05-07 09:59] VITALS: BP 155/84; PULSE 60; RESP 16; TEMP 36.6; O2SAT 97; BMI 28.3
--- NOTE | 2022-05-07 10:11 | XRR_ITS ---
PROCEDURE INFORMATION: Exam: XR Chest Exam date and time: 05/07/2022 10:30 AM Age: 76 years old Clinical indication: Shortness of breath. Post-operative (0-2 days). Shortness of breath. TECHNIQUE: Imaging protocol: Radiologic exam of the chest. Views: 1 view. COMPARISON: CR XR chest 1V portable [id number] 05/05/2022 2:55 PM FINDINGS: Tubes, catheters and devices: A left subclavian pacer is again seen. Lungs: Consolidation at the right base appears more confluent. Patchy consolidation at the left base is similar. Pleural spaces: Probable right pleural effusion. No pneumothorax. Heart/Mediastinum: The cardiac silhouette is unchanged. No gross evidence of pneumomediastinum. Bones/joints: No gross fracture. XR/XR chest 1V portable [id number] IMPRESSION: 1. Consolidation at the right base appears more confluent. Patchy consolidation at the left base is similar. 2. Probable right pleural effusion.
--- NOTE | 2022-05-07 10:15 | ECG_ITS ---
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 Measurements Intervals [place] Rate: 60 P: UT: QRS: -71 QRSD: 158 T: 81 QT: 460 QTc: 460 Interpretive Statements ELECTRONIC VENTRICULAR PACEMAKER ABNORMAL RHYTHM ECG INTERPRETATION BASED ON A DEFAULT AGE OF 40 YEARS Compared to ECG 05/06/2022 05:52:52 Left-axis deviation no longer present Myocardial infarct finding no longer present Electronically Signed On 05-07-2022 10:37:41 CDT by Radu Toth M.D. [id number] f
--- NOTE | 2022-05-07 10:18 | W.ED.SOB ---
HPI - SOB/Dyspnea General: Chief Complaint: Shortness of Breath/Dyspnea Stated Complaint: SOB Time Seen by Provider: 05/07/22 10:08 History of Present Illness: HPI Narrative: 76-year-old female presents with shortness of breath. Patient was just released yesterday from the hospital following an 11-day stay due to a viral illness and then had a pacemaker placed 2 days ago. She reports that she can had some on and off shortness of breath while she was in the hospital however today it got significantly worse. That she got bilateral lower extremity swelling. That she gets significantly more short of breath if she lays flat. Patient denies any chest pain. She denies nausea vomiting fever chills. Associated symptoms: Reports orthopnea; Deny abdominal pain, chest pain, fever(s), nausea, palpitations or vomiting Review of Systems Const: Reports: fatigue; Denies: fever(s) or chills Eyes: Denies: change in vision or eye discharge ENMT: Reports: mouth pain; Denies: throat pain or ear or mastoid pain Card: Reports: dyspnea on exertion and orthopnea; Denies: chest pain or palpitations Resp: Reports: dyspnea; Denies: productive cough, wheezing or pain on inspiration GI: Denies: abdominal pain, nausea or vomiting Musc: Reports: extremity swelling; Denies: neck pain Skin/Breast: Denies: rash or pruritus Psych: Denies: anxiety or depression All/Imm: Denies: urticaria or acute wheezing PFSH ED PFSH: Medical History Atrial fibrillation Diabetes Dizziness GERD (gastroesophageal reflux disease) HTN (hypertension) Hyperlipidemia Surgical History Hx of hysterectomy Family History Mother Hypertension Diabetes Father CAD (coronary artery disease) Brother CAD (coronary artery disease) Grandmother Stroke Denies family history of Bleeding disorder Social History Smoking and tobacco status: never smoked Alcohol intake: never Physical Exam Const: COMMON NORMALS: no acute distress, patient oriented x3, no limitations and alert HENMT: COMMON NORMALS: normocephalic and hearing grossly normal bilaterally HEAD & SCALP: normocephalic Eye: GENERAL EYE: appearance normal, both eyes and all related structures Neck/C-Spine: COMMON NORMALS: full ROM and supple Chest: OTHER: Bandage over left chest over recently placed pacemaker. Resp: AUSCULTATION: no wheezes and diminished lung sounds Cardio: COMMON NORMALS: regular rate and regular rhythm RATE: regular rate RHYTHM: regular rhythm Extremity: GENERAL: Yes edema (2+ bilateral lower extremity) Neuro: COMMON NORMALS: patient oriented x3, CN's II-XII intact bilaterally, moves all extremities and no focal motor deficits SENSORIUM/ORIENTATION: Yes alert Psych: COMMON NORMALS: mental status grossly normal, Normal thought process present, cooperative and speech normal SPEECH: Yes normal speech THOUGHT PROCESS: Normal thought process present Skin: NARRATIVE SKIN EXAM: Bandage over recent incision for pacemaker bandage is clean Course Vital Signs: Vital signs: Vital Signs Temperature 98 F 05/07/22 09:59 Pulse Rate 64 05/07/22 11:04 Respiratory Rate 22 H 05/07/22 11:04 Blood Pressure 147/79 05/07/22 11:04 Pulse Oximetry 96 05/07/22 11:04 Oxygen Delivery Me thod 05/07/22 11:04 MDM - SOB/Dyspnea Medical Decision Making Patient's labs show improvement from her discharge yesterday. Patient does not show any signs of acute heart failure. She does have some consolidated right base that was a little bit more confluent but on prior x-ray. She may have a mild right pleural effusion. However patient's oxygen is running in the upper 90s on room air.. I discussed with patient that she was very sick and that her symptoms will take time to improve and resolve. However at this time there does not appear to be reason for readmission since she was just discharged following 11-day stay. Recommended she follow-up closely with her primary care provider. I did recommend she take at least 1 Lasix daily due to her edema little bit of a pleural effusion. Patient stable and discharged home Lab Data : 05/07/22 10:25 05/07/22 10:25 Labs/Radiology: Radiology Impressions Chest X-Ray 05/07/22 10:11 IMPRESSION: 1. Consolidation at the right base appears more confluent. Patchy consolidation at the left base is similar. 2. Probable right pleural effusion. Laboratory Results WBC 15.8 10^3/uL (4.0-10.0) H 05/07/22 10:25 RBC 3.92 10^6/uL (4.1-5.3) L 05/07/22 10:25 Hgb 10.6 g/dL (11.5-15.3) L 05/07/22 10:25 Hct 33.8 % (37.0-47.0) L 05/07/22 10:25 MCV 86.2 fl (81-99) 05/07/22 10:25 MCH 27.0 pg (28.0-34.0) L 05/07/22 10:25 MCHC 31.4 g/dL (30.0-36.0) 05/07/22 10:25 RDW 19.0 % (12.1-15.1) H 05/07/22 10:25 Plt Count 336 10^3/cmm (130-400) 05/07/22 10:25 MPV 10.3 fL (7.4-10.4) 05/07/22 10:25 Neut % (Auto) 85.3 % 05/07/22 10:25 Lymph % (Auto) 6.8 % 05/07/22 10:25 [place] % (Auto) 5.0 % 05/07/22 10:25 Eos % (Auto) 1.1 % 05/07/22 10:25 Baso % (Auto) 0.2 % 05/07/22 10:25 Neut # (Auto) 13.50 10^3/uL (1.8-7.7) H 05/07/22 10:25 Lymph # (Auto) 1.1 10^3/uL (0.8-4.8) 05/07/22 10:25 [place] # (Auto) 0.8 10^3/uL (0.2-0.9) 05/07/22 10:25 Eos # (Auto) 0.2 10^3/uL (0.0-0.8) 05/07/22 10:25 Baso # (Auto) 0.0 10^3/uL (0.0-0.1) 05/07/22 10:25 Nucleated RBC % (auto) 0.1 % 05/07/22 10:25 Nucleated RBCs # 0.0 /100WBC 05/07/22 10:25 Sodium 138 mmol/L (136-145) 05/07/22 10:25 Potassium 4.3 mmol/L (3.5-5.1) 05/07/22 10:25 Chloride 101 mmol/L (98-107) 05/07/22 10:25 Carbon Dioxide 26 mmol/L (22-29) 05/07/22 10:25 Anion Gap 15.3 (5-19) 05/07/22 10:25 BUN 24 mg/dL (8-23) H 05/07/22 10:25 Creatinine 0.9 mg/dL (0.5-0.9) 05/07/22 10:25 GFR Calculation Not Reportable 05/07/22 10:25 Glucose 193 mg/dL (65-115) H 05/07/22 10:25 Calculated Osmolality 295 mOsm/kg (285-295) 05/07/22 10:25 Calcium 9.1 mg/dL (8.5-10.5) 05/07/22 10:25 Magnesium 2.0 mg/dL (1.7-2.3) 05/07/22 10:25 Total Bilirubin 0.5 mg/dL (0.15-1.2) 05/07/22 10:25 AST 17 U/L (0-32) 05/07/22 10:25 ALT 126 U/L (0-33) H 05/07/22 10:25 Alkaline Phosphatase 118 IU/L (35-105) H 05/07/22 10:25 Troponin T Gen 5 ng/L 161 ng/L (0-10) H* 05/07/22 10:25 NT-Pro-B Natriuret Pep 3682 pg/mL (0-450) H 05/07/22 10:25 Total Protein 6.2 g/dL (6.6-8.7) L 05/07/22 10:25 Albumin 3.7 g/dL (3.5-5.2) 05/07/22 10:25 Globulin 2.5 g/dL (1.3-4.6) 05/07/22 10:25 Discharge Plan Discharge Condition: Stable Prescriptions: No Action lysine 1,000 mg tablet 1,000 mg PO DAILY (DME) lancets [OneTouch Delica Lancets] 33 gauge misc See Rx Instructions .Route Rx Instructions: As directed allopurinol 300 mg tablet 300 mg PO DAILY Hold Instructions: Resume on 05/18/22. simvastatin 80 mg tablet 40 mg PO DAILY Hold Instructions: Resume on 05/18/22. montelukast [Singulair] 10 mg tablet 10 mg PO DAILY multivitamin Tablet 1 tab PO DAILY aspirin 325 mg tablet 325 mg PO BID omeprazole 40 mg capsule,delayed release(DR/EC) 40 mg PO DAILY cholecalciferol (vitamin D3) 50 mcg (2,000 unit) capsule 50 mcg PO DAILY Farxiga 5 mg tablet 5 mg PO DAILY Qty: 90 3RF azelastine 137 mcg (0.1 %) aerosol,spray 2 spray intranasal BID PRN (Reason: Nasal Congestion) Rx Instructions: administer into each nostril furosemide 20 mg tablet 20 mg PO DAILY PRN (Reason: edema) Qty: 30 6RF glipizide 5 mg tablet extended release 24 hr 5 mg PO DAILY metformin 500 mg tablet extended release 24 hr 1,000 mg PO BID Stool Softener-Laxative 8.6-50 mg Tablet 1 tab PO BID Qty: 30 0RF gabapentin 100 mg Capsule 100 mg PO BID Qty: 60 0RF prednisone 10 mg tablet See Taper PO DAILY Qty: 105 0RF Taper: predniSONE 60-10 60 mg Daily for 5 Days and 0 Hour 50 mg Daily for 5 Days and 0 Hour 40 mg Daily for 5 Days and 0 Hour 30 mg Daily for 5 Days and 0 Hour 20 mg Daily for 5 Days and 0 Hour 10 mg Daily for 5 Days and 0 Hour ferrous gluconate 324 mg (37.5 mg iron) tablet 324 mg PO BID Qty: 60 0RF (DME) Accu-Chek Guide Glucose Meter [facility] [place] .Route Qty: 1 0RF Rx Instructions: As directed metoprolol tartrate 25 mg tablet 12.5 mg PO BID Qty: 30 0RF cefadroxil 500 mg capsule 500 mg PO TID 5 Days Qty: 15 0RF Referrals: Janak Johnson DO [Primary Care Provider] - Coding Level of Care Code ED [employer] for Chg Fwd Exam Comprehensive
[2022-05-07 10:34] VITALS: BP 154/87; PULSE 60; RESP 20; O2SAT 96
[2022-05-07] MEDS: FUROsemide 10 mg/mL SDV 4mL 40 MG IVP (10:45)
[2022-05-07 10:59] LABS: Basophils % 0.2 %; Eosinophils # 0.2 10^3/uL (0.0-0.8); Eosinophils % 1.1 %; Hematocrit 33.8 % (37.0-47.0); Hemoglobin 10.6 g/dL (11.5-15.3); Lymphocytes # 1.1 10^3/uL (0.8-4.8); Lymphocytes % 6.8 %; Mean Corpuscular HGB Conc 31.4 g/dL (30.0-36.0); Mean Corpuscular Volume 86.2 fl (81-99); Mean Platelet Volume 10.3 fL (7.4-10.4); Monocytes # 0.8 10^3/uL (0.2-0.9); Neutrophils % 85.3 %; Nucleated Red Blood Cells % 0.1 %; Platelet Count 336 10^3/cmm (130-400); Red Blood Count 3.92 10^6/uL (4.1-5.3); White Blood Count 15.8 10^3/uL (4.0-10.0)
[2022-05-07 11:04] VITALS: BP 147/79; PULSE 64; RESP 22; O2SAT 96
[2022-05-07 11:21] LABS: Alanine Aminotransferase 126 U/L (0-33); Albumin Level 3.7 g/dL (3.5-5.2); Alkaline Phosphatase 118 IU/L (35-105); Anion Gap 15.3 (5-19); Aspartate Amino Transferase 17 U/L (0-32); Blood Urea Nitrogen 24 mg/dL (8-23); Calcium 9.1 mg/dL (8.5-10.5); Carbon Dioxide 26 mmol/L (22-29); Chloride 101 mmol/L (98-107); Globulin 2.5 g/dL (1.3-4.6); Glucose 193 mg/dL (65-115); Osmolality Calculated 295 mOsm/kg (285-295); Potassium 4.3 mmol/L (3.5-5.1); Sodium 138 mmol/L (136-145); Total Bilirubin 0.5 mg/dL (0.15-1.2); Total Protein 6.2 g/dL (6.6-8.7)
[2022-05-07 11:22] LABS: NT Pro B Type Natriuretic Pept 3682 pg/mL (0-450)
[2022-05-07 11:23] LABS: Troponin T (5th) Once 161 ng/L (0-10)
[2022-05-07 12:00] VITALS: PULSE 65; O2SAT 96
[2022-05-07 12:31] VITALS: BP 137/72; PULSE 60; O2SAT 97
[2022-05-07 13:01] LABS: Protein Urine Neg (Negative); Specific Gravity, Urine 1.005 (1.005-1.030); Urine Appearance Clear (CLEAR); Urine Color Straw (Yellow)
[2022-05-07 13:02] LABS: Add Urine Microscopic? YES; Bilirubin Urine Neg (Negative); Blood Urine 2+ (Negative); Glucose Urine UA 4+ (Normal); Ketones Urine Negative (Negative); Leukocyte Esterase Urine Negative (Negative); Nitrate Urine Negative (Negative); Sulfosalicylic Acid Urine Negative (Negative); Urobilinogen Urine Norm (Negative); pH Urine 8 (5-7)
[2022-05-07 13:05] LABS: Add Urine Culture? No; Bacteria Urine TRACE /hpf; Squamous Epithelial Cell Urine RARE /hpf (0-5)
== END 2022-05-07 12:33 | disposition home or self-care (01) ==
PROVIDERS: Emergency Provider Student in an Organized Health Care Education/Training Program; PCP Internal Medicine
DX: R06.02 Shortness of breath (principal); Z79.82 Long term (current) use of aspirin; Z79.84 Long term (current) use of oral hypoglycemic drugs; E11.9 Type 2 diabetes mellitus without complications; I10 Essential (primary) hypertension; E78.5 Hyperlipidemia, unspecified
CPT/HCPCS: 36415; 71045; 80053; 81001; 83735; 83880; 84484; 85025; 93005; 96374; 99285; J1940

== ENCOUNTER → 2022-05-12 10:00 | Outpatient (BNVA) | payer MEDICARE, SELFPAY | PROVIDERS: PCP Internal Medicine; Visit Provider Nurse Practitioner Family | DX: Z95.0 Presence of cardiac pacemaker (principal); I10 Essential (primary) hypertension | CPT/HCPCS: 93280; 99214 ==

== ENCOUNTER 2022-06-11 18:32 | Emergency (ER) | payer MEDICARE, SELFPAY ==
[2022-06-11 19:30] LABS: Basophils # 0.1 10^3/uL (0.0-0.1); Basophils % 0.6 %; Eosinophils # 0.2 10^3/uL (0.0-0.8); Eosinophils % 1.7 %; Hemoglobin 13.2 g/dL (11.5-15.3); Lymphocytes # 1.1 10^3/uL (0.8-4.8); Lymphocytes % 10.6 %; Mean Corpuscular HGB Conc 32.2 g/dL (30.0-36.0); Mean Corpuscular Hemoglobin 29.3 pg (28.0-34.0); Mean Corpuscular Volume 91.1 fl (81-99); Mean Platelet Volume 9.7 fL (7.4-10.4); Monocytes # 0.6 10^3/uL (0.2-0.9); Monocytes % 5.7 %; Neutrophils # 8.32 10^3/uL (1.8-7.7); Neutrophils % 79.7 %; Nucleated Red Blood Cells % 0 %; Platelet Count 237 10^3/cmm (130-400); Red Cell Distribution Width 16.8 % (12.1-15.1); White Blood Count 10.5 10^3/uL (4.0-10.0)
[2022-06-11 19:37] VITALS: BP 129/72; PULSE 73; RESP 19; TEMP 36; O2SAT 93; BMI 25.8
[2022-06-11 20:00] LABS: Alanine Aminotransferase 17 U/L (0-33); Albumin Level 3.8 g/dL (3.5-5.2); Alkaline Phosphatase 90 U/L (35-105); Anion Gap 15.8 (5-19); Aspartate Amino Transferase 18 U/L (0-32); Blood Urea Nitrogen 16 mg/dL (8-23); Calcium 9.2 mg/dL (8.5-10.5); Carbon Dioxide 31 mmol/L (22-29); Chloride 90 mmol/L (98-107); Globulin 2.9 g/dL (1.3-4.6); Glucose 173 mg/dL (65-115); Osmolality Calculated 283 mOsm/kg (285-295); Sodium 134 mmol/L (136-145); Thyroid Stimulating Hormone 2.49 uIU/mL (0.27-4.20); Total Bilirubin 0.3 mg/dL (0.15-1.2); Total Protein 6.7 g/dL (6.6-8.7)
[2022-06-11 20:03] LABS: Potassium 2.8 mmol/L (3.5-5.1)
--- NOTE | 2022-06-11 20:34 | ED_ITS ---
Documented by User: Francisco Pal MD 06/25/22 21:17 HPI - Weakness General: Chief complaint: Weakness Stated complaint: weakness Time Seen by Provider: 06/11/22 20:34 History of Present Illness: Ms. Bruner is a 76-year-old lady with history of hypertension, hyperlipidemia, myocarditis, diabetes, pacemaker placement, atrial fibrillation who presents to the emergency department due to generalized weakness and malaise. She initially was doing well after her pacemaker placement approximately 5 weeks ago however has had progressive decline. Over the past week or so she has had profound weakness mostly towards the early afternoon and throughout the rest of the day. This is gotten to the point that she is too weak to walk. Denies associated infectious symptoms. Overall course of symptoms has worsened. Intensity is moderate to severe. No other specific changes in health, exacerbating, or alleviating factors identified. Onset (ago): week(s) Location: generalized Exacerbating factors: evening and exertion Review of Systems General: Reports: 10 or more systems reviewed and unremarkable except in HPI and below PFSH ED PFSH: Medical History (Updated 06/20/22 @ 00:01 by ) Atrial fibrillation Diabetes Dizziness GERD (gastroesophageal reflux disease) HTN (hypertension) Hyperlipidemia Pacemaker Surgical History Hx of hysterectomy Family History Mother Hypertension Diabetes Father CAD (coronary artery disease) Brother CAD (coronary artery disease) Grandmother Stroke Denies family history of Bleeding disorder Social History Smoking and tobacco status: never smoked Alcohol intake: never Physical Exam Const: COMMON NORMALS: patient oriented x3 and alert GENERAL APPEARANCE: cooperative and well developed HENMT: COMMON NORMALS: normocephalic and atraumatic HEAD & SCALP: normocephalic and atraumatic Eye: COMMON NORMALS: conjunctivae normal CONJUNCTIVA: Yes conjunctivae normal SCLERA: sclerae normal Neck/C-Spine: COMMON NORMALS: supple GENERAL: Yes trachea midline Resp: COMMON NORMALS: clear to auscultation bilaterally EFFORT & INSPECTION : Yes able to speak in complete sentences AUSCULTATION: clear to auscultation bilaterally Cardio: COMMON NORMALS: regular rate and regular rhythm RATE: regular rate RHYTHM: regular rhythm GI: COMMON NORMALS: Soft to palpation PALPATION: Yes Soft to palpation and No Tenderness to palpation present (GI) PERCUSSION: normal to percussion Extremity: GENERAL: Yes normal exam except as noted and No edema Neuro: COMMON NORMALS: patient oriented x3, CN's II-XII intact bilaterally, moves all extremities, no focal motor deficits and no sensory deficits noted SENSORIUM/ORIENTATION: Yes alert and No Orientation impaired Psych: COMMON NORMALS: mental status grossly normal and Normal thought process present THOUGHT PROCESS: Normal thought process present Course Vital Signs: Vital signs: Vital Signs Temperature 96.8 F L 06/11/22 19:37 Pulse Rate 70 06/12/22 01:07 Respiratory Rate 18 06/12/22 01:07 Blood Pressure 133/77 06/12/22 01:07 Pulse Oximetry 96 06/12/22 01:07 Oxygen Delivery Me thod 06/11/22 19:37 MDM - Weakness Medical Decision Making 76-year-old lady presenting with generalized symptoms. No focal neuro symptoms. EKG shows paced rhythm. Minimal leukocytosis which is improved, normal hemoglobin. Metabolic panel with hypokalemia and dehydration. Replenishment and fluids ordered. Negative procalcitonin. No UTI. Handed off to Dr. Barahona pending completion of replenishment and reassessment of patient condition. 76-year-old female checked out to me by the previous physician at shift change. This lady is generally weak. This is been a slowly worsening process it seems. She is on diuretics, and does take potassium she tells me, but despite this, her potassium is 2.8. Chloride is 90. Her labs are not remarkable otherwise. Her pacer is interrogated in the ER, and report indicates it is functioning appropriately. Chest x-ray is read as showing streaky left basilar opacity, although this x-ray appears significantly improved compared to 05/07. Her potassium is repleted here. She will be discharged to home for outpatient fo llow-up, with increased dose of potassium. Medical Records I reviewed the patient's medical records. Lab Data I reviewed the patient's lab results. : 06/11/22 19:19 06/11/22 19:19 Radiology Impressions Chest X-Ray 06/11/22 20:50 IMPRESSION: 1. Mildly enlarged cardiac silhouette size without vascular congestion. 2. Streaky left basilar opacities. See discussion above. Laboratory Results WBC 10.5 10^3/uL (4.0-10.0) H 06/11/22 19:19 RBC 4.50 10^6/uL (4.1-5.3) 06/11/22 19:19 Hgb 13.2 g/dL (11.5-15.3) 06/11/22 19:19 Hct 41.0 % (37.0-47.0) 06/11/22 19:19 MCV 91.1 fl (81-99) 06/11/22 19:19 MCH 29.3 pg (28.0-34.0) 06/11/22 19:19 MCHC 32.2 g/dL (30.0-36.0) 06/11/22 19:19 RDW 16.8 % (12.1-15.1) H 06/11/22 19:19 Plt Count 237 10^3/cmm (130-400) 06/11/22 19:19 MPV 9.7 fL (7.4-10.4) 06/11/22 19:19 Neut % (Auto) 79.7 % 06/11/22 19:19 Lymph % (Auto) 10.6 % 06/11/22 19:19 Johnson % (Auto) 5.7 % 06/11/22 19:19 Eos % (Auto) 1.7 % 06/11/22 19:19 Baso % (Auto) 0.6 % 06/11/22 19:19 Neut # (Auto) 8.32 10^3/uL (1.8-7.7) H 06/11/22 19:19 Lymph # (Auto) 1.1 10^3/uL (0.8-4.8) 06/11/22 19:19 Johnson # (Auto) 0.6 10^3/uL (0.2-0.9) 06/11/22 19:19 Eos # (Auto) 0.2 10^3/uL (0.0-0.8) 06/11/22 19:19 Baso # (Auto) 0.1 10^3/uL (0.0-0.1) 06/11/22 19:19 Nucleated RBC % (auto) 0 % 06/11/22 19:19 Nucleated RBCs # 0.0 /100WBC 06/11/22 19:19 Sodium 134 mmol/L (136-145) L 06/11/22 19:19 Potassium 2.8 mmol/L (3.5-5.1) L* 06/11/22 19:19 Chloride 90 mmol/L (98-107) L 06/11/22 19:19 Carbon Dioxide 31 mmol/L (22-29) H 06/11/22 19:19 Anion Gap 15.8 (5-19) 06/11/22 19:19 BUN 16 mg/dL (8-23) 06/11/22 19:19 Creatinine 0.6 mg/dL (0.5-0.9) 06/11/22 19:19 GFR Calculation Not Reportable 06/11/22 19:19 Glucose 173 mg/dL (65-115) H 06/11/22 19:19 Calculated Osmolality 283 mOsm/kg (285-295) L 06/11/22 19:19 Calcium 9.2 mg/dL (8.5-10.5) 06/11/22 19:19 Total Bilirubin 0.3 mg/dL (0.15-1.2) 06/11/22 19:19 AST 18 U/L (0-32) 06/11/22 19:19 ALT 17 U/L (0-33) 06/11/22 19:19 Alkaline Phosphatase 90 U/L (35-105) 06/11/22 19:19 Troponin T Baseline 21 ng/L (0-10) H 06/11/22 20:52 Troponin T 120 Minute 16.72 ng/L (0-10) H 06/11/22 22:19 Delta Troponin T -4.28 ABS# (0-10) L 06/11/22 22:19 Total Protein 6.7 g/dL (6.6-8.7) 06/11/22 19:19 Albumin 3.8 g/dL (3.5-5.2) 06/11/22 19:19 Globulin 2.9 g/dL (1.3-4.6) 06/11/22 19:19 Procalcitonin 0.08 ng/mL (0-0.5) 06/11/22 20:52 TSH 2.49 uIU/mL (0.27-4.20) 06/11/22 19:19 Urine Color Yellow (Yellow) 06/11/22 22:58 Urine Appearance Clear (CLEAR) 06/11/22 22:58 Urine pH 5 (5-7) 06/11/22 22:58 Ur Specific [place] 1.005 (1.005-1.030) 06/11/22 22:58 Urine Protein Neg (Negative) 06/11/22 22:58 Urine Glucose (UA) 4+ (Normal) H 06/11/22 22:58 Urine Ketones 1+ (Negative) H 06/11/22 22:58 Urine Blood Neg (Negative) 06/11/22 22:58 Urine Nitrate Negative (Negative) 06/11/22 22:58 Urine Bilirubin Neg (Negative) 06/11/22 22:58 Urine Urobilinogen Neg mg/dL (Negative) 06/11/22 22:58 Ur Leukocyte Esterase Negative (Negative) 06/11/22 22:58 Discharge Plan Discharge Patient Disposition: Home Clinical Impression: Hypokalemia Condition: Stable Prescriptions: New potassium chloride 20 mEq tablet extended release 20 meq PO DAILY Qty: 30 0RF No Action lysine 1,000 mg tablet 1,000 mg PO DAILY (DME) lancets [OneTouch Delica Lancets] 33 gauge misc See Rx Instructions .Route Rx Instructions: As directed allopurinol 300 mg tablet 300 mg PO DAILY Hold Instructions: Resume on 05/18/22. simvastatin 80 mg tablet 40 mg PO DAILY Hold Instructions: Resume on 05/18/22. montelukast [Singulair] 10 mg tablet 10 mg PO DAILY multivitamin Tablet 1 tab PO DAILY aspirin 325 mg tablet 325 mg PO BID omeprazole 40 mg capsule,delayed release(DR/EC) 40 mg PO DAILY cholecalciferol (vitamin D3) 50 mcg (2,000 unit) capsule 50 mcg PO DAILY Farxiga 5 mg tablet 5 mg PO DAILY Qty: 90 3RF azelastine 137 mcg (0.1 %) aerosol,spray 2 spray intranasal BID PRN (Reason: Nasal Congestion) Rx Instructions: administer into each nostril furosemide 20 mg tablet 20 mg PO DAILY PRN (Reason: edema) Qty: 30 6RF Xarelto 20 mg tablet 20 mg PO DAILY Qty: 90 3RF Rx Instructions: must administer with evening meal glipizide 5 mg tablet extended release 24 hr 5 mg PO DAILY metformin 500 mg tablet extended release 24 hr 1,000 mg PO BID Stool Softener-Laxative 8.6-50 mg Tablet 1 tab PO BID Qty: 30 0RF gabapentin 100 mg Capsule 100 mg PO BID Qty: 60 0RF prednisone 10 mg tablet See Taper PO DAILY Qty: 105 0RF Taper: predniSONE 60-10 60 mg Daily for 5 Days and 0 Hour 50 mg Daily for 5 Days and 0 Hour 40 mg Daily for 5 Days and 0 Hour 30 mg Daily for 5 Days and 0 Hour 20 mg Daily for 5 Days and 0 Hour 10 mg Daily for 5 Days and 0 Hour ferrous gluconate 324 mg (37.5 mg iron) tablet 324 mg PO BID Qty: 60 0RF (DME) Accu-Chek Guide Glucose Meter Misc See Rx Instructions .Route Qty: 1 0RF Rx Instructions: As directed metoprolol tartrate 25 mg tablet 12.5 mg PO BID Qty: 30 0RF Discharge Orders: Discharge ED (Routine); Ordered 06/12/22 Ordered By: Efren Barahona Referrals: Janak Johnson DO [Primary Care Provider] - Patient Instructions: Hypokalemia (ED), Weakness (ED) Activity Restrictions/Additional Instructions: Your pacemaker seems to be functioning appropriately. Your weakness could be caused by your significant low potassium level, which has been repleted tonight. You will be placed on a supplement of potassium. You should have your potassium rechecked in around 48 hours to 72 hours. Return for worsening weakness despite treatment, pain, shortness of breath, any other concerning symptoms. Coding Level of Care Code ED Line Up Examiner for Chg Fwd Documented by User: Efren Barahona DO 06/12/22 05:18 HPI - Weakness General: Chief complaint: Weakness Stated complaint: weakness Time Seen by Provider: 06/11/22 20:34 PFS ED PFSH: Medical History (Updated 06/20/22 @ 00:01 by ) Atrial fibrillation Diabetes Dizziness GERD (gastroesophageal reflux disease) HTN (hypertension) Hyperlipidemia Pacemaker Surgical History Hx of hysterectomy Family History Mother Hypertension Diabetes Father CAD (coronary artery disease) Brother CAD (coronary artery disease) Grandmother Stroke Denies family history of Bleeding disorder Social History Smoking and tobacco status: never smoked Alcohol intake: never Course Vital Signs: Vital signs: Vital Signs Temperature 96.8 F L 06/11/22 19:37 Pulse Rate 70 06/12/22 01:07 Respiratory Rate 18 06/12/22 01:07 Blood Pressure 133/77 06/12/22 01:07 Pulse Oximetry 96 06/12/22 01:07 Oxygen Delivery Me thod 06/11/22 19:37 MDM - Weakness Medical Decision Making 76-year-old female checked out to me by the previous physician at shift change. This lady is generally weak. This is been a slowly worsening process it seems. She is on diuretics, and does take potassium she tells me, but despite this, her potassium is 2.8. Chloride is 90. Her labs are not remarkable otherwise. Her pacer is interrogated in the ER, and report indicates it is functioning appropriately. Chest x-ray is read as showing streaky left basilar opacity, although this x-ray appears significantly improved compared to 05/07. Her potassium is repleted here. She will be discharged to home for outpatient follow-up, with increased dose of potassium. Lab Data : 06/11/22 19:19 06/11/22 19:19 Radiology Impressions Chest X-Ray 06/11/22 20:50 IMPRESSION: 1. Mildly enlarged cardiac silhouette size without vascular congestion. 2. Streaky left basilar opacities. See discussion above. Laboratory Results WBC 10.5 10^3/uL (4.0-10.0) H 06/11/22 19:19 RBC 4.50 10^6/uL (4.1-5.3) 06/11/22 19:19 Hgb 13.2 g/dL (11.5-15.3) 06/11/22 19:19 Hct 41.0 % (37.0-47.0) 06/11/22 19:19 MCV 91.1 fl (81-99) 06/11/22 19:19 MCH 29.3 pg (28.0-34.0) 06/11/22 19:19 MCHC 32.2 g/dL (30.0-36.0) 06/11/22 19:19 RDW 16.8 % (12.1-15.1) H 06/11/22 19:19 Plt Count 237 10^3/cmm (130-400) 06/11/22 19:19 MPV 9.7 fL (7.4-10.4) 06/11/22 19:19 Neut % (Auto) 79.7 % 06/11/22 19:19 Lymph % (Auto) 10.6 % 06/11/22 19:19 Johnson % (Auto) 5.7 % 06/11/22 19:19 Eos % (Auto) 1.7 % 06/11/22 19:19 Baso % (Auto) 0.6 % 06/11/22 19:19 Neut # (Auto) 8.32 10^3/uL (1.8-7.7) H 06/11/22 19:19 Lymph # (Auto) 1.1 10^3/uL (0.8-4.8) 06/11/22 19:19 Johnson # (Auto) 0.6 10^3/uL (0.2-0.9) 06/11/22 19:19 Eos # (Auto) 0.2 10^3/uL (0.0-0.8) 06/11/22 19:19 Baso # (Auto) 0.1 10^3/uL (0.0-0.1) 06/11/22 19:19 Nucleated RBC % (auto) 0 % 06/11/22 19:19 Nucleated RBCs # 0.0 /100WBC 06/11/22 19:19 Sodium 134 mmol/L (136-145) L 06/11/22 19:19 Potassium 2.8 mmol/L (3.5-5.1) L* 06/11/22 19:19 Chloride 90 mmol/L (98-107) L 06/11/22 19:19 Carbon Dioxide 31 mmol/L (22-29) H 06/11/22 19:19 Anion Gap 15.8 (5-19) 06/11/22 19:19 BUN 16 mg/dL (8-23) 06/11/22 19:19 Creatinine 0.6 mg/dL (0.5-0.9) 06/11/22 19:19 GFR Calculation Not Reportable 06/11/22 19:19 Glucose 173 mg/dL (65-115) H 06/11/22 19:19 Calculated Osmolality 283 mOsm/kg (285-295) L 06/11/22 19:19 Calcium 9.2 mg/dL (8.5-10.5) 06/11/22 19:19 Total Bilirubin 0.3 mg/dL (0.15-1.2) 06/11/22 19:19 AST 18 U/L (0-32) 06/11/22 19:19 ALT 17 U/L (0-33) 06/11/22 19:19 Alkaline Phosphatase 90 U/L (35-105) 06/11/22 19:19 Troponin T Baseline 21 ng/L (0-10) H 06/11/22 20:52 Troponin T 120 Minute 16.72 ng/L (0-10) H 06/11/22 22:19 Delta Troponin T -4.28 ABS# (0-10) L 06/11/22 22:19 Total Protein 6.7 g/dL (6.6-8.7) 06/11/22 19:19 Albumin 3.8 g/dL (3.5-5.2) 06/11/22 19:19 Globulin 2.9 g/dL (1.3-4.6) 06/11/22 19:19 Procalcitonin 0.08 ng/mL (0-0.5) 06/11/22 20:52 TSH 2.49 uIU/mL (0.27-4.20) 06/11/22 19:19 Urine Color Yellow (Yellow) 06/11/22 22:58 Urine Appearance Clear (CLEAR) 06/11/22 22:58 Urine pH 5 (5-7) 06/11/22 22:58 Ur Specific [place] 1.005 (1.005-1.030) 06/11/22 22:58 Urine Protein Neg (Negative) 06/11/22 22:58 Urine Glucose (UA) 4+ (Normal) H 06/11/22 22:58 Urine Ketones 1+ (Negative) H 06/11/22 22:58 Urine Blood Neg (Negative) 06/11/22 22:58 Urine Nitrate Negative (Negative) 06/11/22 22:58 Urine Bilirubin Neg (Negative) 06/11/22 22:58 Urine Urobilinogen Neg mg/dL (Negative) 06/11/22 22:58 Ur Leukocyte Esterase Negative (Negative) 06/11/22 22:58 Discharge Plan Discharge Patient Disposition: Home Clinical Impression: Hypokalemia Condition: Stable Prescriptions: New potassium chloride 20 mEq tablet extended release 20 meq PO DAILY Qty: 30 0RF No Action lysine 1,000 mg tablet 1,000 mg PO DAILY (DME) lancets [OneTouch Delica Lancets] 33 gauge misc See Rx Instructions .Route Rx Instructions: As directed allopurinol 300 mg tablet 300 mg PO DAILY Hold Instructions: Resume on 05/18/22. simvastatin 80 mg tablet 40 mg PO DAILY Hold Instructions: Resume on 05/18/22. montelukast [Singulair] 10 mg tablet 10 mg PO DAILY multivitamin Tablet 1 tab PO DAILY aspirin 325 mg tablet 325 mg PO BID omeprazole 40 mg capsule,delayed release(DR/EC) 40 mg PO DAILY cholecalciferol (vitamin D3) 50 mcg (2,000 unit) capsule 50 mcg PO DAILY Farxiga 5 mg tablet 5 mg PO DAILY Qty: 90 3RF azelastine 137 mcg (0.1 %) aerosol,spray 2 spray intranasal BID PRN (Reason: Nasal Congestion) Rx Instructions: administer into each nostril furosemide 20 mg tablet 20 mg PO DAILY PRN (Reason: edema) Qty: 30 6RF Xarelto 20 mg tablet 20 mg PO DAILY Qty: 90 3RF Rx Instructions: must administer with evening meal glipizide 5 mg tablet extended release 24 hr 5 mg PO DAILY metformin 500 mg tablet extended release 24 hr 1,000 mg PO BID Stool Softener-Laxative 8.6-50 mg Tablet 1 tab PO BID Qty: 30 0RF gabapentin 100 mg Capsule 100 mg PO BID Qty: 60 0RF prednisone 10 mg tablet See Taper PO DAILY Qty: 105 0RF Taper: predniSONE 60-10 60 mg Daily for 5 Days and 0 Hour 50 mg Daily for 5 Days and 0 Hour 40 mg Daily for 5 Days and 0 Hour 30 mg Daily for 5 Days and 0 Hour 20 mg Daily for 5 Days and 0 Hour 10 mg Daily for 5 Days and 0 Hour ferrous gluconate 324 mg (37.5 mg iron) tablet 324 mg PO BID Qty: 60 0RF (DME) Accu-Chek Guide Glucose Meter Misc See Rx Instructions .Route Qty: 1 0RF Rx Instructions: As directed metoprolol tartrate 25 mg tablet 12.5 mg PO BID Qty: 30 0RF Discharge Orders: Discharge ED (Routine); Ordered 06/12/22 Ordered By: Efren Barahona Referrals: Janak Johnson, [Primary Care Provider] - Patient Instructions: Hypokalemia (ED), Weakness (ED) Activity Restrictions/Additional Instructions: Your pacemaker seems to be functioning appropriately. Your weakness could be caused by your significant low potassium level, which has been repleted tonight. You will be placed on a supplement of potassium. You should have your potassium rechecked in around 48 hours to 72 hours. Return for worsening weakness despite treatment, pain, shortness of breath, any other concerning symptoms. Coding Level of Care Code ED Line Up Examiner for Peewee Whitfield
--- NOTE | 2022-06-11 20:50 | XRR_ITS ---
PROCEDURE INFORMATION: Exam: XR Chest Exam date and time: 06/11/2022 9:00 PM Age: 76 years old Clinical indication: Other: Weakness; Prior surgery; Surgery date: 1-6 months TECHNIQUE: Imaging protocol: Radiologic exam of the chest. Views: 1 view. COMPARISON: CR (CHEST, ) 05/07/2022 10:30 AM FINDINGS: Tubes, catheters and devices: Left chest wall dual chamber cardiac device remains in place. Lungs: The lung bases are suboptimally assessed due to technique however the upper lungs are clear of focal consolidation. Small streaky left basilar opacities are likely atelectasis however follow-up should be obtained to exclude developing pneumonia if clinically indicated. Otherwise interval improvement of bibasilar opacities and pleural effusions. Pleural spaces: See Lungs finding. Heart/Mediastinum: Cardiac silhouette appears mildly enlarged. No obvious vascular congestion. Bones/joints: No acute osseous findings. Thoracic spine rightward scoliosis. Probable osteopenia. Other findings: Single view was submitted. XR/XR chest 1V portable [id number] IMPRESSION: 1. Mildly enlarged cardiac silhouette size without vascular congestion. 2. Streaky left basilar opacities. See discussion above.
--- NOTE | 2022-06-11 20:52 | ECG_ITS ---
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 Measurements Intervals [place] Rate: 71 P: 71 LA: 177 QRS: -68 QRSD: 168 T: 100 QT: 442 QTc: 480 Interpretive Statements ELECTRONIC VENTRICULAR PACEMAKER ABNORMAL RHYTHM ECG INTERPRETATION BASED ON A DEFAULT AGE OF 40 YEARS Compared to ECG 05/07/2022 10:15:10 No significant changes Electronically Signed On 06-12-2022 8:28:34 CDT by Cira Hargrove M.D. [id number]
[2022-06-11 21:12] LABS: Troponin(5th) Baseline 21 ng/L (0-10)
[2022-06-11 21:18] VITALS: BP 119/72; BP 123/68; BP 124/66; PULSE 73; PULSE 75
[2022-06-11] MEDS: potassium chloride ER 20 mEq Tablet 60 MEQ PO (21:25)
[2022-06-11] MEDS: magnesium sulfate premix 2 GM/50 ML PIGGYBACK IV (21:26)
[2022-06-11] MEDS: sodium chloride 0.9% 1,000 ML 999 ML IV (21:26)
[2022-06-11 21:30] VITALS: BP 145/73; PULSE 67; RESP 18; O2SAT 94
[2022-06-11 22:23] VITALS: BP 135/86; PULSE 69; RESP 16; O2SAT 95
--- NOTE | 2022-06-11 22:33 | ECG_ITS ---
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 Measurements Intervals [place] Rate: 69 P: 67 NV: 176 QRS: -72 QRSD: 157 T: 93 QT: 442 QTc: 475 Interpretive Statements A sense V paced rhythm Compared to ECG 05/07/2022 10:15:10 No significant changes Electronically Signed On 06-12-2022 8:32:09 CDT by Cira Hargrove M.D. [email or web address]
[2022-06-11 22:39] VITALS: BP 107/93; PULSE 67; RESP 18; O2SAT 97
[2022-06-11 22:41] LABS: Procalcitonin 0.08 ng/mL (0-0.5)
[2022-06-11 23:01] LABS: Add Urine Microscopic? NO; Charge for UA Resulting for Rev
[2022-06-11 23:07] LABS: Troponin 5 2HR 16.72 ng/L (0-10)
[2022-06-11 23:14] LABS: Bilirubin Urine Neg (Negative); Blood Urine Neg (Negative); Glucose Urine UA 4+ (Normal); Ketones Urine 1+ (Negative); Leukocyte Esterase Urine Negative (Negative); Nitrate Urine Negative (Negative); Protein Urine Neg (Negative); Specific Gravity, Urine 1.005 (1.005-1.030); Urine Appearance Clear (CLEAR); Urine Color Yellow (Yellow); Urobilinogen Urine Neg (Negative); pH Urine 5 (5-7)
[2022-06-11 23:15] LABS: Troponin 5 2HR Delta -4.28 ABS# (0-10)
[2022-06-12 00:38] VITALS: BP 133/74; PULSE 72; RESP 18; O2SAT 96
[2022-06-12 01:07] VITALS: BP 133/77; PULSE 70; RESP 18; O2SAT 96
== END 2022-06-12 01:08 | disposition home or self-care (01) ==
PROVIDERS: Emergency Medicine; Emergency Provider Emergency Medicine; PCP Internal Medicine
DX: E87.6 Hypokalemia (principal); Z79.01 Long term (current) use of anticoagulants; Z79.84 Long term (current) use of oral hypoglycemic drugs; Z79.82 Long term (current) use of aspirin; E11.9 Type 2 diabetes mellitus without complications; I10 Essential (primary) hypertension; E78.5 Hyperlipidemia, unspecified; Z95.0 Presence of cardiac pacemaker
CPT/HCPCS: 36415; 71045; 80053; 81003; 84145; 84443; 84484; 85025; 93005; 96374; 99285; J3475; J7030

== ENCOUNTER 2022-06-14 10:21 | Outpatient (CLI) | payer MEDICARE, SELFPAY ==
[2022-06-14 11:02] LABS: Basophils # 0.1 10^3/uL (0.0-0.1); Eosinophils # 0.3 10^3/uL (0.0-0.8); Eosinophils % 3.2 %; Hematocrit 37.7 % (37.0-47.0); Hemoglobin 12.1 g/dL (11.5-15.3); Lymphocytes # 1.1 10^3/uL (0.8-4.8); Lymphocytes % 12.8 %; Mean Corpuscular HGB Conc 32.1 g/dL (30.0-36.0); Mean Corpuscular Hemoglobin 29.3 pg (28.0-34.0); Mean Corpuscular Volume 91.3 fl (81-99); Mean Platelet Volume 10.2 fL (7.4-10.4); Monocytes # 0.5 10^3/uL (0.2-0.9); Monocytes % 5.5 %; Neutrophils # 6.36 10^3/uL (1.8-7.7); Neutrophils % 75.7 %; Nucleated Red Blood Cells % 0 %; Platelet Count 281 10^3/cmm (130-400); Red Blood Count 4.13 10^6/uL (4.1-5.3); Red Cell Distribution Width 16.9 % (12.1-15.1); White Blood Count 8.4 10^3/uL (4.0-10.0)
[2022-06-14 11:29] LABS: Alanine Aminotransferase 28 U/L (0-33); Albumin Level 3.6 g/dL (3.5-5.2); Alkaline Phosphatase 89 U/L (35-105); Anion Gap 17.2 (5-19); Aspartate Amino Transferase 32 U/L (0-32); Blood Urea Nitrogen 16 mg/dL (8-23); Calcium 9.4 mg/dL (8.5-10.5); Carbon Dioxide 29 mmol/L (22-29); Chloride 92 mmol/L (98-107); Globulin 3.1 g/dL (1.3-4.6); Glucose 104 mg/dL (65-115); Osmolality Calculated 281 mOsm/kg (285-295); Potassium 3.2 mmol/L (3.5-5.1); Sodium 135 mmol/L (136-145); Total Bilirubin 0.3 mg/dL (0.15-1.2); Total Protein 6.7 g/dL (6.6-8.7)
== END 2022-06-14 10:22 | disposition home or self-care (01) ==
LOC: LAB 10:24
PROVIDERS: PCP Internal Medicine; Visit Provider Internal Medicine Cardiovascular Disease
DX: I10 Essential (primary) hypertension (principal); I48.91 Unspecified atrial fibrillation
CPT/HCPCS: 36415; 80053; 85025

== ENCOUNTER → 2022-08-02 14:01 | Outpatient (BNVA) | payer MEDICARE, SELFPAY | PROVIDERS: PCP Internal Medicine; Visit Provider Internal Medicine Cardiovascular Disease | DX: R42 Dizziness and giddiness (principal); I48.0 Paroxysmal atrial fibrillation; I10 Essential (primary) hypertension; Z95.0 Presence of cardiac pacemaker; K21.9 Gastro-esophageal reflux disease without esophagitis | CPT/HCPCS: 99214 ==

== ENCOUNTER → 2022-08-09 11:56 | Day surgery (SDC) | payer MEDICARE, SELFPAY ==
[2022-08-09 12:16] VITALS: BP 131/59; PULSE 73; RESP 18; TEMP 36.4; O2SAT 98
[2022-08-09] MEDS: ferric carboxy (IVPB) 750 MG in sodium chloride 0.9% (100 ml) 100 ML 345 MG IV (12:29)
== END ==
PROVIDERS: PCP Internal Medicine; Visit Provider Internal Medicine
DX: D50.9 Iron deficiency anemia, unspecified (principal)
CPT/HCPCS: 96365; J1439

== ENCOUNTER → 2022-08-16 11:50 | Day surgery (SDC) | payer MEDICARE, SELFPAY ==
[2022-08-16 12:25] VITALS: BP 125/61; PULSE 92; RESP 18; TEMP 37.1; O2SAT 94
[2022-08-16] MEDS: ferric carboxy (IVPB) 750 MG in sodium chloride 0.9% (100 ml) 100 ML 345 MG IV (12:35)
== END ==
PROVIDERS: PCP Internal Medicine; Visit Provider Internal Medicine
DX: D50.9 Iron deficiency anemia, unspecified (principal)
CPT/HCPCS: 96365; J1439

== ENCOUNTER → 2022-09-01 08:35 | Outpatient (BNVA) | payer MEDICARE, OTHER, SELFPAY | PROVIDERS: PCP Family Medicine; Visit Provider Family Medicine | DX: I10 Essential (primary) hypertension (principal); I51.4 Myocarditis, unspecified; R74.01 Elevation of levels of liver transaminase levels; E10.9 Type 1 diabetes mellitus without complications | CPT/HCPCS: 80053; 80061; 83036; 85025 ==

== ENCOUNTER 2022-09-09 13:42 | Emergency (ER) | payer MEDICARE, OTHER, SELFPAY ==
[2022-09-09 13:51] VITALS: BP 120/70; PULSE 76; RESP 18; TEMP 36.4; O2SAT 98
--- NOTE | 2022-09-09 16:07 | ED_ITS ---
HPI - Dizziness General: Chief Complaint: Dizziness Stated Complaint: dizzy Time Seen by Provider: 09/09/22 16:05 Source: patient Mode of arrival: ambulatory History of Present Illness: HPI Narrative: 76-year-old female presents emergency room with complaint of dizziness. Is worse when she first stands up. She denies any chest pain or shortness of breath. She has noticed occasionally she gets blurry vision however this been going on for months she has been trying to get seen for a little worse when she gets dizzy but is present at other times as well. She has a history of atrial fibrillation she is on Xarelto. She did fall earlier this week did not strike her head there is no loss consciousness she has not had any vomiting. MD elicited complaint: dizziness Onset (ago): day(s) Timing: gradual onset Severity: mild Description: lightheadedness, off-balance and difficulty walking Context: change in body position Exacerbating factors: change in body position and standing Relieving factors: remaining still and rest Associated symptoms: Denies change in hearing, chest pain, chills, cough, diaphoresis, ear discharge, ear pressure, fevers/chills, headache(s), malaise, nausea, nasal congestion, palpitations, rash, short of breath, syncope, tinnitus, vomiting or weakness Associated neuro symptoms: Deny confusion, difficulty speaking, dysphagia, diplopia, extremity weakness, facial numbness, facial weakness, gait changes, numbness in extremities or visual changes Review of Systems Const: Denies: fever(s), chills, malaise or diaphoresis Eyes: Reports: blurry vision ENMT: Denies: throat pain, ear discharge, change in hearing, tinnitus or nasal congestion Card: Denies: chest pain, palpitations or syncope Resp: Denies: dyspnea, productive cough or non-productive cough GI: Denies: abdominal pain, nausea, vomiting or dysphagia : Denies: flank pain, difficulty voiding, dysuria, urinary frequency or urinary urgency Skin/Breast: Denies: rash or pruritus Neuro: Denies: headache(s), numbness in extremities or confusion PFS ED PFSH: Medical History Atrial fibrillation Diabetes Dizziness GERD (gastroesophageal reflux disease) HTN (hypertension) Hyperlipidemia Pacemaker Surgical History Hx of hysterectomy Family History Mother Hypertension Diabetes Cancer Father CAD (coronary artery disease) Brother CAD (coronary artery disease) Grandmother Stroke Denies family history of Bleeding disorder Social History Smoking and tobacco status: never smoked Alcohol intake: never Female Reproductive History: Spontaneous abortions: No Physical Exam Const: GENERAL APPEARANCE: cooperative and comfortable ORIENTATION/CONSCIOUSNESS: Yes awake, Yes oriented to person, Yes oriented to place and Yes oriented to time HENMT: COMMON NORMALS: normocephalic, atraumatic and hearing grossly normal bilaterally HEAD & SCALP: normocephalic and atraumatic Cardio: COMMON NORMALS: regular rate, regular rhythm and No murmurs present (Cardio) RATE: regular rate RHYTHM: regular rhythm GI: COMMON NORMALS: Soft to palpation and No hepatosplenomegaly present AUSCULTATION: Yes normoactive bowel sounds PALPATION: Yes Soft to palpation, No Tenderness to palpation present (GI), No Guarding due to palpation present (GI) and Yes No hepatosplenomegaly present Extremity: COMMON NORMALS: normal to inspection, capillary refill normal, no clubbing, cyanosis or edema, no calf tenderness and no pedal edema Neuro: SENSORIUM/ORIENTATION: Yes oriented to person, Yes oriented to place and Yes oriented to time Skin: COMMON NORMALS: no rashes or lesions noted GENERAL SKIN EXAM: no rashes or lesions noted Course Vital Signs: Vital signs: Vital Signs Temperature 97.6 F 09/09/22 13:51 Pulse Rate 73 09/09/22 16:46 Respiratory Rate 18 09/09/22 16:46 Blood Pressure 129/70 09/09/22 16:46 Pulse Oximetry 97 09/09/22 16:46 Oxygen Delivery Me thod 09/09/22 16:46 MDM - Dizziness Medical Decision Making Orthostatics positive. Patient given a liter of fluids we will discharge her home have her stop the Medical Records I reviewed the patient's medical records. Lab Data I reviewed the patient's lab results. 09/09/22 16:15 09/09/22 16:[address] 09/09/22 16:08 IMPRESSION: Negative for intracranial hemorrhage or mass effect. Laboratory Results WBC 11.4 10^3/uL (4.0-10.0) H 09/09/22 16:15 RBC 4.66 10^6/uL (4.1-5.3) 09/09/22 16:15 Hgb 12.9 g/dL (11.5-15.3) 09/09/22 16:15 Hct 40.3 % (37.0-47.0) 09/09/22 16:15 MCV 86.5 fl (81-99) 09/09/22 16:15 MCH 27.7 pg (28.0-34.0) L 09/09/22 16:15 MCHC 32.0 g/dL (30.0-36.0) 09/09/22 16:15 RDW 18.4 % (12.1-15.1) H 09/09/22 16:15 Plt Count 228 10^3/cmm (130-400) 09/09/22 16:15 MPV 10.5 fL (7.4-10.4) H 09/09/22 16:15 Neut % (Auto) 75.3 % 09/09/22 16:15 Lymph % (Auto) 13.7 % 09/09/22 16:15 [place] % (Auto) 9.6 % 09/09/22 16:15 Eos % (Auto) 0.3 % 09/09/22 16:15 Baso % (Auto) 0.5 % 09/09/22 16:15 Neut # (Auto) 8.60 10^3/uL (1.8-7.7) H 09/09/22 16:15 Lymph # (Auto) 1.6 10^3/uL (0.8-4.8) 09/09/22 16:15 [place] # (Auto) 1.1 10^3/uL (0.2-0.9) H 09/09/22 16:15 Eos # (Auto) 0.0 10^3/uL (0.0-0.8) 09/09/22 16:15 Baso # (Auto) 0.1 10^3/uL (0.0-0.1) 09/09/22 16:15 Nucleated RBC % (auto) 0 % 09/09/22 16:15 Nucleated RBCs # 0.0 /100WBC 09/09/22 16:15 Sodium 129 mmol/L (136-145) L 09/09/22 16:15 Potassium 4.6 mmol/L (3.5-5.1) 09/09/22 16:15 Chloride 91 mmol/L (98-107) L 09/09/22 16:15 Carbon Dioxide 24 mmol/L (22-29) 09/09/22 16:15 Anion Gap 18.6 (5-19) 09/09/22 16:15 BUN 30 mg/dL (8-23) H 09/09/22 16:15 Creatinine 0.8 mg/dL (0.5-0.9) 09/09/22 16:15 GFR Calculation Not Reportable 09/09/22 16:15 Glucose 249 mg/dL (65-115) H 09/09/22 16:15 Calculated Osmolality 283 mOsm/kg (285-295) L 09/09/22 16:15 Calcium 10.1 mg/dL (8.5-10.5) 09/09/22 16:15 Discharge Plan Discharge Patient Disposition: Home Clinical Impression: Orthostasis Condition: Stable Prescriptions: Discontinued spironolactone 50 mg tablet 50 mg PO DAILY No Action lysine 1,000 mg tablet 1,000 mg PO DAILY (DME) lancets [OneTouch Delica Lancets] 33 gauge misc See Rx Instructions .Route Rx Instructions: As directed allopurinol 300 mg tablet 300 mg PO DAILY Hold Instructions: Resume on 05/18/22. montelukast [Singulair] 10 mg tablet 10 mg PO DAILY multivitamin Tablet 1 tab PO DAILY omeprazole 40 mg capsule,delayed release(DR/EC) 40 mg PO DAILY cholecalciferol (vitamin D3) 50 mcg (2,000 unit) capsule 50 mcg PO DAILY Farxiga 5 mg tablet 5 mg PO DAILY Qty: 90 3RF azelastine 137 mcg (0.1 %) aerosol,spray 2 spray intranasal BID PRN (Reason: Nasal Congestion) Rx Instructions: administer into each nostril furosemide 20 mg tablet 20 mg PO DAILY docusate sodium [Dulcolax Stool Softener (dss)] 100 mg capsule 100 mg PO DAILY simvastatin 40 mg tablet 40 mg PO DAILY Qty: 30 6RF aspirin [Adult Aspirin Regimen] 81 mg tablet,delayed release (DR/EC) 81 mg PO DAILY Qty: 30 0RF metoprolol tartrate 25 mg tablet 12.5 mg PO BID Qty: 90 3RF Xarelto 20 mg tablet 20 mg PO DAILY Qty: 90 3RF Rx Instructions: must administer with evening meal glipizide 5 mg tablet extended release 24 hr 5 mg PO DAILY metformin 500 mg tablet extended release 24 hr 1,000 mg PO BID sennosides-docusate sodium [Stool Softener-Laxative] 8.6-50 mg Tablet 1 tab PO BID Qty: 30 0RF gabapentin 100 mg Capsule 100 mg PO BID Qty: 60 0RF ferrous gluconate 324 mg (37.5 mg iron) tablet 324 mg PO BID Qty: 60 0RF (DME) blood-glucose meter [Accu-Chek Guide Glucose Meter] Misc See Rx Instructions .Route Qty: 1 0RF Rx Instructions: As directed Discharge Orders: Discharge ED (Routine); Ordered 09/09/22 Ordered By: Bryan Terry Referrals: Bran Bai DO [Primary Care Provider] - Discharge Diet: Usual diet Discharge Activity: Increase activity as tolerated Patient Instructions: Opioid Safety, Pain Management Activity Restrictions/Additional Instructions: You were seen for dizziness today. Your blood pressure is decreasing when you stand which is likely causing your symptoms. Recommend that you stop the spironolactone. You were given IV fluids while here to help improve your symptoms. Follow-up with your primary care doctor within the next 10 to 14 days to recheck your blood pressure. Coding Level of Care Code ED Video Arcade Manager for Peewee Fwd Exam Detailed
[2022-09-09 16:08] VITALS: BP 108/75; BP 124/68; BP 129/70; PULSE 73; PULSE 80; PULSE 87
--- NOTE | 2022-09-09 16:08 | CTR_ITS ---
PROCEDURE INFORMATION: Exam: CT Head Without Contrast Exam date and time: 09/09/2022 4:17 PM Age: 76 years old Clinical indication: Visual disturbance; Additional info: Vision changes TECHNIQUE: Imaging protocol: Computed tomography of the head without contrast. Radiation optimization: All CT scans at this facility use at least one of these dose optimization techniques: automated exposure control; mA and/or kV adjustment per patient size (includes targeted exams where dose is matched to clinical indication); or iterative reconstruction. COMPARISON: CT head wo con* [id number] 04/26/2022 5:32 PM RADIATION DOSE METRICS: Total DLP (mGy-cm): 1103.48 FINDINGS: Brain: Moderate diffuse white matter disease likely reflecting chronic microvascular ischemic changes. Cerebral ventricles: No ventriculomegaly. Paranasal sinuses: Paranasal sinus opacifications. Mastoid air cells: Visualized mastoid air cells are well aerated. Bones/joints: Unremarkable. No acute fracture. Soft tissues: Unremarkable. CT/CT head wo con* [id number] IMPRESSION: Negative for intracranial hemorrhage or mass effect.
[2022-09-09 16:21] LABS: Basophils # 0.1 10^3/uL (0.0-0.1); Basophils % 0.5 %; Eosinophils % 0.3 %; Hematocrit 40.3 % (37.0-47.0); Hemoglobin 12.9 g/dL (11.5-15.3); Lymphocytes # 1.6 10^3/uL (0.8-4.8); Lymphocytes % 13.7 %; Mean Corpuscular Hemoglobin 27.7 pg (28.0-34.0); Mean Corpuscular Volume 86.5 fl (81-99); Mean Platelet Volume 10.5 fL (7.4-10.4); Monocytes # 1.1 10^3/uL (0.2-0.9); Monocytes % 9.6 %; Neutrophils % 75.3 %; Nucleated Red Blood Cells % 0 %; Platelet Count 228 10^3/cmm (130-400); Red Blood Count 4.66 10^6/uL (4.1-5.3); Red Cell Distribution Width 18.4 % (12.1-15.1); White Blood Count 11.4 10^3/uL (4.0-10.0)
[2022-09-09 16:35] LABS: Anion Gap 18.6 (5-19); Blood Urea Nitrogen 30 mg/dL (8-23); Calcium 10.1 mg/dL (8.5-10.5); Carbon Dioxide 24 mmol/L (22-29); Chloride 91 mmol/L (98-107); Glucose 249 mg/dL (65-115); Osmolality Calculated 283 mOsm/kg (285-295); Potassium 4.6 mmol/L (3.5-5.1); Sodium 129 mmol/L (136-145)
--- NOTE | 2022-09-09 16:38 | ECG_ITS ---
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 Measurements Intervals [place] Rate: 75 P: 79 [place]: 193 QRS: -50 QRSD: 152 T: 75 QT: 400 QTc: 448 Interpretive Statements ELECTRONIC VENTRICULAR PACEMAKER Compared to ECG 06/11/2022 22:33:35 No significant changes Electronically Signed On 09-10-2022 19:45:59 ENERGY RISK MANAGEMENT ANALYST by Ed Weldon M.D. [email or web address] [email or web address] [email or web address] [id number]
[2022-09-09] MEDS: sodium chloride 0.9% 1,000 ML 999 ML IV (16:39)
[2022-09-09 16:46] VITALS: BP 129/70; PULSE 73; RESP 18; O2SAT 97
[2022-09-09 19:21] VITALS: BP 125/64; PULSE 71; RESP 22; O2SAT 98
[2022-09-09 19:26] VITALS: BP 121/66; BP 151/77; PULSE 70; PULSE 78; PULSE 90
[2022-09-09 19:41] VITALS: BP 125/64; PULSE 71; RESP 22; O2SAT 98
== END 2022-09-09 19:45 | disposition home or self-care (01) ==
PROVIDERS: Emergency Provider Family Medicine; PCP Family Medicine
DX: I95.1 Orthostatic hypotension (principal); Z79.82 Long term (current) use of aspirin; Z79.84 Long term (current) use of oral hypoglycemic drugs; E11.9 Type 2 diabetes mellitus without complications; I10 Essential (primary) hypertension; E78.5 Hyperlipidemia, unspecified; Z95.0 Presence of cardiac pacemaker
CPT/HCPCS: 70450; 80048; 85025; 93005; 96360; 99284; J7030

== ENCOUNTER → 2022-09-14 08:01 | Outpatient (BNVA) | payer MEDICARE, OTHER, SELFPAY | PROVIDERS: PCP Family Medicine; Visit Provider Nurse Practitioner Family | DX: I95.1 Orthostatic hypotension (principal); Z95.0 Presence of cardiac pacemaker | CPT/HCPCS: 99213 ==

== ENCOUNTER → 2022-09-18 09:16 | Outpatient (BNVA) | payer MEDICARE, OTHER, SELFPAY | PROVIDERS: PCP Family Medicine; Visit Provider Family Medicine | DX: E87.1 Hypo-osmolality and hyponatremia (principal); R42 Dizziness and giddiness; E11.9 Type 2 diabetes mellitus without complications; I95.1 Orthostatic hypotension | CPT/HCPCS: 80048; 81000 ==

== ENCOUNTER → 2022-09-22 08:40 | Outpatient (BNVA) | payer MEDICARE, OTHER, SELFPAY | PROVIDERS: PCP Family Medicine; Visit Provider Nurse Practitioner Family | DX: I48.91 Unspecified atrial fibrillation (principal); I10 Essential (primary) hypertension; Z79.01 Long term (current) use of anticoagulants | CPT/HCPCS: 99213 ==

== ENCOUNTER 2022-09-25 14:07 | Outpatient (CLI) | payer MEDICARE, OTHER, SELFPAY ==
[2022-09-30 15:46] LABS: HE4 ROMA Monitoring 86 pmol/L; ROMA CA125 158 U/mL (<35); ROMA Postmenopausal 5.62 (<2.77); ROMA Premenopausal 2.54 (<1.31)
== END 2022-09-25 14:08 | disposition home or self-care (01) ==
LOC: LAB 14:10
PROVIDERS: PCP Family Medicine; Visit Provider Obstetrics & Gynecology
DX: N83.8 Other noninflammatory disorders of ovary, fallopian tube and broad ligament (principal)
CPT/HCPCS: 36415; 81500

== ENCOUNTER → 2022-10-10 08:55 | Outpatient (BNVA) | payer MEDICARE, OTHER, SELFPAY | PROVIDERS: PCP Family Medicine; Visit Provider Family Medicine | DX: R39.9 Unspecified symptoms and signs involving the genitourinary system (principal); N39.0 Urinary tract infection, site not specified; N12 Tubulo-interstitial nephritis, not specified as acute or chronic; E11.9 Type 2 diabetes mellitus without complications; L21.9 Seborrheic dermatitis, unspecified | CPT/HCPCS: 81000; 87077; 87086; 87184 ==

== ENCOUNTER → 2022-10-23 12:26 | Outpatient (BNVA) | payer MEDICARE, OTHER, SELFPAY | PROVIDERS: PCP Family Medicine; Visit Provider Obstetrics & Gynecology | DX: N83.8 Other noninflammatory disorders of ovary, fallopian tube and broad ligament (principal) | CPT/HCPCS: 76830 ==

== ENCOUNTER → 2022-10-24 09:27 | Outpatient (BNVA) | payer MEDICARE, OTHER, SELFPAY | PROVIDERS: PCP Family Medicine; Visit Provider Family Medicine | DX: N39.0 Urinary tract infection, site not specified (principal); Z87.440 Personal history of urinary (tract) infections; N83.8 Other noninflammatory disorders of ovary, fallopian tube and broad ligament; L89.891 Pressure ulcer of other site, stage 1 | CPT/HCPCS: 81000 ==

== ENCOUNTER → 2022-11-10 13:35 | Outpatient (BNVA) | payer MEDICARE, OTHER, SELFPAY | PROVIDERS: PCP Family Medicine; Visit Provider Obstetrics & Gynecology | DX: N83.8 Other noninflammatory disorders of ovary, fallopian tube and broad ligament (principal) | CPT/HCPCS: 80053 ==

== ENCOUNTER 2022-11-28 06:17 | Outpatient (CLI) | payer MEDICARE, OTHER, SELFPAY ==
[2022-11-28] MEDS: iohexol 350 mg/mL 500 mL Btl (per mL) IV (07:50)
--- NOTE | 2022-11-28 08:00 | CT_ITS ---
WS: [id number] CT ABDOMEN PELVIS TECHNIQUE: Noncontrast CT of the abdomen and contrast-enhanced CT of the abdomen and pelvis with neptali nal and sagittal reformatted images. CLINICAL INFORMATION: N83.8 - Other noninflammatory disorders of ovary, fallopi... COMPARISON: Ultrasound October 23, 2022. CT April 28, 2022 DLP: 1082.[address] scans at [facility] use at least one of these dose optimization techniques: automated e xposure control; mA and/or kV adjustment per patient size (includes targeted exams where dose is matc hed to clinical indication); or iterative reconstruction. FINDINGS: Prior hysterectomy. Bilateral ovaries are unchanged in appearance compared to April 28, 2022. No evide nce of ovarian mass. LEFT ovary measures 3.1 CM. RIGHT ovary measures 3.5 cm unchanged. Lung bases are well aerated. Mild diffuse fatty infiltration liver. Normal portal vein and splenic v ein. Fatty atrophy of the pancreas. Tiny esophageal hiatal hernia. Adrenal glands are normal. Splenic artery calcification. Fatty atrophy of the pancreas. Normal portal vein and splenic vein. Normal spl een. Adrenal glands are normal. Normal renal parenchymal enhancement. No hydronephrosis. Small RIGHT renal cyst. Pelvic phleboliths. Normal caliber abdominal aorta. Celiac and SMA are patent. No evidence of high-grade small or large bowel destruction. Normal appendix in the RIGHT lower quadra nt. Tiny fat-containing umbilical hernia. Mild lumbar curve. Mild compression superior endplate L2 ec centric to the RIGHT is new from previous. No retropulsion. CT/CT abdomen pelvis wo/w [id number] IMPRESSION: 1. Prominent bilateral ovaries are unchanged in appearance compared to previou s. 2. Hepatomegaly with diffuse fatty infiltration liver. 3. No hydronephrosis in either kidney. Normal renal parenchymal enhancement. 4. No obstructing renal or ureteral calculi. No hydronephrosis in either kidne y. 5. Small esophageal hiatal hernia. 6. Tiny fat-containing umbilical hernia. 7. Mild compression superior endplate L2 eccentric to the RIGHT is new from pr evious. No retropulsion.
== END 2022-11-28 06:18 | disposition home or self-care (01) ==
LOC: RAD 06:18
PROVIDERS: PCP Family Medicine; Visit Provider Obstetrics & Gynecology
DX: N83.8 Other noninflammatory disorders of ovary, fallopian tube and broad ligament (principal)
CPT/HCPCS: 74178; Q9967

== ENCOUNTER 2022-12-18 08:23 | Outpatient (CLI) | payer MEDICARE, OTHER, SELFPAY ==
--- NOTE | 2022-12-18 08:43 | MM_ITS ---
WS: [id number] BILATERAL SCREENING DIGITAL TOMOSYNTHESIS MAMMOGRAM WITH CAD HISTORY: SCREENING COMPARISON: None available. Bilateral CC and MLO views with tomosynthesis and synthetic mammography submitted. Computer aided det ection analyzed. Incomplete inclusion of the pectoralis muscles. Limited lateral evaluation of each breast due to the pacemaker. Breast composition: There are scattered areas of fibroglandular density. No suspicious masses, microc alcifications or architectural distortion. There are a few small calcifications. MM/[place] [id number] IMPRESSION: BI-RADS: 2-Benign FOLLOW UP: 1 Year Follow-up
== END 2022-12-18 08:24 | disposition home or self-care (01) ==
LOC: RAD 08:29
PROVIDERS: PCP Family Medicine; Visit Provider Family Medicine
DX: Z12.31 Encounter for screening mammogram for malignant neoplasm of breast (principal)
CPT/HCPCS: 77063; 77067

== ENCOUNTER → 2023-01-09 13:02 | Outpatient (BNVA) | payer MEDICARE, OTHER, SELFPAY | PROVIDERS: PCP Family Medicine; Visit Provider Nurse Practitioner Family | DX: I10 Essential (primary) hypertension (principal); Z95.0 Presence of cardiac pacemaker; I48.91 Unspecified atrial fibrillation | CPT/HCPCS: 93288; 99214 ==

== ENCOUNTER → 2023-02-20 09:50 | Outpatient (BNVA) | payer MEDICARE, OTHER, SELFPAY | PROVIDERS: PCP Family Medicine; Visit Provider Family Medicine | DX: E11.9 Type 2 diabetes mellitus without complications (principal) | CPT/HCPCS: 80053; 80061; 83036; 83721; 85025 ==

== ENCOUNTER 2023-03-17 05:53 | Inpatient (IN) | payer MEDICARE, OTHER, SELFPAY ==
[2023-03-17] VITALS (10 sets, daily range): BP systolic 100–158; BP diastolic 55–100; PULSE 61–93; RESP 16–18; TEMP 36.6–38.9; O2SAT 90–97; BMI 28.3
--- NOTE | 2023-03-17 05:56 | ECG_ITS ---
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 Measurements Intervals [place] Rate: 92 P: 74 DC: 198 QRS: -70 QRSD: 162 T: 99 QT: 394 QTc: 488 Interpretive Statements ELECTRONIC VENTRICULAR PACEMAKER ABNORMAL RHYTHM ECG Compared to ECG 09/09/2022 16:38:15 No significant changes Electronically Signed On 03-17-2023 14:50:27 CDT by Cira Hargrove M.D. [id number] f
--- NOTE | 2023-03-17 06:08 | XRR_ITS ---
PROCEDURE INFORMATION: Exam: XR Chest Exam date and time: 03/17/2023 6:26 AM Age: 77 years old Clinical indication: Dyspnea; Prior surgery; Surgery date: 6+ months; Surgery type: Pacer; Additional info: Dyspnea/cough TECHNIQUE: Imaging protocol: Radiologic exam of the chest. Views: 1 view. COMPARISON: CR XR chest 1V portable [id number] 06/11/2022 9:00 PM FINDINGS: Tubes, catheters and devices: Permanent pacemaker appears intact. Lungs: Unremarkable. No consolidation. Pleural spaces: Unremarkable. No pleural effusion. No pneumothorax. Heart/Mediastinum: Unremarkable. No cardiomegaly. Bones/joints: Unremarkable. XR/XR chest 1V portable [id number] IMPRESSION: No acute abnormality.
[2023-03-17 06:14] LABS: Basophils # 0.1 10^3/uL (0.0-0.1); Basophils % 0.4 %; Eosinophils % 0.1 %; Hematocrit 41.7 % (37.0-47.0); Hemoglobin 13.4 g/dL (11.5-15.3); Lymphocytes # 0.6 10^3/uL (0.8-4.8); Mean Corpuscular HGB Conc 32.1 g/dL (30.0-36.0); Mean Corpuscular Volume 93.5 fl (81-99); Mean Platelet Volume 10.6 fL (7.4-10.4); Monocytes # 1.2 10^3/uL (0.2-0.9); Monocytes % 8.3 %; Neutrophils # 12.32 10^3/uL (1.8-7.7); Neutrophils % 86.3 %; Nucleated Red Blood Cells % 0 %; Platelet Count 202 10^3/cmm (130-400); Red Blood Count 4.46 10^6/uL (4.1-5.3); Red Cell Distribution Width 12.5 % (12.1-15.1); White Blood Count 14.3 10^3/uL (4.0-10.0)
--- NOTE | 2023-03-17 06:26 | ED_ITS ---
HPI - Weakness General: Chief complaint: Weakness Stated complaint: Weakness/ N/V Time Seen by Provider: 03/17/23 06:03 Source: patient Mode of arrival: EMS History of Present Illness: 77-year-old female who presents to the emergency room with complaints of generalized weakness nausea and vomiting. She reports a fever at home presents here with a fever as well. She denies dysuria urgency or frequency she has not had any chest pain abdominal pain no diarrhea. Patient states she is so weak she can barely walk. She was seen last month for an abscessed tooth according to her old office notes but denies any jaw or tooth pain at this time. MD Complaint: generalized weakness Onset (ago): hour(s) (6) Duration: constant Location: generalized Severity: severe Relieving factors: none Exacerbating factors: none Associated symptoms: Reports decreased appetite, fever(s), myalgias and nausea; Denies chest pain, chills, confusion, melena, diaphoresis, dysuria, easy bruising, headache(s), rash, short of breath, syncope or vomiting Review of Systems Const: Reports: fever(s), fatigue and malaise; Denies: chills or diaphoresis ENMT: Denies: throat pain, ear or mastoid pain, nasal discharge or nasal congestion Card: Denies: chest pain or syncope Resp: Denies: dyspnea, productive cough or non-productive cough GI: Reports: nausea; Denies: abdominal pain, vomiting or melena : Denies: dysuria, urinary frequency or urinary urgency Musc: Denies: neck pain or back pain Skin/Breast: Denies: rash or pruritus Neuro: Denies: headache(s) or confusion Lopez/Lymph: Denies: easy bruising PFSH ED PFSH: Medical History (Updated 03/17/23 @ 11:56 by Bryan Terry DO) Anemia Atrial fibrillation Diabetes Dizziness GERD (gastroesophageal reflux disease) HTN (hypertension) Hyperlipidemia Pacemaker Pyelonephritis Surgical History Hx of hysterectomy Family History Mother Hypertension Cancer unknown type. Grandmother Stroke Brother Colon cancer Denies family history of Ovarian cancer Diabetes Heart disease Hypercholesteremia Breast cancer Uterine cancer Thyroid disease Social History Smoking and tobacco status: never smoked Second hand smoke exposure: No Smoking risk assessment/counseling performed?: No Alcohol intake: never Desire information about alcohol rehabilitation?: No Substance/Drug Use: never Desire information about substance/drug rehabilitation?: No Counseling given: No Female Reproductive History: Spontaneous abortions: No Physical Exam Const: GENERAL APPEARANCE: cooperative and comfortable ORIENTATION/CONSCIOUSNESS: Yes awake, Yes oriented to person, Yes oriented to place and Yes oriented to time HENMT: COMMON NORMALS: normocephalic, atraumatic and hearing grossly normal bilaterally HEAD & SCALP: normocephalic and atraumatic Resp: COMMON NORMALS: normal respiratory effort, No retractions, No use of accessory muscles and clear to auscultation bilaterally AUSCULTATION: clear to auscultation bilaterally Cardio: COMMON NORMALS: regular rate, regular rhythm and No murmurs present (Cardio) RATE: regular rate RHYTHM: regular rhythm GI: COMMON NORMALS: Soft to palpation and No hepatosplenomegaly present AUSCULTATION: Yes normoactive bowel sounds PALPATION: Yes Soft to palpation, No Tenderness to palpation present (GI), No Guarding due to palpation present (GI) and Yes No hepatosplenomegaly present Extremity: COMMON NORMALS: normal to inspection, capillary refill normal, no clubbing, cyanosis or edema, no calf tenderness and no pedal edema Neuro: SENSORIUM/ORIENTATION: Yes oriented to person, Yes oriented to place and Yes oriented to time Skin: COMMON NORMALS: no rashes or lesions noted GENERAL SKIN EXAM: no rashes or lesions noted Course Vital Signs: Vital signs: Vital Signs Temperature 98 F 03/17/23 09:48 Pulse Rate 75 03/17/23 11:21 Respiratory Rate 18 03/17/23 09:48 Blood Pressure 133/77 03/17/23 09:48 Pulse Oximetry 92 03/17/23 11:21 Oxygen Delivery Me thod Room Air 03/17/23 11:21 Oxygen Flow Rate 1 03/17/23 08:02 MDM - Weakness Medical Decision Making Acute pyelonephritis. Patient is febrile with white count was left shift lactic acid not elevated. CT does not show any abscess or obstructive. Admit started on ceftriaxone discussed with hospitalist orders written Medical Records I reviewed the patient's medical records. Lab Data I reviewed the patient's lab results. 03/17/23 06:05 03/17/23 06:05 Radiology Impressions Chest X-Ray 03/17/23 06:08 IMPRESSION: No acute abnormality. Abdomen/Pelvis CT 03/17/23 07:06 IMPRESSION: No acute abnormality. Laboratory Results WBC 14.3 10^3/uL (4.0-10.0) H 03/17/23 06:05 RBC 4.46 10^6/uL (4.1-5.3) 03/17/23 06:05 Hgb 13.4 g/dL (11.5-15.3) 03/17/23 06:05 Hct 41.7 % (37.0-47.0) 03/17/23 06:05 MCV 93.5 fl (81-99) 03/17/23 06:05 MCH 30.0 pg (28.0-34.0) 03/17/23 06:05 MCHC 32.1 g/dL (30.0-36.0) 03/17/23 06:05 RDW 12.5 % (12.1-15.1) 03/17/23 06:05 Plt Count 202 10^3/cmm (130-400) 03/17/23 06:05 MPV 10.6 fL (7.4-10.4) H 03/17/23 06:05 Neut % (Auto) 86.3 % 03/17/23 06:05 Lymph % (Auto) 4.0 % 03/17/23 06:05 [place] % (Auto) 8.3 % 03/17/23 06:05 Eos % (Auto) 0.1 % 03/17/23 06:05 Baso % (Auto) 0.4 % 03/17/23 06:05 Neut # (Auto) 12.32 10^3/uL (1.8-7.7) H 03/17/23 06:05 Lymph # (Auto) 0.6 10^3/uL (0.8-4.8) L 03/17/23 06:05 [place] # (Auto) 1.2 10^3/uL (0.2-0.9) H 03/17/23 06:05 Eos # (Auto) 0.0 10^3/uL (0.0-0.8) 03/17/23 06:05 Baso # (Auto) 0.1 10^3/uL (0.0-0.1) 03/17/23 06:05 Nucleated RBC % (auto) 0 % 03/17/23 06:05 Nucleated RBCs # 0.0 /100WBC 03/17/23 06:05 Sodium 133 mmol/L (136-145) L 03/17/23 06:05 Potassium 3.7 mmol/L (3.5-5.1) 03/17/23 06:05 Chloride 95 mmol/L (98-107) L 03/17/23 06:05 Carbon Dioxide 25 mmol/L (22-29) 03/17/23 06:05 Anion Gap 16.7 (5-19) 03/17/23 06:05 BUN 19 mg/dL (8-23) 03/17/23 06:05 Creatinine 1.0 mg/dL (0.5-0.9) H 03/17/23 06:05 GFR Calculation Not Reportable 03/17/23 06:05 Glucose 251 mg/dL (65-115) H 03/17/23 06:05 Calculated Osmolality 287 mOsm/kg (285-295) 03/17/23 06:05 Lactic Acid 2.0 mmol/L (0.5-2.2) 03/17/23 06:05 Calcium 9.5 mg/dL (8.5-10.5) 03/17/23 06:05 Total Bilirubin 0.7 mg/dL (0.15-1.2) 03/17/23 06:05 AST 19 U/L (0-32) 03/17/23 06:05 ALT 23 U/L (0-33) 03/17/23 06:05 Alkaline Phosphatase 109 U/L (35-105) H 03/17/23 06:05 Creatine Kinase 12 U/L (26-192) L 03/17/23 06:05 Troponin T Baseline 15 ng/L (0-10) H 03/17/23 06:05 Total Protein 7.4 g/dL (6.6-8.7) 03/17/23 06:05 Albumin 4.2 g/dL (3.5-5.2) 03/17/23 06:05 Globulin 3.2 g/dL (1.3-4.6) 03/17/23 06:05 Urine Color Straw (Yellow) 03/17/23 06:19 Urine Appearance Clear (CLEAR) 03/17/23 06:19 Urine pH 5 (5-7) 03/17/23 06:19 Ur Specific Agness 1.010 (1.005-1.030) 03/17/23 06:19 Urine Protein Neg (Negative) 03/17/23 06:19 Urine Glucose (UA) 4+ (Normal) H 03/17/23 06:19 Urine Ketones 1+ (Negative) H 03/17/23 06:19 Urine Blood 3+ (Negative) H 03/17/23 06:19 Urine Nitrate Negative (Negative) 03/17/23 06:19 Urine Bilirubin Neg (Negative) 03/17/23 06:19 Urine Urobilinogen Norm mg/dL (Negative) 03/17/23 06:19 Ur Leukocyte Esterase 1+ (Negative) H 03/17/23 06:19 Urine RBC 5-10 /hpf (0-2) H 03/17/23 06:19 Urine WBC 15-25 /hpf (0-5) H 03/17/23 06:19 Ur Squamous Epith Cells 0-4 /hpf (0-5) H 03/17/23 06:19 Amorphous Sediment Not Reportable 03/17/23 06:19 Urine Bacteria 2+ /hpf (NONE) H 03/17/23 06:19 Discharge Plan Discharge Patient Disposition: Admitted As Inpatient Admit Provider: Kael Hernandez Clinical Impression: Acute pyelonephritis Condition: Stable Coding Level of Care Code ED Predatory Game Hunter for Peewee Whitfield
[2023-03-17 06:29] LABS: Alanine Aminotransferase 23 U/L (0-33); Albumin Level 4.2 g/dL (3.5-5.2); Alkaline Phosphatase 109 U/L (35-105); Anion Gap 16.7 (5-19); Aspartate Amino Transferase 19 U/L (0-32); Blood Urea Nitrogen 19 mg/dL (8-23); Calcium 9.5 mg/dL (8.5-10.5); Carbon Dioxide 25 mmol/L (22-29); Chloride 95 mmol/L (98-107); Creatine Phosphokinase 12 U/L (26-192); Globulin 3.2 g/dL (1.3-4.6); Glucose 251 mg/dL (65-115); Osmolality Calculated 287 mOsm/kg (285-295); Potassium 3.7 mmol/L (3.5-5.1); Sodium 133 mmol/L (136-145); Total Bilirubin 0.7 mg/dL (0.15-1.2); Total Protein 7.4 g/dL (6.6-8.7)
[2023-03-17 06:30] LABS: Troponin(5th) Baseline 15 ng/L (0-10)
[2023-03-17] MEDS: sodium chloride 0.9% 1,000 ML 999 ML IV (06:32)
[2023-03-17 06:44] LABS: Glucose Urine UA 4+ (Normal); Protein Urine Neg (Negative); Urine Appearance Clear (CLEAR); Urine Color Straw (Yellow); pH Urine 5 (5-7)
[2023-03-17 06:45] LABS: Add Urine Culture? Yes; Add Urine Microscopic? YES; Bacteria Urine 2+ /hpf; Bilirubin Urine Neg (Negative); Blood Urine 3+ (Negative); Ketones Urine 1+ (Negative); Leukocyte Esterase Urine 1+ (Negative); Nitrate Urine Negative (Negative); Squamous Epithelial Cell Urine 0-4 /hpf (0-5); Urobilinogen Urine Norm (Negative); WBC Urine 15-25 /hpf (0-5)
--- NOTE | 2023-03-17 07:06 | CTR_ITS ---
PROCEDURE INFORMATION: Exam: CT Abdomen And Pelvis Without Contrast Exam date and time: 03/17/2023 7:38 AM Age: 77 years old Clinical indication: Abdominal pain; Additional info: Flank pain TECHNIQUE: Imaging protocol: Computed tomography of the abdomen and pelvis without contrast. Radiation optimization: All CT scans at this facility use at least one of these dose optimization techniques: automated exposure control; mA and/or kV adjustment per patient size (includes targeted exams where dose is matched to clinical indication); or iterative reconstruction. REPORTING DATA: Count of CT and Cardiac NM exams in prior 12 months: This patient has received 4 known CTs and 0 known cardiac nuclear medicine studies in the 12 months prior to the current study. COMPARISON: CT abdomen pelvis wo/w [id number] 11/28/2022 7:26 AM RADIATION DOSE METRICS: Total DLP (mGy-cm): 570.36 FINDINGS: Lungs: Bibasilar subsegmental atelectasis. Diaphragm: Small sliding hiatal hernia. Liver: Normal. No mass. Gallbladder and bile ducts: Normal. No calcified stones. No ductal dilation. Pancreas: Normal. No ductal dilation. Spleen: Small benign calcified granulomas in the spleen. Adrenal glands: Normal. No mass. Kidneys and ureters: Normal. No hydronephrosis. Stomach and bowel: Mild sigmoid diverticulosis. No diverticulitis. No significant bowel dilatation or evidence of obstruction. Appendix: Normal appendix. Intraperitoneal space: Unremarkable. No free air. No significant fluid collection. Vasculature: The abdominal aorta and iliac arteries are calcified. No abdominal aortic aneurysm. Lymph nodes: There are stable mildly enlarged lymph nodes in the barby hepatis. No other lymphadenopathy.. Urinary bladder: Unremarkable as visualized. Reproductive: Hysterectomy. Ovaries are prominent but unchanged. Bones/joints: There is old mild compression fracture of the superior endplate of L2. No acute bony abnormality. Soft tissues: Unremarkable. CT/CT kidney stone [id number] IMPRESSION: No acute abnormality.
--- NOTE | 2023-03-17 08:18 | P.HP_ITS ---
Providers/Chief Complaint Admitting Physician: Kael Hernandez MD Primary Care Provider: Bran Bai DO Chief Complaint: Weakness/ N/V History of Present Illness Sherrell Bruner is a 77 year old female with Hx of HTN, pacemaker, CKD, DM2, Afib on Xeralto presented to ED with weakness, fever and N/V. reports. Onset of Sx 3dpta. Describes increased urgency and frequency of urination. Dark foul smelling urine and development of weakness, dizziness and difficulty ambulating on her her own. 2dpt developed RLQ abd and suprapubic abd pain. pt attempted to hydrate but admitted to poor intake. 1dpt developed worsening bilateral back pain R>L. Febrile 1dpta and this AM. Yday developed nausea and 3 episodes of non bloody emesis. has had difficulty with PO intake but able to tolerate a litle. Per records pt had E.coli UTI in 10/16/22 with pansensitivity. Seen at bedside on med surg floor. feeling improved s/p IV NS in ED. states she currently has increased frequency,abd pain, flank pain. nausea has improved. Denies CP, palpitations, SOB, diarrhea, constipation. has been compliant with medication except for this AM. Scheduled for bilateral oophecterectomy scheduled for 03/20/23 in [place]. Review of Systems General: Reports: 10 or more systems reviewed and unremarkable except in HPI and below Const: Reports: fever(s), chills and body aches Eyes: Denies: change in vision or blurry vision ENMT: Denies: throat pain, odynophagia or hoarseness Card: Denies: chest pain, palpitations or dyspnea on exertion Resp: Denies: dyspnea, productive cough, non-productive cough or wheezing GI: Reports: abdominal pain, nausea and vomiting; Denies: diarrhea or constipation Musc: Reports: back pain; Denies: neck pain or joint pain Skin/Breast: Denies: rash or new lesions Neuro: Denies: headache(s), numbness in extremities or weakness in extremities Medications/Allergies Home Medications Medication Instructions Recorded Confirmed Last Taken Type allopurinol 300 mg tablet 300 mg PO DAILY 02/02/21 03/17/23 03/16/23 History lysine 1,000 mg tablet 1,000 mg PO DAILY 02/02/21 03/17/23 03/16/23 History montelukast 10 mg tablet 10 mg PO DAILY 02/02/21 03/17/23 03/16/23 History (Singulair) multivitamin 1 tab PO DAILY 02/02/21 03/17/23 03/16/23 History omeprazole 40 mg capsule,delayed 40 mg PO DAILY 05/16/21 03/17/23 03/16/23 History release cholecalciferol (vitamin D3) 50 50 mcg PO DAILY 02/15/22 03/17/23 03/16/23 History mcg (2,000 unit) capsule glipizide 5 mg tablet, extended 5 mg PO DAILY 04/26/22 03/17/23 03/16/23 History release 24 hr metformin 500 mg tablet,extended 1,000 mg PO BID 04/26/22 03/17/23 03/16/23 History release 24 hr ferrous gluconate 324 mg (37.5 mg 324 mg PO BID #60 tabs 05/04/22 03/17/23 03/16/23 Rx iron) tablet gabapentin 100 mg capsule 100 mg PO BID #60 caps 05/04/22 03/17/23 03/16/23 Rx rivaroxaban 20 mg tablet (Xarelto) 20 mg PO DAILY #90 tabs 06/13/22 03/17/23 03/16/23 Rx aspirin 81 mg tablet,delayed 81 mg PO DAILY #30 tabs 08/02/22 03/17/23 03/16/23 Rx release (Adult Aspirin Regimen) docusate sodium 100 mg capsule 100 mg PO DAILY 08/02/22 03/17/23 03/16/23 History (Dulcolax Stool Softener (docusate)) metoprolol tartrate 25 mg tablet 12.5 mg PO BID #90 tabs 08/02/22 03/17/23 03/16/23 Rx simvastatin 40 mg tablet 40 mg PO DAILY #30 tabs 08/02/22 03/17/23 03/16/23 Rx spironolactone 25 mg tablet 12.5 mg PO DAILY #30 tabs 09/14/22 03/17/23 03/16/23 Rx dapagliflozin 5 mg tablet (Farxiga) 5 mg PO DAILY #90 tabs 09/18/22 03/17/23 Unknown Rx furosemide 40 mg tablet 20 mg PO DAILY 03/17/23 03/17/23 03/16/23 History polyethylene glycol 3350 17 4 g PO DAILY 03/17/23 03/17/23 03/16/23 History gram/dose oral powder (Miralax) Allergies Allergy/AdvReac Type Severity Reaction Status Date / Time No Known Allergies Allergy Verified 03/17/23 06:02 PFSH Acute PFSH: Medical History (Updated 03/17/23 @ 10:24 by Kael Hernandez MD) Anemia Atrial fibrillation Diabetes Dizziness GERD (gastroesophageal reflux disease) HTN (hypertension) Hyperlipidemia Pacemaker Pyelonephritis Surgical History Hx of hysterectomy Family History Mother Hypertension Cancer unknown type. Grandmother Stroke Brother Colon cancer Denies family history of Ovarian cancer Diabetes Heart disease Hypercholesteremia Breast cancer Uterine cancer Thyroid disease Social History Smoking and tobacco status: never smoked Second hand smoke exposure: No Smoking risk assessment/counseling performed?: No Alcohol intake: never Desire information about alcohol rehabilitation?: No Substance/Drug Use: never Desire information about substance/drug rehabilitation?: No Counseling given: No Female Reproductive History: Spontaneous abortions: No Vitals/I&O/Wt Last Vital Signs Temp 102.0 F H 03/17/23 05:54 Pulse 93 03/17/23 06:21 Resp 16 03/17/23 06:21 BP 118/100 03/17/23 06:21 Pulse Ox 93 03/17/23 06:21 O2 Del Method Room Air 03/17/23 05:54 Weight last 48 hrs Weight 160 lb Physical Exam Narrative: General: AOx3, no acute distress, well developed, well nourished, appears stated age psych: appropriate mood and affect. good judgment and insight. Head: atraumatic, normocephalic, no mass/lesions Ears: clear external auditory canals. Hearing intact Eyes: conjunctiva clear w/o exudate or hemorrhage. non-icteric, EOM intact, PERRLA. no signs of nystagmus Nose: nasal mucosa pink, septum midline Oropharynx: good dentition, Neck: FROM, no lymphadenopathy, no tracheal deviation, non tender, thyroid gland normal w/o mass. supple Chest: atraumatic, symmetrical CVD: RRR, normal S1 and S2, no M/R/G. 2+ pulse x 4 extremities, no JVD, no carotid bruit. Lungs: clear lung sounds in all muñoz, no rhonchi, wheezing, rales. Abdomen: suprapubic and RLQ, ND, soft, NABS. No hepatosplenomegaly, no mass. umbilicus midline w/o herniation : not done on todays examination Rectal: not done on todays examination Spine: no visible deformities, FROM, 5/5 strength, ttp R flank region with some generalized lower back pain. Extremities: FROM and 5/5 strength in BUE and BLE. Neuro: CNII-XII grossly intact. No atrophy, weakness, tremors or clonus.? 2+ DTR, no sensory abnormalities. Skin:? no rash, vesicles, lesions. Data 03/17/23 06:05 03/17/23 06:05 Micro: Microbiology 03/17/23 06:40 Blood Culture - Preliminary Blood SPECIMEN COLLECTED 03/17/23 06:34 Blood Culture - Preliminary Blood SPECIMEN COLLECTED A&P Assessment and plan (1) Sepsis: (2) Pyelonephritis: (3) Enlarged ovary: (4) Diabetes: Qualifiers: Diabetes mellitus type: type 2 Diabetes mellitus terminal press operator insulin use: without assisted use Diabetes mellitus complication status: without complication Qualified Code(s): E11.9 - Type 2 diabetes mellitus without complications (5) Hyponatremia: (6) HTN (hypertension): Qualifiers: Hypertension type: essential hypertension Qualified Code(s): I10 - Essential (primary) hypertension (7) Pacemaker: (8) Atrial fibrillation: (9) Generalized weakness: (10) Fever: (11) Anticoagulant long-term use: Plan Sepsis -2/2 presumed pyelonepritis -UTI +ve, Hx of E.coli with pansensitivity -recieved IV rocephin in ED, will change to Cipro 400mg IV BID -tylenol for fever MALICK -1L NS in ED, will give additional 1L bolus then encourage PO intake N/V -zofran Weakness -CT abd negative -likely 2/2 above DM2 -can continue home medications -LDSSI with accuchecks admit to med surg In ED: 1L NS, rocephin x 1 Cipro 400mg IV BID, pending Cx restart home medications diet as tolerated Xeralto for DVT prophylaxis Attestations Medical Necessity Statement*: patient to require 2 overlights in hospital for sepsis Coding Level of Care Code 45877 Diagnoses Sepsis A41.9 Pyelonephritis N12 Enlarged ovary N83.8 Diabetes E11.9 Diabetes mellitus type: type 2 Diabetes mellitus assisted insulin use: without assisted use Diabetes mellitus complication status: without complication Hyponatremia E87.1 HTN (hypertension) I10 Hypertension type: essential hypertension Pacemaker Z95.0 Atrial fibrillation I48.91 Generalized weakness R53.1 Fever R50.9 Anticoagulant long-term use Z79.01
[2023-03-17 08:34] LABS: Troponin 5 2HR 16.53 ng/L (0-10)
[2023-03-17 08:54] LABS: Troponin 5 2HR Delta 1.53 ABS# (0-10)
[2023-03-17] MEDS: acetaminophen 325 mg Tablet 650 MG PO (09:32)
[2023-03-17] MEDS: cefTRIAXone 1,000 MG in sodium chloride 0.9% (plus) 50 ML 100 MG IV (09:36)
--- NOTE | 2023-03-17 09:39 | ECG_ITS ---
[facility] Test Date: 2023-03-17 Pat Name: Sherrell Bruner Department: Room: 272 Gender: Female Cloud Administrator: : [id number] Requested By: Bryan Celis Order Number: [id number] Prabhu MD: Cira Hargrove M.D. Measurements Intervals [place] Rate: 77 P: 62 KS: 186 QRS: -71 QRSD: 165 T: 93 QT: 430 QTc: 489 Interpretive Statements ELECTRONIC VENTRICULAR PACEMAKER ABNORMAL RHYTHM ECG Compared to ECG 03/17/2023 05:56:44 No significant changes Electronically Signed On 03-17-2023 15:38:10 CDT by Cira Hargrove M.D. [id number]
[2023-03-17 11:35] LABS: Glucose Point of Care 270 mg/dL (70-110)
[2023-03-17] MEDS: aspirin 81 mg EC Tablet PO (12:20)
[2023-03-17] MEDS: spironolactone 25 mg Tablet 12.5 MG PO (12:20)
[2023-03-17] MEDS: allopurinol 300 mg Tablet PO (12:20)
[2023-03-17] MEDS: ciprofloxacin 400 MG/200 ML PREMIX 200 MG IV (12:23)
[2023-03-17 12:24] LABS: Troponin 5 6HR 16.35 ng/L (0-10)
[2023-03-17 12:36] LABS: Troponin 5 6HR Delta 1.35 ng/L (0-12)
[2023-03-17] MEDS: ondansetron 2 mg/ML SDV 2 mL 4 MG IVP (14:28)
[2023-03-17] MEDS: ketorolac 30 mg/mL INJ IM (14:32)
[2023-03-17] MEDS: sodium chloride 0.9% 1,000 ML 75 ML IV (14:33)
[2023-03-17 16:50] LABS: Glucose Point of Care 258 mg/dL (70-110)
[2023-03-17] MEDS: metoprolol tartrate 25 mg Tablet 12.5 MG PO (18:11)
[2023-03-17] MEDS: ferrous gluconate 324 mg Tablet PO (18:11)
[2023-03-17] MEDS: gabapentin 100 mg Capsule PO (18:12)
[2023-03-17] MEDS: metformin XR 500 MG Tablet 1000 MG PO (18:14)
[2023-03-17 21:08] LABS: Glucose Point of Care 285 mg/dL (70-110)
[2023-03-18] MEDS: ciprofloxacin 400 MG/200 ML PREMIX 200 MG IV ×3 (00:14→22:51)
[2023-03-18 00:15] LABS: Acinetobacter baumannii Not Detected (NOT DETECT); Bacteroides fragilis Not Detected (NOT DETECT); CTX-M Not Detected (NOT DETECT); Citrobacter Not Detected (NOT DETECT); Cronobacter sakazakii Not Detected (NOT DETECT); Enterobacter cloacae complex Not Detected (NOT DETECT); Enterobacter non cloacae Not Detected (NOT DETECT); Fusobacterium necrophorum Not Detected (NOT DETECT); Fusobacterium nucleatum Not Detected (NOT DETECT); Haemophilus influenzae Not Detected (NOT DETECT); IMP Resistance Gene Not Detected (NOT DETECT); KPC Resistance Gene Not Detected (NOT DETECT); Klebsiella pneumoniae group Not Detected (NOT DETECT); Morganella morganii Not Detected (NOT DETECT); NDM Resistance Gene Not Detected (NOT DETECT); Neisseria meningitidis Not Detected (NOT DETECT); OXA Resistance Gene Not Detected (NOT DETECT); Pan Candida Not Detected (NOT DETECT); Pan Gram-Positive Not Detected (NOT DETECT); Proteus mirabilis Not Detected (NOT DETECT); Pseudomonas aeruginosa Not Detected (NOT DETECT); Salmonella Not Detected (NOT DETECT); Serratia Not Detected (NOT DETECT); Serratia marcescens Not Detected (NOT DETECT); Stenotrophomonas maltophilia Not Detected (NOT DETECT); VIM Resistance Gene Not Detected (NOT DETECT)
[2023-03-18 04:00] VITALS: BP 106/67; PULSE 72; RESP 17; TEMP 37.5; O2SAT 93
[2023-03-18 05:16] LABS: Basophils # 0.1 10^3/uL (0.0-0.1); Basophils % 0.4 %; Eosinophils # 0.1 10^3/uL (0.0-0.8); Eosinophils % 0.5 %; Hematocrit 34.1 % (37.0-47.0); Hemoglobin 11.1 g/dL (11.5-15.3); Lymphocytes # 1.2 10^3/uL (0.8-4.8); Lymphocytes % 8.1 %; Mean Corpuscular HGB Conc 32.6 g/dL (30.0-36.0); Mean Corpuscular Hemoglobin 30.9 pg (28.0-34.0); Mean Platelet Volume 11.3 fL (7.4-10.4); Monocytes # 1.5 10^3/uL (0.2-0.9); Monocytes % 9.7 %; Neutrophils # 12.14 10^3/uL (1.8-7.7); Neutrophils % 80.8 %; Nucleated Red Blood Cells % 0 %; Platelet Count 173 10^3/cmm (130-400); Red Blood Count 3.59 10^6/uL (4.1-5.3); Red Cell Distribution Width 12.3 % (12.1-15.1)
[2023-03-18 05:40] LABS: Alanine Aminotransferase 19 U/L (0-33); Albumin Level 3.1 g/dL (3.5-5.2); Alkaline Phosphatase 82 U/L (35-105); Aspartate Amino Transferase 20 U/L (0-32); Blood Urea Nitrogen 22 mg/dL (8-23); Calcium 8.7 mg/dL (8.5-10.5); Carbon Dioxide 23 mmol/L (22-29); Chloride 101 mmol/L (98-107); Globulin 2.9 g/dL (1.3-4.6); Glucose 193 mg/dL (65-115); Osmolality Calculated 287 mOsm/kg (285-295); Sodium 134 mmol/L (136-145); Total Bilirubin 0.3 mg/dL (0.15-1.2)
[2023-03-18 06:00] VITALS: BMI 29.6
[2023-03-18 07:00] LABS: Glucose Point of Care 190 mg/dL (70-110)
[2023-03-18 08:12] VITALS: BP 135/73; PULSE 78; RESP 16; TEMP 36.8; O2SAT 91
[2023-03-18] MEDS: atorvastatin 40 mg Tablet 20 MG PO (08:30)
[2023-03-18] MEDS: metformin XR 500 MG Tablet 1000 MG PO ×2 (08:30→17:44)
[2023-03-18] MEDS: montelukast sodium 10 mg Tablet PO (08:31)
[2023-03-18] MEDS: phenazopyridine 100 mg Tablet PO (08:31)
[2023-03-18] MEDS: pantoprazole DR 40 mg Tablet PO (08:31)
[2023-03-18] MEDS: gabapentin 100 mg Capsule PO ×2 (08:31→17:44)
[2023-03-18] MEDS: docusate sodium 100 mg Capsule PO (08:31)
[2023-03-18] MEDS: FUROsemide 20 mg Tablet PO (08:31)
[2023-03-18] MEDS: metoprolol tartrate 25 mg Tablet 12.5 MG PO ×2 (08:31→17:44)
[2023-03-18] MEDS: rivaroxaban 10 mg Tablet 20 MG PO (08:31)
[2023-03-18] MEDS: ferrous gluconate 324 mg Tablet PO ×2 (08:31→17:44)
[2023-03-18] MEDS: spironolactone 25 mg Tablet 12.5 MG PO (08:31)
[2023-03-18] MEDS: ondansetron 2 mg/ML SDV 2 mL 4 MG IVP (08:32)
[2023-03-18] MEDS: aspirin 81 mg EC Tablet PO (08:32)
[2023-03-18] MEDS: allopurinol 300 mg Tablet PO (08:32)
--- NOTE | 2023-03-18 11:07 | PM.PN ---
Subjective Subjective: seen at bedside this morning. pt states she is feeling slightly improved. less R sided flank pain. curled up in bed. some nausea from Abx. Denies dysuria. still has some urgency. Medications: Reviewed: Yes Vitals/I&O/Wt Last Vital Signs Temp 98.3 F 03/18/23 08:12 Pulse 78 03/18/23 08:12 Resp 16 03/18/23 08:12 BP 135/73 03/18/23 08:12 Pulse Ox 91 03/18/23 08:12 O2 Del Method Room Air 03/18/23 08:12 O2 Flow Rate 1 03/17/23 08:02 FiO2 21 03/17/23 22:37 03/17/23 03/18/23 03/18/23 22:59 06:59 14:59 Intake Total 120 / 1490 1200 / 2690 Balance 120 / 1490 1200 / 2690 Weight last 48 hrs Weight 167 lb 7 oz Weight 160 lb Physical Exam Narrative: General: AOx3, no acute distress, well developed, well nourished, appears stated age psych: appropriate mood and affect. good judgment and insight. Neck: FROM, no lymphadenopathy,supple Chest: atraumatic, symmetrical CVD: RRR, normal S1 and S2, no M/R/G. 2+ pulse x 4 extremities, no JVD, no carotid bruit. Lungs: clear lung sounds in all muñoz, no rhonchi, wheezing, rales. Abdomen: suprapubic and RLQ, ND, soft, NABS. No hepatosplenomegaly, no mass. : not done on todays examination Rectal: not done on todays examination Spine: mild (improved) R flank ttp. Extremities: FROM and 5/5 strength in BUE and BLE. Neuro: NVI, no sensory abnormalities. Skin:? no rash, vesicles, lesions. Data 03/18/23 04:45 03/18/23 04:45 Micro: Microbiology 03/17/23 06:19 Urine Culture - Preliminary Urine,Clean Catch Gram Negative Rods 03/17/23 06:40 Blood Culture - Preliminary Blood Escherichia coli 03/17/23 06:34 Blood Culture - Preliminary Blood Escherichia coli A&P Assessment and plan (1) Sepsis: blood and urine culture +ve for E.Coli (2) Pyelonephritis: (3) Enlarged ovary: (4) Diabetes: Qualifiers: Diabetes mellitus type: type 2 Diabetes mellitus assisted insulin use: without assisted use Diabetes mellitus complication status: without complication Qualified Code(s): E11.9 - Type 2 diabetes mellitus without complications (5) Hyponatremia: (6) HTN (hypertension): Qualifiers: Hypertension type: essential hypertension Qualified Code(s): I10 - Essential (primary) hypertension (7) Pacemaker: (8) Atrial fibrillation: (9) Generalized weakness: (10) Fever: (11) Anticoagulant long-term use: (12) E coli bacteremia: Plan Sepsis -bacteremia and pyelonpehritis -Hx of E.coli infection with pansensitivity -preliminary BCx and Ucx showing E.Coli -Ciprofloxacin 400mg IV BID -tylenol for fever MALICK -improving N/V -zofran Weakness -CT abd negative -likely 2/2 above DM2 -can continue home medications -LDSSI with accuchecks Plan -Bcx and Ucx +ve for E.coli prelim -continue Cipro 400mg IV BID, pending final Cx and sensitivity -pt was to ahve oopherectomy scheduled on 03/20/23. I informted the patient this will likely be re-scheduled due to current hospitalization and infeciotion. to call in AM and notify. -restart Xeralto given pt will not be having surgery due to bacteremia -diet as tolerated Attestations Medical Necessity Statement*: will require 2 overnights due to bacteremia Coding Level of Care Code 52516 Diagnoses Sepsis A41.9 Pyelonephritis N12 Enlarged ovary N83.8 Diabetes E11.9 Diabetes mellitus type: type 2 Diabetes mellitus assisted insulin use: without assisted use Diabetes mellitus complication status: without complication Hyponatremia E87.1 HTN (hypertension) I10 Hypertension type: essential hypertension Pacemaker Z95.0 Atrial fibrillation I48.91 Generalized weakness R53.1 Fever R50.9 Anticoagulant long-term use Z79.01 E coli bacteremia R78.81; B96.20
[2023-03-18 11:34] VITALS: BP 113/70; PULSE 81; RESP 14; TEMP 37; O2SAT 91
[2023-03-18 15:52] VITALS: BP 119/65; PULSE 86; RESP 16; TEMP 37; O2SAT 89
[2023-03-18 16:31] LABS: Glucose Point of Care 162 mg/dL (70-110)
[2023-03-18 19:54] VITALS: BP 117/63; PULSE 80; RESP 17; TEMP 36.9; O2SAT 89
[2023-03-18 20:29] LABS: Glucose Point of Care 168 mg/dL (70-110)
[2023-03-18 23:32] VITALS: BP 114/65; PULSE 78; RESP 22; TEMP 36.4; O2SAT 92
[2023-03-19 04:00] VITALS: BP 113/68; PULSE 68; RESP 22; TEMP 36.3; O2SAT 97
[2023-03-19 04:21] LABS: Basophils # 0.1 10^3/uL (0.0-0.1); Basophils % 0.5 %; Eosinophils # 0.2 10^3/uL (0.0-0.8); Eosinophils % 1.7 %; Hematocrit 34.8 % (37.0-47.0); Hemoglobin 11.3 g/dL (11.5-15.3); Lymphocytes # 1.6 10^3/uL (0.8-4.8); Lymphocytes % 15.4 %; Mean Corpuscular HGB Conc 32.5 g/dL (30.0-36.0); Mean Corpuscular Hemoglobin 30.7 pg (28.0-34.0); Mean Corpuscular Volume 94.6 fl (81-99); Mean Platelet Volume 11.2 fL (7.4-10.4); Monocytes # 1.2 10^3/uL (0.2-0.9); Monocytes % 11.3 %; Neutrophils # 7.27 10^3/uL (1.8-7.7); Neutrophils % 70.6 %; Nucleated Red Blood Cells % 0 %; Platelet Count 171 10^3/cmm (130-400); Red Blood Count 3.68 10^6/uL (4.1-5.3); Red Cell Distribution Width 12.3 % (12.1-15.1); White Blood Count 10.3 10^3/uL (4.0-10.0)
[2023-03-19 04:34] LABS: Alanine Aminotransferase 23 U/L (0-33); Albumin Level 3.2 g/dL (3.5-5.2); Alkaline Phosphatase 94 U/L (35-105); Anion Gap 11.3 (5-19); Aspartate Amino Transferase 22 U/L (0-32); Blood Urea Nitrogen 17 mg/dL (8-23); Carbon Dioxide 28 mmol/L (22-29); Chloride 98 mmol/L (98-107); Globulin 2.9 g/dL (1.3-4.6); Glucose 148 mg/dL (65-115); Osmolality Calculated 280 mOsm/kg (285-295); Potassium 4.3 mmol/L (3.5-5.1); Sodium 133 mmol/L (136-145); Total Bilirubin 0.3 mg/dL (0.15-1.2); Total Protein 6.1 g/dL (6.6-8.7)
[2023-03-19 06:31] LABS: Glucose Point of Care 162 mg/dL (70-110)
[2023-03-19 07:18] VITALS: BP 123/73; PULSE 67; RESP 16; O2SAT 94
[2023-03-19] MEDS: rivaroxaban 10 mg Tablet 20 MG PO (08:10)
[2023-03-19] MEDS: aspirin 81 mg EC Tablet PO (08:10)
[2023-03-19] MEDS: montelukast sodium 10 mg Tablet PO (08:10)
[2023-03-19] MEDS: metformin XR 500 MG Tablet 1000 MG PO ×2 (08:10→18:01)
[2023-03-19] MEDS: insulin lispro 100 unit/1 mL SUBCUT ×3 (08:10→18:02)
[2023-03-19] MEDS: atorvastatin 40 mg Tablet 20 MG PO (08:11)
[2023-03-19] MEDS: ferrous gluconate 324 mg Tablet PO ×2 (08:11→18:01)
[2023-03-19] MEDS: gabapentin 100 mg Capsule PO ×2 (08:11→18:01)
[2023-03-19] MEDS: FUROsemide 20 mg Tablet PO (08:11)
[2023-03-19] MEDS: allopurinol 300 mg Tablet PO (08:11)
[2023-03-19] MEDS: pantoprazole DR 40 mg Tablet PO (08:11)
[2023-03-19] MEDS: docusate sodium 100 mg Capsule PO (08:11)
[2023-03-19] MEDS: spironolactone 25 mg Tablet 12.5 MG PO (08:12)
[2023-03-19] MEDS: metoprolol tartrate 25 mg Tablet 12.5 MG PO ×2 (08:12→18:01)
[2023-03-19] MEDS: HYDROcodone-acetaminophen 5-325 mg Tablet 1 TAB PO ×2 (08:23→18:04)
[2023-03-19 11:05] LABS: Glucose Point of Care 215 mg/dL (70-110)
[2023-03-19 11:31] VITALS: BP 107/64; PULSE 60; RESP 17; TEMP 36.6; O2SAT 92
[2023-03-19] MEDS: ciprofloxacin 400 MG/200 ML PREMIX 200 MG IV ×2 (11:38→23:19)
[2023-03-19 15:49] VITALS: BP 94/54; PULSE 68; RESP 16; TEMP 36.7; O2SAT 94
--- NOTE | 2023-03-19 16:29 | PM.PN ---
Subjective Subjective: Patient continues to complain of significant weakness. Feels like she has no energy. Last febrile to 102 Fahrenheit on 610. Has been afebrile since then. Leukocytosis improving at 10.3. Medications: Reviewed: Yes Vitals/I&O/Wt Last Vital Signs Temp 98.0 F 03/19/23 15:49 Pulse 68 03/19/23 15:49 Resp 16 03/19/23 15:49 BP 94/54 03/19/23 15:49 Pulse Ox 94 03/19/23 15:49 O2 Del Method Room Air 03/19/23 15:49 O2 Flow Rate 1 03/17/23 08:02 FiO2 21 03/17/23 22:37 03/19/23 03/19/23 03/19/23 06:59 14:59 22:59 Intake Total 200 / 880 440 / 440 Balance 200 / 280 440 / 440 Weight last 48 hrs Weight 75.886 kg Weight 75.948 kg Physical Exam Narrative: General: No acute distress, AO x3 HEENT: PERRLA, pupils bilaterally equal and reactive, pallors not present Chest: Normal vesicular breath sounds, no added sounds, equal good air entry bilaterally CVS: S1-S2 regular, no murmurs, no tachycardia, no gallops, no rubs Abdomen: Soft, nontender, no organomegaly, bowel sounds present Neuro: No focal deficits, no facial deformity, AO x3, power 5/5 in all limbs Data 03/19/23 03:46 03/19/23 02:58 Micro: Microbiology 03/17/23 06:19 Urine Culture - Final Urine,Clean Catch Escherichia coli E coli M.I.C. RX --------- ------ * Amikacin <=16 S * Amoxicillin/Clavulanate <=8/4 S * Ampicillin <=8 S * Ampicillin/Sulbactam <=8/4 S * Aztreonam <=4 S * Cefepime <=8 S * Ceftriaxone <=1 S * Cefuroxime <=4 S * Ciprofloxacin <=1 S * Gentamicin <=2 S * Imipenem <=1 S * Levofloxacin <=2 S * Nitrofurantoin <=32 S * Tetracycline <=4 S * Trimethoprim/Sulfamethoxazole <=2/38 S * Piperacillin/Tazobactam <=16 S 03/17/23: Blood cx : E. coli A&P Assessment and plan (1) Sepsis: (2) Pyelonephritis: (3) Enlarged ovary: (4) Diabetes: Qualifiers: Diabetes mellitus type: type 2 Diabetes mellitus senior care insulin use: without terminal clerk use Diabetes mellitus complication status: without complication Qualified Code(s): E11.9 - Type 2 diabetes mellitus without complications (5) Hyponatremia: (6) HTN (hypertension): Qualifiers: Hypertension type: essential hypertension Qualified Code(s): I10 - Essential (primary) hypertension (7) Pacemaker: (8) Atrial fibrillation: (9) Generalized weakness: (10) Fever: (11) Anticoagulant long-term use: (12) E coli bacteremia: Plan blood and urine culture +ve for E.Coli Sepsis is currently resolved. Patient is now afebrile, hemodynamically stable. Source is likely to be acute pyelonephritis. CT of the abdomen and pelvis did not show any acute abnormalities. Bilaterally enlarged lymph nodes and ovaries are seen, patient is planned to undergo bilateral oophorectomy due to suspicion of malignancy. Procedure originally planned for March 20, 2023 but now deferred in view of active infection. We will follow-up with her DIRECTOR TRADING next week. Currently on antibiotic treatment with ciprofloxacin IV every 12 hours. Urine culture susceptibility is available, ciprofloxacin appears to be an appropriate choice for now. Will await final identification of blood isolate. Repeat blood culture in a.m. to ensure clearance. Attestations Medical Necessity Statement*: Repeat blood culture to ensure clearance, continue IV antibiotic, awaiting susceptibilities from the blood isolate. Coding Level of Care Code Acute Code for [facility] Fwd Diagnoses Sepsis A41.9 Pyelonephritis N12 Enlarged ovary N83.8 Diabetes E11.9 Diabetes mellitus type: type 2 Diabetes mellitus senior care insulin use: without senior care use Diabetes mellitus complication status: without complication Hyponatremia E87.1 HTN (hypertension) I10 Hypertension type: essential hypertension Pacemaker Z95.0 Atrial fibrillation I48.91 Generalized weakness R53.1 Fever R50.9 Anticoagulant long-term use Z79.01 E coli bacteremia R78.81; B96.20
[2023-03-19 16:41] LABS: Glucose Point of Care 164 mg/dL (70-110)
[2023-03-19] MEDS: ondansetron 2 mg/ML SDV 2 mL 4 MG IVP (18:04)
[2023-03-19 19:17] VITALS: BP 118/66; PULSE 74; RESP 16; TEMP 36.7; O2SAT 92
[2023-03-19 20:35] LABS: Glucose Point of Care 178 mg/dL (70-110)
[2023-03-19 23:50] VITALS: BP 122/64; PULSE 70; RESP 22; TEMP 36.7; O2SAT 94
[2023-03-20] VITALS (8 sets, daily range): BP systolic 105–150; BP diastolic 64–81; PULSE 60–75; RESP 16–18; TEMP 36.4–36.9; O2SAT 94–96
[2023-03-20 04:08] LABS: Basophils # 0.1 10^3/uL (0.0-0.1); Basophils % 0.6 %; Eosinophils # 0.3 10^3/uL (0.0-0.8); Eosinophils % 3.8 %; Hematocrit 36.4 % (37.0-47.0); Hemoglobin 11.7 g/dL (11.5-15.3); Lymphocytes # 1.4 10^3/uL (0.8-4.8); Lymphocytes % 17.1 %; Mean Corpuscular HGB Conc 32.1 g/dL (30.0-36.0); Mean Corpuscular Hemoglobin 29.6 pg (28.0-34.0); Mean Corpuscular Volume 92.2 fl (81-99); Mean Platelet Volume 11.2 fL (7.4-10.4); Monocytes # 0.9 10^3/uL (0.2-0.9); Monocytes % 10.7 %; Neutrophils # 5.66 10^3/uL (1.8-7.7); Neutrophils % 67.2 %; Nucleated Red Blood Cells % 0 %; Platelet Count 196 10^3/cmm (130-400); Red Blood Count 3.95 10^6/uL (4.1-5.3); Red Cell Distribution Width 12.2 % (12.1-15.1); White Blood Count 8.4 10^3/uL (4.0-10.0)
[2023-03-20 04:24] LABS: Alanine Aminotransferase 21 U/L (0-33); Albumin Level 3.3 g/dL (3.5-5.2); Alkaline Phosphatase 94 U/L (35-105); Anion Gap 14.7 (5-19); Aspartate Amino Transferase 19 U/L (0-32); Blood Urea Nitrogen 19 mg/dL (8-23); Calcium 8.8 mg/dL (8.5-10.5); Carbon Dioxide 25 mmol/L (22-29); Chloride 97 mmol/L (98-107); Glucose 186 mg/dL (65-115); Osmolality Calculated 283 mOsm/kg (285-295); Potassium 3.7 mmol/L (3.5-5.1); Sodium 133 mmol/L (136-145); Total Bilirubin 0.2 mg/dL (0.15-1.2); Total Protein 6.3 g/dL (6.6-8.7)
[2023-03-20 06:37] LABS: Glucose Point of Care 147 mg/dL (70-110)
[2023-03-20 08:30] LABS: Glucose Point of Care 213 mg/dL (70-110)
[2023-03-20] MEDS: insulin lispro 100 unit/1 mL SUBCUT ×2 (09:13→17:25)
[2023-03-20] MEDS: ondansetron 2 mg/ML SDV 2 mL 4 MG IVP (09:50)
[2023-03-20 11:16] LABS: Glucose Point of Care 189 mg/dL (70-110)
--- NOTE | 2023-03-20 11:20 | PC.SOCIAL ---
IMM Update pg 2 of IMM updated and reviewed w/ patient. Copy provided and copy dated, initialed and placed in chart.
[2023-03-20] MEDS: allopurinol 300 mg Tablet PO (11:40)
[2023-03-20] MEDS: rivaroxaban 10 mg Tablet 20 MG PO (11:40)
[2023-03-20] MEDS: metoprolol tartrate 25 mg Tablet 12.5 MG PO ×2 (11:40→17:25)
[2023-03-20 16:49] LABS: Glucose Point of Care 195 mg/dL (70-110)
[2023-03-20] MEDS: gabapentin 100 mg Capsule PO (17:25)
[2023-03-20] MEDS: ferrous gluconate 324 mg Tablet PO (17:25)
--- NOTE | 2023-03-20 17:29 | PM.PN ---
Subjective Subjective: last febrile march 17. C/o persisting nausea and dizziness on attempting to stand and walk. Medications: Reviewed: Yes Vitals/I&O/Wt Last Vital Signs Temp 97.6 F 03/20/23 16:00 Pulse 60 03/20/23 16:00 Resp 16 03/20/23 16:00 BP 105/66 03/20/23 16:00 Pulse Ox 95 03/20/23 16:00 O2 Del Method Room Air 03/20/23 16:00 O2 Flow Rate 1 03/17/23 08:02 FiO2 21 03/17/23 22:37 03/20/23 03/20/23 03/20/23 06:59 14:59 22:59 Intake Total 200 / 880 240 / 240 Output Total 600 / 600 Balance -400 / 280 240 / 240 Weight last 48 hrs Weight 75.432 kg Weight 75.886 kg Physical Exam Narrative: General: No acute distress, AO x3 HEENT: PERRLA, pupils bilaterally equal and reactive, pallors not present Chest: Normal vesicular breath sounds, no added sounds, equal good air entry bilaterally CVS: S1-S2 regular, no murmurs, no tachycardia, no gallops, no rubs Abdomen: Soft, nontender, no organomegaly, bowel sounds present Neuro: No focal deficits, no facial deformity, AO x3, power 5/5 in all limbs Data 03/20/23 03:35 03/20/23 03:35 Micro: Microbiology 03/17/23 06:40 Blood Culture - Preliminary Blood Escherichia coli 03/17/23 06:34 Blood Culture - Preliminary Blood Escherichia coli 03/20/23 03:39 Blood Culture - Preliminary Blood SPECIMEN COLLECTED 03/20/23 03:35 Blood Culture - Preliminary Blood SPECIMEN COLLECTED A&P Assessment and plan (1) Sepsis: (2) Pyelonephritis: (3) Enlarged ovary: (4) Diabetes: Qualifiers: Diabetes mellitus type: type 2 Diabetes mellitus long term care social worker insulin use: without long term care social worker use Diabetes mellitus complication status: without complication Qualified Code(s): E11.9 - Type 2 diabetes mellitus without complications (5) Hyponatremia: (6) HTN (hypertension): Qualifiers: Hypertension type: essential hypertension Qualified Code(s): I10 - Essential (primary) hypertension (7) Pacemaker: (8) Atrial fibrillation: (9) Generalized weakness: (10) Fever: (11) Anticoagulant long-term use: (12) E coli bacteremia: Plan blood and urine culture +ve for E.Coli Sepsis is currently resolved. Patient is now afebrile, hemodynamically stable. Source is likely to be acute pyelonephritis. CT of the abdomen and pelvis did not show any acute abnormalities. Bilaterally enlarged lymph nodes and ovaries are seen, patient is planned to undergo bilateral oophorectomy due to suspicion of malignancy. Procedure originally planned for March 20, 2023 but now deferred in view of active infection. We will follow-up with her CONTRACT NEGOTIATOR next week. Currently on antibiotic treatment with ciprofloxacin IV every 12 hours---> transition to po ciprofloxacin today. Patient still c/o significant nausea , will need to ensure that she tolerated po intake and keeps her abx down. Check orthostatics given c/o dizzienss Urine culture and blood cx susceptibility is available, ciprofloxacin appears to be an appropriate choice for now. Repeat blood cx negative to date Attestations Medical Necessity Statement*: change iv to po abx, monitor for tolerance Coding Level of Care Code Acute Code for [facility] Fwd Diagnoses Sepsis A41.9 Pyelonephritis N12 Enlarged ovary N83.8 Diabetes E11.9 Diabetes mellitus type: type 2 Diabetes mellitus custodial insulin use: without long term care social worker use Diabetes mellitus complication status: without complication Hyponatremia E87.1 HTN (hypertension) I10 Hypertension type: essential hypertension Pacemaker Z95.0 Atrial fibrillation I48.91 Generalized weakness R53.1 Fever R50.9 Anticoagulant long-term use Z79.01 E coli bacteremia R78.81; B96.20
[2023-03-20] MEDS: ciprofloxacin 500 mg Tablet PO (18:19)
[2023-03-20] MEDS: acetaminophen 325 mg Tablet 650 MG PO (18:21)
[2023-03-20 21:18] LABS: Glucose Point of Care 214 mg/dL (70-110)
[2023-03-21 03:36] VITALS: BP 124/70; PULSE 64; RESP 18; TEMP 36.8; O2SAT 94
[2023-03-21] MEDS: ciprofloxacin 500 mg Tablet PO (05:35)
[2023-03-21 06:35] LABS: Glucose Point of Care 200 mg/dL (70-110)
[2023-03-21 07:15] VITALS: BP 123/74; PULSE 60; RESP 18; TEMP 36.4; O2SAT 95
[2023-03-21] MEDS: insulin lispro 100 unit/1 mL SUBCUT ×2 (08:02→11:39)
[2023-03-21] MEDS: pantoprazole DR 40 mg Tablet PO (08:04)
[2023-03-21] MEDS: ferrous gluconate 324 mg Tablet PO (08:05)
[2023-03-21] MEDS: metoprolol tartrate 25 mg Tablet 12.5 MG PO (08:05)
[2023-03-21] MEDS: rivaroxaban 10 mg Tablet 20 MG PO (08:05)
[2023-03-21] MEDS: montelukast sodium 10 mg Tablet PO (08:06)
[2023-03-21] MEDS: allopurinol 300 mg Tablet PO (08:06)
[2023-03-21] MEDS: gabapentin 100 mg Capsule PO (08:07)
[2023-03-21] MEDS: atorvastatin 40 mg Tablet 20 MG PO (08:07)
[2023-03-21] MEDS: docusate sodium 100 mg Capsule PO (08:07)
[2023-03-21] MEDS: aspirin 81 mg EC Tablet PO (08:07)
[2023-03-21 10:51] VITALS: BP 130/75; PULSE 60; RESP 17; TEMP 36.4; O2SAT 95
[2023-03-21 10:54] LABS: Glucose Point of Care 243 mg/dL (70-110)
[2023-03-21 13:34] VITALS: BP 130/75; PULSE 60; RESP 17; TEMP 36.4; O2SAT 95
--- NOTE | 2023-03-21 15:18 | PM.DCS ---
Discharge Providers Date of Admission: 03/17/23 07:04 Date of Discharge: March 21, 2023 Attending Provider at Admission: Kael Hernandez MD Attending Provider at Discharge: Arabella Starks MD Primary Care Provider: Bran Bai DO Diagnoses at Discharge Discharge Diagnosis (1) Sepsis: Status: Acute (2) Pyelonephritis: Status: Acute (3) Enlarged ovary: Status: Acute (4) Diabetes: Status: Acute Qualifiers: Diabetes mellitus type: type 2 Diabetes mellitus usp insulin use: without usp use Diabetes mellitus complication status: without complication Qualified Code(s): E11.9 - Type 2 diabetes mellitus without complications (5) Hyponatremia: Status: Acute (6) HTN (hypertension): Status: Acute Qualifiers: Hypertension type: essential hypertension Qualified Code(s): I10 - Essential (primary) hypertension (7) Pacemaker: Status: Acute (8) Atrial fibrillation: Status: Acute (9) Generalized weakness: Status: Acute (10) Fever: Status: Acute (11) Anticoagulant long-term use: Status: Acute (12) E coli bacteremia: Status: Acute Reason for Visit Reason for Visit: Weakness/ N/V Brief History: taken from H&P: Sherrell Bruner is a 77 year old female with Hx of HTN, pacemaker, CKD, DM2, Afib on Xeralto presented to ED with weakness, fever and N/V. reports. Onset of Sx 3dpta. Describes increased urgency and frequency of urination. Dark foul smelling urine and development of weakness, dizziness and difficulty ambulating on her her own. 2dpt developed RLQ abd and suprapubic abd pain. pt attempted to hydrate but admitted to poor intake. 1dpt developed worsening bilateral back pain R>L. Febrile 1dpta and this AM. Yday developed nausea and 3 episodes of non bloody emesis. has had difficulty with PO intake but able to tolerate a litle. Per records pt had E.coli UTI in 10/16/22 with pansensitivity. Seen at bedside on med surg floor. feeling improved s/p IV NS in ED. states she currently has increased frequency,abd pain, flank pain. nausea has improved. Denies CP, palpitations, SOB, diarrhea, constipation. has been compliant with medication except for this AM. Scheduled for bilateral oophecterectomy scheduled for 03/20/23 in [place]. Hospital Course Hospital Course Patient's blood and urine culture +ve for E.Coli Sepsis is currently resolved by discharge.? Patient is now afebrile, hemodynamically stable. Source is likely to be acute pyelonephritis. CT of the abdomen and pelvis did not show any acute abnormalities. Bilaterally enlarged lymph nodes and ovaries are seen, patient is planned to undergo bilateral oophorectomy due to suspicion of malignancy.? Procedure originally planned for March 20, 2023 but now deferred in view of active infection.? 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 Currently on antibiotic treatment with ciprofloxacin IV every 12 hours---> transition to po ciprofloxacin for total treatment duration of 14 days Patient feels much improved todat at the day of discharge, feels like she is back to baseline no further dizziness or nausea Repeat blood cx negative to date Physical Exam Narrative: General: No acute distress, AO x3 HEENT: PERRLA, pupils bilaterally equal and reactive, pallors not present Chest: Normal vesicular breath sounds, no added sounds, equal good air entry bilaterally CVS: S1-S2 regular, no murmurs, no tachycardia, no gallops, no rubs Abdomen: Soft, nontender, no organomegaly, bowel sounds present Neuro: No focal deficits, no facial deformity, AO x3, power 5/5 in all limbs Discharge Data Studies Completed and Pending Completed Studies During Hospitalization Category Date Time Status CT kidney stone [id number] Stat Cat Scan 03/17/23 07:06 Completed XR chest 1V portable [id number] Stat Exams 03/17/23 06:08 Completed Radiology Impressions Chest X-Ray 03/17/23 06:08 IMPRESSION: No acute abnormality. Abdomen/Pelvis CT 03/17/23 07:06 IMPRESSION: No acute abnormality. Laboratory Results WBC 8.4 10^3/uL (4.0-10.0) 03/20/23 03:35 RBC 3.95 10^6/uL (4.1-5.3) L 03/20/23 03:35 Hgb 11.7 g/dL (11.5-15.3) 03/20/23 03:35 Hct 36.4 % (37.0-47.0) L 03/20/23 03:35 MCV 92.2 fl (81-99) 03/20/23 03:35 MCH 29.6 pg (28.0-34.0) 03/20/23 03:35 MCHC 32.1 g/dL (30.0-36.0) 03/20/23 03:35 RDW 12.2 % (12.1-15.1) 03/20/23 03:35 Plt Count 196 10^3/cmm (130-400) 03/20/23 03:35 MPV 11.2 fL (7.4-10.4) H 03/20/23 03:35 Neut % (Auto) 67.2 % 03/20/23 03:35 Lymph % (Auto) 17.1 % 03/20/23 03:35 [place] % (Auto) 10.7 % 03/20/23 03:35 Eos % (Auto) 3.8 % 03/20/23 03:35 Baso % (Auto) 0.6 % 03/20/23 03:35 Neut # (Auto) 5.66 10^3/uL (1.8-7.7) 03/20/23 03:35 Lymph # (Auto) 1.4 10^3/uL (0.8-4.8) 03/20/23 03:35 [place] # (Auto) 0.9 10^3/uL (0.2-0.9) 03/20/23 03:35 Eos # (Auto) 0.3 10^3/uL (0.0-0.8) 03/20/23 03:35 Baso # (Auto) 0.1 10^3/uL (0.0-0.1) 03/20/23 03:35 Nucleated RBC % (auto) 0 % 03/20/23 03:35 Nucleated RBCs # 0.0 /100WBC 03/20/23 03:35 Sodium 133 mmol/L (136-145) L 03/20/23 03:35 Potassium 3.7 mmol/L (3.5-5.1) 03/20/23 03:35 Chloride 97 mmol/L (98-107) L 03/20/23 03:35 Carbon Dioxide 25 mmol/L (22-29) 03/20/23 03:35 Anion Gap 14.7 (5-19) 03/20/23 03:35 BUN 19 mg/dL (8-23) 03/20/23 03:35 Creatinine 1.0 mg/dL (0.5-0.9) H 03/20/23 03:35 GFR Calculation Not Reportable 03/20/23 03:35 Glucose 186 mg/dL (65-115) H 03/20/23 03:35 POC Glucose 243 mg/dL (70-110) H 03/21/23 10:49 Calculated Osmolality 283 mOsm/kg (285-295) L 03/20/23 03:35 Lactic Acid 2.0 mmol/L (0.5-2.2) 03/17/23 06:05 Calcium 8.8 mg/dL (8.5-10.5) 03/20/23 03:35 Total Bilirubin 0.2 mg/dL (0.15-1.2) 03/20/23 03:35 AST 19 U/L (0-32) 03/20/23 03:35 ALT 21 U/L (0-33) 03/20/23 03:35 Alkaline Phosphatase 94 U/L (35-105) 03/20/23 03:35 Creatine Kinase 12 U/L (26-192) L 03/17/23 06:05 Troponin T Baseline 15 ng/L (0-10) H 03/17/23 06:05 Troponin T 120 Minute 16.53 ng/L (0-10) H 03/17/23 08:10 Delta Troponin T 1.53 ABS# (0-10) 03/17/23 08:10 Troponin T Hi Sens 6Hr 16.35 ng/L (0-10) H 03/17/23 11:51 Troponin T Hi Sens 6Hr Delta 1.35 ng/L (0-12) 03/17/23 11:51 Total Protein 6.3 g/dL (6.6-8.7) L 03/20/23 03:35 Albumin 3.3 g/dL (3.5-5.2) L 03/20/23 03:35 Globulin 3.0 g/dL (1.3-4.6) 03/20/23 03:35 Urine Color Straw (Yellow) 03/17/23 06:19 Urine Appearance Clear (CLEAR) 03/17/23 06:19 Urine pH 5 (5-7) 03/17/23 06:19 Ur Specific [place] 1.010 (1.005-1.030) 03/17/23 06:19 Urine Protein Neg (Negative) 03/17/23 06:19 Urine Glucose (UA) 4+ (Normal) H 03/17/23 06:19 Urine Ketones 1+ (Negative) H 03/17/23 06:19 Urine Blood 3+ (Negative) H 03/17/23 06:19 Urine Nitrate Negative (Negative) 03/17/23 06:19 Urine Bilirubin Neg (Negative) 03/17/23 06:19 Urine Urobilinogen Norm mg/dL (Negative) 03/17/23 06:19 Ur Leukocyte Esterase 1+ (Negative) H 03/17/23 06:19 Urine RBC 5-10 /hpf (0-2) H 03/17/23 06:19 Urine WBC 15-25 /hpf (0-5) H 03/17/23 06:19 Ur Squamous Epith Cells 0-4 /hpf (0-5) H 03/17/23 06:19 Amorphous Sediment Not Reportable 03/17/23 06:19 Urine Bacteria 2+ /hpf (NONE) H 03/17/23 06:19 Vitals Last Vital Signs Temp 97.5 F L 03/21/23 13:34 Pulse 60 03/21/23 13:34 Resp 17 03/21/23 13:34 BP 130/75 03/21/23 13:34 Pulse Ox 95 03/21/23 13:34 O2 Del Method Room Air 03/21/23 03:36 O2 Flow Rate 1 03/17/23 08:02 FiO2 21 03/17/23 22:37 Discharge Plan Discharge Patient Disposition: Home Condition: Stable Prescriptions: Continued lysine 1,000 mg tablet 1,000 mg PO DAILY allopurinol 300 mg tablet 300 mg PO DAILY Hold Instructions: Resume on 05/18/22. montelukast [Singulair] 10 mg tablet 10 mg PO DAILY multivitamin Tablet 1 tab PO DAILY omeprazole 40 mg capsule,delayed release(DR/EC) 40 mg PO DAILY cholecalciferol (vitamin D3) 50 mcg (2,000 unit) capsule 50 mcg PO DAILY docusate sodium [Dulcolax Stool Softener (dss)] 100 mg capsule 100 mg PO DAILY simvastatin 40 mg tablet 40 mg PO DAILY Qty: 30 6RF aspirin [Adult Aspirin Regimen] 81 mg tablet,delayed release (DR/EC) 81 mg PO DAILY Qty: 30 0RF metoprolol tartrate 25 mg tablet 12.5 mg PO BID Qty: 90 3RF spironolactone 25 mg tablet 12.5 mg PO DAILY Qty: 30 3RF Xarelto 20 mg tablet 20 mg PO DAILY Qty: 90 3RF Rx Instructions: must administer with evening meal glipizide 5 mg tablet extended release 24 hr 5 mg PO DAILY metformin 500 mg tablet extended release 24 hr 1,000 mg PO BID gabapentin 100 mg Capsule 100 mg PO BID Qty: 60 0RF ferrous gluconate 324 mg (37.5 mg iron) tablet 324 mg PO BID Qty: 60 0RF furosemide 40 mg tablet 20 mg PO DAILY Rx Instructions: MAY INCREASE TO 40 FOR SWELLING Miralax 17 gram/dose Powder 4 g PO DAILY No Action fluconazole [Diflucan] 150 mg tablet 150 mg PO Q3D Qty: 2 0RF Ozempic 0.25 mg or 0.5 mg (2 mg/3 mL) pen injector 0.5 mg SUBCUT .weekly Qty: 3 2RF Victoza 3-Zheng 0.6 mg/0.1 mL (18 mg/3 mL) pen injector See Rx Instructions SUBCUT .COMPLEX Qty: 9 3RF Rx Instructions: inject 0.6mg subcutaneously, once daily x 7 days; then 1.2mg daily. Discharge Orders: Discharge Order (Routine); Ordered 03/21/23 Ordered By: Arabella Starks Other Ambulatory Orders: DME: Bryce (Order) Location: None Selected Ordered By: Arabella Starks Referrals: Bran Bai DO [Primary Care Provider] - 04/04/23 9:30 am Patient Instructions: Ciprofloxacin (By mouth), Urinary Tract Infection in Women (GEN), Opioid Safety Discharge Attestations Time Spent in Discharge Care*: greater than 30 min Status at Discharge: Cognitive status at discharge: cognitively intact, Behavioral status at discharge: cooperative, Quality Metrics Clinical Quality Measures [ No reported AMI, CVA or VTE this stay] Coding Level of Care Code 96441 Total time (in minutes) for Discharge: 45 Diagnoses Sepsis A41.9 Pyelonephritis N12 Enlarged ovary N83.8 Diabetes E11.9 Diabetes mellitus type: type 2 Diabetes mellitus usp insulin 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
== END 2023-03-21 13:40 | disposition home or self-care (01) | DRG 690 ==
LOC: ER 06:26 → MEDSURG 08:05
PROVIDERS: Admitting Provider Family Medicine; Emergency Provider Family Medicine; PCP Family Medicine; Visit Provider Student in an Organized Health Care Education/Training Program
DX: N10 Acute pyelonephritis (principal); R78.81 Bacteremia; B96.20 Unspecified Escherichia coli [E. coli] as the cause of diseases classified elsewhere; N17.9 Acute kidney failure, unspecified; I12.9 Hypertensive chronic kidney disease with stage 1 through stage 4 chronic kidney disease, or unspecified chronic kidney disease; E11.22 Type 2 diabetes mellitus with diabetic chronic kidney disease; N18.9 Chronic kidney disease, unspecified; I48.91 Unspecified atrial fibrillation; N83.8 Other noninflammatory disorders of ovary, fallopian tube and broad ligament; R59.0 Localized enlarged lymph nodes; D63.1 Anemia in chronic kidney disease; K21.9 Gastro-esophageal reflux disease without esophagitis; E78.5 Hyperlipidemia, unspecified; Z79.01 Long term (current) use of anticoagulants; Z79.84 Long term (current) use of oral hypoglycemic drugs; Z79.82 Long term (current) use of aspirin; Z95.0 Presence of cardiac pacemaker; Z87.440 Personal history of urinary (tract) infections
CPT/HCPCS: 36415; 36416; 71045; 74176; 80053; 81001; 82550; 82962; 83605; 84484; 85025; 87040; 87077; 87086; 87150; 87186; 87205; 93005; 94660; 96372; 99285; J0696; J0744; J1815; J1885; J2405; J7030

== ENCOUNTER → 2023-04-04 09:41 | Outpatient (BNVA) | payer MEDICARE, OTHER, SELFPAY | PROVIDERS: PCP Family Medicine; Visit Provider Family Medicine | DX: N39.0 Urinary tract infection, site not specified (principal) | CPT/HCPCS: 81000 ==

== ENCOUNTER → 2023-04-20 09:51 | Outpatient (BNVA) | payer MEDICARE, SELFPAY | PROVIDERS: PCP Family Medicine; Visit Provider Internal Medicine Cardiovascular Disease | DX: R42 Dizziness and giddiness (principal); I48.91 Unspecified atrial fibrillation; I10 Essential (primary) hypertension; Z95.0 Presence of cardiac pacemaker; K21.9 Gastro-esophageal reflux disease without esophagitis; Z79.01 Long term (current) use of anticoagulants; Z79.82 Long term (current) use of aspirin | CPT/HCPCS: 99214 ==

== ENCOUNTER → 2023-05-22 10:53 | Outpatient (BNVA) | payer MEDICARE, OTHER, SELFPAY | PROVIDERS: PCP Family Medicine; Visit Provider Family Medicine | DX: E78.2 Mixed hyperlipidemia (principal); E11.9 Type 2 diabetes mellitus without complications; E87.1 Hypo-osmolality and hyponatremia; I10 Essential (primary) hypertension; I48.91 Unspecified atrial fibrillation; Z79.01 Long term (current) use of anticoagulants; E83.42 Hypomagnesemia | CPT/HCPCS: 80053; 80061; 82306; 83036; 83735; 84443; 85025 ==

== ENCOUNTER → 2023-05-28 09:27 | Outpatient (BNVA) | payer MEDICARE, OTHER, SELFPAY | PROVIDERS: PCP Family Medicine | DX: D72.829 Elevated white blood cell count, unspecified (principal) | CPT/HCPCS: 85025 ==

== ENCOUNTER → 2023-07-15 13:56 | Outpatient (BNVA) | payer MEDICARE, OTHER, SELFPAY | PROVIDERS: PCP Family Medicine; Visit Provider Nurse Practitioner | DX: R39.9 Unspecified symptoms and signs involving the genitourinary system (principal); N39.0 Urinary tract infection, site not specified | CPT/HCPCS: 81000; 87077; 87086; 87184 ==

== ENCOUNTER → 2023-12-03 08:48 | Outpatient (BNVA) | payer MEDICARE, SELFPAY | PROVIDERS: PCP Family Medicine; Visit Provider Family Medicine | DX: R79.89 Other specified abnormal findings of blood chemistry (principal); I10 Essential (primary) hypertension; I95.1 Orthostatic hypotension; E83.42 Hypomagnesemia; E11.9 Type 2 diabetes mellitus without complications | CPT/HCPCS: 80053; 80061; 82607; 83036; 83735; 84443; 85025 ==

== ENCOUNTER 2023-12-21 09:06 | Outpatient (CLI) | payer MEDICARE, SELFPAY ==
--- NOTE | 2023-12-21 09:14 | MM_ITS ---
WS: [id number] BILATERAL SCREENING DIGITAL TOMOSYNTHESIS MAMMOGRAM WITH CAD HISTORY: SCREENING COMPARISON: 12/18/2022 and 11/22/2021 Bilateral CC and MLO views with tomosynthesis and synthetic mammography submitted. Computer aided det ection analyzed. Breast composition: There are scattered areas of fibroglandular density. No suspicious masses, microc alcifications or architectural distortion. IMPRESSION: MM/[place] [id number] BI-RADS: 2-Benign FOLLOW UP: 1 Year Follow-up
== END 2023-12-21 09:07 | disposition home or self-care (01) ==
LOC: RAD 09:06
PROVIDERS: PCP Family Medicine; Visit Provider Family Medicine
DX: Z12.31 Encounter for screening mammogram for malignant neoplasm of breast (principal)
CPT/HCPCS: 77063; 77067

== ENCOUNTER → 2024-01-23 11:49 | Outpatient (BNVA) | payer MEDICARE, SELFPAY | PROVIDERS: PCP Family Medicine; Visit Provider Internal Medicine Cardiovascular Disease | DX: I10 Essential (primary) hypertension (principal); I48.91 Unspecified atrial fibrillation; Z79.01 Long term (current) use of anticoagulants; I40.0 Infective myocarditis; Z95.0 Presence of cardiac pacemaker; I95.1 Orthostatic hypotension; E78.2 Mixed hyperlipidemia; R74.01 Elevation of levels of liver transaminase levels; G47.33 Obstructive sleep apnea (adult) (pediatric) | CPT/HCPCS: 99214 ==

== ENCOUNTER → 2024-05-17 10:57 | Outpatient (BNVA) | payer MEDICARE, SELFPAY | PROVIDERS: PCP Family Medicine; Visit Provider Emergency Medicine | DX: J06.9 Acute upper respiratory infection, unspecified (principal) | CPT/HCPCS: 87426 ==

== ENCOUNTER 2024-05-26 11:21 | Outpatient (CLI) | payer MEDICARE, SELFPAY ==
--- NOTE | 2024-05-26 11:45 | USCV_ITS ---
Franc Sherrell Age: 78 Gender: F : 1945 Exam Date: 05/26/2024 11:43 Ordering Phys: Bran Bai DO Technologist: ARMAAN Exam Location: [facility] – [place] Indication: Dizziness Risk Factors: Previous Vascular Surgery: Right Brachial BP: / Left Brachial BP: / Right Left Velocity (cm/s) Spectral Plaque Velocity (cm/s) Spectral Plaque Syst/Diast Broadening Syst/Diast Broadening 72.00/ 12.70 Prox CCA 90.50 / 19.80 82.80/ 19.30 Mid CCA 78.40 / 18.70 75.00/ 18.00 Distal CCA 75.60 / 17.90 54.30/ 14.10 Prox ICA 59.70 / 15.20 65.90/ 19.30 Mid ICA 67.70 / 17.10 96.20/ 24.00 Distal ICA 121.10/ 32.30 56.80 ECA 121.60 1.30 ICA/CCA 1.60 Antegrade Vertebral Antegrade 33.50/ 9.90 cm/s 64.50/ 14.50 cm/s Tri Subclavian Tri 79.50 159.2 0 CONCLUSIONS Right ICA stenosis <50%. Mild atheromatous plaque right carotid bulb/ICA. Left ICA stenosis <50%. Mild atheromatous plaque left carotid bulb/ICA. Normal antegrade Doppler flow noted in the right vertebral artery. Normal antegrade Doppler flow noted in the left vertebral artery. Loyd Reyes MD (Electronically Signed) Final Date: 26 May 2024 12:57 S
== END 2024-05-26 11:22 | disposition home or self-care (01) ==
LOC: RAD 11:21
PROVIDERS: PCP Family Medicine; Visit Provider Family Medicine
DX: I65.23 Occlusion and stenosis of bilateral carotid arteries (principal); R42 Dizziness and giddiness
CPT/HCPCS: 93880

== ENCOUNTER → 2024-07-30 16:09 | Outpatient (BNVA) | payer MEDICARE, SELFPAY | PROVIDERS: PCP Family Medicine; Visit Provider Internal Medicine Cardiovascular Disease | DX: I48.91 Unspecified atrial fibrillation (principal); I10 Essential (primary) hypertension; Z79.01 Long term (current) use of anticoagulants | CPT/HCPCS: 99213 ==

== ENCOUNTER → 2024-08-12 09:13 | Outpatient (BNVA) | payer MEDICARE, SELFPAY | PROVIDERS: PCP Family Medicine; Visit Provider Family Medicine | DX: E11.9 Type 2 diabetes mellitus without complications (principal); R53.1 Weakness; E78.5 Hyperlipidemia, unspecified | CPT/HCPCS: 80053; 80061; 82746; 83036; 83550; 83721; 85025 ==

== ENCOUNTER → 2024-11-11 09:07 | Outpatient (BNVA) | payer MEDICARE, SELFPAY | PROVIDERS: PCP Family Medicine; Visit Provider Family Medicine | DX: E11.9 Type 2 diabetes mellitus without complications (principal) | CPT/HCPCS: 80048; 83036 ==

== ENCOUNTER 2025-01-12 07:58 | Outpatient (CLI) | payer MEDICARE, SELFPAY ==
--- NOTE | 2025-01-12 08:00 | MM_ITS ---
WS: [id number] BILATERAL SCREENING DIGITAL TOMOSYNTHESIS MAMMOGRAM WITH CAD HISTORY: SCREENING COMPARISON: 12/21/2023, 12/18/2022 Bilateral CC and MLO views with tomosynthesis and synthetic mammography submitted. Computer aided detection analyzed. Breast composition: There are scattered areas of fibroglandular density. No suspicious masses, microcalcifications or architectural distortion. Benign scattered calcifications. MM/MM scr BI tomosynthesis [id number] IMPRESSION: BI-RADS: 2 - Benign. FOLLOW UP: 1 Year Follow-up
== END 2025-01-12 07:59 | disposition home or self-care (01) ==
PROVIDERS: PCP Family Medicine; Visit Provider Family Medicine
DX: Z12.31 Encounter for screening mammogram for malignant neoplasm of breast (principal); R92.323 Mammographic fibroglandular density, bilateral breasts; R92.1 Mammographic calcification found on diagnostic imaging of breast
CPT/HCPCS: 77063; 77067

== ENCOUNTER → 2025-05-04 07:45 | Outpatient (BNVA) | payer MEDICARE, SELFPAY | PROVIDERS: PCP Family Medicine; Visit Provider Dermatology | DX: D22.39 Melanocytic nevi of other parts of face (principal); L82.1 Other seborrheic keratosis; L81.4 Other melanin hyperpigmentation; Z80.8 Family history of malignant neoplasm of other organs or systems; D48.5 Neoplasm of uncertain behavior of skin; L57.0 Actinic keratosis | CPT/HCPCS: 11102; 17000; 99203 ==

== ENCOUNTER → 2025-05-26 09:53 | Outpatient (BNVA) | payer MEDICARE, SELFPAY | PROVIDERS: PCP Family Medicine; Visit Provider Dermatology | DX: C44.519 Basal cell carcinoma of skin of other part of trunk (principal); C44.619 Basal cell carcinoma of skin of left upper limb, including shoulder | CPT/HCPCS: 12034; 17313; 99214 ==

== ENCOUNTER → 2025-05-27 12:55 | Outpatient (BNVA) | payer MEDICARE, SELFPAY | PROVIDERS: PCP Family Medicine; Visit Provider Internal Medicine Cardiovascular Disease | DX: Z45.018 Encounter for adjustment and management of other part of cardiac pacemaker (principal) | CPT/HCPCS: 93296 ==

== ENCOUNTER → 2025-07-21 09:03 | Outpatient (BNVA) | payer MEDICARE, SELFPAY | PROVIDERS: PCP Family Medicine; Visit Provider Family Medicine | DX: I10 Essential (primary) hypertension (principal); E11.9 Type 2 diabetes mellitus without complications | CPT/HCPCS: 80053; 80061; 83036; 83721; 85025 ==

== ENCOUNTER → 2025-08-05 14:44 | Outpatient (BNVA) | payer MEDICARE, SELFPAY | PROVIDERS: PCP Family Medicine; Visit Provider Internal Medicine Cardiovascular Disease | DX: I10 Essential (primary) hypertension (principal); I48.91 Unspecified atrial fibrillation; Z79.01 Long term (current) use of anticoagulants | CPT/HCPCS: 99214 ==

== ENCOUNTER → 2025-09-14 08:18 | Outpatient (BNVA) | payer MEDICARE, SELFPAY | PROVIDERS: PCP Family Medicine; Visit Provider Dermatology | DX: L82.1 Other seborrheic keratosis (principal); D18.01 Hemangioma of skin and subcutaneous tissue; L81.3 Cafe au lait spots; Z08 Encounter for follow-up examination after completed treatment for malignant neoplasm; Z85.828 Personal history of other malignant neoplasm of skin | CPT/HCPCS: 11102; 17110; 99213 ==